=== PATIENT | female | born 1935 | race African-American/Black ===

== ENCOUNTER 2017-07-30 16:28 | Inpatient (IN) | payer MEDICARE, OTHER ==
[~2017-07-30] VITALS: Ht 157.5 cm; Wt 83.9 kg
[~2017-07-30 16:28] MED LIST: ADVAIR 250-501 EACH INH; ALBUTEROL2.5 MG/3 M INH; AMOX TR-K CLV1 EAC1 ORAL; CEFTIN250 MG ORAL; DONEPEZIL HCL10 M2 ORAL; FERROUS SULFAT325 MG ORAL; GERI-TUSSI100 MG/5 M PO; HYDRALAZINE HCL10 MG ORAL; IMODIUM2 MG ORAL; LISINOPRIL5 MG ORAL; OMEPRAZOLE20 M2 ORAL; ONDANSETRON ODT4 MG ORAL; PERIGUARD OINT100 GM TP; TYLENOL650 MG/20. ORAL; VITAMIN C500 M1 ORAL; ZOFRAN4 M1 ORAL
[2017-07-30 16:40] VITALS: BP 95/58
--- NOTE | 2017-07-30 17:17 | Emergency Room Report ---
History of Present Illness General Chief Complaint: Dyspnea/Respdistress Source: Patient, Medical Record Present Illness HPI 82-year-old female [facility] weakness and "congestion" History of present illness limited as patient is elderly and possibly demented Review of peripheral prison she has history of pneumonitis, dysphasia, COPD, hypertension, Alzheimer's CK D, anemia Patient is full code Per PMD Dr Jade outmarj of flu at [facility] Allergies: Coded Allergies: NO KNOWN DRUG ALLERGIES (Unverified Allergy, Unknown, 08/31/14) Patient History Past Medical History: other - see HPI Past Surgical History: none Pertinent Family History: none Social History: Denies: smoking, alcohol use, drug use Now: No Immunizations: UTD Reviewed Nursing Documentation: PMH: Agreed, PSxH: Agreed Nursing Documentation-PMH Past Medical History: No History, Except For Hx Cardiac Problems: Yes Hx Hypertension: Yes Hx Pacemaker: No Hx Asthma: No Hx COPD: Yes Hx Diabetes: No Hx Cancer: Yes Hx Gastrointestinal Problems: Yes Hx Dialysis: No Hx Neurological Problems: Yes Hx Cerebrovascular Accident: No Hx Dementia: Yes Hx Seizures: No Hx Weakness: Yes Review of Systems All Other Systems: negative except mentioned in HPI Physical Exam Vital Signs Date Time Temp Pulse Resp B/P (MAP) Pulse Ox O2 Delivery O2 Flow Rate FiO2 07/30/17 16:30 97.5 102 20 91/58 91 Nasal Cannula 4.0 97.5 Sp02 EP Interpretation: reviewed, normal General Appearance: normal inspection, well appearing, no apparent distress, alert, GCS 15, non-toxic, cachetic, thin, other - Elderly appearing Head: normocephalic, atraumatic Eyes: bilateral eye PERRL, bilateral eye EOMI ENT: normal ENT inspection, hearing grossly normal, normal pharynx, no angioedema, normal voice, TMs + canals normal, uvula midline, moist mucus membranes Neck: normal inspection, full range of motion, supple, thyroid normal, no meningismus, no bony tend Respiratory: normal inspection, lungs clear, normal breath sounds, no rhonchi, no respiratory distress, no retraction, no accessory muscle use, no wheezing, speaking full sentences Cardiovascular #1: regular rate, rhythm, no edema, no JVD, normal capillary refill Gastrointestinal: normal inspection, normal bowel sounds, non tender, soft, no mass, no peritonitis, non-distended, no guarding, no hernia, no pulsatile mass Genitourinary: no CVA tenderness Musculoskeletal: normal inspection, back normal, normal range of motion, no calf tenderness, pelvis stable, Dejuan's Sign negative Neurologic: normal inspection, alert, responsive, mold presser III-XII nml as tested, motor strength/tone normal, cerebellar normal, normal gait, speech normal Psychiatric: normal inspection, judgement/insight normal, mood/affect normal, no suicidal/homicidal ideation, no delusions Skin: normal inspection, normal color, no rash Lymphatic: normal inspection, no adenopathy Medical Decision Making Diagnostic Impression: Primary Impression: Sepsis Qualified Codes: A41.9 - Sepsis, unspecified organism Additional Impressions: Weakness CKD (chronic kidney disease) stage 3, GFR 30-59 ml/min JAYCEE (acute kidney injury) Lactic acidosis ER Course Patient is tachycardic Was allegedly hypoxic at [facility] Normotensive here, NOT hypoxic Empiric Abx given IVF NS bolus given - not full 30cc/kg bolus d/t elderly age, unknwon cardiac EF Labs show JAYCEE on CKD, elevated sodium Na Was giving empiric Tamiflu Patient looks improved after IVF, Abx Endorsed to Dr Jade for tele admit 647pm EKG Diagnostic Results Rate: normal Rhythm: NSR ST Segments: no acute changes ASA given to the pt in ED: No Rhythm Strip Diag. Results EP Interpretation: yes Rate: 100 Rhythm: NSR, no PVC's, no ectopy Chest X-Ray Diagnostic Results Chest X-Ray Diagnostic Results : Chest X-Ray Ordered: Yes # of Views/Limited/Complete: 1 View Indication: Shortness of Breath EP Interpretation: Yes Interpretation: no consolidation, no effusion, no pneumothorax, no acute cardiopulmonary disease Impression: No acute disease Electronically Signed by: Dr Marcos Mckeon MD Last Vital Signs Date Time Temp Pulse Resp B/P (MAP) Pulse Ox O2 Delivery O2 Flow Rate FiO2 07/30/17 16:40 97.5 103 16 95/58 95 Nasal Cannula 4.0 97.5 Status: improved Disposition: ADMITTED INPATIENT Condition: Serious MARCOS MCKEON M.D. Jul 30, 2017 17:17
[2017-07-30] MEDS ORDERED: ZESTRIL2.5 MG ORAL (17:39)
[2017-07-30] MEDS ORDERED: ACETAMINOPHEN325 M1 ORAL (17:39)
[2017-07-30] MEDS ORDERED: CRANBERRY425 MG PO ×2 (17:40→18:36)
[2017-07-30] MEDS ORDERED: ASPIRIN81 MG ORAL (17:40)
[2017-07-30] MEDS ORDERED: DOCUSATE SODIU100 MG ORAL (17:41)
[2017-07-30] MEDS ORDERED: MULTIVITAMINS1 EAC8 ORAL (17:41)
[2017-07-30] MEDS ORDERED: VITAMIN B-1100 MG ORAL (17:43)
[2017-07-30] MEDS ORDERED: CALMOSEPTINE OI71 GM TP (17:46)
[2017-07-30] MEDS ORDERED: IBUPROFEN600 MG ORAL (17:46)
[2017-07-30 18:02] LABS: BASOPHILS % (AUTO) 1.6 % (0.0-2.0); EOSINOPHILS % (AUTO) 0.2 % (0.0-3.0); HEMOGLOBIN 12.4 G/DL (12.0-16.0); LYMPHOCYTES % (AUTO) 9.4 % (20.0-45.0); MEAN CORPUSCULAR VOLUME 90 FL (80-99); MONOCYTES % (AUTO) 11.6 % (1.0-10.0); NEUTROPHILS % (AUTO) 77.2 % (45.0-75.0); PLATELET COUNT 221 K/UL (150-450); RED BLOOD COUNT 4.33 M/UL (4.20-5.40); RED CELL DISTRIBUTION WIDTH 12.1 % (11.6-14.8)
[2017-07-30 18:16] LABS: ANION GAP 9 mmol/L (5-15); BLOOD UREA NITROGEN 49 mg/dL (7-18); CALCIUM 9.6 MG/DL (8.5-10.1); CARBON DIOXIDE 30 MMOL/L (21-32); CHLORIDE 115 MMOL/L (98-107); POTASSIUM 4.7 MMOL/L (3.5-5.1); SODIUM 153 MMOL/L (136-145)
[2017-07-30 18:27] VITALS: BP 111/72
[2017-07-30 18:29] LABS: ALANINE AMINOTRANSFERASE 28 U/L (12-78); ALBUMIN 3.4 G/DL (3.4-5.0); ALBUMIN/GLOBULIN RATIO 0.8 (1.0-2.7); ALKALINE PHOSPHATASE 70 U/L (46-116); ASPARTATE AMINO TRANSFERASE 44 U/L (15-37); BILIRUBIN,TOTAL 0.4 MG/DL (0.2-1.0); CKMB < 0.5 NG/ML (0.0-3.6); CREATINE KINASE 317 U/L (26-308)
[2017-07-30] MEDS ORDERED: Oseltamivir 75mg cap ORAL SCH (18:45)
--- NOTE | 2017-07-30 19:07 | History & Physical ---
History and Physical History & Physicial 82-year-old female sent from [facility] for weakness and "congestion" History of present illness limited as patient is elderly and possibly demented Review of peripheral correction she has history of pneumonitis, dysphasia, COPD, hypertension, Alzheimer's CK D, anemia Patient is full code Past Medical History: No History, Except For Hx Cardiac Problems: Yes Hx Hypertension: Yes Hx COPD: Yes Hx Cancer: Yes Hx Gastrointestinal Problems: Yes Hx Neurological Problems: Yes Hx Dementia: Yes Hx Weakness: Yes Sepsis / UTI / Lactic acidosis / Hypotension Weakness CKD (chronic kidney disease) stage 3, GFR 30-59 ml/min JAYCEE (acute kidney injury) Dehydration Lactic acidosis Acute encephalopathy IV Hydrate- fluid challenge Antibiotics- NPO St eval Monitor renal parameters per orders ID eval breathing treatment # [id number] ARA JULIEN Jul 30, 2017 19:07
[2017-07-30 19:15] LABS: APPEARANCE,URINE CLOUDY; BILIRUBIN, URINE NEGATIVE (NEGATIVE); GLUCOSE, URINE (UA) NEGATIVE (NEGATIVE); KETONES,URINE NEGATIVE (NEGATIVE); LEUKOCYTE ESTERASE ,URINE 3+ (NEGATIVE); NITRITE,URINE NEGATIVE (NEGATIVE); PH,URINE 5 (4.5-8.0); PROTEIN,URINE 2+ (NEGATIVE); UROBILINOGEN,URINE 1 MG/DL (0.0-1.0)
[2017-07-30] MEDS ORDERED: Albuterol ud Inhalation HHN PRN (19:15)
[2017-07-30] MEDS ORDERED: Vancomycin 750mg/NS 250ml 250 ML IVPB ONE (19:15)
[2017-07-30 19:16] LABS: COLOR,URINE YELLOW
[2017-07-30 19:40] VITALS: BP 105/70
[2017-07-30] MEDS ORDERED: Vancomycin 1gm/D5W 275ml IVPB ONE ×2 (21:00)
[2017-07-30] MEDS: Pantoprazole Inj IVP SCH (21:26)
[2017-07-30] MEDS: Heparin 5000 units/ml inj SUBQ SCH (21:28)
--- NOTE | 2017-07-30 22:43 | Infectious Diseases Prog Note ---
Assessment/Plan Problems: (1) UTI (urinary tract infection) Assessment & Plan: continue zosyn pending urine culture results (2) Sepsis Assessment & Plan: continue vancomycin and zosyn empiric coverage pending blood culture (3) Dehydration Assessment & Plan: continue IVF for hydration (4) Lactic acidosis Assessment & Plan: due to the above, continue hydration monitor lactic acid (5) Altered mental status Assessment & Plan: due to the above, continue neuro check, consider brain images (6) JAYCEE (acute kidney injury) Assessment & Plan: due to dehydration, continue IVF, monitor renal function , nephrology is following Subjective Allergies: Coded Allergies: NO KNOWN DRUG ALLERGIES (Unverified Allergy, Unknown, 08/31/14) Objective Vital Signs Last 24 Hour Vital Signs Date Time Temp Pulse Resp B/P (MAP) Pulse Ox O2 Delivery O2 Flow Rate FiO2 07/30/17 20:35 98.8 99 17 105/70 100 Nasal Cannula 4.0 98.8 07/30/17 19:40 98.8 99 17 105/70 100 Nasal Cannula 4.0 98.8 07/30/17 18:27 97.5 100 14 111/72 100 Nasal Cannula 4.0 97.5 07/30/17 16:40 97.5 103 16 95/58 95 Nasal Cannula 4.0 97.5 07/30/17 16:40 102 20 Nasal Cannula 4.0 07/30/17 16:30 97.5 102 20 91/58 91 Nasal Cannula 4.0 97.5 Height (Feet): 5 Height (Inches): 4.00 Weight (Pounds): 130 Microbiology Date/Time Source Procedure Growth Status 07/30/17 19:00 Nasal Nares Influenza Types A,B Antigen (MARA) - Final Complete Laboratory Tests Test 07/30/17 17:40 07/30/17 19:00 07/30/17 19:37 White Blood Count 9.0 K/UL (4.8-10.8) Red Blood Count 4.33 M/UL (4.20-5.40) Hemoglobin 12.4 G/DL (12.0-16.0) Hematocrit 39.0 % (37.0-47.0) Mean Corpuscular Volume 90 FL (80-99) Mean Corpuscular Hemoglobin 28.8 PG (27.0-31.0) Mean Corpuscular Hemoglobin Concent 31.9 G/DL (32.0-36.0) L Red Cell Distribution Width 12.1 % (11.6-14.8) Platelet Count 221 K/UL (150-450) Mean Platelet Volume 7.5 FL (6.5-10.1) Neutrophils (%) (Auto) 77.2 % (45.0-75.0) H Lymphocytes (%) (Auto) 9.4 % (20.0-45.0) L Monocytes (%) (Auto) 11.6 % (1.0-10.0) H Eosinophils (%) (Auto) 0.2 % (0.0-3.0) Basophils (%) (Auto) 1.6 % (0.0-2.0) Sodium Level 153 MMOL/L (136-145) H Potassium Level 4.7 MMOL/L (3.5-5.1) Chloride Level 115 MMOL/L (98-107) H Carbon Dioxide Level 30 MMOL/L (21-32) Anion Gap 9 mmol/L (5-15) Blood Urea Nitrogen 49 mg/dL (7-18) H Creatinine 2.0 MG/DL (0.55-1.30) H Estimat Glomerular Filtration Rate mL/min (>60) Glucose Level 114 MG/DL (74-106) H Lactic Acid Level 3.90 mmol/L (0.66-2.22) H 1.50 mmol/L (0.66-2.22) Calcium Level 9.6 MG/DL (8.5-10.1) Total Bilirubin 0.4 MG/DL (0.2-1.0) Aspartate Amino Transf (AST/SGOT) 44 U/L (15-37) H Alanine Aminotransferase (ALT/SGPT) 28 U/L (12-78) Alkaline Phosphatase 70 U/L (46-116) Total Creatine Kinase 317 U/L (26-308) H Creatine Kinase MB < 0.5 NG/ML (0.0-3.6) Creatine Kinase MB Relative Index 0.1 Troponin I 0.018 ng/mL (0.000-0.056) Total Protein 7.8 G/DL (6.4-8.2) Albumin 3.4 G/DL (3.4-5.0) Globulin 4.4 g/dL Albumin/Globulin Ratio 0.8 (1.0-2.7) L Urine Color Yellow Urine Appearance Cloudy Urine pH 5 (4.5-8.0) Urine Specific [place] 1.015 (1.005-1.035) Urine Protein 2+ (NEGATIVE) H Urine Glucose (UA) Negative (NEGATIVE) Urine Ketones Negative (NEGATIVE) Urine Occult Blood 4+ (NEGATIVE) H Urine Nitrite Negative (NEGATIVE) Urine Bilirubin Negative (NEGATIVE) Urine Urobilinogen 1 MG/DL (0.0-1.0) H Urine Leukocyte Esterase 3+ (NEGATIVE) H Urine RBC Tntc /HPF (0 - 2) H Urine WBC Tntc /HPF (0 - 2) H Urine Squamous Epithelial Cells Few /LPF (NONE/OCC) Urine Bacteria Many /HPF (NONE) H Current Medications Medications (Trade) Dose Ordered Sig/Kimberley Route PRN Reason Start Time Stop Time Status Last Admin Dose Admin Acetaminophen (Tylenol) 325 mg Q6H PRN ORAL Mild Pain/Temp > 100.5 07/30/17 19:15 08/29/17 19:14 Albuterol Sulfate (Proventil) 2.5 mg Q6H PRN HHN Shortness of Breath 07/30/17 19:15 08/04/17 19:14 Aspirin (ASA) 81 mg DAILY ORAL 07/31/17 09:00 08/30/17 08:59 Dextrose 1,000 ml @ 75 mls/hr [id number] IV 07/30/17 19:15 08/29/17 19:14 07/30/17 21:26 Docusate Sodium (Colace) 100 mg TWICE A DAY ORAL 07/31/17 09:00 08/30/17 08:59 Heparin Sodium (Porcine) (Heparin 5000 units/ml) 5,000 units EVERY 12 HOURS SUBQ 07/30/17 21:00 08/29/17 20:59 07/30/17 21:28 Oseltamivir Phosphate (Tamiflu) 75 mg DAILY ORAL 07/31/17 09:00 08/05/17 08:59 UNV Pantoprazole (Protonix) 40 mg BID IVP 07/30/17 20:12 08/29/17 20:11 07/30/17 21:26 Piperacillin Sod/ Tazobactam Sod 3.375 gm/Sodium Chloride 110 ml @ 220 mls/hr Q8HR IVPB 07/30/17 22:00 08/06/17 21:59 Thiamine HCl (Vitamin B1) 100 mg DAILY ORAL 07/31/17 09:00 08/30/17 08:59 Vancomycin HCl (Vanco rx to dose) 1 ea DAILY PRN MISC Per rx protocol 07/30/17 19:15 08/29/17 19:14 Jasmyn Peterson M.D. Jul 30, 2017 22:43
[2017-07-30] MEDS: Piperacillin/Tazobactam 3.375 GM in NS 110 ML IVPB SCH (23:46)
[2017-07-31] VITALS (7 sets, daily range): BP systolic 104–140; BP diastolic 58–77
[2017-07-31] MEDS: Piperacillin/Tazobactam 3.375 GM in NS 110 ML IVPB SCH ×2 (05:56→22:48)
[2017-07-31] MEDS: Pantoprazole Inj IVP SCH ×2 (08:30→20:26)
[2017-07-31] MEDS: Heparin 5000 units/ml inj SUBQ SCH ×2 (08:31→20:25)
--- NOTE | 2017-07-31 08:41 | Diagnostic Imaging Report ---
Indication: Shortness of breath Technique: One view of the chest Comparison: 11/06/2014 Findings: Patient is rotated to the left. There is elevation of the left hemidiaphragm. There is atelectasis at the left lung base. Left upper lung, right lung and pleural space are clear. Previously demonstrated right perihilar atelectasis is not evident currently. The heart is upper limits of normal in size Impression: Left basilar volume loss with atelectasis. No acute process otherwise
[2017-07-31] MEDS ORDERED: Thiamine 100mg tab ORAL SCH (09:00)
[2017-07-31] MEDS ORDERED: Oseltamivir 75mg cap ORAL SCH (09:00)
[2017-07-31] MEDS ORDERED: Aspirin Baby 81mg ORAL SCH (09:00)
[2017-07-31] MEDS ORDERED: Docusate 100mg cap ORAL SCH (09:00)
[2017-07-31 10:01] LABS: BASOPHILS % (AUTO) 0.4 % (0.0-2.0); HEMATOCRIT 33.6 % (37.0-47.0); HEMOGLOBIN 10.7 G/DL (12.0-16.0); LYMPHOCYTES % (AUTO) 21.3 % (20.0-45.0); MEAN CORPUSCULAR VOLUME 90 FL (80-99); MONOCYTES % (AUTO) 9.3 % (1.0-10.0); PLATELET COUNT 198 K/UL (150-450); RED BLOOD COUNT 3.76 M/UL (4.20-5.40); WHITE BLOOD COUNT 7.6 K/UL (4.8-10.8)
[2017-07-31 10:20] LABS: ANION GAP 9 mmol/L (5-15); BLOOD UREA NITROGEN 38 mg/dL (7-18); CALCIUM 8.9 MG/DL (8.5-10.1); CARBON DIOXIDE 27 MMOL/L (21-32); CHLORIDE 115 MMOL/L (98-107); CREATININE 1.7 MG/DL (0.55-1.30); POTASSIUM 4.3 MMOL/L (3.5-5.1); SODIUM 151 MMOL/L (136-145)
[2017-07-31 10:26] LABS: ALANINE AMINOTRANSFERASE 11 U/L (12-78); ALBUMIN 2.6 G/DL (3.4-5.0); ALBUMIN/GLOBULIN RATIO 0.6 (1.0-2.7); ALKALINE PHOSPHATASE 58 U/L (46-116); ASPARTATE AMINO TRANSFERASE 31 U/L (15-37); BILIRUBIN,TOTAL 0.6 MG/DL (0.2-1.0); PHOSPHORUS 3.7 MG/DL (2.5-4.9)
[2017-07-31 10:33] LABS: CHOLESTEROL 129 MG/DL (< 200); HDL CHOLESTEROL 42 MG/DL (40-60); TRIGLYCERIDES 118 MG/DL (30-150)
--- NOTE | 2017-07-31 11:13 | General Progress Note ---
Assessment/Plan Problem List: (1) Sepsis ICD Codes: A41.9 - Sepsis, unspecified organism SNOMED: 67274707 (2) Dementia ICD Codes: F03.90 - Dementia SNOMED: 23986890 (3) JAYCEE (acute kidney injury) ICD Codes: N17.9 - JAYCEE (acute kidney injury) SNOMED: 74916905 (4) CKD (chronic kidney disease) stage 3, GFR 30-59 ml/min ICD Codes: N18.3 - CKD (chronic kidney disease) stage 3, GFR 30-59 ml/min SNOMED: 803047963 (5) Dehydration ICD Codes: E86.0 - Dehydration SNOMED: 30615266 (6) Lactic acidosis ICD Codes: E87.2 - Acidosis SNOMED: 05049352 (7) Functional quadriplegia ICD Codes: R53.2 - Functional quadriplegia SNOMED: 762352247173568 (8) Pneumonia Assessment & Plan: left base ICD Codes: J18.9 - Pneumonia, unspecified organism SNOMED: 939750958 Status: stable Status Narrative Sepsis / UTI / Lactic acidosis Weakness CKD (chronic kidney disease) stage 3, GFR 30-59 ml/min JAYCEE (acute kidney injury) Dehydration Lactic acidosis Acute encephalopathy Assessment/Plan IV Hydrate- fluid challenge Antibiotics- NPO St eval Monitor renal parameters per orders ID eval breathing treatment Subjective ROS Limited/Unobtainable: No Constitutional: Reports: malaise, other - non verbal Allergies: Coded Allergies: NO KNOWN DRUG ALLERGIES (Unverified Allergy, Unknown, 08/31/14) Objective Last 24 Hour Vital Signs Date Time Temp Pulse Resp B/P (MAP) Pulse Ox O2 Delivery O2 Flow Rate FiO2 07/31/17 08:36 Nasal Cannula 3.5 07/31/17 08:35 97 Nasal Cannula 3.5 07/31/17 08:34 83 22 Nasal Cannula 3.5 07/31/17 08:00 97.7 74 18 104/67 99 Nasal Cannula 3.0 97.7 07/31/17 04:00 98.1 76 19 106/58 97 Nasal Cannula 3.0 98.1 07/31/17 04:00 79 07/31/17 00:00 97.9 77 20 106/62 99 Nasal Cannula 3.0 97.9 07/31/17 00:00 86 3/8/18 21:01 90 07/30/17 20:35 98.8 99 17 105/70 100 Nasal Cannula 4.0 98.8 07/30/17 19:40 98.8 99 17 105/70 100 Nasal Cannula 4.0 98.8 07/30/17 18:27 97.5 100 14 111/72 100 Nasal Cannula 4.0 97.5 07/30/17 16:40 97.5 103 16 95/58 95 Nasal Cannula 4.0 97.5 07/30/17 16:40 102 20 Nasal Cannula 4.0 07/30/17 16:30 97.5 102 20 91/58 91 Nasal Cannula 4.0 97.5 Intake and Output 07/30/17 07/31/17 19:00 07:00 Intake Total 0 ml 1300 ml Output Total 495 ml Balance 0 ml 805 ml Intake Oral 0 ml IV Total 1300 ml Output Urine Total 495 ml # Voids 6 Laboratory Tests 07/30/17 17:40: White Blood Count 9.0, Red Blood Count 4.33, Hemoglobin 12.4, Hematocrit 39.0, Mean Corpuscular Volume 90, Mean Corpuscular Hemoglobin 28.8, Mean Corpuscular Hemoglobin Concent 31.9L, Red Cell Distribution Width 12.1, Platelet Count 221, Mean Platelet Volume 7.5, Neutrophils (%) (Auto) 77.2H, Lymphocytes (%) (Auto) 9.4L, Monocytes (%) (Auto) 11.6H, Eosinophils (%) (Auto) 0.2, Basophils (%) ( Auto) 1.6, Sodium Level 153H, Potassium Level 4.7, Chloride Level 115H, Carbon Dioxide Level 30, Anion Gap 9, Blood Urea Nitrogen 49H, Creatinine 2.0H, Estimat Glomerular Filtration Rate , Glucose Level 114H, Lactic Acid Level 3.90H , Calcium Level 9.6, Total Bilirubin 0.4, Aspartate Amino Transf (AST/SGOT) 44H , Alanine Aminotransferase (ALT/SGPT) 28, Alkaline Phosphatase 70, Total Creatine Kinase 317H, Creatine Kinase MB < 0.5, Creatine Kinase MB Relative Index 0.1, Troponin I 0.018, Total Protein 7.8, Albumin 3.4, Globulin 4.4, Albumin/Globulin Ratio 0.8L 07/30/17 19:00: Urine Color Yellow, Urine Appearance Cloudy, Urine pH 5, Urine Specific [place] 1.015, Urine Protein 2+H, Urine Glucose (UA) Negative, Urine Ketones Negative, Urine Occult Blood 4+H, Urine Nitrite Negative, Urine Bilirubin Negative, Urine Urobilinogen 1H, Urine Leukocyte Esterase 3+H, Urine RBC TntcH, Urine WBC TntcH , Urine Squamous Epithelial Cells Few, Urine Bacteria ManyH 07/30/17 19:37: Lactic Acid Level 1.50 07/31/17 09:32: White Blood Count 7.6, Red Blood Count 3.76L, Hemoglobin 10.7L, Hematocrit 33.6L , Mean Corpuscular Volume 90, Mean Corpuscular Hemoglobin 28.5, Mean Corpuscular Hemoglobin Concent 31.8L, Red Cell Distribution Width 12.0, Platelet Count 198, Mean Platelet Volume 7.5, Neutrophils (%) (Auto) 68.0, Lymphocytes (%) (Auto) 21.3, Monocytes (%) (Auto) 9.3, Eosinophils (%) (Auto) 1.0, Basophils (%) (Auto) 0.4, Sodium Level 151H, Potassium Level 4.3, Chloride Level 115H, Carbon Dioxide Level 27, Anion Gap 9, Blood Urea Nitrogen 38H, Creatinine 1.7H, Estimat Glomerular Filtration Rate , Glucose Level 86, Calcium Level 8.9, Total Bilirubin 0.6, Aspartate Amino Transf (AST/SGOT) 31, Alanine Aminotransferase (ALT/SGPT) 11L, Alkaline Phosphatase 58, Total Protein 6.6, Albumin 2.6L, Globulin 4.0, Albumin/Globulin Ratio 0.6L, Phosphorus Level 3.7, Magnesium Level 1.9, C-Reactive Protein, Quantitative 8.2H, Triglycerides Level 118, Cholesterol Level 129, LDL Cholesterol 63, HDL Cholesterol 42, Cholesterol/ HDL Ratio 3.1L, Thyroid Stimulating Hormone (TSH) 0.068L Height (Feet): 5 Height (Inches): 4.00 Weight (Pounds): 130 General Appearance: lethargic Cardiovascular: normal rate Respiratory/Chest: decreased breath sounds Abdomen: soft Edema: no edema noted Arm (L), no edema noted Arm (R), no edema noted Leg (L), no edema noted Leg (R), no edema noted Pedal (L), no edema noted Pedal (R), no edema noted Generalized ARA JULIEN 9, 2018 11:13
[2017-07-31] MEDS ORDERED: Promethazine/Codeine 5ml UD ORAL PRN ×2 (11:45→19:00)
--- NOTE | 2017-07-31 11:51 | Consultation ---
History of Present Illness General Date patient seen: Jul 31, 2017 Chief Complaint: Dyspnea/Respdistress Reason for Consultation: dypsnea Present Illness HPI 82-year-old female with hx of Dementia, COPD, cachexia, long term resident sent in for weakness and "congestion". The pt is very poor historian and all information is obtained from the chart. pt looks comfortable. Pt is admitted for possible sepsis. Pts daughter who is at bed site and giving the HPI. Allergies: Coded Allergies: NO KNOWN DRUG ALLERGIES (Unverified Allergy, Unknown, 08/31/14) Medication History Scheduled Aspirin* (Aspirin*), 81 MG ORAL DAILY, (Reported) Cranberry Extract (Cranberry), 850 MG PO BID, (Reported) Docusate Sodium* (Docusate Sodium*), 100 MG ORAL TWICE A DAY, (Reported) Donepezil Hcl* (Donepezil Hcl*), 10 MG ORAL QHS, (Reported) Lisinopril* (Zestril*), 2.5 MG ORAL DAILY, (Reported) Multivitamin With Minerals (Multivitamins With Minerals*), 1 TAB ORAL DAILY, ( Reported) Thiamine Hcl* (Vitamin B-1*), 100 MG ORAL DAILY, (Reported) Scheduled PRN Acetaminophen* (Acetaminophen 325MG Tablet*), 325 MG ORAL Q6H PRN for Mild Pain/ Temp > 100.5, (Reported) Albuterol Sulfate* (Albuterol Sulfate Hhn*), 3 ML INH Q6H PRN for Shortness of Breath, (Reported) Ibuprofen* (Motrin*), 200 MG ORAL THREE TIMES A DAY PRN for For Pain, (Reported) Loperamide HCl (Loperamide), 2 MG ORAL EVERY 6 HOURS PRN for Diarrhea, (Reported ) Miscellaneous Medications Menthol/Zinc Oxide (Calmoseptine Ointment), 71 GM TP, (Reported) Discontinued Medications Amoxicillin/Potassium Clav 500-125 Mg Tab* (Amox Tr-K Clv 500-125 Mg Tab*), 500 MG ORAL EVERY 8 HOURS Discontinued Reason: Therapy completed Ascorbic Acid* (Vitamin C*), 500 MG ORAL DAILY, (Reported) Discontinued Reason: Pt stopped taking med Cefuroxime Axetil* (Ceftin*), 250 MG ORAL EVERY 12 HOURS Discontinued Reason: MD discontinued med Ferrous Sulfate* (Ferrous Sulfate*), 325 MG ORAL DAILY, (Reported) Discontinued Reason: Pt stopped taking med Fluticasone/Salmeterol (Advair 250-50 Diskus), 1 PUFF INH Q12HR, (Reported) Discontinued Reason: Pt stopped taking med Guaifenesin (Kay-Tussin), 100 MG PO EVERY 4 HOURS PRN for For Cough, (Reported) Discontinued Reason: Pt stopped taking med Hydralazine Hcl* (Hydralazine Hcl*), 10 MG ORAL EVERY 6 HOURS PRN for For High Blood Pressure, (Reported) Discontinued Reason: Pt stopped taking med Omeprazole (Omeprazole), 20 MG ORAL BEFORE MEALS, (Reported) Discontinued Reason: Pt stopped taking med Ondansetron Odt* (Zofran Odt*), 4 MG ORAL EVERY 4 HOURS, (Reported) Discontinued Reason: Pt stopped taking med Vit A/Vitamin D3/E/Aloe V/Znox (Periguard Ointment), 100 GM TP, (Reported) Discontinued Reason: Pt stopped taking med Patient History Healthcare decision maker Resuscitation status Full Code Advanced Directive on File Yes Past Medical/Surgical History Past Medical/Surgical History: (1) CKD (chronic kidney disease) stage 3, GFR 30-59 ml/min (2) Dementia (3) Functional quadriplegia Review of Systems Respiratory: Reports: shortness of breath All Other Systems: negative except mentioned in HPI Physical Exam General Appearance: cachetic Lines, tubes and drains: peripheral HEENT: normocephalic, atraumatic Neck: non-tender, normal alignment Respiratory/Chest: chest wall non-tender, lungs clear Cardiovascular/Chest: normal peripheral pulses, normal rate Abdomen: normal bowel sounds, non tender Genitourinary/Rectal: normal genital exam Extremities: normal range of motion, non-tender Skin Exam: normal pigmentation Last 24 Hour Vital Signs Date Time Temp Pulse Resp B/P (MAP) Pulse Ox O2 Delivery O2 Flow Rate FiO2 07/31/17 08:36 Nasal Cannula 3.5 07/31/17 08:35 97 Nasal Cannula 3.5 07/31/17 08:34 83 22 Nasal Cannula 3.5 07/31/17 08:00 97.7 74 18 104/67 99 Nasal Cannula 3.0 97.7 07/31/17 04:00 98.1 76 19 106/58 97 Nasal Cannula 3.0 98.1 07/31/17 04:00 79 07/31/17 00:00 97.9 77 20 106/62 99 Nasal Cannula 3.0 97.9 07/31/17 00:00 86 07/30/17 21:01 90 07/30/17 20:35 98.8 99 17 105/70 100 Nasal Cannula 4.0 98.8 07/30/17 19:40 98.8 99 17 105/70 100 Nasal Cannula 4.0 98.8 07/30/17 18:27 97.5 100 14 111/72 100 Nasal Cannula 4.0 97.5 07/30/17 16:40 97.5 103 16 95/58 95 Nasal Cannula 4.0 97.5 07/30/17 16:40 102 20 Nasal Cannula 4.0 07/30/17 16:30 97.5 102 20 91/58 91 Nasal Cannula 4.0 97.5 Intake and Output 07/30/17 07/31/17 19:00 07:00 Intake Total 0 ml 1300 ml Output Total 495 ml Balance 0 ml 805 ml Intake Oral 0 ml IV Total 1300 ml Output Urine Total 495 ml # Voids 6 Laboratory Tests Test 07/30/17 17:40 07/30/17 19:00 07/30/17 19:37 07/31/17 09:32 White Blood Count 9.0 K/UL (4.8-10.8) 7.6 K/UL (4.8-10.8) Red Blood Count 4.33 M/UL (4.20-5.40) 3.76 M/UL (4.20-5.40) L Hemoglobin 12.4 G/DL (12.0-16.0) 10.7 G/DL (12.0-16.0) L Hematocrit 39.0 % (37.0-47.0) 33.6 % (37.0-47.0) L Mean Corpuscular Volume 90 FL (80-99) 90 FL (80-99) Mean Corpuscular Hemoglobin 28.8 PG (27.0-31.0) 28.5 PG (27.0-31.0) Mean Corpuscular Hemoglobin Concent 31.9 G/DL (32.0-36.0) L 31.8 G/DL (32.0-36.0) L Red Cell Distribution Width 12.1 % (11.6-14.8) 12.0 % (11.6-14.8) Platelet Count 221 K/UL (150-450) 198 K/UL (150-450) Mean Platelet Volume 7.5 FL (6.5-10.1) 7.5 FL (6.5-10.1) Neutrophils (%) (Auto) 77.2 % (45.0-75.0) H 68.0 % (45.0-75.0) Lymphocytes (%) (Auto) 9.4 % (20.0-45.0) L 21.3 % (20.0-45.0) Monocytes (%) (Auto) 11.6 % (1.0-10.0) H 9.3 % (1.0-10.0) Eosinophils (%) (Auto) 0.2 % (0.0-3.0) 1.0 % (0.0-3.0) Basophils (%) (Auto) 1.6 % (0.0-2.0) 0.4 % (0.0-2.0) Sodium Level 153 MMOL/L (136-145) H 151 MMOL/L (136-145) H Potassium Level 4.7 MMOL/L (3.5-5.1) 4.3 MMOL/L (3.5-5.1) Chloride Level 115 MMOL/L (98-107) H 115 MMOL/L (98-107) H Carbon Dioxide Level 30 MMOL/L (21-32) 27 MMOL/L (21-32) Anion Gap 9 mmol/L (5-15) 9 mmol/L (5-15) Blood Urea Nitrogen 49 mg/dL (7-18) H 38 mg/dL (7-18) H Creatinine 2.0 MG/DL (0.55-1.30) H 1.7 MG/DL (0.55-1.30) H Estimat Glomerular Filtration Rate mL/min (>60) mL/min (>60) Glucose Level 114 MG/DL (74-106) H 86 MG/DL (74-106) Lactic Acid Level 3.90 mmol/L (0.66-2.22) H 1.50 mmol/L (0.66-2.22) Calcium Level 9.6 MG/DL (8.5-10.1) 8.9 MG/DL (8.5-10.1) Total Bilirubin 0.4 MG/DL (0.2-1.0) 0.6 MG/DL (0.2-1.0) Aspartate Amino Transf (AST/SGOT) 44 U/L (15-37) H 31 U/L (15-37) Alanine Aminotransferase (ALT/SGPT) 28 U/L (12-78) 11 U/L (12-78) L Alkaline Phosphatase 70 U/L (46-116) 58 U/L (46-116) Total Creatine Kinase 317 U/L (26-308) H Creatine Kinase MB < 0.5 NG/ML (0.0-3.6) Creatine Kinase MB Relative Index 0.1 Troponin I 0.018 ng/mL (0.000-0.056) Total Protein 7.8 G/DL (6.4-8.2) 6.6 G/DL (6.4-8.2) Albumin 3.4 G/DL (3.4-5.0) 2.6 G/DL (3.4-5.0) L Globulin 4.4 g/dL 4.0 g/dL Albumin/Globulin Ratio 0.8 (1.0-2.7) L 0.6 (1.0-2.7) L Urine Color Yellow Urine Appearance Cloudy Urine pH 5 (4.5-8.0) Urine Specific [place] 1.015 (1.005-1.035) Urine Protein 2+ (NEGATIVE) H Urine Glucose (UA) Negative (NEGATIVE) Urine Ketones Negative (NEGATIVE) Urine Occult Blood 4+ (NEGATIVE) H Urine Nitrite Negative (NEGATIVE) Urine Bilirubin Negative (NEGATIVE) Urine Urobilinogen 1 MG/DL (0.0-1.0) H Urine Leukocyte Esterase 3+ (NEGATIVE) H Urine RBC Tntc /HPF (0 - 2) H Urine WBC Tntc /HPF (0 - 2) H Urine Squamous Epithelial Cells Few /LPF (NONE/OCC) Urine Bacteria Many /HPF (NONE) H Phosphorus Level 3.7 MG/DL (2.5-4.9) Magnesium Level 1.9 MG/DL (1.8-2.4) C-Reactive Protein, Quantitative 8.2 mg/dL (0.00-0.90) H Triglycerides Level 118 MG/DL (30-150) Cholesterol Level 129 MG/DL (< 200) LDL Cholesterol 63 mg/dL (<100) HDL Cholesterol 42 MG/DL (40-60) Cholesterol/HDL Ratio 3.1 (3.3-4.4) L Thyroid Stimulating Hormone (TSH) 0.068 uiU/mL (0.358-3.740) Microbiology Date/Time Source Procedure Growth Status 07/30/17 19:00 Nasal Nares Influenza Types A,B Antigen (MARA) - Final Complete 07/30/17 19:00 Indwelling Cath Urine Culture - Preliminary Resulted Height (Feet): 5 Height (Inches): 4.00 Weight (Pounds): 130 Medications Current Medications Medications (Trade) Dose Ordered Sig/Kimberley Route PRN Reason Start Time Stop Time Status Last Admin Dose Admin Acetaminophen (Tylenol) 325 mg Q6H PRN ORAL Mild Pain/Temp > 100.5 07/30/17 19:15 08/29/17 19:14 Albuterol Sulfate (Proventil) 2.5 mg Q4HRT HHN 07/31/17 15:00 08/05/17 14:59 Albuterol Sulfate (Proventil) 2.5 mg Q6H PRN HHN Shortness of Breath 07/30/17 19:15 08/04/17 19:14 Aspirin (ASA) 81 mg DAILY ORAL 07/31/17 09:00 08/30/17 08:59 07/31/17 08:30 Dextrose 1,000 ml @ 75 mls/hr [id number] IV 07/30/17 19:15 08/29/17 19:14 07/30/17 21:26 Docusate Sodium (Colace) 100 mg TWICE A DAY ORAL 07/31/17 09:00 08/30/17 08:59 07/31/17 08:29 Heparin Sodium (Porcine) (Heparin 5000 units/ml) 5,000 units EVERY 12 HOURS SUBQ 07/30/17 21:00 08/29/17 20:59 07/31/17 08:31 Pantoprazole (Protonix) 40 mg BID IVP 07/30/17 20:12 08/29/17 20:11 07/31/17 08:30 Piperacillin Sod/ Tazobactam Sod 3.375 gm/Sodium Chloride 110 ml @ 27.5 mls/hr Q8HR IVPB 07/31/17 14:00 08/07/17 13:59 Thiamine HCl (Vitamin B1) 100 mg DAILY ORAL 07/31/17 09:00 08/30/17 08:59 07/31/17 08:30 Vancomycin HCl (Vanco rx to dose) 1 ea DAILY PRN MISC Per rx protocol 07/30/17 19:15 08/29/17 19:14 Vancomycin HCl 500 mg/Dextrose 275 ml @ 275 mls/hr QHS IVPB 07/31/17 21:00 08/05/17 20:59 Assessment/Plan Problem List: (1) Aspiration pneumonia ICD Codes: J69.0 - Pneumonitis due to inhalation of food and vomit SNOMED: 814945560 (2) Purulent bronchitis ICD Codes: J41.1 - Mucopurulent chronic bronchitis SNOMED: 69118261 (3) JAYCEE (acute kidney injury) ICD Codes: N17.9 - JAYCEE (acute kidney injury) SNOMED: 91830204 (4) Dementia ICD Codes: F03.90 - Dementia SNOMED: 40903905 (5) Toxic metabolic encephalopathy ICD Codes: G92 - Toxic metabolic encephalopathy SNOMED: 611685587 (6) Alzheimer's dementia ICD Codes: G30.9 - Alzheimer's disease, unspecified; F02.80 - Dementia in other diseases classified elsewhere without behavioral disturbance SNOMED: 48636947 Assessment/Plan wolff cultures iv abx iv fluids swallow study respiratory treatment check electrolytes FRANKIE GUTIERREZ Jul 31, 2017 11:51
--- NOTE | 2017-07-31 13:56 | Infectious Diseases Prog Note ---
Assessment/Plan Problems: (1) UTI (urinary tract infection) Assessment & Plan: continue zosyn pending urine culture results (2) Sepsis Assessment & Plan: continue vancomycin and zosyn empiric coverage pending blood culture (3) Dehydration Assessment & Plan: continue IVF for hydration (4) Lactic acidosis Assessment & Plan: due to the above, continue hydration monitor lactic acid (5) Altered mental status Assessment & Plan: due to the above, continue neuro check, consider brain images (6) JAYCEE (acute kidney injury) Assessment & Plan: due to dehydration, continue IVF, monitor renal function , nephrology is following Subjective ROS Limited/Unobtainable: Yes Allergies: Coded Allergies: NO KNOWN DRUG ALLERGIES (Unverified Allergy, Unknown, 08/31/14) Subjective she was altered, lying in bed, unresponsive to verbal commands, afebrile, drooling , daughter at the bedside Objective Vital Signs Last 24 Hour Vital Signs Date Time Temp Pulse Resp B/P (MAP) Pulse Ox O2 Delivery O2 Flow Rate FiO2 07/31/17 12:00 64 07/31/17 12:00 97.3 72 18 134/77 95 Nasal Cannula 3.0 97.3 07/31/17 08:36 Nasal Cannula 3.5 07/31/17 08:35 97 Nasal Cannula 3.5 07/31/17 08:34 83 22 Nasal Cannula 3.5 07/31/17 08:00 97.7 74 18 104/67 99 Nasal Cannula 3.0 97.7 07/31/17 08:00 73 07/31/17 04:00 98.1 76 19 106/58 97 Nasal Cannula 3.0 98.1 07/31/17 04:00 79 07/31/17 00:00 97.9 77 20 106/62 99 Nasal Cannula 3.0 97.9 07/31/17 00:00 86 07/30/17 21:01 90 07/30/17 20:35 98.8 99 17 105/70 100 Nasal Cannula 4.0 98.8 07/30/17 19:40 98.8 99 17 105/70 100 Nasal Cannula 4.0 98.8 07/30/17 18:27 97.5 100 14 111/72 100 Nasal Cannula 4.0 97.5 07/30/17 16:40 97.5 103 16 95/58 95 Nasal Cannula 4.0 97.5 07/30/17 16:40 102 20 Nasal Cannula 4.0 07/30/17 16:30 97.5 102 20 91/58 91 Nasal Cannula 4.0 97.5 Height (Feet): 5 Height (Inches): 4.00 Weight (Pounds): 130 General Appearance: WD/WN, no acute distress, cachetic HEENT: normocephalic, atraumatic, anicteric, mucous membranes moist, supple, no JVD Respiratory/Chest: chest wall non-tender, normal breath sounds, no respiratory distress, no accessory muscle use, decreased breath sounds Cardiovascular: normal peripheral pulses, normal rate, regular rhythm, no gallop/murmur, no JVD Abdomen: normal bowel sounds, soft, non tender, no organomegaly, non distended , no mass, no scars Extremities: no cyanosis, no clubbing Skin: no rash, no lesions, ulcers Neurologic/Psychiatric: unresponsiveness Lymphatic: no neck adenopathy, no groin adenopathy Musculoskeletal: normal muscle bulk, no effusion Microbiology Date/Time Source Procedure Growth Status 07/30/17 17:49 Blood Blood Culture - Preliminary Resulted 07/30/17 17:40 Blood Blood Culture - Preliminary Resulted 07/30/17 19:00 Nasal Nares Influenza Types A,B Antigen (MARA) - Final Complete 07/30/17 19:00 Indwelling Cath Urine Culture - Preliminary Resulted Laboratory Tests Test 07/30/17 17:40 07/30/17 19:00 07/30/17 19:37 07/31/17 09:32 White Blood Count 9.0 K/UL (4.8-10.8) 7.6 K/UL (4.8-10.8) Red Blood Count 4.33 M/UL (4.20-5.40) 3.76 M/UL (4.20-5.40) L Hemoglobin 12.4 G/DL (12.0-16.0) 10.7 G/DL (12.0-16.0) L Hematocrit 39.0 % (37.0-47.0) 33.6 % (37.0-47.0) L Mean Corpuscular Volume 90 FL (80-99) 90 FL (80-99) Mean Corpuscular Hemoglobin 28.8 PG (27.0-31.0) 28.5 PG (27.0-31.0) Mean Corpuscular Hemoglobin Concent 31.9 G/DL (32.0-36.0) L 31.8 G/DL (32.0-36.0) L Red Cell Distribution Width 12.1 % (11.6-14.8) 12.0 % (11.6-14.8) Platelet Count 221 K/UL (150-450) 198 K/UL (150-450) Mean Platelet Volume 7.5 FL (6.5-10.1) 7.5 FL (6.5-10.1) Neutrophils (%) (Auto) 77.2 % (45.0-75.0) H 68.0 % (45.0-75.0) Lymphocytes (%) (Auto) 9.4 % (20.0-45.0) L 21.3 % (20.0-45.0) Monocytes (%) (Auto) 11.6 % (1.0-10.0) H 9.3 % (1.0-10.0) Eosinophils (%) (Auto) 0.2 % (0.0-3.0) 1.0 % (0.0-3.0) Basophils (%) (Auto) 1.6 % (0.0-2.0) 0.4 % (0.0-2.0) Sodium Level 153 MMOL/L (136-145) H 151 MMOL/L (136-145) H Potassium Level 4.7 MMOL/L (3.5-5.1) 4.3 MMOL/L (3.5-5.1) Chloride Level 115 MMOL/L (98-107) H 115 MMOL/L (98-107) H Carbon Dioxide Level 30 MMOL/L (21-32) 27 MMOL/L (21-32) Anion Gap 9 mmol/L (5-15) 9 mmol/L (5-15) Blood Urea Nitrogen 49 mg/dL (7-18) H 38 mg/dL (7-18) H Creatinine 2.0 MG/DL (0.55-1.30) H 1.7 MG/DL (0.55-1.30) H Estimat Glomerular Filtration Rate mL/min (>60) mL/min (>60) Glucose Level 114 MG/DL (74-106) H 86 MG/DL (74-106) Lactic Acid Level 3.90 mmol/L (0.66-2.22) H 1.50 mmol/L (0.66-2.22) Calcium Level 9.6 MG/DL (8.5-10.1) 8.9 MG/DL (8.5-10.1) Total Bilirubin 0.4 MG/DL (0.2-1.0) 0.6 MG/DL (0.2-1.0) Aspartate Amino Transf (AST/SGOT) 44 U/L (15-37) H 31 U/L (15-37) Alanine Aminotransferase (ALT/SGPT) 28 U/L (12-78) 11 U/L (12-78) L Alkaline Phosphatase 70 U/L (46-116) 58 U/L (46-116) Total Creatine Kinase 317 U/L (26-308) H Creatine Kinase MB < 0.5 NG/ML (0.0-3.6) Creatine Kinase MB Relative Index 0.1 Troponin I 0.018 ng/mL (0.000-0.056) Total Protein 7.8 G/DL (6.4-8.2) 6.6 G/DL (6.4-8.2) Albumin 3.4 G/DL (3.4-5.0) 2.6 G/DL (3.4-5.0) L Globulin 4.4 g/dL 4.0 g/dL Albumin/Globulin Ratio 0.8 (1.0-2.7) L 0.6 (1.0-2.7) L Urine Color Yellow Urine Appearance Cloudy Urine pH 5 (4.5-8.0) Urine Specific [place] 1.015 (1.005-1.035) Urine Protein 2+ (NEGATIVE) H Urine Glucose (UA) Negative (NEGATIVE) Urine Ketones Negative (NEGATIVE) Urine Occult Blood 4+ (NEGATIVE) H Urine Nitrite Negative (NEGATIVE) Urine Bilirubin Negative (NEGATIVE) Urine Urobilinogen 1 MG/DL (0.0-1.0) H Urine Leukocyte Esterase 3+ (NEGATIVE) H Urine RBC Tntc /HPF (0 - 2) H Urine WBC Tntc /HPF (0 - 2) H Urine Squamous Epithelial Cells Few /LPF (NONE/OCC) Urine Bacteria Many /HPF (NONE) H Phosphorus Level 3.7 MG/DL (2.5-4.9) Magnesium Level 1.9 MG/DL (1.8-2.4) C-Reactive Protein, Quantitative 8.2 mg/dL (0.00-0.90) H Triglycerides Level 118 MG/DL (30-150) Cholesterol Level 129 MG/DL (< 200) LDL Cholesterol 63 mg/dL (<100) HDL Cholesterol 42 MG/DL (40-60) Cholesterol/HDL Ratio 3.1 (3.3-4.4) L Thyroid Stimulating Hormone (TSH) 0.068 uiU/mL (0.358-3.740) Current Medications Medications (Trade) Dose Ordered Sig/Kimberley Route PRN Reason Start Time Stop Time Status Last Admin Dose Admin Acetaminophen (Tylenol) 325 mg Q6H PRN ORAL Mild Pain/Temp > 100.5 07/30/17 19:15 08/29/17 19:14 Albuterol Sulfate (Proventil) 2.5 mg Q4HRT HHN 07/31/17 15:00 08/05/17 14:59 Albuterol Sulfate (Proventil) 2.5 mg Q6H PRN HHN Shortness of Breath 07/30/17 19:15 08/04/17 19:14 Aspirin (ASA) 81 mg DAILY ORAL 07/31/17 09:00 08/30/17 08:59 07/31/17 08:30 Dextrose 1,000 ml @ 75 mls/hr [id number] IV 07/30/17 19:15 08/29/17 19:14 07/30/17 21:26 Docusate Sodium (Colace) 100 mg TWICE A DAY ORAL 07/31/17 09:00 08/30/17 08:59 07/31/17 08:29 Heparin Sodium (Porcine) (Heparin 5000 units/ml) 5,000 units EVERY 12 HOURS SUBQ 07/30/17 21:00 08/29/17 20:59 07/31/17 08:31 Pantoprazole (Protonix) 40 mg BID IVP 07/30/17 20:12 08/29/17 20:11 07/31/17 08:30 Piperacillin Sod/ Tazobactam Sod 3.375 gm/Sodium Chloride 110 ml @ 27.5 mls/hr Q8HR IVPB 07/31/17 14:00 08/07/17 13:59 Promethazine HCl/ Codeine (Phenergan with Codeine) 5 ml Q4H PRN ORAL For Cough 07/31/17 11:45 08/30/17 11:44 Thiamine HCl (Vitamin B1) 100 mg DAILY ORAL 07/31/17 09:00 08/30/17 08:59 07/31/17 08:30 Vancomycin HCl (Vanco rx to dose) 1 ea DAILY PRN MISC Per rx protocol 07/30/17 19:15 08/29/17 19:14 Vancomycin HCl 500 mg/Dextrose 275 ml @ 275 mls/hr QHS IVPB 07/31/17 21:00 08/05/17 20:59 Jasmyn Peterson M.D. Jul 31, 2017 13:56
[2017-07-31] MEDS ORDERED: Piperacillin/Tazobactam 3.375 GM in NS 110 ML IVPB SCH (14:00)
[2017-07-31] MEDS ORDERED: Albuterol ud Inhalation HHN SCH (15:00)
--- NOTE | 2017-07-31 16:14 | GI Initial Consult Note ---
Nia Hernandez N.P. 07/31/17 1613: History of Present Illness General Date patient seen: Jul 31, 2017 Time patient seen: 16:06 Reason for Hospitalization: Dyspnea/Respdistress Referring physician: WILY Reason for Consultation: PEG EVALUATION Present Illness HPI 82-year-old female sent from custodial for weakness and "congestion" History of present illness limited as patient is elderly and possibly demented Review of peripheral custodial she has history of pneumonitis, dysphagia, COPD, hypertension, Alzheimer's CK D, anemia Patient is full code Per PMD Dr Jade, outbreak of flu at [facility] GI consulted for PEG evaluation. ROS limited, NAD with no active s/sx of N/V/ D. Daughter at bedside. Extensive discussion with the daughter for GT placement scheduled for next Thursday. All risks/benefits discussed with daughter. Patient presents today with dysphagia, anemia and renal insufficiency. Unknown endoscopy / colonoscopy. Home Meds Active Scripts Levofloxacin* (LEVAQUIN*) 500 Mg Tablet, 500 MG ORAL DAILY for 10 Days, TAB Prov:ARA JADE 08/04/17 Dicloxacillin Sodium (DICLOXACILLIN SODIUM) 500 Mg Capsule, 500 MG ORAL EVERY 6 HOURS for 10 Days, CAP 0 Refills Prov:ARA JADE 08/04/17 Thiamine Hcl (VITAMIN B1*) 100 Mg Tablet, 100 MG ORAL DAILY for 30 Days, TAB Prov:ARA JADE 08/04/17 Metoclopramide HCl (Metoclopramide HCl) 10 Mg/10 Ml Solution, 5 MG GT EVERY 6 HOURS for 30 Days, #120 TAB Prov:ARA JADE 08/04/17 Famotidine (FAMOTIDINE) 20 Mg Tablet, 20 MG GT BID for 30 Days, TAB Prov:ARA JADE 08/04/17 Reported Medications Cranberry Extract (CRANBERRY) 425 Mg Capsule, 850 MG PO BID 07/30/17 Ibuprofen* (MOTRIN*) 600 Mg Tablet, 200 MG ORAL THREE TIMES A DAY Y for For Pain 07/30/17 Menthol/Zinc Oxide (CALMOSEPTINE OINTMENT) 71 Gm Oint...g., 71 GM TP 07/30/17 Thiamine Hcl* (VITAMIN B-1*) 100 Mg Tablet, 100 MG ORAL DAILY 07/30/17 Multivitamin With Minerals (MULTIVITAMINS WITH MINERALS*) 1 Each Tablet, 1 TAB ORAL DAILY 07/30/17 Docusate Sodium* (DOCUSATE SODIUM*) 100 Mg Capsule, 100 MG ORAL TWICE A DAY 07/30/17 Aspirin* (ASPIRIN*) 81 Mg Tab.chew, 81 MG ORAL DAILY 07/30/17 Lisinopril* (ZESTRIL*) 2.5 Mg Tablet, 2.5 MG ORAL DAILY 07/30/17 Acetaminophen* (ACETAMINOPHEN 325MG TABLET*) 325 Mg Tablet, 325 MG ORAL Q6H Y for Mild Pain/Temp > 100.5 07/30/17 Albuterol Sulfate* (ALBUTEROL SULFATE HHN*) 2.5 Mg/3 Ml Vial.neb, 3 ML INH Q6H Y for Shortness of Breath, #30 EA 0 Refills 10/02/14 Loperamide HCl (Loperamide) 2 Mg Cap, 2 MG ORAL EVERY 6 HOURS Y for Diarrhea, # 20 CAP 0 Refills 08/31/14 Donepezil Hcl* (DONEPEZIL HCL*) 10 Mg Tab.rapdis, 10 MG ORAL QHS, TAB 08/31/14 Med list reviewed/reconciled: Yes Allergies: Coded Allergies: NO KNOWN DRUG ALLERGIES (Unverified Allergy, Unknown, 08/31/14) Patient History Limited by: medical condition History Provided By: Family Member, Medical Record PMH Narrative Past Medical History: other - see HPI Past Surgical History: none Pertinent Family History: none Social History: Denies: smoking, alcohol use, drug use Now: No Immunizations: UTD Reviewed Nursing Documentation: PMH: Agreed, PSxH: Agreed Nursing Documentation-PM Past Medical History: No History, Except For Hx Cardiac Problems: Yes Hx Hypertension: Yes Hx Pacemaker: No Hx Asthma: No Hx COPD: Yes Hx Diabetes: No Hx Cancer: Yes Hx Gastrointestinal Problems: Yes Hx Dialysis: No Hx Neurological Problems: Yes Hx Cerebrovascular Accident: No Hx Dementia: Yes Hx Seizures: No Hx Weakness: Yes Social History: Denies: smoking, alcohol use, drug use, other Review of Systems All Other Systems: limited Physical Exam Vital Signs Date Time Temp Pulse Resp B/P (MAP) Pulse Ox O2 Delivery O2 Flow Rate FiO2 07/30/17 16:30 97.5 102 20 91/58 91 Nasal Cannula 4.0 97.5 07/31/17 15:27 32 Sp02 EP Interpretation: reviewed Labs Laboratory Tests Test 07/30/17 17:40 07/30/17 19:00 07/30/17 19:37 07/31/17 09:32 White Blood Count 9.0 K/UL (4.8-10.8) 7.6 K/UL (4.8-10.8) Red Blood Count 4.33 M/UL (4.20-5.40) 3.76 M/UL (4.20-5.40) L Hemoglobin 12.4 G/DL (12.0-16.0) 10.7 G/DL (12.0-16.0) L Hematocrit 39.0 % (37.0-47.0) 33.6 % (37.0-47.0) L Mean Corpuscular Volume 90 FL (80-99) 90 FL (80-99) Mean Corpuscular Hemoglobin 28.8 PG (27.0-31.0) 28.5 PG (27.0-31.0) Mean Corpuscular Hemoglobin Concent 31.9 G/DL (32.0-36.0) L 31.8 G/DL (32.0-36.0) L Red Cell Distribution Width 12.1 % (11.6-14.8) 12.0 % (11.6-14.8) Platelet Count 221 K/UL (150-450) 198 K/UL (150-450) Mean Platelet Volume 7.5 FL (6.5-10.1) 7.5 FL (6.5-10.1) Neutrophils (%) (Auto) 77.2 % (45.0-75.0) H 68.0 % (45.0-75.0) Lymphocytes (%) (Auto) 9.4 % (20.0-45.0) L 21.3 % (20.0-45.0) Monocytes (%) (Auto) 11.6 % (1.0-10.0) H 9.3 % (1.0-10.0) Eosinophils (%) (Auto) 0.2 % (0.0-3.0) 1.0 % (0.0-3.0) Basophils (%) (Auto) 1.6 % (0.0-2.0) 0.4 % (0.0-2.0) Sodium Level 153 MMOL/L (136-145) H 151 MMOL/L (136-145) H Potassium Level 4.7 MMOL/L (3.5-5.1) 4.3 MMOL/L (3.5-5.1) Chloride Level 115 MMOL/L (98-107) H 115 MMOL/L (98-107) H Carbon Dioxide Level 30 MMOL/L (21-32) 27 MMOL/L (21-32) Anion Gap 9 mmol/L (5-15) 9 mmol/L (5-15) Blood Urea Nitrogen 49 mg/dL (7-18) H 38 mg/dL (7-18) H Creatinine 2.0 MG/DL (0.55-1.30) H 1.7 MG/DL (0.55-1.30) H Estimat Glomerular Filtration Rate mL/min (>60) mL/min (>60) Glucose Level 114 MG/DL (74-106) H 86 MG/DL (74-106) Lactic Acid Level 3.90 mmol/L (0.66-2.22) H 1.50 mmol/L (0.66-2.22) Calcium Level 9.6 MG/DL (8.5-10.1) 8.9 MG/DL (8.5-10.1) Total Bilirubin 0.4 MG/DL (0.2-1.0) 0.6 MG/DL (0.2-1.0) Aspartate Amino Transf (AST/SGOT) 44 U/L (15-37) H 31 U/L (15-37) Alanine Aminotransferase (ALT/SGPT) 28 U/L (12-78) 11 U/L (12-78) L Alkaline Phosphatase 70 U/L (46-116) 58 U/L (46-116) Total Creatine Kinase 317 U/L (26-308) H Creatine Kinase MB < 0.5 NG/ML (0.0-3.6) Creatine Kinase MB Relative Index 0.1 Troponin I 0.018 ng/mL (0.000-0.056) Total Protein 7.8 G/DL (6.4-8.2) 6.6 G/DL (6.4-8.2) Albumin 3.4 G/DL (3.4-5.0) 2.6 G/DL (3.4-5.0) L Globulin 4.4 g/dL 4.0 g/dL Albumin/Globulin Ratio 0.8 (1.0-2.7) L 0.6 (1.0-2.7) L Urine Color Yellow Urine Appearance Cloudy Urine pH 5 (4.5-8.0) Urine Specific [place] 1.015 (1.005-1.035) Urine Protein 2+ (NEGATIVE) H Urine Glucose (UA) Negative (NEGATIVE) Urine Ketones Negative (NEGATIVE) Urine Occult Blood 4+ (NEGATIVE) H Urine Nitrite Negative (NEGATIVE) Urine Bilirubin Negative (NEGATIVE) Urine Urobilinogen 1 MG/DL (0.0-1.0) H Urine Leukocyte Esterase 3+ (NEGATIVE) H Urine RBC Tntc /HPF (0 - 2) H Urine WBC Tntc /HPF (0 - 2) H Urine Squamous Epithelial Cells Few /LPF (NONE/OCC) Urine Bacteria Many /HPF (NONE) H Phosphorus Level 3.7 MG/DL (2.5-4.9) Magnesium Level 1.9 MG/DL (1.8-2.4) C-Reactive Protein, Quantitative 8.2 mg/dL (0.00-0.90) H Triglycerides Level 118 MG/DL (30-150) Cholesterol Level 129 MG/DL (< 200) LDL Cholesterol 63 mg/dL (<100) HDL Cholesterol 42 MG/DL (40-60) Cholesterol/HDL Ratio 3.1 (3.3-4.4) L Thyroid Stimulating Hormone (TSH) 0.068 uiU/mL (0.358-3.740) General Appearance: no apparent distress, alert, thin Head: normocephalic EENT: normal ENT inspection Neck: supple Respiratory: normal breath sounds, no respiratory distress Cardiovascular: regular rhythm Gastrointestinal: soft Rectal: deferred Neurologic: alert Skin: normal inspection, normal color, no rash, warm/dry Lymphatic: normal inspection, no adenopathy Current Medications Current Medications Medications (Trade) Dose Ordered Sig/Kimberley Route PRN Reason Start Time Stop Time Status Last Admin Dose Admin Acetaminophen (Tylenol) 325 mg Q6H PRN ORAL Mild Pain/Temp > 100.5 07/30/17 19:15 08/29/17 19:14 Albuterol Sulfate (Proventil) 2.5 mg Q4HRT HHN 07/31/17 15:00 08/05/17 14:59 07/31/17 15:28 Albuterol Sulfate (Proventil) 2.5 mg Q6H PRN HHN Shortness of Breath 07/30/17 19:15 08/04/17 19:14 Aspirin (ASA) 81 mg DAILY ORAL 07/31/17 09:00 08/30/17 08:59 07/31/17 08:30 Dextrose 1,000 ml @ 75 mls/hr [id number] IV 07/30/17 19:15 08/29/17 19:14 07/30/17 21:26 Docusate Sodium (Colace) 100 mg TWICE A DAY ORAL 07/31/17 09:00 08/30/17 08:59 07/31/17 08:29 Heparin Sodium (Porcine) (Heparin 5000 units/ml) 5,000 units EVERY 12 HOURS SUBQ 07/30/17 21:00 08/29/17 20:59 07/31/17 08:31 Pantoprazole (Protonix) 40 mg BID IVP 07/30/17 20:12 08/29/17 20:11 07/31/17 08:30 Piperacillin Sod/ Tazobactam Sod 3.375 gm/Sodium Chloride 110 ml @ 27.5 mls/hr Q8HR IVPB 07/31/17 14:00 08/07/17 13:59 07/31/17 14:02 Promethazine HCl/ Codeine (Phenergan with Codeine) 5 ml Q4H PRN ORAL For Cough 07/31/17 11:45 08/30/17 11:44 Thiamine HCl (Vitamin B1) 100 mg DAILY ORAL 07/31/17 09:00 08/30/17 08:59 07/31/17 08:30 Vancomycin HCl (Vanco rx to dose) 1 ea DAILY PRN MISC Per rx protocol 07/30/17 19:15 08/29/17 19:14 Vancomycin HCl 500 mg/Dextrose 275 ml @ 275 mls/hr QHS IVPB 07/31/17 21:00 08/05/17 20:59 GI: Plan Problems: (1) Encounter for PEG (percutaneous endoscopic gastrostomy) (2) Anemia (3) Severe malnutrition (4) Weak (5) Dehydration (6) SIRS (systemic inflammatory response syndrome) (7) Dementia Plan PEG scheduled for next thursday. >> daughter has consented. - NPO @ [facility], day prior procedure. - hold all blood thinners day prior procedure. fu ST evaluation for oral grat anemia work up OB stool r/o GI bleed monitor H&H, prn transfusions bowel regime ppi fu labs Discussed with Dr. Juarez. Thank you for this patient referral, we will follow. MACRINA JUAREZ 08/10/17 1228: History of Present Illness General Reason for Hospitalization: Dyspnea/Respdistress Present Illness Home Meds Active Scripts Levofloxacin* (LEVAQUIN*) 500 Mg Tablet, 500 MG ORAL DAILY for 10 Days, TAB Prov:ARA JADE 08/04/17 Dicloxacillin Sodium (DICLOXACILLIN SODIUM) 500 Mg Capsule, 500 MG ORAL EVERY 6 HOURS for 10 Days, CAP 0 Refills Prov:ARA JADE 08/04/17 Thiamine Hcl (VITAMIN B1*) 100 Mg Tablet, 100 MG ORAL DAILY for 30 Days, TAB Prov:ARA JADE 08/04/17 Metoclopramide HCl (Metoclopramide HCl) 10 Mg/10 Ml Solution, 5 MG GT EVERY 6 HOURS for 30 Days, #120 TAB Prov:ARA JADE 08/04/17 Famotidine (FAMOTIDINE) 20 Mg Tablet, 20 MG GT BID for 30 Days, TAB Prov:ARA JADE 08/04/17 Reported Medications Cranberry Extract (CRANBERRY) 425 Mg Capsule, 850 MG PO BID 07/30/17 Ibuprofen* (MOTRIN*) 600 Mg Tablet, 200 MG ORAL THREE TIMES A DAY Y for For Pain 07/30/17 Menthol/Zinc Oxide (CALMOSEPTINE OINTMENT) 71 Gm Oint...g., 71 GM TP 07/30/17 Thiamine Hcl* (VITAMIN B-1*) 100 Mg Tablet, 100 MG ORAL DAILY 07/30/17 Multivitamin With Minerals (MULTIVITAMINS WITH MINERALS*) 1 Each Tablet, 1 TAB ORAL DAILY 07/30/17 Docusate Sodium* (DOCUSATE SODIUM*) 100 Mg Capsule, 100 MG ORAL TWICE A DAY 07/30/17 Aspirin* (ASPIRIN*) 81 Mg Tab.chew, 81 MG ORAL DAILY 07/30/17 Lisinopril* (ZESTRIL*) 2.5 Mg Tablet, 2.5 MG ORAL DAILY 07/30/17 Acetaminophen* (ACETAMINOPHEN 325MG TABLET*) 325 Mg Tablet, 325 MG ORAL Q6H Y for Mild Pain/Temp > 100.5 07/30/17 Albuterol Sulfate* (ALBUTEROL SULFATE HHN*) 2.5 Mg/3 Ml Vial.neb, 3 ML INH Q6H Y for Shortness of Breath, #30 EA 0 Refills 10/02/14 Loperamide HCl (Loperamide) 2 Mg Cap, 2 MG ORAL EVERY 6 HOURS Y for Diarrhea, # 20 CAP 0 Refills 08/31/14 Donepezil Hcl* (DONEPEZIL HCL*) 10 Mg Tab.rapdis, 10 MG ORAL QHS, TAB 08/31/14 Allergies: Coded Allergies: NO KNOWN DRUG ALLERGIES (Unverified Allergy, Unknown, 08/31/14) GI: Plan Plan The patient was seen and examined at bedside and all new and available data was reviewed in the patients chart. I agree with the above findings, impression and plan. (Patient seen earlier today. Signature stamp does not reflect patient encounter time.). - [facility] Luke N.PAyo Jul 31, 2017 16:13 MACRINA JUAREZ Aug 10, 2017 12:28
[2017-07-31] MEDS ORDERED: Albuterol ud Inhalation HHN PRN (19:00)
[2017-07-31] MEDS: Albuterol ud Inhalation HHN SCH ×2 (19:07→23:26)
[2017-07-31] MEDS: Vancomycin 500 MG in D5W 275 ML IVPB SCH (20:26)
[2017-07-31] MEDS ORDERED: Vancomycin 500mg in D5W 275ml IVPB SCH (21:00)
[2017-07-31] MEDS: Docusate 100mg cap ORAL SCH (21:00)
--- NOTE | 2017-07-31 21:00 | History and Physical Report ---
DATE OF ADMISSION: 07/30/2017 HISTORY OF PRESENT ILLNESS: The patient came in to emergency room in the evening of 07/30/2017 with weakness and congestion. The patient is Full Code. The patient has multiple previous problems. After initial evaluation, the patient was found to be septic with renal failure, dehydration, and being hypotensive was admitted for further management. PHYSICAL EXAMINATION: GENERAL: On examination of the patient, she is not verbal and appears to be weak. VITAL SIGNS: Temperature 97.5, blood pressure 91/58, respiratory rate 20 to 26, pulse ox 91% on nasal cannula, and pulse rate is 102. Appears weak. HEENT: Slightly pale. Bitemporal wasting. Head is normocephalic. NECK: Rigid to all directions. LUNGS: Poor inspiratory effort. Decreased breath sounds over the bases, more on the left. HEART: Tachycardic. ABDOMEN: Soft. EXTREMITIES: Lower extremities, no edema. LABORATORY DATA: Sodium 153, creatinine 2, and BUN 49. White blood cells 9000 with hemoglobin of 12.4. Urine, too numerous to count WBCs and RBCs with 3+ leukocyte esterase. The initial lactic acid was 3.9. IMPRESSION: 1. Sepsis, urinary tract infection, lactic acidosis, and hypertension. 2. History of chronic kidney disease. On top of it, the patient has acute renal failure. 3. The patient has dementia, however, acute encephalopathy. 4. The patient also has functional quadriplegia. PLAN: At this point, IV hydration, antibiotics, NPO, ST evaluation, monitor renal parameters, breathing treatments, and ID and Pulmonary consult was called. According to how the patient's condition evolves, we will make the proper changes in our future management. Igor Jade M.D. DR: ROBERT JOB#: [id number] CC:
--- NOTE | 2017-07-31 22:45 | Consultation ---
DATE OF CONSULTATION: 07/31/2017 INFECTIOUS DISEASE CONSULTATION CONSULTING PHYSICIAN: Jasmyn Peterson M.D. REQUESTING PHYSICIAN: Igor Jade M.D. REASON FOR CONSULTATION: Sepsis, urinary tract infection, possible pneumonia, recommendation for antibiotics treatment and further management. HISTORY OF PRESENT ILLNESS: The patient is an 82-year-old female, jail resident at [facility], was sent to [facility] emergency room for weakness and congestion. The patient had history of pneumonia, chronic obstructive pulmonary disease, and Alzheimer's dementia. She was coughing at the jail and found to be altered later. The patient had tachycardia in the emergency room with temperature of 97.5 and she was saturating 91% on nasal cannula. Urinalysis showed evidence of infection. She had leukocytosis suspicious of sepsis with evidence of urinary tract infection, so the patient was started on intravenous vancomycin and Zosyn and Infectious Disease consultation was requested for further evaluation and management. As of note, the patient is a poor historian, cannot provide any history. History was mainly obtained from the medical records and daughter at the bedside. REVIEW OF SYSTEMS: Unable to obtain at this point. The patient is a poor historian, cannot provide any history. PAST MEDICAL HISTORY: Significant for coronary artery disease, hypertension, chronic obstructive pulmonary disease, cancer, gastroesophageal reflux disease, dementia, and weakness. PAST SURGICAL HISTORY: Not on record. SOCIAL HISTORY: The patient lives in the jail at [facility]. No recent drugs, tobacco, or alcohol. FAMILY HISTORY: Not contributory. ALLERGIES: She has no known drug allergy. MEDICATIONS: She is on vancomycin and Zosyn. For the rest of her medications, please refer to MAR. LABORATORY AND DIAGNOSTIC DATA: Labs showed white count of 7.6, hemoglobin of 10.7, and platelet count of 198. BUN of 38, creatinine of 1.7. Urinalysis showed +3 leukocyte esterase, WBC too numerous to count, and many bacteria in the urine. Microbiology influenza screening A and B both negative. Blood culture and urine culture pending. Imaging, chest x-ray showed left basilar volume loss with atelectasis, no acute process otherwise. PHYSICAL EXAMINATION: VITAL SIGNS: Temperature 97.5, pulse 100, respirations 14, blood pressure 111/72, and saturation 100% on four liters nasal cannula. GENERAL: Elderly female, lying in bed, unresponsive, does not follow commands, not in acute distress. HEENT: Normocephalic and atraumatic. Pupils sluggish to light. Unable to assess oral mucosa. The patient is unresponsive. NECK: Supple. No lymphadenopathy. CARDIOVASCULAR: She is tachycardic. S1 and S2 normal. No murmur or gallops. LUNGS: Clear bilaterally. Diminished breathing sounds at the bases. Normal breathing efforts. ABDOMEN: Soft, nontender, and nondistended. Positive bowel sounds. No hepatosplenomegaly. No ascites. EXTREMITIES: Trace edema. No cyanosis. No clubbing. SKIN: Showed sacral skin abrasions mainly on the right. ASSESSMENT AND RECOMMENDATION: 1. Urinary tract infection. Continue Zosyn empiric coverage pending urine culture results. We will deescalate antibiotics based on the result culture. 2. Sepsis. Continue vancomycin and Zosyn empiric coverage pending blood culture. 3. Dehydration. Continue intravenous fluids for hydration. Monitor urine output. 4. Lactic acidosis due to sepsis and dehydration. Continue to monitor lactic acid. Continue hydration and maintain systolic more than 100. 5. Altered mental status due to the above. Continue neuro check. Consider brain images and Neurology consult if no improvement. 6. Acute kidney failure due to dehydration and sepsis. Continue intravenous fluids for hydration. Renally dose vancomycin. Monitor renal function. Nephrology is following. Thank you for the consult. Infectious Disease will continue to follow. Jasmyn Peterson M.D. DR: ASHLEY JOB#: [id number] CC:
[2017-08-01 00:20] VITALS: BP 106/49
[2017-08-01] MEDS: Albuterol ud Inhalation HHN SCH ×6 (03:30→23:03)
[2017-08-01 04:03] VITALS: BP 101/56
[2017-08-01] MEDS: Piperacillin/Tazobactam 3.375 GM in NS 110 ML IVPB SCH ×3 (06:15→23:16)
--- NOTE | 2017-08-01 07:45 | General Progress Note ---
Assessment/Plan Problem List: (1) Sepsis ICD Codes: A41.9 - Sepsis, unspecified organism SNOMED: 85845259 (2) Dementia ICD Codes: F03.90 - Dementia SNOMED: 96441924 (3) JAYCEE (acute kidney injury) ICD Codes: N17.9 - JAYCEE (acute kidney injury) SNOMED: 78265532 (4) CKD (chronic kidney disease) stage 3, GFR 30-59 ml/min ICD Codes: N18.3 - CKD (chronic kidney disease) stage 3, GFR 30-59 ml/min SNOMED: 124864442 (5) Dehydration ICD Codes: E86.0 - Dehydration SNOMED: 57219827 (6) Lactic acidosis ICD Codes: E87.2 - Acidosis SNOMED: 16310693 (7) Functional quadriplegia ICD Codes: R53.2 - Functional quadriplegia SNOMED: 587244008033024 (8) Pneumonia Assessment & Plan: left base ICD Codes: J18.9 - Pneumonia, unspecified organism SNOMED: 205457914 Status: stable Assessment/Plan labsreviewed IV Hydrate- fluid challenge K Phos supplement Antibiotics- NPO St eval Monitor renal parameters per orders ID eval breathing treatment Daughter agrees with PEG- Planned 08/03 Subjective ROS Limited/Unobtainable: No Constitutional: Reports: malaise Allergies: Coded Allergies: NO KNOWN DRUG ALLERGIES (Unverified Allergy, Unknown, 08/31/14) Objective Last 24 Hour Vital Signs Date Time Temp Pulse Resp B/P (MAP) Pulse Ox O2 Delivery O2 Flow Rate FiO2 08/01/17 07:44 94 Nasal Cannula 3.0 32 08/01/17 07:42 93 20 94 Nasal Cannula 3.0 32 08/01/17 04:03 97.2 111 20 101/56 92 Room Air 97.2 08/01/17 03:32 98 16 99 Nasal Cannula 3.0 32 08/01/17 03:31 97 20 98 Nasal Cannula 3.0 32 08/01/17 00:20 99.5 117 20 106/49 97 Room Air 99.5 07/31/17 23:45 96 18 98 Nasal Cannula 3.0 32 07/31/17 23:29 94 20 96 Nasal Cannula 3.0 32 07/31/17 23:29 32 07/31/17 19:52 97.3 98 20 113/67 95 Nasal Cannula 97.3 07/31/17 19:30 76 18 96 Nasal Cannula 3.0 32 07/31/17 19:11 Nasal Cannula 3.0 32 07/31/17 19:11 94 Nasal Cannula 3.0 32 07/31/17 19:11 32 07/31/17 19:10 74 18 94 Nasal Cannula 3.0 32 07/31/17 18:11 97.7 82 18 134/74 96 97.7 07/31/17 16:00 97.7 78 18 140/75 95 Nasal Cannula 3.0 97.7 07/31/17 15:41 75 18 95 Nasal Cannula 3.0 32 07/31/17 15:27 32 07/31/17 15:26 75 18 95 Nasal Cannula 3.0 07/31/17 12:00 64 07/31/17 12:00 97.3 72 18 134/77 95 Nasal Cannula 3.0 97.3 07/31/17 08:36 Nasal Cannula 3.5 07/31/17 08:35 97 Nasal Cannula 3.5 07/31/17 08:34 83 22 Nasal Cannula 3.5 07/31/17 08:00 97.7 74 18 104/67 99 Nasal Cannula 3.0 97.7 07/31/17 08:00 73 Intake and Output 07/31/17 08/01/17 19:00 07:00 Intake Total 75 ml 1060.0 ml Output Total 400 ml Balance 75 ml 660.0 ml IV Total 75 ml 1060.0 ml Output Urine Total 400 ml Laboratory Tests 07/31/17 09:32: White Blood Count 7.6, Red Blood Count 3.76L, Hemoglobin 10.7L, Hematocrit 33.6L , Mean Corpuscular Volume 90, Mean Corpuscular Hemoglobin 28.5, Mean Corpuscular Hemoglobin Concent 31.8L, Red Cell Distribution Width 12.0, Platelet Count 198, Mean Platelet Volume 7.5, Neutrophils (%) (Auto) 68.0, Lymphocytes (%) (Auto) 21.3, Monocytes (%) (Auto) 9.3, Eosinophils (%) (Auto) 1.0, Basophils (%) (Auto) 0.4, Sodium Level 151H, Potassium Level 4.3, Chloride Level 115H, Carbon Dioxide Level 27, Anion Gap 9, Blood Urea Nitrogen 38H, Creatinine 1.7H, Estimat Glomerular Filtration Rate , Glucose Level 86, Calcium Level 8.9, Phosphorus Level 3.7, Magnesium Level 1.9, Total Bilirubin 0.6, Aspartate Amino Transf (AST/SGOT) 31, Alanine Aminotransferase (ALT/SGPT) 11L, Alkaline Phosphatase 58, C-Reactive Protein, Quantitative 8.2H, Total Protein 6.6, Albumin 2.6L, Globulin 4.0, Albumin/Globulin Ratio 0.6L, Triglycerides Level 118, Cholesterol Level 129, LDL Cholesterol 63, HDL Cholesterol 42, Cholesterol/HDL Ratio 3.1L, Thyroid Stimulating Hormone (TSH) 0.068L 08/01/17 05:40: White Blood Count [Pending], Red Blood Count [Pending], Hemoglobin [Pending], Hematocrit [Pending], Mean Corpuscular Volume [Pending], Mean Corpuscular Hemoglobin [Pending], Mean Corpuscular Hemoglobin Concent [Pending], Red Cell Distribution Width [Pending], Platelet Count [Pending], Mean Platelet Volume [ Pending], Neutrophils (%) (Auto) [Pending], Lymphocytes (%) (Auto) [Pending], Monocytes (%) (Auto) [Pending], Eosinophils (%) (Auto) [Pending], Basophils (%) (Auto) [Pending], Sodium Level [Pending], Potassium Level [Pending], Chloride Level [Pending], Carbon Dioxide Level [Pending], Blood Urea Nitrogen [Pending], Creatinine [Pending], Estimat Glomerular Filtration Rate [Pending], Glucose Level [Pending], Calcium Level [Pending], Phosphorus Level [Pending], Magnesium Level [Pending], Total Bilirubin [Pending], Aspartate Amino Transf (AST/SGOT) [ Pending], Alanine Aminotransferase (ALT/SGPT) [Pending], Alkaline Phosphatase [ Pending], Total Protein [Pending], Albumin [Pending], Globulin [Pending], Uric Acid [Pending], Iron Level [Pending], Unsaturated Iron Binding [Pending], Ferritin [Pending], Troponin I [Pending], Pro-B-Type Natriuretic Peptide [ Pending], Vitamin B12 Level [Pending], Folate [Pending] Height (Feet): 5 Height (Inches): 4.00 Weight (Pounds): 130 General Appearance: no apparent distress, other - arousable Neck: limited range of motion Cardiovascular: tachycardia Respiratory/Chest: decreased breath sounds Abdomen: soft ARA JULIEN 10, 2018 07:45
[2017-08-01 07:52] LABS: BASOPHILS % (AUTO) 0.1 % (0.0-2.0); EOSINOPHILS % (AUTO) 0.2 % (0.0-3.0); HEMATOCRIT 29.1 % (37.0-47.0); HEMOGLOBIN 9.7 G/DL (12.0-16.0); LYMPHOCYTES % (AUTO) 16.1 % (20.0-45.0); MEAN CORPUSCULAR VOLUME 89 FL (80-99); MONOCYTES % (AUTO) 6.7 % (1.0-10.0); NEUTROPHILS % (AUTO) 76.9 % (45.0-75.0); PLATELET COUNT 197 K/UL (150-450); RED BLOOD COUNT 3.28 M/UL (4.20-5.40); RED CELL DISTRIBUTION WIDTH 11.7 % (11.6-14.8); WHITE BLOOD COUNT 8.6 K/UL (4.8-10.8)
[2017-08-01 08:19] VITALS: BP 108/64
[2017-08-01] MEDS: Pantoprazole Inj IVP SCH ×3 (08:34→17:21)
[2017-08-01] MEDS: Docusate 100mg cap ORAL SCH ×3 (08:35→17:21)
[2017-08-01] MEDS: Thiamine 100mg tab ORAL SCH ×2 (08:35→09:00)
[2017-08-01] MEDS: Heparin 5000 units/ml inj SUBQ SCH ×2 (08:43→20:57)
[2017-08-01 08:46] LABS: ALANINE AMINOTRANSFERASE 16 U/L (12-78); ALBUMIN 2.8 G/DL (3.4-5.0); ALBUMIN/GLOBULIN RATIO 0.8 (1.0-2.7); ALKALINE PHOSPHATASE 51 U/L (46-116); ANION GAP 11 mmol/L (5-15); ASPARTATE AMINO TRANSFERASE 24 U/L (15-37); BILIRUBIN,TOTAL 0.7 MG/DL (0.2-1.0); BLOOD UREA NITROGEN 24 mg/dL (7-18); CALCIUM 8.7 MG/DL (8.5-10.1); CARBON DIOXIDE 25 MMOL/L (21-32); CHLORIDE 111 MMOL/L (98-107); CREATININE 1.6 MG/DL (0.55-1.30); FERRITIN 1774 NG/ML (8-388); PHOSPHORUS 2.4 MG/DL (2.5-4.9); POTASSIUM 3.4 MMOL/L (3.5-5.1); SODIUM 146 MMOL/L (136-145)
[2017-08-01] MEDS ORDERED: Aspirin Baby 81mg ORAL SCH (09:00)
[2017-08-01 09:01] LABS: % IRON SATURATION 15 % (15-50); IRON 17 ug/dL (50-175); TOTAL IRON BINDING CAPACITY 113 ug/dL (250-450)
[2017-08-01] MEDS ORDERED: Potassium Phosphate 30 MM in NS 275 ML IV ONE (10:00)
--- NOTE | 2017-08-01 11:07 | Pulmonology Progress Note ---
Assessment/Plan Problems: (1) Aspiration pneumonia (2) Purulent bronchitis (3) JAYCEE (acute kidney injury) (4) Dementia (5) Toxic metabolic encephalopathy (6) Alzheimer's dementia Assessment/Plan respiratory treatment iv abx check cultures chest pt aspiration precaution EGD with peg on thursday check electrolytes dvt prophylaxis symptomatic treatment Subjective ROS Limited/Unobtainable: No Allergies: Coded Allergies: NO KNOWN DRUG ALLERGIES (Unverified Allergy, Unknown, 08/31/14) Objective Last 24 Hour Vital Signs Date Time Temp Pulse Resp B/P (MAP) Pulse Ox O2 Delivery O2 Flow Rate FiO2 08/01/17 08:23 97 16 99 Nasal Cannula 3.0 32 08/01/17 08:20 Nasal Cannula 3.0 08/01/17 08:19 98.4 100 21 108/64 94 98.4 08/01/17 07:44 Nasal Cannula 3.0 32 08/01/17 07:44 94 Nasal Cannula 3.0 32 08/01/17 07:42 93 20 94 Nasal Cannula 3.0 32 08/01/17 04:03 97.2 111 20 101/56 92 Room Air 97.2 08/01/17 03:32 98 16 99 Nasal Cannula 3.0 32 08/01/17 03:31 97 20 98 Nasal Cannula 3.0 32 08/01/17 00:20 99.5 117 20 106/49 97 Room Air 99.5 07/31/17 23:45 96 18 98 Nasal Cannula 3.0 32 07/31/17 23:29 94 20 96 Nasal Cannula 3.0 32 07/31/17 23:29 32 07/31/17 19:52 97.3 98 20 113/67 95 Nasal Cannula 97.3 07/31/17 19:30 76 18 96 Nasal Cannula 3.0 32 07/31/17 19:11 Nasal Cannula 3.0 32 07/31/17 19:11 94 Nasal Cannula 3.0 32 07/31/17 19:11 32 07/31/17 19:10 74 18 94 Nasal Cannula 3.0 32 07/31/17 18:11 97.7 82 18 134/74 96 97.7 07/31/17 16:00 97.7 78 18 140/75 95 Nasal Cannula 3.0 97.7 07/31/17 15:41 75 18 95 Nasal Cannula 3.0 32 07/31/17 15:27 32 07/31/17 15:26 75 18 95 Nasal Cannula 3.0 07/31/17 12:00 64 07/31/17 12:00 97.3 72 18 134/77 95 Nasal Cannula 3.0 97.3 Intake and Output 07/31/17 08/01/17 19:00 07:00 Intake Total 75 ml 1060.0 ml Output Total 400 ml Balance 75 ml 660.0 ml IV Total 75 ml 1060.0 ml Output Urine Total 400 ml Objective General Appearance: cachectic HEENT: normocephalic, atraumatic Respiratory/Chest: chest wall non-tender, lungs clear Breasts: no masses Cardiovascular: normal peripheral pulses, regular rhythm Abdomen: normal bowel sounds, soft, non tender Genitourinary: normal external genitalia Extremities: no cyanosis Skin: no lesions 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, no motor/sensory deficits Lymphatic: no groin adenopathy Microbiology Date/Time Source Procedure Growth Status 07/30/17 17:49 Blood Blood Culture - Preliminary Staphylococcus Sp Coag Neg Resulted 07/30/17 17:40 Blood Blood Culture - Preliminary Staphylococcus Sp Coag Neg Resulted 07/30/17 19:00 Nasal Nares Influenza Types A,B Antigen (MARA) - Final Complete 07/30/17 19:00 Indwelling Cath Urine Culture - Final Mixed Urogenital Contaminants Complete Laboratory Tests 08/01/17 05:40: White Blood Count 8.6, Red Blood Count 3.28L, Hemoglobin 9.7L, Hematocrit 29.1L , Mean Corpuscular Volume 89, Mean Corpuscular Hemoglobin 29.7, Mean Corpuscular Hemoglobin Concent 33.4, Red Cell Distribution Width 11.7, Platelet Count 197, Mean Platelet Volume 7.2, Neutrophils (%) (Auto) 76.9H, Lymphocytes ( %) (Auto) 16.1L, Monocytes (%) (Auto) 6.7, Eosinophils (%) (Auto) 0.2, Basophils (%) (Auto) 0.1, Sodium Level 146H, Potassium Level 3.4L, Chloride Level 111H, Carbon Dioxide Level 25, Anion Gap 11, Blood Urea Nitrogen 24H, Creatinine 1.6H, Estimat Glomerular Filtration Rate , Glucose Level 155H, Uric Acid 5.3, Calcium Level 8.7, Phosphorus Level 2.4L, Magnesium Level 1.8, Iron Level 17L, Total Iron Binding Capacity 113L, Percent Iron Saturation 15, Unsaturated Iron Binding 96L, Ferritin 1774H, Total Bilirubin 0.7, Aspartate Amino Transf (AST/SGOT) 24, Alanine Aminotransferase (ALT/SGPT) 16, Alkaline Phosphatase 51, Troponin I 0.021, Pro-B-Type Natriuretic Peptide 4693H, Total Protein 6.4, Albumin 2.8L, Globulin 3.6, Albumin/Globulin Ratio 0.8L, Vitamin B12 Level 701, Folate 17.9 Current Medications Medications (Trade) Dose Ordered Sig/Kimberley Route PRN Reason Start Time Stop Time Status Last Admin Dose Admin Acetaminophen (Tylenol) 325 mg Q6H PRN ORAL Mild Pain/Temp > 100.5 07/31/17 19:00 08/29/17 18:59 Albuterol Sulfate (Proventil) 2.5 mg Q4HRT HHN 07/31/17 19:00 08/05/17 14:59 08/01/17 07:42 Albuterol Sulfate (Proventil) 2.5 mg Q6H PRN HHN Shortness of Breath 07/31/17 19:00 08/04/17 18:59 Dextrose 1,000 ml @ 75 mls/hr [id number] IV 07/31/17 19:00 08/29/17 18:59 08/01/17 08:34 Docusate Sodium (Colace) 100 mg TWICE A DAY ORAL 07/31/17 21:00 08/30/17 20:59 08/01/17 08:35 Heparin Sodium (Porcine) (Heparin 5000 units/ml) 5,000 units EVERY 12 HOURS SUBQ 07/31/17 21:00 08/29/17 20:59 08/01/17 08:43 Pantoprazole (Protonix) 40 mg BID IVP 07/31/17 21:00 08/29/17 20:59 08/01/17 08:34 Piperacillin Sod/ Tazobactam Sod 3.375 gm/Sodium Chloride 110 ml @ 27.5 mls/hr Q8HR IVPB 07/31/17 22:00 08/07/17 13:59 08/01/17 06:15 Potassium Phosphate 30 mm/ Sodium Chloride 285 ml @ 47.5 mls/hr ONCE ONCE IV 08/01/17 10:00 08/01/17 15:59 Promethazine HCl/ Codeine (Phenergan with Codeine) 5 ml Q4H PRN ORAL For Cough 07/31/17 19:00 08/30/17 18:59 Thiamine HCl (Vitamin B1) 100 mg DAILY ORAL 08/01/17 09:00 08/30/17 08:59 08/01/17 08:35 Vancomycin HCl (Vanco rx to dose) 1 ea DAILYPRN PRN MISC Per rx protocol 07/31/17 19:00 08/30/17 18:59 Vancomycin HCl 500 mg/Dextrose 275 ml @ 275 mls/hr QHS IVPB 07/31/17 21:00 08/05/17 20:59 07/31/17 20:26 FRANKIE GUTIERREZ Aug 01, 2017 11:07
[2017-08-01 11:45] VITALS: BP 131/71
--- NOTE | 2017-08-01 13:19 | Infectious Diseases Prog Note ---
Assessment/Plan Problems: (1) UTI (urinary tract infection) Assessment & Plan: cultures showed contaminants , already on zosyn to cover for pneumonia (2) Sepsis Assessment & Plan: with coag negative staph , grew out of three bottles , most likely real , source most likely her sacral wounds , will repeat blood culture to confirm clearance and treat with vancomycin for two weeks from the clearance date . (3) Dehydration Assessment & Plan: continue IVF for hydration (4) Lactic acidosis Assessment & Plan: due to the above, improving , continue hydration monitor laba (5) Altered mental status Assessment & Plan: improving , due to the above, continue neuro check, consider brain images (6) JAYCEE (acute kidney injury) Assessment & Plan: due to dehydration, continue IVF, monitor renal function , nephrology is following (7) Sacral decubitus ulcer, stage II Assessment & Plan: present on admission, continue local wound care and off loading as needed , avoid contamination Subjective ROS Limited/Unobtainable: Yes Allergies: Coded Allergies: NO KNOWN DRUG ALLERGIES (Unverified Allergy, Unknown, 08/31/14) Subjective she was more awake and alert, lying in bed, responsive to verbal commands, afebrile, breathing well , NAD Objective Vital Signs Last 24 Hour Vital Signs Date Time Temp Pulse Resp B/P (MAP) Pulse Ox O2 Delivery O2 Flow Rate FiO2 08/01/17 11:45 98.0 93 20 131/71 95 98.0 08/01/17 11:45 99 16 99 Nasal Cannula 3.0 32 08/01/17 11:37 90 20 95 Nasal Cannula 3.0 32 08/01/17 08:23 97 16 99 Nasal Cannula 3.0 32 08/01/17 08:20 Nasal Cannula 3.0 08/01/17 08:19 98.4 100 21 108/64 94 98.4 08/01/17 07:44 Nasal Cannula 3.0 32 08/01/17 07:44 94 Nasal Cannula 3.0 32 08/01/17 07:42 93 20 94 Nasal Cannula 3.0 32 08/01/17 04:03 97.2 111 20 101/56 92 Room Air 97.2 08/01/17 03:32 98 16 99 Nasal Cannula 3.0 32 08/01/17 03:31 97 20 98 Nasal Cannula 3.0 32 08/01/17 00:20 99.5 117 20 106/49 97 Room Air 99.5 07/31/17 23:45 96 18 98 Nasal Cannula 3.0 32 07/31/17 23:29 94 20 96 Nasal Cannula 3.0 32 07/31/17 23:29 32 07/31/17 19:52 97.3 98 20 113/67 95 Nasal Cannula 97.3 07/31/17 19:30 76 18 96 Nasal Cannula 3.0 32 07/31/17 19:11 Nasal Cannula 3.0 32 07/31/17 19:11 94 Nasal Cannula 3.0 32 07/31/17 19:11 32 07/31/17 19:10 74 18 94 Nasal Cannula 3.0 32 07/31/17 18:11 97.7 82 18 134/74 96 97.7 07/31/17 16:00 97.7 78 18 140/75 95 Nasal Cannula 3.0 97.7 07/31/17 15:41 75 18 95 Nasal Cannula 3.0 32 07/31/17 15:27 32 07/31/17 15:26 75 18 95 Nasal Cannula 3.0 Height (Feet): 5 Height (Inches): 4.00 Weight (Pounds): 130 General Appearance: WD/WN, no acute distress, cachetic HEENT: normocephalic, atraumatic, anicteric, mucous membranes moist, PERRL Respiratory/Chest: chest wall non-tender, no respiratory distress, no accessory muscle use, decreased breath sounds, crackles/rales Cardiovascular: normal peripheral pulses, normal rate, regular rhythm, no gallop/murmur, no JVD Abdomen: normal bowel sounds, soft, non tender, no organomegaly, non distended , no mass, no scars Extremities: no cyanosis, no clubbing Skin: no rash, no lesions Neurologic/Psychiatric: alert, responsive Lymphatic: no neck adenopathy, no groin adenopathy Microbiology Date/Time Source Procedure Growth Status 07/30/17 17:49 Blood Blood Culture - Preliminary Staphylococcus Sp Coag Neg Resulted 07/30/17 17:40 Blood Blood Culture - Preliminary Staphylococcus Sp Coag Neg Resulted 07/30/17 19:00 Nasal Nares Influenza Types A,B Antigen (MARA) - Final Complete 07/30/17 19:00 Indwelling Cath Urine Culture - Final Mixed Urogenital Contaminants Complete Laboratory Tests Test 08/01/17 05:40 White Blood Count 8.6 K/UL (4.8-10.8) Red Blood Count 3.28 M/UL (4.20-5.40) L Hemoglobin 9.7 G/DL (12.0-16.0) L Hematocrit 29.1 % (37.0-47.0) L Mean Corpuscular Volume 89 FL (80-99) Mean Corpuscular Hemoglobin 29.7 PG (27.0-31.0) Mean Corpuscular Hemoglobin Concent 33.4 G/DL (32.0-36.0) Red Cell Distribution Width 11.7 % (11.6-14.8) Platelet Count 197 K/UL (150-450) Mean Platelet Volume 7.2 FL (6.5-10.1) Neutrophils (%) (Auto) 76.9 % (45.0-75.0) H Lymphocytes (%) (Auto) 16.1 % (20.0-45.0) L Monocytes (%) (Auto) 6.7 % (1.0-10.0) Eosinophils (%) (Auto) 0.2 % (0.0-3.0) Basophils (%) (Auto) 0.1 % (0.0-2.0) Sodium Level 146 MMOL/L (136-145) H Potassium Level 3.4 MMOL/L (3.5-5.1) L Chloride Level 111 MMOL/L (98-107) H Carbon Dioxide Level 25 MMOL/L (21-32) Anion Gap 11 mmol/L (5-15) Blood Urea Nitrogen 24 mg/dL (7-18) H Creatinine 1.6 MG/DL (0.55-1.30) H Estimat Glomerular Filtration Rate mL/min (>60) Glucose Level 155 MG/DL (74-106) H Uric Acid 5.3 MG/DL (2.6-7.2) Calcium Level 8.7 MG/DL (8.5-10.1) Phosphorus Level 2.4 MG/DL (2.5-4.9) L Magnesium Level 1.8 MG/DL (1.8-2.4) Iron Level 17 ug/dL (50-175) L Total Iron Binding Capacity 113 ug/dL (250-450) L Percent Iron Saturation 15 % (15-50) Unsaturated Iron Binding 96 ug/dL (112-346) L Ferritin 1774 NG/ML (8-388) H Total Bilirubin 0.7 MG/DL (0.2-1.0) Aspartate Amino Transf (AST/SGOT) 24 U/L (15-37) Alanine Aminotransferase (ALT/SGPT) 16 U/L (12-78) Alkaline Phosphatase 51 U/L (46-116) Troponin I 0.021 ng/mL (0.000-0.056) Pro-B-Type Natriuretic Peptide 4693 pg/mL (0-125) H Total Protein 6.4 G/DL (6.4-8.2) Albumin 2.8 G/DL (3.4-5.0) L Globulin 3.6 g/dL Albumin/Globulin Ratio 0.8 (1.0-2.7) L Vitamin B12 Level 701 PG/ML (193-986) Folate 17.9 NG/ML (8.6-58.9) Current Medications Medications (Trade) Dose Ordered Sig/Kimberley Route PRN Reason Start Time Stop Time Status Last Admin Dose Admin Acetaminophen (Tylenol) 325 mg Q6H PRN ORAL Mild Pain/Temp > 100.5 07/31/17 19:00 08/29/17 18:59 Albuterol Sulfate (Proventil) 2.5 mg Q4HRT HHN 07/31/17 19:00 08/05/17 14:59 08/01/17 11:37 Albuterol Sulfate (Proventil) 2.5 mg Q6H PRN HHN Shortness of Breath 07/31/17 19:00 08/04/17 18:59 Dextrose 1,000 ml @ 75 mls/hr [id number] IV 07/31/17 19:00 08/29/17 18:59 08/01/17 08:34 Docusate Sodium (Colace) 100 mg TWICE A DAY ORAL 07/31/17 21:00 08/30/17 20:59 08/01/17 08:35 Heparin Sodium (Porcine) (Heparin 5000 units/ml) 5,000 units EVERY 12 HOURS SUBQ 07/31/17 21:00 08/29/17 20:59 08/01/17 08:43 Pantoprazole (Protonix) 40 mg BID IVP 07/31/17 21:00 08/29/17 20:59 08/01/17 08:34 Piperacillin Sod/ Tazobactam Sod 3.375 gm/Sodium Chloride 110 ml @ 27.5 mls/hr Q8HR IVPB 07/31/17 22:00 08/07/17 13:59 08/01/17 06:15 Potassium Phosphate 30 mm/ Sodium Chloride 285 ml @ 47.5 mls/hr ONCE ONCE IV 08/01/17 10:00 08/01/17 15:59 08/01/17 11:41 Promethazine HCl/ Codeine (Phenergan with Codeine) 5 ml Q4H PRN ORAL For Cough 07/31/17 19:00 08/30/17 18:59 Thiamine HCl (Vitamin B1) 100 mg DAILY ORAL 08/01/17 09:00 08/30/17 08:59 08/01/17 08:35 Vancomycin HCl (Vanco rx to dose) 1 ea DAILYPRN PRN MISC Per rx protocol 07/31/17 19:00 08/30/17 18:59 Vancomycin HCl 500 mg/Dextrose 275 ml @ 275 mls/hr QHS IVPB 07/31/17 21:00 08/05/17 20:59 07/31/17 20:26 Jasmyn Peterson M.D. Aug 01, 2017 13:19
[2017-08-01 16:00] VITALS: BP 137/77
--- NOTE | 2017-08-01 18:54 | General Progress Note ---
Assessment/Plan Assessment/Plan Assessment (1) Encounter for PEG (percutaneous endoscopic gastrostomy) (2) Anemia (3) Severe malnutrition (4) Weak (5) Dehydration (6) SIRS (systemic inflammatory response syndrome) (7) Dementia Plan PEG scheduled for next thursday. >> daughter has consented. - NPO @ [place], day prior procedure. - hold all blood thinners day prior procedure. fu ST evaluation for oral grat anemia work up OB stool r/o GI bleed monitor H&H, prn transfusions bowel regime ppi fu labs Subjective Allergies: Coded Allergies: NO KNOWN DRUG ALLERGIES (Unverified Allergy, Unknown, 08/31/14) Subjective minimally interactive d/w RN no events overnight Objective Last 24 Hour Vital Signs Date Time Temp Pulse Resp B/P (MAP) Pulse Ox O2 Delivery O2 Flow Rate FiO2 08/01/17 16:00 97.2 106 20 137/77 99 97.2 08/01/17 15:51 95 16 99 Nasal Cannula 3.0 32 08/01/17 15:32 88 20 96 Nasal Cannula 3.0 32 08/01/17 11:45 98.0 93 20 131/71 95 98.0 08/01/17 11:45 99 16 99 Nasal Cannula 3.0 32 08/01/17 11:37 90 20 95 Nasal Cannula 3.0 32 08/01/17 08:23 97 16 99 Nasal Cannula 3.0 32 08/01/17 08:20 Nasal Cannula 3.0 08/01/17 08:19 98.4 100 21 108/64 94 98.4 08/01/17 07:44 Nasal Cannula 3.0 32 08/01/17 07:44 94 Nasal Cannula 3.0 32 08/01/17 07:42 93 20 94 Nasal Cannula 3.0 32 08/01/17 04:03 97.2 111 20 101/56 92 Room Air 97.2 08/01/17 03:32 98 16 99 Nasal Cannula 3.0 32 08/01/17 03:31 97 20 98 Nasal Cannula 3.0 32 08/01/17 00:20 99.5 117 20 106/49 97 Room Air 99.5 07/31/17 23:45 96 18 98 Nasal Cannula 3.0 32 07/31/17 23:29 94 20 96 Nasal Cannula 3.0 32 07/31/17 23:29 32 07/31/17 19:52 97.3 98 20 113/67 95 Nasal Cannula 97.3 07/31/17 19:30 76 18 96 Nasal Cannula 3.0 32 07/31/17 19:11 Nasal Cannula 3.0 32 07/31/17 19:11 94 Nasal Cannula 3.0 32 07/31/17 19:11 32 07/31/17 19:10 74 18 94 Nasal Cannula 3.0 32 Intake and Output 07/31/17 08/01/17 19:00 07:00 Intake Total 75 ml 1060.0 ml Output Total 400 ml Balance 75 ml 660.0 ml IV Total 75 ml 1060.0 ml Output Urine Total 400 ml Laboratory Tests 08/01/17 05:40: White Blood Count 8.6, Red Blood Count 3.28L, Hemoglobin 9.7L, Hematocrit 29.1L , Mean Corpuscular Volume 89, Mean Corpuscular Hemoglobin 29.7, Mean Corpuscular Hemoglobin Concent 33.4, Red Cell Distribution Width 11.7, Platelet Count 197, Mean Platelet Volume 7.2, Neutrophils (%) (Auto) 76.9H, Lymphocytes ( %) (Auto) 16.1L, Monocytes (%) (Auto) 6.7, Eosinophils (%) (Auto) 0.2, Basophils (%) (Auto) 0.1, Sodium Level 146H, Potassium Level 3.4L, Chloride Level 111H, Carbon Dioxide Level 25, Anion Gap 11, Blood Urea Nitrogen 24H, Creatinine 1.6H, Estimat Glomerular Filtration Rate , Glucose Level 155H, Uric Acid 5.3, Calcium Level 8.7, Phosphorus Level 2.4L, Magnesium Level 1.8, Iron Level 17L, Total Iron Binding Capacity 113L, Percent Iron Saturation 15, Unsaturated Iron Binding 96L, Ferritin 1774H, Total Bilirubin 0.7, Aspartate Amino Transf (AST/SGOT) 24, Alanine Aminotransferase (ALT/SGPT) 16, Alkaline Phosphatase 51, Troponin I 0.021, Pro-B-Type Natriuretic Peptide 4693H, Total Protein 6.4, Albumin 2.8L, Globulin 3.6, Albumin/Globulin Ratio 0.8L, Vitamin B12 Level 701, Folate 17.9 Height (Feet): 5 Height (Inches): 4.00 Weight (Pounds): 130 Objective Thin AA woman NCAT supple CTA RRR Soft ND NT no edema OBS EMILIO SALCIDO Aug 01, 2017 18:54
[2017-08-01 20:00] VITALS: BP 142/55
--- NOTE | 2017-08-01 20:29 | Wound Care Consultation ---
Wound Assessment Wound Assessment : Wound Number: 1 Wound Present on Admission: Yes New Wound: No Status Change of Wound: No Wound Location Body Site Modif: mid Wound Location Body Site: other - Sacrococcygeal Wound Type: pressure ulcer Norah Test: Does not Norah Pressure Ulcer Stage: Unstageable Wound Thickness: Full Thickness Wound Length: 4.0 Wound Width: 5.5 Wound Depth: utd Percent of Wound [place]/Red: 30 Percent of Wound Bed Yellow/Wh: 20 Percent of Wound Purple/Maroon: 50 Wound Drainage Description: Serosanguineous Wound Drainage Amount: Scant Wound Drainage Odor: None/Absent Tissue Surrounding Wound: Erythemic - scar tissue Wound General Appearance: Reddened - yellow, purple/maroon, Draining Wound Comment #1 Sacrococcygeal unstageable pressure ulcer Recommendation -Local wound care per protocol -Keep clean and dry -Turn and reposition -Optimize nutrition -Offload both heels -Heel protector on both heels -Low air loss mattress -Assess and f/u accordingly for any changes CASSY MCKEON RN Aug 01, 2017 20:29
[2017-08-01] MEDS: Vancomycin 500 MG in D5W 275 ML IVPB SCH (20:53)
[2017-08-02] VITALS: BP 136/79
[2017-08-02 04:00] VITALS: BP 127/73
[2017-08-02] MEDS: Albuterol ud Inhalation HHN SCH ×6 (04:10→23:38)
[2017-08-02] MEDS: Piperacillin/Tazobactam 3.375 GM in NS 110 ML IVPB SCH ×3 (06:09→22:18)
[2017-08-02 07:18] LABS: ALANINE AMINOTRANSFERASE 16 U/L (12-78); ALBUMIN 2.5 G/DL (3.4-5.0); ALBUMIN/GLOBULIN RATIO 0.7 (1.0-2.7); ALKALINE PHOSPHATASE 47 U/L (46-116); ANION GAP 9 mmol/L (5-15); ASPARTATE AMINO TRANSFERASE 33 U/L (15-37); BILIRUBIN,TOTAL 0.7 MG/DL (0.2-1.0); BLOOD UREA NITROGEN 13 mg/dL (7-18); CALCIUM 8.5 MG/DL (8.5-10.1); CARBON DIOXIDE 27 MMOL/L (21-32); CHLORIDE 108 MMOL/L (98-107); CREATININE 1.4 MG/DL (0.55-1.30); PHOSPHORUS 3.1 MG/DL (2.5-4.9); POTASSIUM 3.3 MMOL/L (3.5-5.1); SODIUM 144 MMOL/L (136-145)
[2017-08-02 07:20] LABS: BASOPHILS % (AUTO) 0.8 % (0.0-2.0); EOSINOPHILS % (AUTO) 1.4 % (0.0-3.0); HEMATOCRIT 29.3 % (37.0-47.0); HEMOGLOBIN 9.7 G/DL (12.0-16.0); LYMPHOCYTES % (AUTO) 24.2 % (20.0-45.0); MEAN CORPUSCULAR VOLUME 88 FL (80-99); MONOCYTES % (AUTO) 9.5 % (1.0-10.0); NEUTROPHILS % (AUTO) 64.1 % (45.0-75.0); PLATELET COUNT 205 K/UL (150-450); RED BLOOD COUNT 3.32 M/UL (4.20-5.40); RED CELL DISTRIBUTION WIDTH 11.6 % (11.6-14.8); WHITE BLOOD COUNT 7.3 K/UL (4.8-10.8)
[2017-08-02 08:00] VITALS: BP 146/82
[2017-08-02] MEDS: Docusate 100mg cap ORAL SCH ×2 (08:33→17:25)
[2017-08-02] MEDS: Thiamine 100mg tab ORAL SCH (08:33)
[2017-08-02] MEDS: Heparin 5000 units/ml inj SUBQ SCH ×2 (08:33→21:00)
[2017-08-02] MEDS: Pantoprazole Inj IVP SCH ×2 (08:33→17:25)
[2017-08-02] MEDS ORDERED: Potassium Chloride 40 MEQ in Sodium Chloride 500ML 550 ML IVPB ONE (11:00)
[2017-08-02 12:00] VITALS: BP 131/70
--- NOTE | 2017-08-02 12:39 | Pulmonology Progress Note ---
Assessment/Plan Problems: (1) Aspiration pneumonia (2) Purulent bronchitis (3) JAYCEE (acute kidney injury) (4) Dementia (5) Toxic metabolic encephalopathy (6) Alzheimer's dementia Assessment/Plan cxr in am to f/u on findings on admission for PEG in am respiratory treatment iv abx check cultures chest pt aspiration precaution check electrolytes dvt prophylaxis symptomatic treatment Subjective ROS Limited/Unobtainable: No Constitutional: Reports: no symptoms HEENT: Repors: no symptoms Respiratory: Reports: no symptoms Allergies: Coded Allergies: NO KNOWN DRUG ALLERGIES (Unverified Allergy, Unknown, 08/31/14) Objective Last 24 Hour Vital Signs Date Time Temp Pulse Resp B/P (MAP) Pulse Ox O2 Delivery O2 Flow Rate FiO2 08/02/17 12:00 97.9 87 18 131/70 96 Nasal Cannula 3.0 97.9 08/02/17 11:44 80 18 100 Nasal Cannula 3.0 32 08/02/17 11:34 80 18 100 Nasal Cannula 3.0 32 08/02/17 11:34 32 08/02/17 08:00 97.9 74 146/82 100 Nasal Cannula 3.0 97.9 08/02/17 07:50 80 18 100 Nasal Cannula 3.0 32 08/02/17 07:44 Nasal Cannula 3.0 32 08/02/17 07:40 77 18 100 Nasal Cannula 3.0 32 08/02/17 07:40 32 08/02/17 07:39 100 Nasal Cannula 3.0 32 08/02/17 04:17 91 20 95 Nasal Cannula 3.0 32 08/02/17 04:09 32 08/02/17 04:09 91 20 93 Nasal Cannula 3.0 32 08/02/17 04:00 97.9 77 127/73 97.9 08/02/17 00:24 93 Nasal Cannula 3.0 08/02/17 00:00 98.1 93 20 136/79 98.1 08/01/17 23:24 92 16 98 Nasal Cannula 3.0 32 08/01/17 23:10 83 20 97 Nasal Cannula 3.0 32 08/01/17 20:00 93 Nasal Cannula 3.0 08/01/17 20:00 97.9 100 20 142/55 97.9 08/01/17 19:22 88 16 97 Nasal Cannula 3.0 32 08/01/17 19:12 91 20 97 Nasal Cannula 3.0 32 08/01/17 19:12 Nasal Cannula 3.0 32 08/01/17 19:12 96 Nasal Cannula 3.0 32 08/01/17 16:01 Nasal Cannula 3.0 08/01/17 16:00 97.2 106 20 137/77 99 97.2 08/01/17 15:51 95 16 99 Nasal Cannula 3.0 32 08/01/17 15:32 88 20 96 Nasal Cannula 3.0 32 Intake and Output 08/01/17 08/02/17 19:00 07:00 Intake Total 702.5 ml 1237.5 ml Output Total 450 ml 350 ml Balance 252.5 ml 887.5 ml Intake Oral 0 ml IV Total 702.5 ml 1237.5 ml Output Urine Total 450 ml 350 ml Objective General Appearance: cachectic HEENT: normocephalic, atraumatic Respiratory/Chest: chest wall non-tender, lungs clear Breasts: no masses Cardiovascular: normal peripheral pulses, regular rhythm Abdomen: normal bowel sounds, soft, non tender Genitourinary: normal external genitalia Extremities: no cyanosis Skin: no lesions 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 Complete 07/30/17 19:00 Nasal Nares Influenza Types A,B Antigen (MARA) - Final Complete 07/30/17 19:00 Indwelling Cath Urine Culture - Final Mixed Urogenital Contaminants Complete 07/30/17 19:00 Rectum VRE Culture - Final NO VANCOMYCIN RESISTANT ENTEROCOCCUS ... Complete Laboratory Tests 08/02/17 05:15: White Blood Count 7.3, Red Blood Count 3.32L, Hemoglobin 9.7L, Hematocrit 29.3L , Mean Corpuscular Volume 88, Mean Corpuscular Hemoglobin 29.3, Mean Corpuscular Hemoglobin Concent 33.2, Red Cell Distribution Width 11.6, Platelet Count 205, Mean Platelet Volume 7.3, Neutrophils (%) (Auto) 64.1, Lymphocytes (% ) (Auto) 24.2, Monocytes (%) (Auto) 9.5, Eosinophils (%) (Auto) 1.4, Basophils ( %) (Auto) 0.8, Sodium Level 144, Potassium Level 3.3L, Chloride Level 108H, Carbon Dioxide Level 27, Anion Gap 9, Blood Urea Nitrogen 13, Creatinine 1.4H, Estimat Glomerular Filtration Rate , Glucose Level 113H, Calcium Level 8.5, Phosphorus Level 3.1, Magnesium Level 1.4L, Total Bilirubin 0.7, Aspartate Amino Transf (AST/SGOT) 33, Alanine Aminotransferase (ALT/SGPT) 16, Alkaline Phosphatase 47, Total Protein 6.3L, Albumin 2.5L, Globulin 3.8, Albumin/ Globulin Ratio 0.7L Current Medications Medications (Trade) Dose Ordered Sig/Kimberley Route PRN Reason Start Time Stop Time Status Last Admin Dose Admin Acetaminophen (Tylenol) 325 mg Q6H PRN ORAL Mild Pain/Temp > 100.5 07/31/17 19:00 08/29/17 18:59 Albuterol Sulfate (Proventil) 2.5 mg Q4HRT HHN 07/31/17 19:00 08/05/17 14:59 08/02/17 11:40 Albuterol Sulfate (Proventil) 2.5 mg Q6H PRN HHN Shortness of Breath 07/31/17 19:00 08/04/17 18:59 Dextrose 1,000 ml @ 40 mls/hr Q24H IV 08/02/17 11:30 09/01/17 11:29 08/02/17 10:55 Docusate Sodium (Colace) 100 mg TWICE A DAY ORAL 07/31/17 21:00 08/30/17 20:59 Heparin Sodium (Porcine) (Heparin 5000 units/ml) 5,000 units EVERY 12 HOURS SUBQ 07/31/17 21:00 08/29/17 20:59 08/01/17 20:57 Magnesium Sulfate 100 ml @ 100 mls/hr Q1H IVPB 08/02/17 11:30 08/02/17 15:29 08/02/17 12:16 Pantoprazole (Protonix) 40 mg BID IVP 07/31/17 21:00 08/29/17 20:59 07/31/17 20:26 Piperacillin Sod/ Tazobactam Sod 3.375 gm/Sodium Chloride 110 ml @ 27.5 mls/hr Q8HR IVPB 07/31/17 22:00 08/07/17 13:59 08/02/17 06:09 Potassium Chloride 40 meq/ Dextrose 570 ml @ 142.5 mls/ hr ONCE ONCE IVPB 08/02/17 13:00 08/02/17 16:59 Promethazine HCl/ Codeine (Phenergan with Codeine) 5 ml Q4H PRN ORAL For Cough 07/31/17 19:00 08/30/17 18:59 Thiamine HCl (Vitamin B1) 100 mg DAILY ORAL 08/01/17 09:00 08/30/17 08:59 Vancomycin HCl (Vanco rx to dose) 1 ea DAILYPRN PRN MISC Per rx protocol 07/31/17 19:00 08/30/17 18:59 Vancomycin HCl 500 mg/Dextrose 275 ml @ 275 mls/hr QHS IVPB 07/31/17 21:00 08/05/17 20:59 08/01/17 20:53 FRANKIE GUTIERREZ Aug 02, 2017 12:39
[2017-08-02] MEDS ORDERED: Potassium Chloride 40 MEQ in D5W 500ml 550 ML IVPB ONE (13:00)
--- NOTE | 2017-08-02 13:00 | Infectious Diseases Prog Note ---
Assessment/Plan Problems: (1) UTI (urinary tract infection) Assessment & Plan: cultures showed contaminants , already on zosyn to cover for pneumonia (2) Sepsis Assessment & Plan: with coag negative staph , grew out of three bottles , most likely real , source most likely her sacral wounds , repeated blood culture to confirm clearance is pending , will treat with vancomycin for two weeks from the clearance date . (3) Dehydration Assessment & Plan: continue IVF for hydration (4) Altered mental status Assessment & Plan: improving , due to the above, continue neuro check, consider brain images (5) JAYCEE (acute kidney injury) Assessment & Plan: due to dehydration, continue IVF, monitor renal function , nephrology is following (6) Sacral decubitus ulcer, stage II Assessment & Plan: present on admission, continue local wound care and off loading as needed , avoid contamination (7) Pneumonia Assessment & Plan: with possible aspiration, continue wide spectrum antibiotics , keep HOB>30 degree, with aspiration precaution, may need tube feeding Subjective ROS Limited/Unobtainable: Yes Allergies: Coded Allergies: NO KNOWN DRUG ALLERGIES (Unverified Allergy, Unknown, 08/31/14) Subjective she was more awake and responsive , lying in bed, responsive to verbal commands , afebrile, breathing well , NAD. still has phlegm Objective Vital Signs Last 24 Hour Vital Signs Date Time Temp Pulse Resp B/P (MAP) Pulse Ox O2 Delivery O2 Flow Rate FiO2 08/02/17 12:00 97.9 87 18 131/70 96 Nasal Cannula 3.0 97.9 08/02/17 11:44 80 18 100 Nasal Cannula 3.0 32 08/02/17 11:34 80 18 100 Nasal Cannula 3.0 32 08/02/17 11:34 32 08/02/17 08:00 97.9 74 146/82 100 Nasal Cannula 3.0 97.9 08/02/17 07:50 80 18 100 Nasal Cannula 3.0 32 08/02/17 07:44 Nasal Cannula 3.0 32 08/02/17 07:40 77 18 100 Nasal Cannula 3.0 32 08/02/17 07:40 32 08/02/17 07:39 100 Nasal Cannula 3.0 32 08/02/17 04:17 91 20 95 Nasal Cannula 3.0 32 08/02/17 04:09 32 08/02/17 04:09 91 20 93 Nasal Cannula 3.0 32 08/02/17 04:00 97.9 77 127/73 97.9 08/02/17 00:24 93 Nasal Cannula 3.0 08/02/17 00:00 98.1 93 20 136/79 98.1 08/01/17 23:24 92 16 98 Nasal Cannula 3.0 32 08/01/17 23:10 83 20 97 Nasal Cannula 3.0 32 08/01/17 20:00 93 Nasal Cannula 3.0 08/01/17 20:00 97.9 100 20 142/55 97.9 08/01/17 19:22 88 16 97 Nasal Cannula 3.0 32 08/01/17 19:12 91 20 97 Nasal Cannula 3.0 32 08/01/17 19:12 Nasal Cannula 3.0 32 08/01/17 19:12 96 Nasal Cannula 3.0 32 08/01/17 16:01 Nasal Cannula 3.0 08/01/17 16:00 97.2 106 20 137/77 99 97.2 08/01/17 15:51 95 16 99 Nasal Cannula 3.0 32 08/01/17 15:32 88 20 96 Nasal Cannula 3.0 32 Height (Feet): 5 Height (Inches): 4.00 Weight (Pounds): 130 General Appearance: WD/WN, no acute distress HEENT: normocephalic, atraumatic, anicteric, mucous membranes moist, PERRL, supple, no JVD Respiratory/Chest: chest wall non-tender, no respiratory distress, no accessory muscle use, decreased breath sounds, expiratory wheezing Cardiovascular: normal rate, regular rhythm, no gallop/murmur, no JVD Abdomen: normal bowel sounds, soft, non tender, no organomegaly, non distended , no mass, no scars Extremities: no cyanosis, no clubbing Skin: no rash, no lesions, ulcers Neurologic/Psychiatric: alert, responsive Lymphatic: no neck adenopathy, no groin adenopathy Microbiology Date/Time Source Procedure Growth Status 07/30/17 17:49 Blood Blood Culture - Final Staphylococcus Sp Coag Neg Complete 07/30/17 17:40 Blood Blood Culture - Final Staphylococcus Sp Coag Neg Complete 08/01/17 00:03 Sputum Gram Stain Pending Resulted 08/01/17 00:03 Sputum Sputum Culture - Preliminary NO GROWTH Resulted 07/30/17 19:00 Nasal Nares MRSA Culture - Final NO METHICILLIN RESISTANT STAPH AUREUS... Complete 07/30/17 19:00 Nasal Nares Influenza Types A,B Antigen (MARA) - Final Complete 07/30/17 19:00 Indwelling Cath Urine Culture - Final Mixed Urogenital Contaminants Complete 07/30/17 19:00 Rectum VRE Culture - Final NO VANCOMYCIN RESISTANT ENTEROCOCCUS ... Complete Laboratory Tests Test 08/02/17 05:15 White Blood Count 7.3 K/UL (4.8-10.8) Red Blood Count 3.32 M/UL (4.20-5.40) L Hemoglobin 9.7 G/DL (12.0-16.0) L Hematocrit 29.3 % (37.0-47.0) L Mean Corpuscular Volume 88 FL (80-99) Mean Corpuscular Hemoglobin 29.3 PG (27.0-31.0) Mean Corpuscular Hemoglobin Concent 33.2 G/DL (32.0-36.0) Red Cell Distribution Width 11.6 % (11.6-14.8) Platelet Count 205 K/UL (150-450) Mean Platelet Volume 7.3 FL (6.5-10.1) Neutrophils (%) (Auto) 64.1 % (45.0-75.0) Lymphocytes (%) (Auto) 24.2 % (20.0-45.0) Monocytes (%) (Auto) 9.5 % (1.0-10.0) Eosinophils (%) (Auto) 1.4 % (0.0-3.0) Basophils (%) (Auto) 0.8 % (0.0-2.0) Sodium Level 144 MMOL/L (136-145) Potassium Level 3.3 MMOL/L (3.5-5.1) L Chloride Level 108 MMOL/L (98-107) H Carbon Dioxide Level 27 MMOL/L (21-32) Anion Gap 9 mmol/L (5-15) Blood Urea Nitrogen 13 mg/dL (7-18) Creatinine 1.4 MG/DL (0.55-1.30) H Estimat Glomerular Filtration Rate mL/min (>60) Glucose Level 113 MG/DL (74-106) H Calcium Level 8.5 MG/DL (8.5-10.1) Phosphorus Level 3.1 MG/DL (2.5-4.9) Magnesium Level 1.4 MG/DL (1.8-2.4) L Total Bilirubin 0.7 MG/DL (0.2-1.0) Aspartate Amino Transf (AST/SGOT) 33 U/L (15-37) Alanine Aminotransferase (ALT/SGPT) 16 U/L (12-78) Alkaline Phosphatase 47 U/L (46-116) Total Protein 6.3 G/DL (6.4-8.2) L Albumin 2.5 G/DL (3.4-5.0) L Globulin 3.8 g/dL Albumin/Globulin Ratio 0.7 (1.0-2.7) L Current Medications Medications (Trade) Dose Ordered Sig/Kimberley Route PRN Reason Start Time Stop Time Status Last Admin Dose Admin Acetaminophen (Tylenol) 325 mg Q6H PRN ORAL Mild Pain/Temp > 100.5 07/31/17 19:00 08/29/17 18:59 Albuterol Sulfate (Proventil) 2.5 mg Q4HRT HHN 07/31/17 19:00 08/05/17 14:59 08/02/17 11:40 Albuterol Sulfate (Proventil) 2.5 mg Q6H PRN HHN Shortness of Breath 07/31/17 19:00 08/04/17 18:59 Dextrose 1,000 ml @ 40 mls/hr Q24H IV 08/02/17 11:30 09/01/17 11:29 08/02/17 10:55 Docusate Sodium (Colace) 100 mg TWICE A DAY ORAL 07/31/17 21:00 08/30/17 20:59 Heparin Sodium (Porcine) (Heparin 5000 units/ml) 5,000 units EVERY 12 HOURS SUBQ 07/31/17 21:00 08/29/17 20:59 08/01/17 20:57 Magnesium Sulfate 100 ml @ 100 mls/hr Q1H IVPB 08/02/17 11:30 08/02/17 15:29 08/02/17 12:16 Pantoprazole (Protonix) 40 mg BID IVP 07/31/17 21:00 08/29/17 20:59 07/31/17 20:26 Piperacillin Sod/ Tazobactam Sod 3.375 gm/Sodium Chloride 110 ml @ 27.5 mls/hr Q8HR IVPB 07/31/17 22:00 08/07/17 13:59 08/02/17 06:09 Potassium Chloride 40 meq/ Dextrose 570 ml @ 142.5 mls/ hr ONCE ONCE IVPB 08/02/17 13:00 08/02/17 16:59 Promethazine HCl/ Codeine (Phenergan with Codeine) 5 ml Q4H PRN ORAL For Cough 07/31/17 19:00 08/30/17 18:59 Thiamine HCl (Vitamin B1) 100 mg DAILY ORAL 08/01/17 09:00 08/30/17 08:59 Vancomycin HCl (Vanco rx to dose) 1 ea DAILYPRN PRN MISC Per rx protocol 07/31/17 19:00 08/30/17 18:59 Vancomycin HCl 500 mg/Dextrose 275 ml @ 275 mls/hr QHS IVPB 07/31/17 21:00 08/05/17 20:59 08/01/17 20:53 Jasmyn Peterson M.D. Aug 02, 2017 13:00
--- NOTE | 2017-08-02 15:57 | General Progress Note ---
Assessment/Plan Problem List: (1) Sepsis ICD Codes: A41.9 - Sepsis, unspecified organism SNOMED: 20966249 (2) Dementia ICD Codes: F03.90 - Dementia SNOMED: 32468707 (3) JAYCEE (acute kidney injury) ICD Codes: N17.9 - JAYCEE (acute kidney injury) SNOMED: 62541613 (4) CKD (chronic kidney disease) stage 3, GFR 30-59 ml/min ICD Codes: N18.3 - CKD (chronic kidney disease) stage 3, GFR 30-59 ml/min SNOMED: 777283502 (5) Dehydration ICD Codes: E86.0 - Dehydration SNOMED: 16132494 (6) Lactic acidosis ICD Codes: E87.2 - Acidosis SNOMED: 75062379 (7) Functional quadriplegia ICD Codes: R53.2 - Functional quadriplegia SNOMED: 537038852711113 (8) Pneumonia Assessment & Plan: left base ICD Codes: J18.9 - Pneumonia, unspecified organism SNOMED: 510076999 Status: stable Assessment/Plan labsreviewed IV Hydrate- fluid challenge K Phos supplement Antibiotics- NPO St eval Monitor renal parameters per orders ID eval breathing treatment Daughter agrees with PEG- Planned 08/03 Subjective ROS Limited/Unobtainable: No Constitutional: Reports: malaise, other - more responsive Allergies: Coded Allergies: NO KNOWN DRUG ALLERGIES (Unverified Allergy, Unknown, 08/31/14) Objective Last 24 Hour Vital Signs Date Time Temp Pulse Resp B/P (MAP) Pulse Ox O2 Delivery O2 Flow Rate FiO2 08/02/17 15:44 79 18 100 Nasal Cannula 3.0 32 08/02/17 15:32 78 18 100 Nasal Cannula 3.0 32 08/02/17 15:32 32 08/02/17 12:00 97.9 87 18 131/70 96 Nasal Cannula 3.0 97.9 08/02/17 11:44 80 18 100 Nasal Cannula 3.0 32 08/02/17 11:34 80 18 100 Nasal Cannula 3.0 32 08/02/17 11:34 32 08/02/17 08:00 97.9 74 146/82 100 Nasal Cannula 3.0 97.9 08/02/17 07:50 80 18 100 Nasal Cannula 3.0 32 08/02/17 07:44 Nasal Cannula 3.0 32 08/02/17 07:40 77 18 100 Nasal Cannula 3.0 32 08/02/17 07:40 32 08/02/17 07:39 100 Nasal Cannula 3.0 32 08/02/17 04:17 91 20 95 Nasal Cannula 3.0 32 08/02/17 04:09 32 08/02/17 04:09 91 20 93 Nasal Cannula 3.0 32 08/02/17 04:00 97.9 77 127/73 97.9 08/02/17 00:24 93 Nasal Cannula 3.0 08/02/17 00:00 98.1 93 20 136/79 98.1 08/01/17 23:24 92 16 98 Nasal Cannula 3.0 32 08/01/17 23:10 83 20 97 Nasal Cannula 3.0 32 08/01/17 20:00 93 Nasal Cannula 3.0 08/01/17 20:00 97.9 100 20 142/55 97.9 08/01/17 19:22 88 16 97 Nasal Cannula 3.0 32 08/01/17 19:12 91 20 97 Nasal Cannula 3.0 32 08/01/17 19:12 Nasal Cannula 3.0 32 08/01/17 19:12 96 Nasal Cannula 3.0 32 08/01/17 16:01 Nasal Cannula 3.0 08/01/17 16:00 97.2 106 20 137/77 99 97.2 Intake and Output 08/01/17 08/02/17 19:00 07:00 Intake Total 702.5 ml 1237.5 ml Output Total 450 ml 350 ml Balance 252.5 ml 887.5 ml Intake Oral 0 ml IV Total 702.5 ml 1237.5 ml Output Urine Total 450 ml 350 ml Laboratory Tests 08/02/17 05:15: White Blood Count 7.3, Red Blood Count 3.32L, Hemoglobin 9.7L, Hematocrit 29.3L , Mean Corpuscular Volume 88, Mean Corpuscular Hemoglobin 29.3, Mean Corpuscular Hemoglobin Concent 33.2, Red Cell Distribution Width 11.6, Platelet Count 205, Mean Platelet Volume 7.3, Neutrophils (%) (Auto) 64.1, Lymphocytes (% ) (Auto) 24.2, Monocytes (%) (Auto) 9.5, Eosinophils (%) (Auto) 1.4, Basophils ( %) (Auto) 0.8, Sodium Level 144, Potassium Level 3.3L, Chloride Level 108H, Carbon Dioxide Level 27, Anion Gap 9, Blood Urea Nitrogen 13, Creatinine 1.4H, Estimat Glomerular Filtration Rate , Glucose Level 113H, Calcium Level 8.5, Phosphorus Level 3.1, Magnesium Level 1.4L, Total Bilirubin 0.7, Aspartate Amino Transf (AST/SGOT) 33, Alanine Aminotransferase (ALT/SGPT) 16, Alkaline Phosphatase 47, Total Protein 6.3L, Albumin 2.5L, Globulin 3.8, Albumin/ Globulin Ratio 0.7L Height (Feet): 5 Height (Inches): 4.00 Weight (Pounds): 130 General Appearance: no apparent distress, confused Cardiovascular: normal rate Respiratory/Chest: decreased breath sounds Abdomen: soft Objective no other change ARA JULIEN Aug 02, 2017 15:57
[2017-08-02 16:00] VITALS: BP 138/91
--- NOTE | 2017-08-02 16:34 | Cardiology Report ---
APPROVED REPORT EKG Measurement Heart [id number] Normal sinus rhythm Normal ECG
--- NOTE | 2017-08-02 17:04 | General Progress Note ---
Assessment/Plan Assessment/Plan Assessment (1) Encounter for PEG (percutaneous endoscopic gastrostomy) (2) Anemia (3) Severe malnutrition (4) Weak (5) Dehydration (6) SIRS (systemic inflammatory response syndrome) (7) Dementia Plan PEG scheduled for thursday. >> daughter has consented. - NPO @ [facility], day prior procedure. - hold all blood thinners day prior procedure. fu ST evaluation for oral grat anemia work up OB stool r/o GI bleed monitor H&H, prn transfusions bowel regime ppi fu labs Subjective Allergies: Coded Allergies: NO KNOWN DRUG ALLERGIES (Unverified Allergy, Unknown, 08/31/14) Subjective minimally interactive d/w RN no events overnight Objective Last 24 Hour Vital Signs Date Time Temp Pulse Resp B/P (MAP) Pulse Ox O2 Delivery O2 Flow Rate FiO2 08/02/17 16:00 97.4 81 18 138/91 96 Nasal Cannula 3.0 97.4 08/02/17 15:44 79 18 100 Nasal Cannula 3.0 32 08/02/17 15:32 78 18 100 Nasal Cannula 3.0 32 08/02/17 15:32 32 08/02/17 12:00 97.9 87 18 131/70 96 Nasal Cannula 3.0 97.9 08/02/17 11:44 80 18 100 Nasal Cannula 3.0 32 08/02/17 11:34 80 18 100 Nasal Cannula 3.0 32 08/02/17 11:34 32 08/02/17 08:00 97.9 74 146/82 100 Nasal Cannula 3.0 97.9 08/02/17 07:50 80 18 100 Nasal Cannula 3.0 32 08/02/17 07:44 Nasal Cannula 3.0 32 08/02/17 07:40 77 18 100 Nasal Cannula 3.0 32 08/02/17 07:40 32 08/02/17 07:39 100 Nasal Cannula 3.0 32 08/02/17 04:17 91 20 95 Nasal Cannula 3.0 32 08/02/17 04:09 32 08/02/17 04:09 91 20 93 Nasal Cannula 3.0 32 08/02/17 04:00 97.9 77 127/73 97.9 08/02/17 00:24 93 Nasal Cannula 3.0 08/02/17 00:00 98.1 93 20 136/79 98.1 08/01/17 23:24 92 16 98 Nasal Cannula 3.0 32 08/01/17 23:10 83 20 97 Nasal Cannula 3.0 32 08/01/17 20:00 93 Nasal Cannula 3.0 08/01/17 20:00 97.9 100 20 142/55 97.9 08/01/17 19:22 88 16 97 Nasal Cannula 3.0 32 08/01/17 19:12 91 20 97 Nasal Cannula 3.0 32 08/01/17 19:12 Nasal Cannula 3.0 32 08/01/17 19:12 96 Nasal Cannula 3.0 32 Intake and Output 08/01/17 08/02/17 19:00 07:00 Intake Total 702.5 ml 1237.5 ml Output Total 450 ml 350 ml Balance 252.5 ml 887.5 ml Intake Oral 0 ml IV Total 702.5 ml 1237.5 ml Output Urine Total 450 ml 350 ml Laboratory Tests 08/02/17 05:15: White Blood Count 7.3, Red Blood Count 3.32L, Hemoglobin 9.7L, Hematocrit 29.3L , Mean Corpuscular Volume 88, Mean Corpuscular Hemoglobin 29.3, Mean Corpuscular Hemoglobin Concent 33.2, Red Cell Distribution Width 11.6, Platelet Count 205, Mean Platelet Volume 7.3, Neutrophils (%) (Auto) 64.1, Lymphocytes (% ) (Auto) 24.2, Monocytes (%) (Auto) 9.5, Eosinophils (%) (Auto) 1.4, Basophils ( %) (Auto) 0.8, Sodium Level 144, Potassium Level 3.3L, Chloride Level 108H, Carbon Dioxide Level 27, Anion Gap 9, Blood Urea Nitrogen 13, Creatinine 1.4H, Estimat Glomerular Filtration Rate , Glucose Level 113H, Calcium Level 8.5, Phosphorus Level 3.1, Magnesium Level 1.4L, Total Bilirubin 0.7, Aspartate Amino Transf (AST/SGOT) 33, Alanine Aminotransferase (ALT/SGPT) 16, Alkaline Phosphatase 47, Total Protein 6.3L, Albumin 2.5L, Globulin 3.8, Albumin/ Globulin Ratio 0.7L Height (Feet): 5 Height (Inches): 4.00 Weight (Pounds): 130 Objective Thin AA woman NCAT supple CTA RRR Soft ND NT no edema OBS KHORRAMI,PAYMAN Aug 02, 2017 17:04
[2017-08-02 20:00] VITALS: BP 144/88
[2017-08-02] MEDS: Vancomycin 750mg/NS 250ml IVPB SCH (23:29)
[2017-08-03] VITALS (14 sets, daily range): BP systolic 81–140; BP diastolic 53–87
[2017-08-03] MEDS: Albuterol ud Inhalation HHN SCH ×6 (03:09→22:58)
[2017-08-03] MEDS: Piperacillin/Tazobactam 3.375 GM in NS 110 ML IVPB SCH ×3 (04:56→21:11)
[2017-08-03 07:30] LABS: BASOPHILS % (AUTO) 0.8 % (0.0-2.0); EOSINOPHILS % (AUTO) 3.6 % (0.0-3.0); HEMATOCRIT 28.8 % (37.0-47.0); HEMOGLOBIN 9.4 G/DL (12.0-16.0); LYMPHOCYTES % (AUTO) 20.1 % (20.0-45.0); MEAN CORPUSCULAR VOLUME 87 FL (80-99); MONOCYTES % (AUTO) 9.6 % (1.0-10.0); NEUTROPHILS % (AUTO) 65.8 % (45.0-75.0); PLATELET COUNT 258 K/UL (150-450); RED CELL DISTRIBUTION WIDTH 11.6 % (11.6-14.8)
[2017-08-03 07:32] LABS: ALANINE AMINOTRANSFERASE 17 U/L (12-78); ALBUMIN 2.5 G/DL (3.4-5.0); ALBUMIN/GLOBULIN RATIO 0.7 (1.0-2.7); ALKALINE PHOSPHATASE 47 U/L (46-116); ANION GAP 8 mmol/L (5-15); ASPARTATE AMINO TRANSFERASE 28 U/L (15-37); BILIRUBIN,TOTAL 0.6 MG/DL (0.2-1.0); BLOOD UREA NITROGEN 8 mg/dL (7-18); CALCIUM 8.5 MG/DL (8.5-10.1); CARBON DIOXIDE 26 MMOL/L (21-32); CHLORIDE 109 MMOL/L (98-107); CREATININE 1.3 MG/DL (0.55-1.30); POTASSIUM 3.8 MMOL/L (3.5-5.1); SODIUM 143 MMOL/L (136-145)
[2017-08-03 07:43] LABS: PHOSPHORUS 2.7 MG/DL (2.5-4.9)
[2017-08-03] MEDS: Thiamine 100mg tab ORAL SCH (09:00)
[2017-08-03] MEDS: Heparin 5000 units/ml inj SUBQ SCH ×2 (09:00→20:27)
[2017-08-03] MEDS: Docusate 100mg cap ORAL SCH ×2 (09:00→17:53)
[2017-08-03] MEDS: Pantoprazole Inj IVP SCH ×2 (09:51→17:59)
--- NOTE | 2017-08-03 10:46 | General Progress Note ---
Assessment/Plan Problem List: (1) Sepsis ICD Codes: A41.9 - Sepsis, unspecified organism SNOMED: 02189758 (2) Dementia ICD Codes: F03.90 - Dementia SNOMED: 00022954 (3) JAYCEE (acute kidney injury) ICD Codes: N17.9 - JAYCEE (acute kidney injury) SNOMED: 60517715 (4) CKD (chronic kidney disease) stage 3, GFR 30-59 ml/min ICD Codes: N18.3 - CKD (chronic kidney disease) stage 3, GFR 30-59 ml/min SNOMED: 512364022 (5) Dehydration ICD Codes: E86.0 - Dehydration SNOMED: 93881462 (6) Lactic acidosis ICD Codes: E87.2 - Acidosis SNOMED: 31082294 (7) Functional quadriplegia ICD Codes: R53.2 - Functional quadriplegia SNOMED: 554718812290918 (8) Pneumonia Assessment & Plan: left base ICD Codes: J18.9 - Pneumonia, unspecified organism SNOMED: 735608119 Status: stable Assessment/Plan labsreviewed due peg today- K Phos as needed Antibiotics- NPO Monitor renal parameters per orders ID eval breathing treatment Daughter agrees with PEG- Planned 08/03 Subjective ROS Limited/Unobtainable: No Constitutional: Reports: other - more responsive Allergies: Coded Allergies: NO KNOWN DRUG ALLERGIES (Unverified Allergy, Unknown, 08/31/14) Objective Last 24 Hour Vital Signs Date Time Temp Pulse Resp B/P (MAP) Pulse Ox O2 Delivery O2 Flow Rate FiO2 08/03/17 08:00 97.7 95 18 132/79 97 97.7 08/03/17 07:17 82 19 99 Nasal Cannula 3.0 32 08/03/17 07:09 Nasal Cannula 3.0 32 08/03/17 07:09 32 08/03/17 07:09 96 Nasal Cannula 3.0 32 08/03/17 07:08 76 18 96 Nasal Cannula 3.0 32 08/03/17 04:00 97.7 85 20 133/83 99 Nasal Cannula 3.0 97.7 08/03/17 03:20 95 19 98 Nasal Cannula 3.0 32 08/03/17 03:20 95 19 98 Nasal Cannula 3.0 32 08/03/17 03:09 32 08/03/17 03:08 95 19 98 Nasal Cannula 3.0 32 08/03/17 00:00 97.7 95 19 135/77 98 Nasal Cannula 3.0 97.7 08/02/17 23:54 81 18 94 Nasal Cannula 3.0 32 08/02/17 23:38 32 08/02/17 23:37 81 18 94 Nasal Cannula 3.0 32 08/02/17 20:02 81 18 94 Nasal Cannula 3.0 32 08/02/17 20:00 98.0 86 19 144/88 99 Nasal Cannula 3.0 98.0 08/02/17 19:50 Nasal Cannula 3.0 32 08/02/17 19:50 32 08/02/17 19:50 81 18 94 Nasal Cannula 3.0 32 08/02/17 19:49 94 Nasal Cannula 3.0 32 08/02/17 16:00 97.4 81 18 138/91 96 Nasal Cannula 3.0 97.4 08/02/17 15:44 79 18 100 Nasal Cannula 3.0 32 08/02/17 15:32 78 18 100 Nasal Cannula 3.0 32 08/02/17 15:32 32 08/02/17 12:00 97.9 87 18 131/70 96 Nasal Cannula 3.0 97.9 08/02/17 11:44 80 18 100 Nasal Cannula 3.0 32 08/02/17 11:34 80 18 100 Nasal Cannula 3.0 32 08/02/17 11:34 32 Intake and Output 08/02/17 08/03/17 19:00 07:00 Intake Total 1330.0 ml Output Total 900 ml 1000 ml Balance 430.0 ml -1000 ml IV Total 1330.0 ml Output Urine Total 900 ml 1000 ml Laboratory Tests 08/02/17 20:32: Vancomycin Level Trough 8.9 08/03/17 05:20: White Blood Count 7.0, Red Blood Count 3.30L, Hemoglobin 9.4L, Hematocrit 28.8L , Mean Corpuscular Volume 87, Mean Corpuscular Hemoglobin 28.4, Mean Corpuscular Hemoglobin Concent 32.6, Red Cell Distribution Width 11.6, Platelet Count 258, Mean Platelet Volume 7.5, Neutrophils (%) (Auto) 65.8, Lymphocytes (% ) (Auto) 20.1, Monocytes (%) (Auto) 9.6, Eosinophils (%) (Auto) 3.6H, Basophils (%) (Auto) 0.8, Prothrombin Time 10.8, Prothromb Time International Ratio 1.0, Activated Partial Thromboplast Time 32, Sodium Level 143, Potassium Level 3.8, Chloride Level 109H, Carbon Dioxide Level 26, Anion Gap 8, Blood Urea Nitrogen 8 , Creatinine 1.3, Estimat Glomerular Filtration Rate , Glucose Level 84, Calcium Level 8.5, Phosphorus Level 2.7, Magnesium Level 2.7H, Total Bilirubin 0.6, Aspartate Amino Transf (AST/SGOT) 28, Alanine Aminotransferase (ALT/SGPT) 17, Alkaline Phosphatase 47, Total Protein 6.2L, Albumin 2.5L, Globulin 3.7, Albumin/Globulin Ratio 0.7L Height (Feet): 5 Height (Inches): 2.00 Weight (Pounds): 185 Objective no other change ARA JULIEN Aug 03, 2017 10:46
--- NOTE | 2017-08-03 12:16 | Pre-Procedure Note/Attestation ---
Pre-Procedure Note/Attestation Complete Prior to Procedure Planned Procedure: not applicable Procedure Narrative: egd/peg Indications for Procedure Pre-Operative Diagnosis: dysphagia,FTT Attestation I attest that I discussed the nature of the procedure; its benefits; risks and complications; and alternatives (and the risks and benefits of such alternatives ), prior to the procedure, with the patient (or the patient's legal employment program representative). I attest that, if there was a reasonable possibility of needing a blood transfusion, the patient (or the patient's legal employment program representative) was given the [facility] standardized written summary, pursuant to the [employer] [place] Blood Safety Act ([place] Health and Safety Code # 1645, as amended). I attest that I re-evaluated the patient just prior to the surgery and that there has been no change in the patient's H&P, except as documented below: MACRINA JUAREZ Aug 03, 2017 12:16
--- NOTE | 2017-08-03 12:18 | General Progress Note ---
Assessment/Plan Problem List: (1) Diarrhea ICD Codes: R19.7 - Diarrhea, unspecified SNOMED: 16933885 (2) CKD (chronic kidney disease) stage 3, GFR 30-59 ml/min ICD Codes: N18.3 - CKD (chronic kidney disease) stage 3, GFR 30-59 ml/min SNOMED: 186547150 (3) Dementia ICD Codes: F03.90 - Dementia SNOMED: 25210117 (4) Altered mental status ICD Codes: R41.82 - Altered mental status, unspecified SNOMED: 240175151 (5) Encounter for PEG (percutaneous endoscopic gastrostomy) ICD Codes: Z43.1 - Encounter for attention to gastrostomy SNOMED: 192595615, 634209505 Assessment/Plan plan for PEG placement today Subjective ROS Limited/Unobtainable: No Allergies: Coded Allergies: NO KNOWN DRUG ALLERGIES (Unverified Allergy, Unknown, 08/31/14) Objective Last 24 Hour Vital Signs Date Time Temp Pulse Resp B/P (MAP) Pulse Ox O2 Delivery O2 Flow Rate FiO2 08/03/17 12:00 95.9 61 20 114/65 99 95.9 08/03/17 11:11 85 19 98 Nasal Cannula 3.0 32 08/03/17 11:01 32 08/03/17 10:58 81 18 97 Nasal Cannula 3.0 32 08/03/17 08:00 97.7 95 18 132/79 97 97.7 08/03/17 07:17 82 19 99 Nasal Cannula 3.0 32 08/03/17 07:09 Nasal Cannula 3.0 32 08/03/17 07:09 32 08/03/17 07:09 96 Nasal Cannula 3.0 32 08/03/17 07:08 76 18 96 Nasal Cannula 3.0 32 08/03/17 04:00 97.7 85 20 133/83 99 Nasal Cannula 3.0 97.7 08/03/17 03:20 95 19 98 Nasal Cannula 3.0 32 08/03/17 03:20 95 19 98 Nasal Cannula 3.0 32 08/03/17 03:09 32 08/03/17 03:08 95 19 98 Nasal Cannula 3.0 32 08/03/17 00:00 97.7 95 19 135/77 98 Nasal Cannula 3.0 97.7 3/11/18 23:54 81 18 94 Nasal Cannula 3.0 32 08/02/17 23:38 32 08/02/17 23:37 81 18 94 Nasal Cannula 3.0 32 08/02/17 20:02 81 18 94 Nasal Cannula 3.0 32 08/02/17 20:00 98.0 86 19 144/88 99 Nasal Cannula 3.0 98.0 08/02/17 19:50 Nasal Cannula 3.0 32 08/02/17 19:50 32 08/02/17 19:50 81 18 94 Nasal Cannula 3.0 32 08/02/17 19:49 94 Nasal Cannula 3.0 32 08/02/17 16:00 97.4 81 18 138/91 96 Nasal Cannula 3.0 97.4 08/02/17 15:44 79 18 100 Nasal Cannula 3.0 32 08/02/17 15:32 78 18 100 Nasal Cannula 3.0 32 08/02/17 15:32 32 Intake and Output 08/02/17 08/03/17 19:00 07:00 Intake Total 1330.0 ml Output Total 900 ml 1000 ml Balance 430.0 ml -1000 ml IV Total 1330.0 ml Output Urine Total 900 ml 1000 ml Laboratory Tests 08/02/17 20:32: Vancomycin Level Trough 8.9 08/03/17 05:20: White Blood Count 7.0, Red Blood Count 3.30L, Hemoglobin 9.4L, Hematocrit 28.8L , Mean Corpuscular Volume 87, Mean Corpuscular Hemoglobin 28.4, Mean Corpuscular Hemoglobin Concent 32.6, Red Cell Distribution Width 11.6, Platelet Count 258, Mean Platelet Volume 7.5, Neutrophils (%) (Auto) 65.8, Lymphocytes (% ) (Auto) 20.1, Monocytes (%) (Auto) 9.6, Eosinophils (%) (Auto) 3.6H, Basophils (%) (Auto) 0.8, Prothrombin Time 10.8, Prothromb Time International Ratio 1.0, Activated Partial Thromboplast Time 32, Sodium Level 143, Potassium Level 3.8, Chloride Level 109H, Carbon Dioxide Level 26, Anion Gap 8, Blood Urea Nitrogen 8 , Creatinine 1.3, Estimat Glomerular Filtration Rate , Glucose Level 84, Calcium Level 8.5, Phosphorus Level 2.7, Magnesium Level 2.7H, Total Bilirubin 0.6, Aspartate Amino Transf (AST/SGOT) 28, Alanine Aminotransferase (ALT/SGPT) 17, Alkaline Phosphatase 47, Total Protein 6.2L, Albumin 2.5L, Globulin 3.7, Albumin/Globulin Ratio 0.7L Height (Feet): 5 Height (Inches): 2.00 Weight (Pounds): 185 General Appearance: no apparent distress EENT: normal ENT inspection Neck: supple Cardiovascular: normal rate Respiratory/Chest: decreased breath sounds Abdomen: normal bowel sounds, non tender, soft Extremities: non-tender MACRINA JUAREZ Aug 03, 2017 12:18
--- NOTE | 2017-08-03 12:23 | Diagnostic Imaging Report ---
Indication: Dyspnea Technique: One view of the chest Comparison: 07/30/2017 Findings: There is increased retrocardiac consolidation. There is probably pleural fluid on the left as well. A band of atelectasis is now present in the right midlung. The heart is enlarged Impression: Increased retrocardiac consolidation and left pleural fluid Right perihilar atelectasis
[2017-08-03] MEDS ORDERED: NS 500ML IV ONE (12:25)
[2017-08-03] MEDS ORDERED: fentaNYL 100 mcg/2 mL IV ONE (12:30)
[2017-08-03] MEDS ORDERED: Midazolam 2mg/2ml Inj ONE (12:30)
[2017-08-03] MEDS ORDERED: LR 1000ml ONE (12:30)
[2017-08-03] MEDS ORDERED: Propofol 200mg/20ml IV ONE (12:30)
--- NOTE | 2017-08-03 12:51 | Endoscopy Procedure Note ---
Endoscopy Procedure Note General Indication for Procedure: ftt, DYSPHAGIA Procedures Performed: EGD, PEG Operative Findings/Diagnosis: same Specimen: yes Pt Tolerated Procedure Well: Yes Estimated Blood Loss: none Anesthesia Anesthesiologist: see chart Anesthesia: MAC Inserted Devices Implant(s) used?: No GI Core Measures 50 yrs or older w/o bx or poly: Not Applicable 10yrs. F/U not recommended: Not Applicable MACRINA JUAREZ Aug 03, 2017 12:51
--- NOTE | 2017-08-03 15:34 | Infectious Diseases Prog Note ---
Assessment/Plan Problems: (1) UTI (urinary tract infection) Assessment & Plan: cultures showed contaminants , already on zosyn to cover for pneumonia (2) Sepsis Assessment & Plan: with coag negative staph , grew out of three bottles , most likely real , source most likely her sacral wounds , repeated blood culture to confirm clearance is pending , will treat with vancomycin for two weeks from the clearance date . (3) Dehydration Assessment & Plan: continue IVF for hydration (4) Altered mental status Assessment & Plan: improving , due to the above, continue neuro check, consider brain images (5) JAYCEE (acute kidney injury) Assessment & Plan: due to dehydration, continue IVF, monitor renal function , nephrology is following (6) Sacral decubitus ulcer, stage II Assessment & Plan: present on admission, continue local wound care and off loading as needed , avoid contamination (7) Pneumonia Assessment & Plan: with possible aspiration, sputum culture is growing gram negative rods , continue wide spectrum antibiotics, keep HOB>30 degree, with aspiration precaution, had tube feeding Subjective ROS Limited/Unobtainable: Yes Allergies: Coded Allergies: NO KNOWN DRUG ALLERGIES (Unverified Allergy, Unknown, 08/31/14) Subjective she was awake and responsive , lying in bed, responsive to verbal commands, afebrile, breathing well , NAD. still has phlegm Objective Vital Signs Last 24 Hour Vital Signs Date Time Temp Pulse Resp B/P (MAP) Pulse Ox O2 Delivery O2 Flow Rate FiO2 08/03/17 15:16 95 Nasal Cannula 3.0 32 08/03/17 15:16 95 Nasal Cannula 3.0 32 08/03/17 13:25 98.3 101 20 107/69 98 Nasal Cannula 3.0 98.3 08/03/17 13:10 105 21 104/62 98 Nasal Cannula 3.0 08/03/17 13:00 104 22 81/53 97 Nasal Cannula 3.0 08/03/17 12:55 101 17 100/65 97 Nasal Cannula 3.0 08/03/17 12:50 98.0 101 30 110/80 97 Nasal Cannula 3.0 98.0 08/03/17 12:00 97.9 112 19 123/72 97 Nasal Cannula 3.0 97.9 08/03/17 12:00 95.9 61 20 114/65 99 95.9 08/03/17 11:11 85 19 98 Nasal Cannula 3.0 32 08/03/17 11:01 32 08/03/17 10:58 81 18 97 Nasal Cannula 3.0 32 08/03/17 08:00 97.7 95 18 132/79 97 97.7 08/03/17 07:17 82 19 99 Nasal Cannula 3.0 32 08/03/17 07:09 Nasal Cannula 3.0 32 08/03/17 07:09 32 08/03/17 07:09 96 Nasal Cannula 3.0 32 08/03/17 07:08 76 18 96 Nasal Cannula 3.0 32 08/03/17 04:00 97.7 85 20 133/83 99 Nasal Cannula 3.0 97.7 08/03/17 03:20 95 19 98 Nasal Cannula 3.0 32 08/03/17 03:20 95 19 98 Nasal Cannula 3.0 32 08/03/17 03:09 32 08/03/17 03:08 95 19 98 Nasal Cannula 3.0 32 08/03/17 00:00 97.7 95 19 135/77 98 Nasal Cannula 3.0 97.7 08/02/17 23:54 81 18 94 Nasal Cannula 3.0 32 08/02/17 23:38 32 08/02/17 23:37 81 18 94 Nasal Cannula 3.0 32 08/02/17 20:02 81 18 94 Nasal Cannula 3.0 32 08/02/17 20:00 98.0 86 19 144/88 99 Nasal Cannula 3.0 98.0 08/02/17 19:50 Nasal Cannula 3.0 32 08/02/17 19:50 32 08/02/17 19:50 81 18 94 Nasal Cannula 3.0 32 08/02/17 19:49 94 Nasal Cannula 3.0 32 08/02/17 16:00 97.4 81 18 138/91 96 Nasal Cannula 3.0 97.4 08/02/17 15:44 79 18 100 Nasal Cannula 3.0 32 08/02/17 15:32 78 18 100 Nasal Cannula 3.0 32 08/02/17 15:32 32 Height (Feet): 5 Height (Inches): 2.00 Weight (Pounds): 185 General Appearance: WD/WN, no acute distress HEENT: normocephalic, atraumatic, anicteric, mucous membranes moist, EOMI, supple, no JVD Respiratory/Chest: chest wall non-tender, normal breath sounds, no respiratory distress, no accessory muscle use, decreased breath sounds, expiratory wheezing Cardiovascular: normal peripheral pulses, normal rate, regular rhythm, no gallop/murmur, no JVD Abdomen: normal bowel sounds, soft, non tender, no organomegaly, non distended , no mass, no scars Extremities: no cyanosis, no clubbing Skin: no rash, no lesions, no ulcers Neurologic/Psychiatric: alert, oriented x 3 Lymphatic: no neck adenopathy, no groin adenopathy Microbiology Date/Time Source Procedure Growth Status 08/01/17 00:03 Sputum Gram Stain - Final Resulted 08/01/17 00:03 Sputum Culture - Preliminary Gram Negative Rohan Resulted Laboratory Tests Test 08/02/17 20:32 08/03/17 05:20 Vancomycin Level Trough 8.9 ug/mL (5.0-12.0) White Blood Count 7.0 K/UL (4.8-10.8) Red Blood Count 3.30 M/UL (4.20-5.40) L Hemoglobin 9.4 G/DL (12.0-16.0) L Hematocrit 28.8 % (37.0-47.0) L Mean Corpuscular Volume 87 FL (80-99) Mean Corpuscular Hemoglobin 28.4 PG (27.0-31.0) Mean Corpuscular Hemoglobin Concent 32.6 G/DL (32.0-36.0) Red Cell Distribution Width 11.6 % (11.6-14.8) Platelet Count 258 K/UL (150-450) Mean Platelet Volume 7.5 FL (6.5-10.1) Neutrophils (%) (Auto) 65.8 % (45.0-75.0) Lymphocytes (%) (Auto) 20.1 % (20.0-45.0) Monocytes (%) (Auto) 9.6 % (1.0-10.0) Eosinophils (%) (Auto) 3.6 % (0.0-3.0) H Basophils (%) (Auto) 0.8 % (0.0-2.0) Prothrombin Time 10.8 SEC (9.30-11.50) Prothromb Time International Ratio 1.0 (0.9-1.1) Activated Partial Thromboplast Time 32 SEC (23-33) Sodium Level 143 MMOL/L (136-145) Potassium Level 3.8 MMOL/L (3.5-5.1) Chloride Level 109 MMOL/L (98-107) H Carbon Dioxide Level 26 MMOL/L (21-32) Anion Gap 8 mmol/L (5-15) Blood Urea Nitrogen 8 mg/dL (7-18) Creatinine 1.3 MG/DL (0.55-1.30) Estimat Glomerular Filtration Rate mL/min (>60) Glucose Level 84 MG/DL (74-106) Calcium Level 8.5 MG/DL (8.5-10.1) Phosphorus Level 2.7 MG/DL (2.5-4.9) Magnesium Level 2.7 MG/DL (1.8-2.4) H Total Bilirubin 0.6 MG/DL (0.2-1.0) Aspartate Amino Transf (AST/SGOT) 28 U/L (15-37) Alanine Aminotransferase (ALT/SGPT) 17 U/L (12-78) Alkaline Phosphatase 47 U/L (46-116) Total Protein 6.2 G/DL (6.4-8.2) L Albumin 2.5 G/DL (3.4-5.0) L Globulin 3.7 g/dL Albumin/Globulin Ratio 0.7 (1.0-2.7) L Current Medications Medications (Trade) Dose Ordered Sig/Kimberley Route PRN Reason Start Time Stop Time Status Last Admin Dose Admin Acetaminophen (Tylenol) 325 mg Q6H PRN ORAL Mild Pain/Temp > 100.5 07/31/17 19:00 08/29/17 18:59 Albuterol Sulfate (Proventil) 2.5 mg Q4HRT HHN 07/31/17 19:00 08/05/17 14:59 08/03/17 10:58 Albuterol Sulfate (Proventil) 2.5 mg Q6H PRN HHN Shortness of Breath 07/31/17 19:00 08/04/17 18:59 Docusate Sodium (Colace) 100 mg TWICE A DAY ORAL 07/31/17 21:00 08/30/17 20:59 Heparin Sodium (Porcine) (Heparin 5000 units/ml) 5,000 units EVERY 12 HOURS SUBQ 3/9/18 21:00 08/29/17 20:59 08/01/17 20:57 Pantoprazole (Protonix) 40 mg BID IVP 07/31/17 21:00 08/29/17 20:59 08/03/17 09:51 Piperacillin Sod/ Tazobactam Sod 3.375 gm/Sodium Chloride 110 ml @ 27.5 mls/hr Q8HR IVPB 07/31/17 22:00 08/07/17 13:59 08/03/17 15:12 Promethazine HCl/ Codeine (Phenergan with Codeine) 5 ml Q4H PRN ORAL For Cough 07/31/17 19:00 08/30/17 18:59 Thiamine HCl (Vitamin B1) 100 mg DAILY ORAL 08/01/17 09:00 08/30/17 08:59 Vancomycin HCl (Vanco rx to dose) 1 ea DAILYPRN PRN MISC Per rx protocol 07/31/17 19:00 08/30/17 18:59 Vancomycin/Sodium Chloride 250 ml @ 166.667 mls/hr Q24H IVPB 08/02/17 23:00 08/07/17 22:59 08/02/17 23:29 Jasmyn Peterson M.D. Aug 03, 2017 15:34
--- NOTE | 2017-08-03 17:46 | Pulmonology Progress Note ---
Assessment/Plan Problems: (1) Aspiration pneumonia (2) Purulent bronchitis (3) JAYCEE (acute kidney injury) (4) Dementia (5) Toxic metabolic encephalopathy (6) Alzheimer's dementia Assessment/Plan no new complains for PEG today respiratory treatment iv abx check cultures chest pt aspiration precaution check electrolytes dvt prophylaxis symptomatic treatment Subjective ROS Limited/Unobtainable: No Allergies: Coded Allergies: NO KNOWN DRUG ALLERGIES (Unverified Allergy, Unknown, 08/31/14) Objective Last 24 Hour Vital Signs Date Time Temp Pulse Resp B/P (MAP) Pulse Ox O2 Delivery O2 Flow Rate FiO2 08/03/17 16:00 97.3 87 19 139/87 93 97.3 08/03/17 15:16 95 Nasal Cannula 3.0 32 08/03/17 15:16 95 Nasal Cannula 3.0 32 08/03/17 13:25 98.3 101 20 107/69 98 Nasal Cannula 3.0 98.3 08/03/17 13:10 105 21 104/62 98 Nasal Cannula 3.0 08/03/17 13:00 104 22 81/53 97 Nasal Cannula 3.0 08/03/17 12:55 101 17 100/65 97 Nasal Cannula 3.0 08/03/17 12:50 98.0 101 30 110/80 97 Nasal Cannula 3.0 98.0 08/03/17 12:00 97.9 112 19 123/72 97 Nasal Cannula 3.0 97.9 08/03/17 12:00 95.9 61 20 114/65 99 95.9 08/03/17 11:11 85 19 98 Nasal Cannula 3.0 32 08/03/17 11:01 32 08/03/17 10:58 81 18 97 Nasal Cannula 3.0 32 08/03/17 08:00 97.7 95 18 132/79 97 97.7 08/03/17 07:17 82 19 99 Nasal Cannula 3.0 32 08/03/17 07:09 Nasal Cannula 3.0 32 08/03/17 07:09 32 08/03/17 07:09 96 Nasal Cannula 3.0 32 08/03/17 07:08 76 18 96 Nasal Cannula 3.0 32 08/03/17 04:00 97.7 85 20 133/83 99 Nasal Cannula 3.0 97.7 08/03/17 03:20 95 19 98 Nasal Cannula 3.0 32 08/03/17 03:20 95 19 98 Nasal Cannula 3.0 32 08/03/17 03:09 32 08/03/17 03:08 95 19 98 Nasal Cannula 3.0 32 08/03/17 00:00 97.7 95 19 135/77 98 Nasal Cannula 3.0 97.7 08/02/17 23:54 81 18 94 Nasal Cannula 3.0 32 08/02/17 23:38 32 08/02/17 23:37 81 18 94 Nasal Cannula 3.0 32 08/02/17 20:02 81 18 94 Nasal Cannula 3.0 32 08/02/17 20:00 98.0 86 19 144/88 99 Nasal Cannula 3.0 98.0 08/02/17 19:50 Nasal Cannula 3.0 32 08/02/17 19:50 32 08/02/17 19:50 81 18 94 Nasal Cannula 3.0 32 08/02/17 19:49 94 Nasal Cannula 3.0 32 Intake and Output 08/02/17 08/03/17 19:00 07:00 Intake Total 1330.0 ml Output Total 900 ml 1000 ml Balance 430.0 ml -1000 ml IV Total 1330.0 ml Output Urine Total 900 ml 1000 ml Objective General Appearance: cachectic HEENT: normocephalic, atraumatic Respiratory/Chest: chest wall non-tender, lungs clear Breasts: no masses Cardiovascular: normal peripheral pulses, regular rhythm Abdomen: normal bowel sounds, soft, non tender Genitourinary: normal external genitalia Extremities: no cyanosis Skin: no lesions Neurologic/Psychiatric: casting carrier II-XII grossly normal, no motor/sensory deficits Lymphatic: no groin adenopathy Microbiology Date/Time Source Procedure Growth Status 08/01/17 00:03 Sputum Gram Stain - Final Resulted 08/01/17 00:03 Sputum Culture - Preliminary Gram Negative Rohan Resulted Laboratory Tests 08/02/17 20:32: Vancomycin Level Trough 8.9 08/03/17 05:20: White Blood Count 7.0, Red Blood Count 3.30L, Hemoglobin 9.4L, Hematocrit 28.8L , Mean Corpuscular Volume 87, Mean Corpuscular Hemoglobin 28.4, Mean Corpuscular Hemoglobin Concent 32.6, Red Cell Distribution Width 11.6, Platelet Count 258, Mean Platelet Volume 7.5, Neutrophils (%) (Auto) 65.8, Lymphocytes (% ) (Auto) 20.1, Monocytes (%) (Auto) 9.6, Eosinophils (%) (Auto) 3.6H, Basophils (%) (Auto) 0.8, Prothrombin Time 10.8, Prothromb Time International Ratio 1.0, Activated Partial Thromboplast Time 32, Sodium Level 143, Potassium Level 3.8, Chloride Level 109H, Carbon Dioxide Level 26, Anion Gap 8, Blood Urea Nitrogen 8 , Creatinine 1.3, Estimat Glomerular Filtration Rate , Glucose Level 84, Calcium Level 8.5, Phosphorus Level 2.7, Magnesium Level 2.7H, Total Bilirubin 0.6, Aspartate Amino Transf (AST/SGOT) 28, Alanine Aminotransferase (ALT/SGPT) 17, Alkaline Phosphatase 47, Total Protein 6.2L, Albumin 2.5L, Globulin 3.7, Albumin/Globulin Ratio 0.7L Current Medications Medications (Trade) Dose Ordered Sig/Kimberley Route PRN Reason Start Time Stop Time Status Last Admin Dose Admin Acetaminophen (Tylenol) 325 mg Q6H PRN ORAL Mild Pain/Temp > 100.5 07/31/17 19:00 08/29/17 18:59 Albuterol Sulfate (Proventil) 2.5 mg Q4HRT HHN 07/31/17 19:00 08/05/17 14:59 08/03/17 10:58 Albuterol Sulfate (Proventil) 2.5 mg Q6H PRN HHN Shortness of Breath 07/31/17 19:00 08/04/17 18:59 Docusate Sodium (Colace) 100 mg TWICE A DAY ORAL 07/31/17 21:00 08/30/17 20:59 Heparin Sodium (Porcine) (Heparin 5000 units/ml) 5,000 units EVERY 12 HOURS SUBQ 07/31/17 21:00 08/29/17 20:59 08/01/17 20:57 Pantoprazole (Protonix) 40 mg BID IVP 07/31/17 21:00 08/29/17 20:59 08/03/17 09:51 Piperacillin Sod/ Tazobactam Sod 3.375 gm/Sodium Chloride 110 ml @ 27.5 mls/hr Q8HR IVPB 07/31/17 22:00 08/07/17 13:59 08/03/17 15:12 Promethazine HCl/ Codeine (Phenergan with Codeine) 5 ml Q4H PRN ORAL For Cough 07/31/17 19:00 08/30/17 18:59 Thiamine HCl (Vitamin B1) 100 mg DAILY ORAL 08/01/17 09:00 08/30/17 08:59 Vancomycin HCl (Vanco rx to dose) 1 ea DAILYPRN PRN MISC Per rx protocol 07/31/17 19:00 08/30/17 18:59 Vancomycin/Sodium Chloride 250 ml @ 166.667 mls/hr Q24H IVPB 08/02/17 23:00 08/07/17 22:59 08/02/17 23:29 FRANKIE GUTIERREZ Aug 03, 2017 17:46
--- NOTE | 2017-08-03 19:30 | Procedure Note ---
DATE OF PROCEDURE: 08/03/2017 SURGEON: Frank Li M.D. PROCEDURE: Upper endoscopy with PEG placement. ANESTHESIA: Per Dr. Flores. INSTRUMENT: Olympus adult flexible upper endoscope. INDICATION: Dysphagia. REASON FOR PROCEDURE: The procedure, risks, benefits, and possible consequences, including hemorrhage, aspiration, perforation and infection, and alternative treatments, were explained to the patient/legal guardian by Dr. Frank Li and the patient/legal guardian understood and accepted these risks. PROCEDURE: After informed consent was obtained and the patient was adequately sedated, Olympus upper endoscope was advanced from mouth to the second portion of the duodenum and retroflexion was performed of the stomach. The patient had diffuse gastritis. Random biopsy from antrum was obtained to rule out H. pylori infection. Then, under endoscopic guidance, under sterile condition, a 20-Salvadorean pull type of G-tube was successfully placed in epigastric area. The distance from the tip of the tube to skin was about 2.5 cm in size. The patient tolerated the procedure well without any complication. SUMMARY OF FINDINGS: 1. Gastritis status post biopsy. 2. Status post PEG placement. RECOMMENDATIONS: 1. Abdominal binder. 2. Elevate the head of the bed at all times. 3. G-tube flush. 4. G-tube care. 5. We will start tube feeding later today. 6. The patient currently on antibiotics, we will continue. I want to thank, Dr. Jade, for this kind referral. Frank Li M.D. DR: JEMIMA JOB#: [id number] CC: Igor Jade M.D.
[2017-08-03] MEDS: Vancomycin 750mg/NS 250ml IVPB SCH (21:57)
[2017-08-04] MEDS: Albuterol ud Inhalation HHN SCH ×4 (02:30→14:43)
[2017-08-04 04:15] VITALS: BP 136/81
[2017-08-04] MEDS: Piperacillin/Tazobactam 3.375 GM in NS 110 ML IVPB SCH ×2 (05:00→13:57)
[2017-08-04 06:55] LABS: BASOPHILS % (AUTO) 0.5 % (0.0-2.0); EOSINOPHILS % (AUTO) 3.8 % (0.0-3.0); HEMATOCRIT 32.1 % (37.0-47.0); HEMOGLOBIN 10.5 G/DL (12.0-16.0); MEAN CORPUSCULAR VOLUME 88 FL (80-99); MONOCYTES % (AUTO) 8.7 % (1.0-10.0); PLATELET COUNT 321 K/UL (150-450); RED BLOOD COUNT 3.64 M/UL (4.20-5.40); RED CELL DISTRIBUTION WIDTH 11.5 % (11.6-14.8); WHITE BLOOD COUNT 6.6 K/UL (4.8-10.8)
[2017-08-04 07:20] LABS: ANION GAP 10 mmol/L (5-15); BLOOD UREA NITROGEN 8 mg/dL (7-18); CALCIUM 8.6 MG/DL (8.5-10.1); CARBON DIOXIDE 25 MMOL/L (21-32); CHLORIDE 108 MMOL/L (98-107); CREATININE 1.2 MG/DL (0.55-1.30); POTASSIUM 4.1 MMOL/L (3.5-5.1); SODIUM 143 MMOL/L (136-145)
[2017-08-04 08:00] VITALS: BP 140/82
[2017-08-04] MEDS: Pantoprazole Inj IVP SCH (08:58)
[2017-08-04] MEDS: Thiamine 100mg tab ORAL SCH (08:58)
[2017-08-04] MEDS: Docusate 100mg/10ml Liq GT SCH ×2 (08:58→18:00)
[2017-08-04] MEDS: Heparin 5000 units/ml inj SUBQ SCH (09:00)
[2017-08-04 12:00] VITALS: BP 140/82
--- NOTE | 2017-08-04 13:39 | General Progress Note ---
Assessment/Plan Problem List: (1) Sepsis ICD Codes: A41.9 - Sepsis, unspecified organism SNOMED: 45042334 (2) Dementia ICD Codes: F03.90 - Dementia SNOMED: 28906210 (3) JAYCEE (acute kidney injury) ICD Codes: N17.9 - JAYCEE (acute kidney injury) SNOMED: 77201702 (4) CKD (chronic kidney disease) stage 3, GFR 30-59 ml/min ICD Codes: N18.3 - CKD (chronic kidney disease) stage 3, GFR 30-59 ml/min SNOMED: 096539821 (5) Dehydration ICD Codes: E86.0 - Dehydration SNOMED: 79642152 (6) Lactic acidosis ICD Codes: E87.2 - Acidosis SNOMED: 45673049 (7) Functional quadriplegia ICD Codes: R53.2 - Functional quadriplegia SNOMED: 583312271049817 (8) Pneumonia Assessment & Plan: left base ICD Codes: J18.9 - Pneumonia, unspecified organism SNOMED: 351635631 Status: stable Assessment/Plan labs reviewed had peg 08/03 DC ECF discuss with ID on Levaquin and Dicloxacillin til 08/15 Antibiotics- NPO Monitor renal parameters per orders I breathing treatment Daughter agrees with PEG- Planned 08/03 Subjective ROS Limited/Unobtainable: No Constitutional: Reports: malaise Allergies: Coded Allergies: NO KNOWN DRUG ALLERGIES (Unverified Allergy, Unknown, 08/31/14) Objective Last 24 Hour Vital Signs Date Time Temp Pulse Resp B/P (MAP) Pulse Ox O2 Delivery O2 Flow Rate FiO2 08/04/17 12:17 79 18 98 Nasal Cannula 2.0 28 08/04/17 12:10 28 08/04/17 12:10 78 18 99 Nasal Cannula 2.0 28 08/04/17 12:00 97.9 72 18 140/82 99 97.9 08/04/17 08:00 97.5 86 16 140/82 97 97.5 08/04/17 06:59 81 16 98 Nasal Cannula 3.0 32 08/04/17 06:51 Nasal Cannula 3.0 32 08/04/17 06:51 32 08/04/17 06:51 97 Nasal Cannula 3.0 32 08/04/17 06:51 80 18 97 Nasal Cannula 3.0 32 08/04/17 04:15 97.5 94 20 136/81 98 Room Air 97.5 08/04/17 02:40 86 19 99 Nasal Cannula 3.0 32 08/04/17 02:30 81 18 97 Nasal Cannula 3.0 32 08/04/17 02:30 32 08/03/17 23:58 98.1 109 20 130/78 92 Nasal Cannula 98.1 08/03/17 23:06 83 19 99 Nasal Cannula 3.0 32 08/03/17 22:59 32 08/03/17 22:59 88 18 98 Nasal Cannula 3.0 32 08/03/17 19:46 89 19 99 Nasal Cannula 3.0 32 08/03/17 19:45 98.2 90 20 140/80 98 Room Air 98.2 08/03/17 19:29 95 Nasal Cannula 3.0 32 08/03/17 19:29 Nasal Cannula 3.0 32 08/03/17 19:28 85 18 97 Nasal Cannula 3.0 32 08/03/17 19:28 32 08/03/17 16:00 97.3 87 19 139/87 93 97.3 08/03/17 15:16 95 Nasal Cannula 3.0 32 08/03/17 15:16 95 Nasal Cannula 3.0 32 Intake and Output 08/03/17 08/04/17 19:00 07:00 Intake Total 202.5 ml 435.0 ml Balance 202.5 ml 435.0 ml IV Total 182.5 ml 55.0 ml Tube Feeding 20 ml 380 ml Current Medications Medications (Trade) Dose Ordered Sig/Kimberley Route PRN Reason Start Time Stop Time Status Last Admin Dose Admin Acetaminophen (Tylenol) 325 mg Q6H PRN ORAL Mild Pain/Temp > 100.5 07/31/17 19:00 08/29/17 18:59 Albuterol Sulfate (Proventil) 2.5 mg Q4HRT HHN 07/31/17 19:00 08/05/17 14:59 08/04/17 12:10 Albuterol Sulfate (Proventil) 2.5 mg Q6H PRN HHN Shortness of Breath 07/31/17 19:00 08/04/17 18:59 Docusate Sodium (Colace) 100 mg TWICE A DAY GT 08/04/17 09:00 09/03/17 08:59 08/04/17 08:58 Heparin Sodium (Porcine) (Heparin 5000 units/ml) 5,000 units EVERY 12 HOURS SUBQ 07/31/17 21:00 08/29/17 20:59 08/04/17 09:00 Pantoprazole (Protonix) 40 mg BID IVP 07/31/17 21:00 08/29/17 20:59 08/04/17 08:58 Piperacillin Sod/ Tazobactam Sod 3.375 gm/Sodium Chloride 110 ml @ 27.5 mls/hr Q8HR IVPB 07/31/17 22:00 08/07/17 13:59 08/04/17 05:00 Promethazine HCl/ Codeine (Phenergan with Codeine) 5 ml Q4H PRN ORAL For Cough 07/31/17 19:00 08/30/17 18:59 Thiamine HCl (Vitamin B1) 100 mg DAILY ORAL 08/01/17 09:00 08/30/17 08:59 08/04/17 08:58 Vancomycin HCl (Vanco rx to dose) 1 ea DAILYPRN PRN MISC Per rx protocol 07/31/17 19:00 08/30/17 18:59 Vancomycin/Sodium Chloride 250 ml @ 166.667 mls/hr Q24H IVPB 08/02/17 23:00 08/07/17 22:59 08/03/17 21:57 Laboratory Tests 08/04/17 05:05: White Blood Count 6.6, Red Blood Count 3.64L, Hemoglobin 10.5L, Hematocrit 32.1L , Mean Corpuscular Volume 88, Mean Corpuscular Hemoglobin 28.9, Mean Corpuscular Hemoglobin Concent 32.7, Red Cell Distribution Width 11.5L, Platelet Count 321, Mean Platelet Volume 7.5, Neutrophils (%) (Auto) 67.0, Lymphocytes (%) (Auto) 20.0, Monocytes (%) (Auto) 8.7, Eosinophils (%) (Auto) 3.8H, Basophils (%) (Auto) 0.5, Sodium Level 143, Potassium Level 4.1, Chloride Level 108H, Carbon Dioxide Level 25, Anion Gap 10, Blood Urea Nitrogen 8, Creatinine 1.2, Estimat Glomerular Filtration Rate , Glucose Level 77, Calcium Level 8.6 Height (Feet): 5 Height (Inches): 2.00 Weight (Pounds): 185 General Appearance: no apparent distress Cardiovascular: normal rate Respiratory/Chest: decreased breath sounds Abdomen: soft, other - PEG Objective no other change ARA JULIEN Aug 04, 2017 13:39
[2017-08-04] MEDS: Metoclopramide 10mg/10ml Liq GT SCH ×2 (14:04→18:20)
--- NOTE | 2017-08-04 14:33 | Infectious Diseases Prog Note ---
Assessment/Plan Problems: (1) UTI (urinary tract infection) Assessment & Plan: cultures showed contaminants , already on zosyn to cover for pneumonia (2) Sepsis Assessment & Plan: with coag negative staph , grew out of three bottles , most likely real , source most likely her sacral wounds , repeated blood culture to confirm clearance is negative so far on 08/01 , will treat with vancomycin for two weeks from the clearance date . EOT 08/15/17 (3) Dehydration Assessment & Plan: continue IVF for hydration (4) Altered mental status Assessment & Plan: improving , due to the above, continue neuro check, consider brain images (5) JAYCEE (acute kidney injury) Assessment & Plan: due to dehydration, continue IVF, monitor renal function , nephrology is following (6) Sacral decubitus ulcer, stage II Assessment & Plan: present on admission, continue local wound care and off loading as needed , avoid contamination (7) Pneumonia Assessment & Plan: with possible aspiration, sputum culture is growing gram negative rods , continue vancomycin and zosyn , pending sputum culture . keep HOB>30 degree, with aspiration precaution. Subjective ROS Limited/Unobtainable: Yes Allergies: Coded Allergies: NO KNOWN DRUG ALLERGIES (Unverified Allergy, Unknown, 08/31/14) Subjective she was awake and alert, lying in bed, responsive to verbal commands, afebrile, breathing well , NAD. drooling Objective Vital Signs Last 24 Hour Vital Signs Date Time Temp Pulse Resp B/P (MAP) Pulse Ox O2 Delivery O2 Flow Rate FiO2 08/04/17 12:17 79 18 98 Nasal Cannula 2.0 28 08/04/17 12:10 28 08/04/17 12:10 78 18 99 Nasal Cannula 2.0 28 08/04/17 12:00 97.9 72 18 140/82 99 97.9 08/04/17 08:00 97.5 86 16 140/82 97 97.5 08/04/17 06:59 81 16 98 Nasal Cannula 3.0 32 08/04/17 06:51 Nasal Cannula 3.0 32 08/04/17 06:51 32 08/04/17 06:51 97 Nasal Cannula 3.0 32 08/04/17 06:51 80 18 97 Nasal Cannula 3.0 32 08/04/17 04:15 97.5 94 20 136/81 98 Room Air 97.5 08/04/17 02:40 86 19 99 Nasal Cannula 3.0 32 08/04/17 02:30 81 18 97 Nasal Cannula 3.0 32 08/04/17 02:30 32 08/03/17 23:58 98.1 109 20 130/78 92 Nasal Cannula 98.1 08/03/17 23:06 83 19 99 Nasal Cannula 3.0 32 08/03/17 22:59 32 08/03/17 22:59 88 18 98 Nasal Cannula 3.0 32 08/03/17 19:46 89 19 99 Nasal Cannula 3.0 32 08/03/17 19:45 98.2 90 20 140/80 98 Room Air 98.2 08/03/17 19:29 95 Nasal Cannula 3.0 32 08/03/17 19:29 Nasal Cannula 3.0 32 08/03/17 19:28 85 18 97 Nasal Cannula 3.0 32 08/03/17 19:28 32 08/03/17 16:00 97.3 87 19 139/87 93 97.3 08/03/17 15:16 95 Nasal Cannula 3.0 32 08/03/17 15:16 95 Nasal Cannula 3.0 32 Height (Feet): 5 Height (Inches): 2.00 Weight (Pounds): 185 General Appearance: WD/WN, no acute distress HEENT: normocephalic, atraumatic, anicteric, mucous membranes moist, PERRL Respiratory/Chest: chest wall non-tender, lungs clear, normal breath sounds, no respiratory distress, no accessory muscle use Cardiovascular: normal peripheral pulses, normal rate, regular rhythm, no gallop/murmur, no JVD Abdomen: normal bowel sounds, soft, non tender, no organomegaly, non distended , no mass, no scars Extremities: no cyanosis, no clubbing Skin: no rash, no lesions, no ulcers Neurologic/Psychiatric: alert, responsive Laboratory Tests Test 08/04/17 05:05 White Blood Count 6.6 K/UL (4.8-10.8) Red Blood Count 3.64 M/UL (4.20-5.40) L Hemoglobin 10.5 G/DL (12.0-16.0) L Hematocrit 32.1 % (37.0-47.0) L Mean Corpuscular Volume 88 FL (80-99) Mean Corpuscular Hemoglobin 28.9 PG (27.0-31.0) Mean Corpuscular Hemoglobin Concent 32.7 G/DL (32.0-36.0) Red Cell Distribution Width 11.5 % (11.6-14.8) L Platelet Count 321 K/UL (150-450) Mean Platelet Volume 7.5 FL (6.5-10.1) Neutrophils (%) (Auto) 67.0 % (45.0-75.0) Lymphocytes (%) (Auto) 20.0 % (20.0-45.0) Monocytes (%) (Auto) 8.7 % (1.0-10.0) Eosinophils (%) (Auto) 3.8 % (0.0-3.0) H Basophils (%) (Auto) 0.5 % (0.0-2.0) Sodium Level 143 MMOL/L (136-145) Potassium Level 4.1 MMOL/L (3.5-5.1) Chloride Level 108 MMOL/L (98-107) H Carbon Dioxide Level 25 MMOL/L (21-32) Anion Gap 10 mmol/L (5-15) Blood Urea Nitrogen 8 mg/dL (7-18) Creatinine 1.2 MG/DL (0.55-1.30) Estimat Glomerular Filtration Rate mL/min (>60) Glucose Level 77 MG/DL (74-106) Calcium Level 8.6 MG/DL (8.5-10.1) Current Medications Medications (Trade) Dose Ordered Sig/Kimberley Route PRN Reason Start Time Stop Time Status Last Admin Dose Admin Acetaminophen (Tylenol) 325 mg Q6H PRN ORAL Mild Pain/Temp > 100.5 07/31/17 19:00 08/29/17 18:59 Albuterol Sulfate (Proventil) 2.5 mg Q4HRT HHN 07/31/17 19:00 08/05/17 14:59 08/04/17 12:10 Albuterol Sulfate (Proventil) 2.5 mg Q6H PRN HHN Shortness of Breath 07/31/17 19:00 08/04/17 18:59 Docusate Sodium (Colace) 100 mg TWICE A DAY GT 08/04/17 09:00 09/03/17 08:59 08/04/17 08:58 Famotidine (Pepcid) 20 mg BID GT 08/04/17 18:00 09/03/17 17:59 Heparin Sodium (Porcine) (Heparin 5000 units/ml) 5,000 units EVERY 12 HOURS SUBQ 07/31/17 21:00 08/29/17 20:59 08/04/17 09:00 Metoclopramide HCl (Reglan) 5 mg EVERY 6 HOURS GT 08/04/17 14:00 09/03/17 13:59 08/04/17 14:04 Piperacillin Sod/ Tazobactam Sod 3.375 gm/Sodium Chloride 110 ml @ 27.5 mls/hr Q8HR IVPB 07/31/17 22:00 08/07/17 13:59 08/04/17 13:57 Promethazine HCl/ Codeine (Phenergan with Codeine) 5 ml Q4H PRN ORAL For Cough 07/31/17 19:00 08/30/17 18:59 08/04/17 14:06 Thiamine HCl (Vitamin B1) 100 mg DAILY ORAL 08/01/17 09:00 08/30/17 08:59 08/04/17 08:58 Vancomycin HCl (Vanco rx to dose) 1 ea DAILYPRN PRN MISC Per rx protocol 07/31/17 19:00 08/30/17 18:59 Vancomycin/Sodium Chloride 250 ml @ 166.667 mls/hr Q24H IVPB 08/02/17 23:00 08/07/17 22:59 08/03/17 21:57 Jasmyn Peterson M.D. Aug 04, 2017 14:33
[2017-08-04] MEDS ORDERED: DICLOXACILLIN500 M1 ORAL (14:43)
[2017-08-04] MEDS ORDERED: METOCLOPRAM5 MG/5 M1 GT (14:43)
[2017-08-04] MEDS ORDERED: FAMOTIDINE20 MG GT (14:43)
[2017-08-04] MEDS ORDERED: LEVAQUIN500 MG ORAL (14:43)
[2017-08-04] MEDS ORDERED: THIAMINE HCL100 MG ORAL (14:43)
--- NOTE | 2017-08-04 14:44 | Discharge Instructions ---
Discharge Instructions Discharge Instructions Diet: other - Gt feeding 50 cc hour Special Instructions dietary eval- skin care- suction Aspiration percaution full code For Congestive Heart Failure Reminder Report to your physician any weight gain of 5 pounds or more in one week. ARA JULIEN Aug 04, 2017 14:44
[2017-08-04] MEDS ORDERED: Levofloxacin 500mg tab ORAL SCH (14:45)
[2017-08-04 16:00] VITALS: BP 113/74
--- NOTE | 2017-08-04 16:30 | GI Progress Note ---
Assessment/Plan Problems: (1) Altered mental status ICD Codes: R41.82 - Altered mental status, unspecified SNOMED: 568461142 (2) Colitis ICD Codes: K52.9 - Colitis SNOMED: 843898034 (3) Anemia ICD Codes: D64.9 - Anemia, unspecified SNOMED: 663918900 (4) Weak ICD Codes: R53.1 - Weak SNOMED: 27030861 (5) Severe malnutrition ICD Codes: E43 - Unspecified severe protein-calorie malnutrition SNOMED: 57132694 (6) Encounter for PEG (percutaneous endoscopic gastrostomy) ICD Codes: Z43.1 - Encounter for attention to gastrostomy SNOMED: 425458137, 928740321 (7) Dehydration ICD Codes: E86.0 - Dehydration SNOMED: 46029288 Status: unchanged Status Narrative Discussed with Dr. Li. Assessment/Plan SUMMARY OF FINDINGS: 1. Gastritis status post biopsy. 2. Status post PEG placement. RECOMMENDATIONS: 1. Abdominal binder. 2. Elevate the head of the bed at all times. 3. G-tube flush. 4. G-tube care. 5. GTFs per RD 6. The patient currently on antibiotics, we will continue. fu labs Subjective Subjective limited Objective Last 24 Hour Vital Signs Date Time Temp Pulse Resp B/P (MAP) Pulse Ox O2 Delivery O2 Flow Rate FiO2 08/04/17 16:00 98.4 92 18 113/74 94 98.4 08/04/17 14:53 82 18 98 Nasal Cannula 2.0 28 08/04/17 14:43 84 16 98 Nasal Cannula 2.0 28 08/04/17 14:43 28 08/04/17 12:17 79 18 98 Nasal Cannula 2.0 28 08/04/17 12:10 28 08/04/17 12:10 78 18 99 Nasal Cannula 2.0 28 08/04/17 12:00 97.9 72 18 140/82 99 97.9 08/04/17 08:00 97.5 86 16 140/82 97 97.5 08/04/17 06:59 81 16 98 Nasal Cannula 3.0 32 08/04/17 06:51 Nasal Cannula 3.0 32 08/04/17 06:51 32 08/04/17 06:51 97 Nasal Cannula 3.0 32 08/04/17 06:51 80 18 97 Nasal Cannula 3.0 32 08/04/17 04:15 97.5 94 20 136/81 98 Room Air 97.5 08/04/17 02:40 86 19 99 Nasal Cannula 3.0 32 08/04/17 02:30 81 18 97 Nasal Cannula 3.0 32 08/04/17 02:30 32 08/03/17 23:58 98.1 109 20 130/78 92 Nasal Cannula 98.1 08/03/17 23:06 83 19 99 Nasal Cannula 3.0 32 08/03/17 22:59 32 08/03/17 22:59 88 18 98 Nasal Cannula 3.0 32 08/03/17 19:46 89 19 99 Nasal Cannula 3.0 32 08/03/17 19:45 98.2 90 20 140/80 98 Room Air 98.2 08/03/17 19:29 95 Nasal Cannula 3.0 32 08/03/17 19:29 Nasal Cannula 3.0 32 08/03/17 19:28 85 18 97 Nasal Cannula 3.0 32 08/03/17 19:28 32 Intake and Output 08/03/17 08/04/17 19:00 07:00 Intake Total 202.5 ml 435.0 ml Balance 202.5 ml 435.0 ml IV Total 182.5 ml 55.0 ml Tube Feeding 20 ml 380 ml Laboratory Tests Test 08/04/17 05:05 White Blood Count 6.6 K/UL (4.8-10.8) Red Blood Count 3.64 M/UL (4.20-5.40) L Hemoglobin 10.5 G/DL (12.0-16.0) L Hematocrit 32.1 % (37.0-47.0) L Mean Corpuscular Volume 88 FL (80-99) Mean Corpuscular Hemoglobin 28.9 PG (27.0-31.0) Mean Corpuscular Hemoglobin Concent 32.7 G/DL (32.0-36.0) Red Cell Distribution Width 11.5 % (11.6-14.8) L Platelet Count 321 K/UL (150-450) Mean Platelet Volume 7.5 FL (6.5-10.1) Neutrophils (%) (Auto) 67.0 % (45.0-75.0) Lymphocytes (%) (Auto) 20.0 % (20.0-45.0) Monocytes (%) (Auto) 8.7 % (1.0-10.0) Eosinophils (%) (Auto) 3.8 % (0.0-3.0) H Basophils (%) (Auto) 0.5 % (0.0-2.0) Sodium Level 143 MMOL/L (136-145) Potassium Level 4.1 MMOL/L (3.5-5.1) Chloride Level 108 MMOL/L (98-107) H Carbon Dioxide Level 25 MMOL/L (21-32) Anion Gap 10 mmol/L (5-15) Blood Urea Nitrogen 8 mg/dL (7-18) Creatinine 1.2 MG/DL (0.55-1.30) Estimat Glomerular Filtration Rate mL/min (>60) Glucose Level 77 MG/DL (74-106) Calcium Level 8.6 MG/DL (8.5-10.1) Height (Feet): 5 Height (Inches): 2.00 Weight (Pounds): 185 Abdominal Exam: site - c/d/i Nia Hernandez N.P. Aug 04, 2017 16:29
[2017-08-04] MEDS ORDERED: DICLOXACILLIN 250 MG ORAL SCH (18:00)
[2017-08-04] MEDS ORDERED: NS 275ml ONE ×3 (18:25)
[2017-08-04] MEDS ORDERED: Sterile Water Irrig 1000ml IRRIG ONE (18:25)
[2017-08-04] MEDS ORDERED: Tubing IV Secondary IV ONE (18:25)
--- NOTE | 2017-08-04 21:34 | Pulmonology Progress Note ---
Assessment/Plan Problems: (1) Aspiration pneumonia (2) Purulent bronchitis (3) JAYCEE (acute kidney injury) (4) Dementia (5) Toxic metabolic encephalopathy (6) Alzheimer's dementia Assessment/Plan no new complains tolerating feeding respiratory treatment iv abx check cultures chest pt aspiration precaution check electrolytes dvt prophylaxis symptomatic treatment dc planning Subjective ROS Limited/Unobtainable: No Interval Events: comfortable Allergies: Coded Allergies: NO KNOWN DRUG ALLERGIES (Unverified Allergy, Unknown, 08/31/14) Objective Last 24 Hour Vital Signs Date Time Temp Pulse Resp B/P (MAP) Pulse Ox O2 Delivery O2 Flow Rate FiO2 08/04/17 16:00 98.4 92 18 113/74 94 98.4 08/04/17 14:53 82 18 98 Nasal Cannula 2.0 28 08/04/17 14:43 84 16 98 Nasal Cannula 2.0 28 08/04/17 14:43 28 08/04/17 12:17 79 18 98 Nasal Cannula 2.0 28 08/04/17 12:10 28 08/04/17 12:10 78 18 99 Nasal Cannula 2.0 28 08/04/17 12:00 97.9 72 18 140/82 99 97.9 08/04/17 08:00 97.5 86 16 140/82 97 97.5 08/04/17 06:59 81 16 98 Nasal Cannula 3.0 32 08/04/17 06:51 Nasal Cannula 3.0 32 08/04/17 06:51 32 08/04/17 06:51 97 Nasal Cannula 3.0 32 08/04/17 06:51 80 18 97 Nasal Cannula 3.0 32 08/04/17 04:15 97.5 94 20 136/81 98 Room Air 97.5 08/04/17 02:40 86 19 99 Nasal Cannula 3.0 32 08/04/17 02:30 81 18 97 Nasal Cannula 3.0 32 08/04/17 02:30 32 08/03/17 23:58 98.1 109 20 130/78 92 Nasal Cannula 98.1 08/03/17 23:06 83 19 99 Nasal Cannula 3.0 32 08/03/17 22:59 32 08/03/17 22:59 88 18 98 Nasal Cannula 3.0 32 Intake and Output 08/03/17 08/04/17 19:00 07:00 Intake Total 202.5 ml 435.0 ml Balance 202.5 ml 435.0 ml IV Total 182.5 ml 55.0 ml Tube Feeding 20 ml 380 ml Objective General Appearance: cachectic HEENT: normocephalic, atraumatic Respiratory/Chest: chest wall non-tender, lungs clear Breasts: no masses Cardiovascular: normal peripheral pulses, regular rhythm Abdomen: normal bowel sounds, soft, non tender Genitourinary: normal external genitalia Extremities: no cyanosis Skin: no lesions 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/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 grossly normal, no motor/sensory deficits Lymphatic: no groin adenopathy Laboratory Tests 08/04/17 05:05: White Blood Count 6.6, Red Blood Count 3.64L, Hemoglobin 10.5L, Hematocrit 32.1L , Mean Corpuscular Volume 88, Mean Corpuscular Hemoglobin 28.9, Mean Corpuscular Hemoglobin Concent 32.7, Red Cell Distribution Width 11.5L, Platelet Count 321, Mean Platelet Volume 7.5, Neutrophils (%) (Auto) 67.0, Lymphocytes (%) (Auto) 20.0, Monocytes (%) (Auto) 8.7, Eosinophils (%) (Auto) 3.8H, Basophils (%) (Auto) 0.5, Sodium Level 143, Potassium Level 4.1, Chloride Level 108H, Carbon Dioxide Level 25, Anion Gap 10, Blood Urea Nitrogen 8, Creatinine 1.2, Estimat Glomerular Filtration Rate , Glucose Level 77, Calcium Level 8.6 Cecile Boland MD Aug 04, 2017 21:34
--- NOTE | 2017-08-06 11:24 | Discharge Summary ---
Discharge Summary Hospital Course Date of Admission Jul 30, 2017 at 17:49 Date of Discharge Aug 04, 2017 at 18:26 Admitting Diagnosis PNA/Sepsis HPI Nevaeh Sanchez is a 82 year old female who was admitted on Jul 30, 2017 at 17: 49 for Pneumonia, Sepsis Hospital Course [id number] Discharge Discharge Disposition Patient was discharged to SNF/Subacute Facility(03) Discharge Diagnoses: Eliane Damian NP Aug 06, 2017 11:24
--- NOTE | 2017-08-07 00:45 | Discharge Summary 2 SIG ---
DATE OF ADMISSION: 07/30/2017 DATE OF DISCHARGE: 08/04/2017 CONSULTANTS: 1. Frank Li M.D. 2. Jasmyn Peterson M.D. BRIEF HOSPITAL COURSE: The patient is an 82-year-old female who came to emergency room due to weakness and congestion. She came from intermediate and has a history of pneumonitis, dysphagia, COPD, hypertension, Alzheimer's dementia, chronic kidney disease and anemia. The patient is Full Code. On evaluation at ED, the patient was tachycardic. Blood work showed elevated creatinine to 2.0, sodium was 153 and chloride 115. There was no leukocytosis. Urine with evidence of infection showing too many to count RBC and WBC with 2+ leukocyte esterase. She had EKG done that showed normal sinus rhythm. Chest x-ray showed no acute disease. She was given empiric treatment for influenza. Influenza screen done was negative for A and B. Lactic acid was 3.9. She was then admitted to telemetry for evaluation of sepsis and acute kidney injury. She was followed by corporate treasury analyst and Infectious Disease specialist. She was started empirically on vancomycin and Zosyn. She was given respiratory treatment. She was started on IV hydration. She had a swallow evaluation done. The patient was placed on NPO. The patient is not alert. Blood culture showed growth of coagulase-negative Staph, 3/4 bottles. She came in with unstageable sacrococcygeal pressure ulcer, most likely source of sepsis, her sacral wounds. Urine culture showed growth of mixed contaminants. Repeat blood culture did not isolate any growth. Dr. Li was consulted. Daughter consented to PEG. On 08/03/2017, she underwent EGD with PEG tube placement. She was started on tube feeding. Sputum culture showed gram-negative rods. The patient with possible aspiration pneumonia and was covered on vancomycin and Zosyn. She was tolerating feeding well. Advised to elevate head of bed at all times. She was eventually cleared for discharge back to intermediate. FINAL DIAGNOSES: 1. Sepsis. 2. Urinary tract infection. 3. Probable aspiration pneumonia. 4. Acute kidney injury. 5. Chronic kidney disease stage 3. 6. Dementia. 7. Dehydration. 8. Lactic acidosis. 9. Functional quadriplegia. DISCHARGE DISPOSITION: The patient was discharged to SNF. DISCHARGE MEDICATIONS: The patient on Levaquin and dicloxacillin until 08/15/2017. Continue with wound care. Igor Jade M.D. I have been assigned to dictate discharge summary on this account and I was not involved in the patient's management. Eliane Damian N.P. DR: WAQAS JOB#: [id number] CC: NIVIA
== END 2017-08-04 18:26 | DRG 871 ==
LOC: EDBD 16:28 → EMR 17:43 → 2E 17:49 → EDBEDREQ 18:27 → 4W 07-31 17:47
PROC: 0DH63UZ Insertion of Feeding Device into Stomach, Percutaneous Approach (ICD-10-PCS; principal; 2017-08-03 12:38)
PROC: 0DD68ZX Extraction of Stomach, Via Natural or Artificial Opening Endoscopic, Diagnostic (ICD-10-PCS; principal; 2017-08-03 12:38)
DX: A41.9 Sepsis, unspecified organism (principal); R53.2 Functional quadriplegia; J69.0 Pneumonitis due to inhalation of food and vomit; E43 Unspecified severe protein-calorie malnutrition; N17.9 Acute kidney failure, unspecified; L89.152 Pressure ulcer of sacral region, stage 2; G92 Toxic encephalopathy; R13.10 Dysphagia, unspecified; N39.0 Urinary tract infection, site not specified; G30.9 Alzheimer's disease, unspecified; F02.80 Dementia in other diseases classified elsewhere, unspecified severity, without behavioral disturbance, psychotic disturbance, mood disturbance, and anxiety; N18.3 Chronic kidney disease, stage 3 (moderate); E86.0 Dehydration; J44.9 Chronic obstructive pulmonary disease, unspecified; I12.9 Hypertensive chronic kidney disease with stage 1 through stage 4 chronic kidney disease, or unspecified chronic kidney disease; K29.70 Gastritis, unspecified, without bleeding; D64.9 Anemia, unspecified; Z68.33 Body mass index [BMI] 33.0-33.9, adult; K21.9 Gastro-esophageal reflux disease without esophagitis; R65.20 Severe sepsis without septic shock; K52.9 Noninfective gastroenteritis and colitis, unspecified
CPT/HCPCS: 36415; 71045; 80048; 80053; 80061; 80202; 81001; 82550; 82553; 82607; 82728; 82746; 83540; 83550; 83605; 83735; 83880; 84100; 84443; 84484; 84550; 85025; 85610; 85730; 86140; 86710; 87040; 87070; 87081; 87086; 87181; 87205; 93005; 94003; 94150; 94640; 94664; 94760; 99285; J2250

== ENCOUNTER 2018-08-31 10:47 | Emergency (ER) | payer MEDICARE, OTHER ==
[~2018-08-31] VITALS: Ht 162.6 cm; Wt 63.0 kg
[~2018-08-31 10:47] MED LIST changes: +ACETAMINOPHEN325 M1 ORAL; +ASPIRIN81 MG ORAL; +CALMOSEPTINE OI71 GM TP; +CRANBERRY425 MG PO; +DICLOXACILLIN500 M1 ORAL; +DOCUSATE SODIU100 MG ORAL; +FAMOTIDINE20 MG GT; +IBUPROFEN600 MG ORAL; +LEVAQUIN500 MG ORAL; +METOCLOPRAM5 MG/5 M1 GT; +MULTIVITAMINS1 EAC8 ORAL; +THIAMINE HCL100 MG ORAL; +VITAMIN B-1100 MG ORAL; +ZESTRIL2.5 MG ORAL
--- NOTE | 2018-08-31 10:55 | NUR ---
ED Nurse Note: Pt sent from [facility] G-tube replacement. Pt arrived with 16 f fernando inserted. Stoma is pink and skin around it is dry and intact. Pt isAAOx1 and respirations are eevna nd unlabored.
--- NOTE | 2018-08-31 11:33 | Diagnostic Imaging Report ---
Indication: Post gastrostomy replacement Technique: Supine view of the abdomen after injection of water-soluble contrast into gastrostomy Comparison: none Findings: Contrast opacifies the stomach. No contrast extravasation is demonstrated. The bowel gas pattern is unremarkable. Impression: Satisfactory position of gastrostomy tube
[2018-08-31 11:34] VITALS: BP 115/72
--- NOTE | 2018-08-31 11:36 | NUR ---
ED Nurse Note: Pt cleared by health care Provider for discharge. DC instructions/prescription was given and explained to pt and verbalized understanding of teachings. All medical deviecs such as ID band removed. Pt is AAO x1, and left with all personal belongings. Pt taken back in ambulace to [facility].
--- NOTE | 2018-08-31 13:01 | Emergency Room Report ---
History of Present Illness General Chief Complaint: Malfunctioning Gastric Tube Source: Patient, Medical Record Present Illness HPI 83-year-old female presents ED for evaluation. Brought in by EMS for G-tube replacement. Per EMS G-tube was pulled out earlier today by patient. Nursing staff replaced with a Stevenson catheter. Upon arrival patient showing no signs of distress. No reported nausea or vomiting. Unable to provide any additional history. Nonverbal at baseline. No other aggravating relieving factors. Denies any other associated symptoms Allergies: Coded Allergies: NO KNOWN DRUG ALLERGIES (Unverified Allergy, Unknown, 08/31/14) Patient History Past Medical History: HTN, COPD, dementia Past Surgical History: other - Gtube Social History: Denies: smoking, alcohol use, drug use Now: No Immunizations: UTD Reviewed Nursing Documentation: PMH: Agreed; PSxH: Agreed Nursing Documentation-PMH Past Medical History: No History, Except For Hx Cardiac Problems: Yes Hx Hypertension: Yes Hx Pacemaker: No Hx Asthma: No Hx COPD: Yes Hx Diabetes: No Hx Cancer: Yes Hx Gastrointestinal Problems: Yes Hx Dialysis: No Hx Neurological Problems: Yes Hx Cerebrovascular Accident: No Hx Dementia: Yes Hx Alzheimer's Disease: Yes Hx Seizures: No Hx Weakness: Yes Review of Systems All Other Systems: negative except mentioned in HPI Physical Exam Vital Signs Date Time Temp Pulse Resp B/P (MAP) Pulse Ox O2 Delivery O2 Flow Rate FiO2 08/31/18 10:41 98.4 84 18 112/70 98 Nasal Cannula 2.0 Sp02 EP Interpretation: reviewed, normal General Appearance: no apparent distress, alert, GCS 15, non-toxic Head: normocephalic Eyes: bilateral eye normal inspection, bilateral eye PERRL ENT: normal ENT inspection Neck: normal inspection Respiratory: chest non-tender, lungs clear, normal breath sounds, speaking full sentences Cardiovascular #1: regular rate, rhythm, no edema Gastrointestinal: normal bowel sounds, non tender, soft, non-distended, no guarding, no rebound, other - Gtube site C/D/I, patent Rectal: deferred Genitourinary: no CVA tenderness Musculoskeletal: normal inspection Neurologic: alert, oriented x3, responsive, motor strength/tone normal, sensory intact, speech normal Psychiatric: normal inspection Skin: normal inspection Lymphatic: normal inspection Procedures Additional Procedure Procedure Narrative G-tube placement Patient placed on stretcher. Old G-tube is removed by deflating the balloon using syringe. G-tube site is inspected with no contraindications to G-tube placement. G-tube slowly inserted until resistance is met; G-tube balloon is slowly filled with 20 mL of normal saline and slowly retracted back until resistance is met. G-tube placement is confirmed with KUB study using Gastrografin Medical Decision Making Diagnostic Impression: Primary Impression: Malfunction of gastrostomy tube ER Course Hospital Course 83-year-old female presents to ED for G-tube placement. [facility] at [facility] Clinical course Patient placed on stretcher. After initial history and physical I replaced G- tube and inflate the balloon. G-tube placement confirmed with KUB study. Patient remained stable without any signs of distress. shelter called and patient subsequently discharged back to facility. Dr Marin made aware that G-tube was successfully replaced and patient return to facility Diagnosis - malfunction of G tube stable and discharged back to facility. Followup with PMD. Return to ED if symptoms recur or worsen Other X-Ray Diagnostic Results Other X-Ray Diagnostic Results : X-Ray ordered: KUB # of Views/Limited Vs Complete: 1 View Indication: Other - Gtube placement EP Interpretation: Yes Interpretation: nonspecific bowel gas, no sbo, other - no extravasation of contrast, Gtube in place Impression: Other - Gtube in place Electronically Signed by: Electronically signed by Michael Boggs MD Last Vital Signs Date Time Temp Pulse Resp B/P (MAP) Pulse Ox O2 Delivery O2 Flow Rate FiO2 08/31/18 11:34 98.4 82 18 115/72 98 Nasal Cannula 2.0 Status: improved Disposition: ER SNF Condition: Stable Referrals: Igor Jade MD NOT CHOSEN IPA/,REFERRING (PCP) Patient Instructions: Gastrostomy Tube Home Guide, Adult Michael Boggs MD Aug 31, 2018 13:01
== END 2018-08-31 11:38 ==
LOC: EDBD 10:47 → EMR 11:30
DX: K94.23 Gastrostomy malfunction (principal)
CPT/HCPCS: 74018; 99284

== ENCOUNTER 2018-12-27 10:04 | Emergency (ER) | payer MEDICARE, OTHER ==
[~2018-12-27] VITALS: Ht 157.5 cm; Wt 62.6 kg
[~2018-12-27 10:04] MED LIST changes: -ACETAMINOPHEN325 M1 ORAL; +ACETAMINOPHEN325 M1 PEG; -ASPIRIN81 MG ORAL; +ASPIRIN81 MG PEG; -DOCUSATE SODIU100 MG ORAL; +DOCUSATE SODIU100 MG PEG; +FERROUS SU300 MG/5 M GT; -MULTIVITAMINS1 EAC8 ORAL; +MULTIVITAMINS1 EAC8 PEG; +VITAMIN A & D113 GM TP; +VITAMIN C500 M1 PEG
[2018-12-27 10:23] VITALS: BP 119/82
--- NOTE | 2018-12-27 10:28 | NUR ---
ED Nurse Note: Pt SYED from [facility] due to G-tube pulled out this morning at facility, paramedics did not give a specific reason why. 16F Stevenson cather in place larry. 20G G-tube is the regular size G-tube used. AOx0, non-verbal. Will cont to monitor.
--- NOTE | 2018-12-27 11:01 | Emergency Room Report ---
History of Present Illness General Chief Complaint: Malfunctioning Gastric Tube Source: Family Member Present Illness HPI Patient is an 83-year-old female brought in by [facility] after malfunctioning G-tube. Patient reportedly had had her balloon rupture. Patient was noted to have history of dementia and had been G-tube dependent. Patient had been at her baseline mental status per family member. She was sent in for G-tube replacement. Allergies: Coded Allergies: NO KNOWN DRUG ALLERGIES (Unverified Allergy, Unknown, 08/31/14) Patient History Past Medical History: see triage record Last Menstrual Period: menopause Reviewed Nursing Documentation: PMH: Agreed; PSxH: Agreed Nursing Documentation-PMH Hx Cardiac Problems: No Hx Hypertension: Yes Hx Pacemaker: No Hx Asthma: No Hx COPD: Yes Hx Diabetes: No Hx Cancer: No Hx Gastrointestinal Problems: Yes Hx Dialysis: No Hx Neurological Problems: Yes Hx Cerebrovascular Accident: No Hx Dementia: Yes Hx Alzheimer's Disease: Yes Hx Seizures: No Hx Weakness: Yes Hx Neurologic Surgery: No Physical Exam Vital Signs Date Time Temp Pulse Resp B/P (MAP) Pulse Ox O2 Delivery O2 Flow Rate FiO2 12/27/18 10:09 98.8 94 16 122/79 (93) 94 Nasal Cannula 2.0 General Appearance: obese, other - somnolent but awakes, Chronically Ill ENT: moist mucus membranes Neck: limited range of motion Respiratory: lungs clear, normal breath sounds Cardiovascular #1: normal inspection, no edema Gastrointestinal: other - gtube stoma no erythema, patent Musculoskeletal: decreased range of mation Neurologic: aphasia, motor weakness, other - contracture Skin: normal color, no rash Procedures Additional Procedure Procedure Narrative A 20 montenegrin gastric tube was placed into the stoma after prep with alcohol pad. 4cm depth Balloon was inflated with sterile water. Post procedure x-ray showed adequate G-tube placement. Patient tolerated well without complications. Medical Decision Making Diagnostic Impression: Primary Impression: Alzheimer's dementia Additional Impression: PEG (percutaneous endoscopic gastrostomy) adjustment/replacement/removal ER Course Patient presented for G-tube replacement. Differential diagnosis include was not limited to G-tube infection, stoma leak, among others. KUB with post G- tube replacement showed adequate G-tube replacement. Patient will be discharged back to her facility. Patient is to return if any problems. Last Vital Signs Date Time Temp Pulse Resp B/P (MAP) Pulse Ox O2 Delivery O2 Flow Rate FiO2 8/5/19 10:23 98.8 99 21 119/82 100 Nasal Cannula 2.0 Status: improved Disposition: XFER SNF Condition: Stable Arjun Argueta MD Dec 27, 2018 11:01
--- NOTE | 2018-12-27 11:30 | NUR ---
ED Nurse Note: Gastric content aspirated from G-tube, 20g. RN flushed G-tube with 30ml gastrografin as ordered for KUB. Patient remained semi-woodson position.
--- NOTE | 2018-12-27 11:40 | NUR ---
ED Nurse Note: RN flushed G-tube with 120ml of water by gravity. No resistance noted. Patient remained semi-woodson position. Addendum: 12/27/18 at 1144 by LEIGH Report given to LACHO Talavera.
[2018-12-27 12:08] VITALS: BP 119/85
--- NOTE | 2018-12-27 12:13 | Diagnostic Imaging Report ---
Indication: Gastrostomy placed. Checking for position. Comparison: None Single view of the abdomen obtained Findings: The gastrostomy balloon and tip are projected over the body of the stomach. Contrast is seen in the stomach. There is no extravasation. IMPRESSION: Gastrostomy position is good. No leak.
[2018-12-27 12:24] VITALS: BP 119/85
--- NOTE | 2018-12-27 12:24 | NUR ---
ED Nurse Note: Notified Rebekah at [facility] that pt is going back to the facility. Ambulance personels at bedside for transportation. No sign of acute distress.
== END 2018-12-27 12:24 ==
LOC: EDBD 10:04 → EMR 10:37
DX: K94.23 Gastrostomy malfunction (principal); G30.9 Alzheimer's disease, unspecified; F02.80 Dementia in other diseases classified elsewhere, unspecified severity, without behavioral disturbance, psychotic disturbance, mood disturbance, and anxiety; I10 Essential (primary) hypertension; J44.9 Chronic obstructive pulmonary disease, unspecified
CPT/HCPCS: 74018; 99284

== ENCOUNTER 2019-01-22 01:02 | Emergency (ER) | payer MEDICARE, OTHER ==
[~2019-01-22] VITALS: Ht 157.5 cm; Wt 62.6 kg
--- NOTE | 2019-01-22 01:15 | NUR ---
ED Nurse Note: Recieved pt from snf with c/o g-tube malfunction, pt has patent g-tube to left abdomen, dry and intact, attempted to flush and tube appears to be clogged, md informed, pt on cardiac monitoring, tp is non-verbal, no s/s of pain or any other distress.
--- NOTE | 2019-01-22 02:15 | NUR ---
ED Nurse Note: Niecy BARRERA with g-tube replacement, tube removed without complications and completely intact, tube was replaced without incident, pt to have kub for placement verification and disposition back to facility, pt daughter is at bedside, pt repositioned and turned with pillows, will continue to closely monitor.
--- NOTE | 2019-01-22 02:26 | Emergency Room Report ---
History of Present Illness General Chief Complaint: Malfunctioning Gastric Tube Source: Medical Record Present Illness HPI Disclaimer: Please note that this report is being documented using DRAGON technology. This can lead to erroneous entry secondary to incorrect interpretation by the dictating instrument. 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 Patient was seen in the emergency department last week and G-tube was exchanged after the balloon had ruptured. Was working properly until today when they could no longer flush it at her nursing facility. No trauma reported. The patient cannot provide any history. PMH: CVA, dementia, aphasia, dysphagia PSH: Gastrostomy tube Allergies: None Social Hx: None Allergies: Coded Allergies: NO KNOWN DRUG ALLERGIES (Unverified Allergy, Unknown, 08/31/14) Patient History Last Menstrual Period: na Nursing Documentation-PMH Hx Cardiac Problems: No Hx Hypertension: Yes Hx Pacemaker: No Hx Asthma: No Hx COPD: Yes Hx Diabetes: No Hx Cancer: No Hx Gastrointestinal Problems: Yes Hx Dialysis: No Hx Neurological Problems: Yes Hx Cerebrovascular Accident: No Hx Dementia: Yes Hx Alzheimer's Disease: Yes Hx Seizures: No Hx Weakness: Yes Hx Neurologic Surgery: No Review of Systems All Other Systems: limited - due to aphasia Physical Exam Vital Signs Date Time Temp Pulse Resp B/P (MAP) Pulse Ox O2 Delivery O2 Flow Rate FiO2 01/22/19 01:04 97.7 87 18 116/70 (85) 98 Nasal Cannula 2.0 General: Sleeping, no acute distress HEENT: NC/AT. EOMI. Resp: Normal work of breathing. Abdomen: Abdomen is soft, nondistended obese. Nontender. Gastrostomy tube in place with stomach contents. Cannot flush. Skin: Intact. No abrasions, laceration or rash over the exposed skin MSK: Normal tone and bulk. Moving all extremities. No obvious deformity. Neuro: Awake and alert. Mentating appropriately. Procedures Additional Procedure Procedure Narrative Gastrostomy tube exchange. Previous tube cuff was deflated of approximately 20 cc. Tube was easily removed showing a clog in the distal tip. A 20 [place] Island[place] gastrostomy tube was placed easily on first attempt through patent stoma. Balloon inflated with sterile water to 20 cc. Gastric contents aspirated. Patient sent for confirmatory x-ray. No complications. Patient tolerated the procedure well Medical Decision Making Diagnostic Impression: Primary Impression: Malfunction of gastrostomy tube ER Course 83-year-old female presents for evaluation of malfunctioning gastrostomy tube. The patient's tube appeared to have been clogged with stomach debris and was exchanged at bedside without complication. Confirmatory x-ray and aspiration of gastric contents confirm position. The patient tolerated the procedure well and has no other known medical issues at this time. She will be returned to her snf facility. Daughter is present at bedside and was updated on patient's condition and treatment plan. She understands and agrees. Other X-Ray Diagnostic Results Other X-Ray Diagnostic Results : X-Ray ordered: KUB # of Views/Limited Vs Complete: 1 View Indication: Other - tube check EP Interpretation: Yes Impression: Other - Gastrostomy tube in proper positioning Electronically Signed by: Electronically signed by Dr. Kin Nolan Last Vital Signs Date Time Temp Pulse Resp B/P (MAP) Pulse Ox O2 Delivery O2 Flow Rate FiO2 01/22/19 01:04 97.7 87 18 116/70 (85) 98 Nasal Cannula 2.0 Disposition: ASSISTED LIVING Condition: Improved Referrals: Igor Jade MD (PCP) Kin Nolan MD Jan 22, 2019 02:26
[2019-01-22 02:42] VITALS: BP 125/71
--- NOTE | 2019-01-22 02:42 | NUR ---
ED Nurse Note: patient sleeping in bed with nad. family member at bedside. vss.
--- NOTE | 2019-01-22 03:00 | NUR ---
ED Nurse Note: CALLED RADIOLOGY FOR IMAGING.
--- NOTE | 2019-01-22 04:30 | NUR ---
ED Nurse Note: placed call to snf to give report for pt returning, waiting for ambulance arrival.
--- NOTE | 2019-01-22 04:48 | Diagnostic Imaging Report ---
EXAM: XR Abdomen Complete, 2 or More Views. CLINICAL HISTORY: TUBE PLACEMENT TECHNIQUE: Frontal view of the abdomen/pelvis with upright view of the abdomen. COMPARISON: 12/27/18 FINDINGS: Percutaneous gastrostomy tube is identified, with the tip in the projection of the gastric lumen. Free air: None. Gastrointestinal tract: Bowel gas pattern is nonobstructive. Mildly prominent gaseous and fecal distention of the colon. Bones: Unremarkable. No acute fracture. IMPRESSION: Gastrostomy tube tip is in the projection of the gastric lumen.
[2019-01-22 05:15] VITALS: BP 125/71
--- NOTE | 2019-01-22 05:40 | NUR ---
ED Nurse Note: pt being d/c back to snf facility, pt daughter at bedside, pt is resting quietly in bed, pt is clean and dry, given partial bath and linen change, also clean,dry dressing applied to stoma site, no complications or distress noted, v/s stable, [id number] present for pt transport, report and d/c instructions given to cab driver, nad noted during pt transport.
== END 2019-01-22 05:45 | disposition home or self-care (01) ==
LOC: EDBD 01:02 → EMR 01:19
DX: K94.23 Gastrostomy malfunction (principal); G30.9 Alzheimer's disease, unspecified; F02.80 Dementia in other diseases classified elsewhere, unspecified severity, without behavioral disturbance, psychotic disturbance, mood disturbance, and anxiety; J44.9 Chronic obstructive pulmonary disease, unspecified; I10 Essential (primary) hypertension; I69.820 Aphasia following other cerebrovascular disease; I69.891 Dysphagia following other cerebrovascular disease
CPT/HCPCS: 74018; 99283

== ENCOUNTER 2019-07-23 13:30 | Inpatient (IN) | payer MEDICARE, OTHER ==
[~2019-07-23] VITALS: Ht 167.6 cm; Wt 73.0 kg
[2019-07-23 13:35] VITALS: BP 118/70
--- NOTE | 2019-07-23 13:40 | Emergency Room Report ---
History of Present Illness General Chief Complaint: Gastrointestinal Bleed Source: Patient Present Illness HPI 84-year-old female PEG tube, history of CVA history of dementia alert and oriented x0, presents from long term due to blood noted on her diaper, no known aggravating relieving factors severity is moderate, constant, patient is unable to give a history due to her mental condition, patient presents for possible GI bleed Allergies: Coded Allergies: NO KNOWN DRUG ALLERGIES (Unverified Allergy, Unknown, 08/31/14) Patient History Limited by: medical condition - limited by dementia Past Medical History: see triage record, old chart reviewed Reviewed Nursing Documentation: PMH: Agreed; PSxH: Agreed Nursing Documentation-PMH Past Medical History: No History, Except For Hx Hypertension: Yes Hx Pacemaker: No Hx Asthma: No Hx COPD: Yes Hx Diabetes: No Hx Cancer: No Hx Gastrointestinal Problems: Yes Hx Dialysis: No Hx Neurological Problems: Yes Hx Cerebrovascular Accident: No Hx Dementia: Yes Hx Alzheimer's Disease: Yes Hx Seizures: No Hx Weakness: Yes Hx Neurologic Surgery: No Review of Systems All Other Systems: limited - limited by dementia Physical Exam Vital Signs Date Time Temp Pulse Resp B/P (MAP) Pulse Ox O2 Delivery O2 Flow Rate FiO2 07/23/19 13:31 98.2 83 16 118/70 (86) 97 Room Air 2.0 Sp02 EP Interpretation: reviewed, normal General Appearance: alert, thin, Chronically Ill Head: normocephalic, atraumatic Eyes: bilateral eye PERRL, bilateral eye EOMI ENT: uvula midline, moist mucus membranes Neck: supple, thyroid normal, supple/symm/no masses Respiratory: lungs clear, no respiratory distress, no retraction, no accessory muscle use Cardiovascular #1: normal peripheral pulses, regular rate, rhythm, no edema, no gallop, no murmur Gastrointestinal: non tender, soft, no guarding, no rebound Rectal: other - Crossword Puzzle Maker Janett RN, patient with alfa blood on exam rectally with hard stool noted in the vault Musculoskeletal: normal inspection Neurologic: alert, responsive Skin: no rash, warm/dry Procedures Critical Care Time Critical Care Time Given the critical condition in which the patient arrived, the patient was immediately assessed by myself and the nurse, and cardiac monitoring initiated due to the potential for rapid decompensation of the patient's clinical condition. During the course of the patient's stay, I spent a considerable amount of time at the bedside performing serial re-evaluations of the patient's hemodynamic and clinical status because of the recognized potential threat to life or limb in this condition. I then had a chance to review not only all of the available current laboratory and radiographic studies obtained today, but I also reviewed old records available to me at the time. Additionally, any ancillary information available including percussion instructor records were reviewed. Sequential vital signs were obtained. Critical Care time of 38 minutes was performed exclusive of billable procedures. Medical Decision Making Diagnostic Impression: Primary Impression: Gastrointestinal hemorrhage Qualified Codes: K92.2 - Gastrointestinal hemorrhage, unspecified ER Course 84-year-old female presents with GI bleed differential diagnosis includes lower , upper GI bleed, peptic ulcer disease, hemorrhoids, diverticulosis We will obtain labs, IV access, 1 L bolus Protonix started 80 mg, ceftriaxone 1 g given We will admit patient for continued observation and possible colonoscopy Patient admitted to Dr. Jade Laboratory Tests Test 07/23/19 14:07 07/23/19 14:45 07/23/19 15:00 White Blood Count 11.0 K/UL (4.8-10.8) H Red Blood Count 4.33 M/UL (4.20-5.40) Hemoglobin 11.9 G/DL (12.0-16.0) L Hematocrit 37.0 % (37.0-47.0) Mean Corpuscular Volume 86 FL (80-99) Mean Corpuscular Hemoglobin 27.4 PG (27.0-31.0) Mean Corpuscular Hemoglobin Concent 32.1 G/DL (32.0-36.0) Red Cell Distribution Width 12.5 % (11.6-14.8) Platelet Count 466 K/UL (150-450) H Mean Platelet Volume 6.2 FL (6.5-10.1) L Neutrophils (%) (Auto) 70.3 % (45.0-75.0) Lymphocytes (%) (Auto) 18.2 % (20.0-45.0) L Monocytes (%) (Auto) 7.1 % (1.0-10.0) Eosinophils (%) (Auto) 3.7 % (0.0-3.0) H Basophils (%) (Auto) 0.7 % (0.0-2.0) Prothrombin Time 10.0 SEC (9.30-11.50) Prothrombin Time INR 0.9 (0.9-1.1) Activated Partial Thromboplast Time 34 SEC (23-33) H Sodium Level 137 MMOL/L (136-145) Potassium Level 5.4 MMOL/L (3.5-5.1) H Chloride Level 96 MMOL/L (98-107) L Carbon Dioxide Level 28 MMOL/L (21-32) Anion Gap 13 mmol/L (5-15) Blood Urea Nitrogen 22 mg/dL (7-18) H Creatinine 1.2 MG/DL (0.55-1.30) Estimate Glomerular Filtration Rate 52.0 mL/min (>60) Glucose Level 116 MG/DL (74-106) H Lactic Acid Level 3.30 mmol/L (0.4-2.0) H Pending Calcium Level 10.3 MG/DL (8.5-10.1) H Phosphorus Level 3.3 MG/DL (2.5-4.9) Magnesium Level 2.1 MG/DL (1.8-2.4) Total Bilirubin 0.2 MG/DL (0.2-1.0) Aspartate Amino Transferase (AST) 18 U/L (15-37) Alanine Aminotransferase (ALT) 27 U/L (12-78) Alkaline Phosphatase 116 U/L (46-116) Pro-B-Type Natriuretic Peptide 215 pg/mL (0-125) H Total Protein 9.4 G/DL (6.4-8.2) H Albumin 3.7 G/DL (3.4-5.0) Globulin 5.7 g/dL Albumin/Globulin Ratio 0.6 (1.0-2.7) L Lipase 314 U/L (73-393) Urine Color Yellow Urine Appearance Clear Urine pH 6 (4.5-8.0) Urine Specific [place] 1.010 (1.005-1.035) Urine Protein 1+ (NEGATIVE) H Urine Glucose (UA) Negative (NEGATIVE) Urine Ketones Negative (NEGATIVE) Urine Blood 2+ (NEGATIVE) H Urine Nitrite Negative (NEGATIVE) Urine Bilirubin Negative (NEGATIVE) Urine Urobilinogen Normal MG/DL (0.0-1.0) Urine Leukocyte Esterase 3+ (NEGATIVE) H Urine RBC Pending Urine WBC Pending Urine Squamous Epithelial Cells Pending Urine Bacteria Pending EKG Diagnostic Results EKG Time: 13:48 EP Interpretation: NSR, rate 91, QTc 435, no acute ST elevations, left axis deviation Rhythm Strip Diag. Results Rhythm Strip Time: 13:55 EP Interpretation: yes Rate: 91 Rhythm: NSR, no PVC's, no ectopy Chest X-Ray Diagnostic Results Chest X-Ray Diagnostic Results : Chest X-Ray Ordered: Yes # of Views/Limited/Complete: 1 View Indication: Other - Preop EP Interpretation: Yes Interpretation: no consolidation, no effusion, no pneumothorax, no acute cardiopulmonary disease Impression: No acute disease Electronically Signed by: Joe Guerrier MD Last Vital Signs Date Time Temp Pulse Resp B/P (MAP) Pulse Ox O2 Delivery O2 Flow Rate FiO2 07/23/19 13:35 98.2 83 16 118/70 97 Room Air 2.0 Disposition: ADMITTED INPATIENT Condition: Serious Joe Guerrier MD Jul 23, 2019 13:40
[2019-07-23] MEDS ORDERED: cefTRIAXone 1 GM in NS 55 ML IVPB ONE (13:45)
[2019-07-23] MEDS ORDERED: Pantoprazole Inj IVP ONE (13:45)
[2019-07-23 14:41] LABS: ANION GAP 13 mmol/L (5-15); BLOOD UREA NITROGEN 22 mg/dL (7-18); CALCIUM 10.3 MG/DL (8.5-10.1); CARBON DIOXIDE 28 MMOL/L (21-32); CHLORIDE 96 MMOL/L (98-107); CREATININE 1.2 MG/DL (0.55-1.30); POTASSIUM 5.4 MMOL/L (3.5-5.1); SODIUM 137 MMOL/L (136-145)
[2019-07-23 14:42] LABS: BASOPHILS % (AUTO) 0.7 % (0.0-2.0); EOSINOPHILS % (AUTO) 3.7 % (0.0-3.0); HEMOGLOBIN 11.9 G/DL (12.0-16.0); LYMPHOCYTES % (AUTO) 18.2 % (20.0-45.0); MEAN CORPUSCULAR VOLUME 86 FL (80-99); MONOCYTES % (AUTO) 7.1 % (1.0-10.0); NEUTROPHILS % (AUTO) 70.3 % (45.0-75.0); PLATELET COUNT 466 K/UL (150-450); RED BLOOD COUNT 4.33 M/UL (4.20-5.40); RED CELL DISTRIBUTION WIDTH 12.5 % (11.6-14.8)
--- NOTE | 2019-07-23 14:42 | NUR ---
ED Nurse Note: pt was cleaned and given new linens. pt got fernando catheter and tolerated well
[2019-07-23 14:43] LABS: INR 0.9 (0.9-1.1)
[2019-07-23 14:51] LABS: ALANINE AMINOTRANSFERASE 27 U/L (12-78); ALBUMIN 3.7 G/DL (3.4-5.0); ALBUMIN/GLOBULIN RATIO 0.6 (1.0-2.7); ALKALINE PHOSPHATASE 116 U/L (46-116); ASPARTATE AMINO TRANSFERASE 18 U/L (15-37); BILIRUBIN,TOTAL 0.2 MG/DL (0.2-1.0); PHOSPHORUS 3.3 MG/DL (2.5-4.9)
--- NOTE | 2019-07-23 15:00 | NUR ---
ED Nurse Note: reflex lactic collected; sent down to lab.
--- NOTE | 2019-07-23 15:01 | Diagnostic Imaging Report ---
EXAM: XR Chest, 1 View CLINICAL HISTORY: PREOP TECHNIQUE: Frontal view of the chest. COMPARISON: None available FINDINGS: Hardware: None. Lungs/pleura: Hazy and interstitial opacity in right greater than left lungs.. Mild streaky opacity in the right lower lung. Left basilar opacity. Possible small left pleural effusion. Heart/mediastinum: Mild enlargement of the cardiac silhouette. Atherosclerotic calcifications of the aorta. Soft tissues: Unremarkable. Bones: No acute fracture. Upper abdomen: Normal. IMPRESSION: 1. Left greater than right bibasilar opacities may represent atelectasis, but pneumonia at the left lung base is not excluded. Possible small left pleural effusion. 2. Diffuse hazy and interstitial opacities in right greater than left lungs may be related to artifact/patient rotation versus pulmonary vasculature congestion and edema.
[2019-07-23 15:02] VITALS: BP 120/87
--- NOTE | 2019-07-23 15:11 | NUR ---
ED Nurse Note: telephone report given to LACHO Davis for continuity of care.
--- NOTE | 2019-07-23 15:12 | NUR ---
HAND-OFF: Report given to Minh Breen RN. no pending orders at this time.
--- NOTE | 2019-07-23 15:12 | NUR ---
ED Nurse Note: Lactic acide relfex obtainedl sent to lab.
[2019-07-23 15:25] LABS: APPEARANCE,URINE CLEAR; BILIRUBIN, URINE NEGATIVE (NEGATIVE); COLOR,URINE YELLOW; GLUCOSE, URINE (UA) NEGATIVE (NEGATIVE); KETONES,URINE NEGATIVE (NEGATIVE); LEUKOCYTE ESTERASE ,URINE 3+ (NEGATIVE); NITRITE,URINE NEGATIVE (NEGATIVE); PH,URINE 6 (4.5-8.0); PROTEIN,URINE 1+ (NEGATIVE); UROBILINOGEN,URINE NORMAL MG/DL (0.0-1.0)
--- NOTE | 2019-07-23 15:45 | NUR ---
TRANSFER TO FLOOR: Patient transferred to tele 220-1 as ordered, per nadiya galeana. Report given to ingrid bullock. patient transferred to unit via gurney with stephen and rn. belongings list and admission packet sent with patient
[2019-07-23 16:10] VITALS: BP 136/73
[2019-07-23] MEDS ORDERED: FAMOTIDINE20 MG GT (16:12)
--- NOTE | 2019-07-23 16:15 | NUR ---
NURSE NOTES: Received report from LACHO Rowland. Patient transferred from ED to Tele. Patient in bed resting, no active s/s cardiac, respiratory distress noticed at this time. Patient on room air, AOx0. PEG on upper abd, patent, intact, no residual at this time. Stevenson Catheter draining well to gravity at this time. school lunch monitor on, skin assessed, white/red discoloration on sacra, right heel redness on scab. Bed in lowest position, side rails upx2, call light within reach. Will continue to monitor.
--- NOTE | 2019-07-23 16:46 | NUR ---
NURSE NOTES: Paged Dr. Jade for admission order. Per MD will see patient. MD at the bedside, stated will put admission order.
--- NOTE | 2019-07-23 16:47 | NUR ---
NURSE NOTES: Per mere Anderson to keep Stevenson Catheter for retention.
[2019-07-23] MEDS ORDERED: Acetaminophen 650mg/20.3ml GT PRN (17:00)
--- NOTE | 2019-07-23 17:03 | History & Physical ---
History and Physical History & Physicial Rectal Bleed Bed Bound Dementia PEG UTI High Lactate Dehydration PVCs Skin decub NPO Rocephin IV fluid Skin care monitor H&H per orders GI and cardiac eval # [id number] Igor Jade MD Jul 23, 2019 17:03
[2019-07-23] MEDS: D5NS 1,000 ML IV SCH (17:28)
[2019-07-23] MEDS: Metoclopramide 10mg/10ml Liq GT SCH (17:38)
--- NOTE | 2019-07-23 19:29 | NUR ---
HAND-OFF: Report given to LACHO Bone.
--- NOTE | 2019-07-23 19:31 | NUR ---
NURSE NOTES: Received report from LACHO Anders. Patient in bed resting, HOB elevated for aspiration precautions . no active s/s cardiac, respiratory distress noticed at this time, on 2 L NC. AOx0. PEG on upper abd, patent, intact, no residual at this time. Stevenson Catheter draining well to gravity at this time. Bed in lowest position, side rails upx2, call light within reach, bed alarm on Will continue to monitor.
[2019-07-23 20:00] VITALS: BP 139/68
[2019-07-23] MEDS: Pantoprazole Inj IVP SCH (21:51)
[2019-07-24] VITALS: BP 130/76
[2019-07-24] MEDS: Metoclopramide 10mg/10ml Liq GT SCH ×4 (00:25→17:12)
[2019-07-24 04:00] VITALS: BP 136/61
--- NOTE | 2019-07-24 05:15 | Consultation ---
DATE OF CONSULTATION: 07/23/2019 CARDIOLOGY CONSULTATION CONSULTING PHYSICIAN: Cristo Lopez M.D. REQUESTING PHYSICIAN: Igor Jade M.D. REASON FOR CONSULTATION: Arrhythmia. HISTORY OF PRESENT ILLNESS: This elderly female from a correction facility with cerebrovascular disease and dementia, presented to the hospital with rectal bleeding. She was evaluated in the emergency room. Records were reviewed. She is unable to give any historical data due to her underlying dementia. Following admission, the patient's EKG and residential monitor revealed arrhythmia prompting this consultation. PAST MEDICAL HISTORY: Includes hypertension, COPD, dysphagia with G-tube, and cerebrovascular disease with dementia. ALLERGIES: No allergies. MEDICATIONS: Reviewed and reconciled. FAMILY HISTORY: Not known. SOCIAL HISTORY: No record of prior smoking or alcohol abuse. REVIEW OF SYSTEMS: Otherwise not obtainable. Pertinent data from review of records is outlined above. PHYSICAL EXAMINATION: VITAL SIGNS: Blood pressure 118/70, heart rate 83, respiratory rate 16, afebrile, and room air oxygen saturation 97%. HEENT: Conjunctivae are pink. Oropharynx is clear. Mucous membranes are moist. NECK: Supple. No accessory muscle use. LUNGS: Few rhonchi. CARDIAC: Regular rhythm and rate. Normal S1 and S2. There is a 1/6 systolic murmur at the base. ABDOMEN: Soft and nontender. G-tube is intact. EXTREMITIES: There is no edema or calf tenderness. LABORATORY AND DIAGNOSTIC DATA: White count 11 and hemoglobin 11.9. Sodium 137, potassium 5.4, bicarb 28, BUN 22, creatinine 1.2, and glucose 116. Lactic acid 3.3. Magnesium 2.1. Pro-natriuretic peptide is 215. Urinalysis with 3+ leukocyte esterase and 10 to 15 white cells. EKG, sinus rhythm and occasional PVCs. IMPRESSION: 1. GI bleeding. 2. Lactic acidosis. 3. Nonsustained ventricular ectopy. 4. Hyperkalemia. 5. Probable pneumonia. 6. Dementia and dysphagia with gastrostomy tube. PLAN: 1. Hydration. 2. Serial lactic acid. 3. Antimicrobials. 4. Cardiac monitoring. 5. No role for antiarrhythmics. 6. Check thyroid panel. 7. Antimicrobials and respiratory hygiene. 8. Avoid beta agonist in this setting. 9. No anti-platelet drugs in view of GI bleed. Cristo Sebastián Lopez DR: BILLY JOB#: [id number] CC:
[2019-07-24] MEDS: D5NS 1,000 ML IV SCH (06:04)
--- NOTE | 2019-07-24 07:00 | General Progress Note ---
Assessment/Plan Assessment/Plan: GI CONSULT Assessment - small volume hematochezia, suspect anorectal origin (? hemorrhoid, ? solitary rectal ulcer) - rectal stool impaction - disimpacted - OBS - dysphagia/GT Recommendations - monitor CBC - bowel regimen - ? limited GI w/u (? flex sig) - will d/w family Thank you Maryjo Trammell MD Subjective Allergies: Coded Allergies: NO KNOWN DRUG ALLERGIES (Unverified Allergy, Unknown, 08/31/14) Objective Last 24 Hour Vital Signs Date Time Temp Pulse Resp B/P (MAP) Pulse Ox O2 Delivery O2 Flow Rate FiO2 07/24/19 04:00 90 07/24/19 04:00 98.6 74 18 136/61 (86) 94 07/24/19 04:00 2.0 07/24/19 00:00 88 07/24/19 00:00 98.8 71 18 130/76 (94) 94 07/24/19 00:00 2.0 07/23/19 21:51 93 139/68 07/23/19 21:17 Nasal Cannula 2.0 07/23/19 21:00 98 07/23/19 20:00 2.0 07/23/19 20:00 87 07/23/19 20:00 97.9 93 19 139/68 (91) 90 07/23/19 16:12 Room Air 07/23/19 16:10 97.5 96 18 136/73 (94) 99 07/23/19 15:45 97.2 99 16 120/87 100 Room Air 2.0 07/23/19 15:02 97.2 99 16 120/87 100 Room Air 2.0 07/23/19 13:35 97.0 83 16 118/70 97 Room Air 2.0 07/23/19 13:35 83 16 Room Air 2.0 07/23/19 13:31 98.2 83 16 118/70 (86) 97 Room Air 2.0 Intake and Output 07/23/19 07/24/19 19:00 07:00 Intake Total 1055 ml Output Total 600 ml 900 ml Balance 455 ml -900 ml Intake IV Total 1055 ml Output Urine Total 600 ml 900 ml # Voids 1 # Bowel Movements 1 Laboratory Tests 07/23/19 14:07: White Blood Count 11.0H, Red Blood Count 4.33, Hemoglobin 11.9L, Hematocrit 37.0 , Mean Corpuscular Volume 86, Mean Corpuscular Hemoglobin 27.4, Mean Corpuscular Hemoglobin Concent 32.1, Red Cell Distribution Width 12.5, Platelet Count 466H, Mean Platelet Volume 6.2L, Neutrophils (%) (Auto) 70.3, Lymphocytes (%) (Auto) 18.2L, Monocytes (%) (Auto) 7.1, Eosinophils (%) (Auto) 3.7H, Basophils (%) (Auto) 0.7, Prothrombin Time 10.0, Prothromb Time International Ratio 0.9, Activated Partial Thromboplast Time 34H, Sodium Level 137, Potassium Level 5.4H, Chloride Level 96L, Carbon Dioxide Level 28, Anion Gap 13, Blood Urea Nitrogen 22H, Creatinine 1.2, Estimat Glomerular Filtration Rate 52.0, Glucose Level 116H, Lactic Acid Level 3.30H, Calcium Level 10.3H, Phosphorus Level 3.3, Magnesium Level 2.1, Total Bilirubin 0.2, Aspartate Amino Transf (AST /SGOT) 18, Alanine Aminotransferase (ALT/SGPT) 27, Alkaline Phosphatase 116, Pro -B-Type Natriuretic Peptide 215H, Total Protein 9.4H, Albumin 3.7, Globulin 5.7 , Albumin/Globulin Ratio 0.6L, Lipase 314 07/23/19 14:45: Urine Color Yellow, Urine Appearance Clear, Urine pH 6, Urine Specific [place] 1.010, Urine Protein 1+H, Urine Glucose (UA) Negative, Urine Ketones Negative, Urine Blood 2+H, Urine Nitrite Negative, Urine Bilirubin Negative, Urine Urobilinogen Normal, Urine Leukocyte Esterase 3+H, Urine RBC 5-10H, Urine WBC 10 -15H, Urine Squamous Epithelial Cells Few, Urine Bacteria ModerateH 07/23/19 15:00: Lactic Acid Level 1.60 Height (Feet): 5 Height (Inches): 6.00 Weight (Pounds): 185 Maryjo Trammell MD Jul 24, 2019 06:59
[2019-07-24] MEDS ORDERED: Sorbitol Solution UD 30ml ORAL SCH (07:15)
--- NOTE | 2019-07-24 08:05 | NUR ---
HAND-OFF: Report given to LACHO Marmolejo.
[2019-07-24 08:21] LABS: BASOPHILS % (AUTO) 1.3 % (0.0-2.0); EOSINOPHILS % (AUTO) 4.3 % (0.0-3.0); HEMATOCRIT 31.7 % (37.0-47.0); HEMOGLOBIN 10.4 G/DL (12.0-16.0); LYMPHOCYTES % (AUTO) 18.2 % (20.0-45.0); MEAN CORPUSCULAR VOLUME 86 FL (80-99); MONOCYTES % (AUTO) 6.8 % (1.0-10.0); NEUTROPHILS % (AUTO) 69.4 % (45.0-75.0); PLATELET COUNT 366 K/UL (150-450); RED BLOOD COUNT 3.67 M/UL (4.20-5.40); RED CELL DISTRIBUTION WIDTH 13.1 % (11.6-14.8); WHITE BLOOD COUNT 10.2 K/UL (4.8-10.8)
[2019-07-24 08:41] VITALS: BP 132/70
[2019-07-24 08:53] LABS: ALANINE AMINOTRANSFERASE 20 U/L (12-78); ALBUMIN/GLOBULIN RATIO 0.6 (1.0-2.7); ALKALINE PHOSPHATASE 96 U/L (46-116); ANION GAP 8 mmol/L (5-15); ASPARTATE AMINO TRANSFERASE 20 U/L (15-37); BILIRUBIN,TOTAL 0.2 MG/DL (0.2-1.0); BLOOD UREA NITROGEN 17 mg/dL (7-18); CALCIUM 9.4 MG/DL (8.5-10.1); CARBON DIOXIDE 29 MMOL/L (21-32); CHLORIDE 100 MMOL/L (98-107); CHOLESTEROL 130 MG/DL (< 200); CREATININE 1.1 MG/DL (0.55-1.30); FERRITIN 496 NG/ML (8-388); GAMMA GLUTAMYL TRANSPEPTIDASE 27 U/L (5-85); HDL CHOLESTEROL 41 MG/DL (40-60); PHOSPHORUS 3.5 MG/DL (2.5-4.9); POTASSIUM 4.9 MMOL/L (3.5-5.1); SODIUM 137 MMOL/L (136-145); TRIGLYCERIDES 114 MG/DL (30-150)
[2019-07-24 09:27] LABS: % IRON SATURATION 19 % (15-50); IRON 39 ug/dL (50-175); TOTAL IRON BINDING CAPACITY 204 ug/dL (250-450)
[2019-07-24] MEDS: cefTRIAXone 1 GM in D5W 55 ML IVPB SCH (09:38)
[2019-07-24] MEDS: Pantoprazole Inj IVP SCH ×2 (09:38→21:39)
[2019-07-24 12:00] VITALS: BP 140/70
--- NOTE | 2019-07-24 12:04 | General Progress Note ---
Assessment/Plan Problem List: (1) Sepsis ICD Codes: A41.9 - Sepsis SNOMED: 59653394 (2) Rectal bleed ICD Codes: K62.5 - Hemorrhage of anus and rectum SNOMED: 52676372 (3) Fecal impaction in rectum ICD Codes: K56.41 - Fecal impaction SNOMED: 95302193 (4) UTI (urinary tract infection) ICD Codes: N39.0 - Urinary tract infection, site not specified SNOMED: 63717428 (5) Dementia ICD Codes: F03.90 - Dementia SNOMED: 56672213 Status: stable Status Narrative small volume hematochezia, suspect anorectal origin (? hemorrhoid, ? solitary rectal ulcer) rectal stool impaction - disimpacted by GI dysphagia/GT Bed Bound Dementia PEG UTI - High Lactate Dehydration PVCs Skin decub gram Neg BC Assessment/Plan: NPO Rocephin One dose Genta IV fluid Skin care monitor H&H per orders GI and cardiac eval Subjective ROS Limited/Unobtainable: No Constitutional: Reports: malaise Allergies: Coded Allergies: NO KNOWN DRUG ALLERGIES (Unverified Allergy, Unknown, 08/31/14) Objective Last 24 Hour Vital Signs Date Time Temp Pulse Resp B/P (MAP) Pulse Ox O2 Delivery O2 Flow Rate FiO2 07/24/19 09:37 91 132/70 07/24/19 09:00 Nasal Cannula 2.0 07/24/19 08:41 97.8 91 17 132/70 (90) 99 07/24/19 08:37 92 07/24/19 04:00 90 07/24/19 04:00 98.6 74 18 136/61 (86) 94 07/24/19 04:00 2.0 07/24/19 00:00 88 07/24/19 00:00 98.8 71 18 130/76 (94) 94 07/24/19 00:00 2.0 07/23/19 21:51 93 139/68 07/23/19 21:17 Nasal Cannula 2.0 07/23/19 21:00 98 07/23/19 20:00 2.0 07/23/19 20:00 87 07/23/19 20:00 97.9 93 19 139/68 (91) 90 07/23/19 16:12 Room Air 07/23/19 16:10 97.5 96 18 136/73 (94) 99 07/23/19 15:45 97.2 99 16 120/87 100 Room Air 2.0 07/23/19 15:02 97.2 99 16 120/87 100 Room Air 2.0 07/23/19 13:35 97.0 83 16 118/70 97 Room Air 2.0 07/23/19 13:35 83 16 Room Air 2.0 07/23/19 13:31 98.2 83 16 118/70 (86) 97 Room Air 2.0 Intake and Output 07/23/19 07/24/19 19:00 07:00 Intake Total 1055 ml Output Total 600 ml 900 ml Balance 455 ml -900 ml Intake IV Total 1055 ml Output Urine Total 600 ml 900 ml # Voids 1 # Bowel Movements 1 Current Medications Medications (Trade) Dose Ordered Sig/Kimberley Route PRN Reason Start Time Stop Time Status Last Admin Dose Admin Acetaminophen (Tylenol) 650 mg Q4H PRN GT Mild Pain/Temp > 100.5 07/23/19 17:00 08/22/19 16:59 Carvedilol (Coreg) 3.125 mg EVERY 12 HOURS GT 07/23/19 21:00 08/22/19 20:59 07/24/19 09:37 Ceftriaxone Sodium 1 gm/ Dextrose 55 ml @ 110 mls/hr DAILY IVPB 07/24/19 09:00 07/31/19 08:59 07/24/19 09:38 Dextrose/Sodium Chloride 1,000 ml @ 30 mls/hr Q24H IV 07/24/19 17:00 08/22/19 16:59 UNV Docusate Sodium (Colace) 100 mg THREE TIMES A DAY GT 07/24/19 13:00 08/23/19 12:59 UNV Gentamicin Sulfate/Sodium Chloride 100 ml @ 200 mls/hr ONCE ONCE IVPB 07/24/19 12:15 07/24/19 12:44 UNV Lactulose (Cephulac) 30 gm ONCE ONCE GT 07/24/19 12:15 07/24/19 12:16 UNV Metoclopramide HCl (Reglan) 5 mg EVERY 6 HOURS GT 07/23/19 18:00 08/22/19 17:59 07/24/19 06:04 Pantoprazole (Protonix) 40 mg EVERY 12 HOURS IVP 07/23/19 21:00 08/22/19 20:59 07/24/19 09:38 Laboratory Tests 07/23/19 14:07: White Blood Count 11.0H, Red Blood Count 4.33, Hemoglobin 11.9L, Hematocrit 37.0 , Mean Corpuscular Volume 86, Mean Corpuscular Hemoglobin 27.4, Mean Corpuscular Hemoglobin Concent 32.1, Red Cell Distribution Width 12.5, Platelet Count 466H, Mean Platelet Volume 6.2L, Neutrophils (%) (Auto) 70.3, Lymphocytes (%) (Auto) 18.2L, Monocytes (%) (Auto) 7.1, Eosinophils (%) (Auto) 3.7H, Basophils (%) (Auto) 0.7, Prothrombin Time 10.0, Prothromb Time International Ratio 0.9, Activated Partial Thromboplast Time 34H, Sodium Level 137, Potassium Level 5.4H, Chloride Level 96L, Carbon Dioxide Level 28, Anion Gap 13, Blood Urea Nitrogen 22H, Creatinine 1.2, Estimat Glomerular Filtration Rate 52.0, Glucose Level 116H, Lactic Acid Level 3.30H, Calcium Level 10.3H, Phosphorus Level 3.3, Magnesium Level 2.1, Total Bilirubin 0.2, Aspartate Amino Transf (AST /SGOT) 18, Alanine Aminotransferase (ALT/SGPT) 27, Alkaline Phosphatase 116, Pro -B-Type Natriuretic Peptide 215H, Total Protein 9.4H, Albumin 3.7, Globulin 5.7 , Albumin/Globulin Ratio 0.6L, Lipase 314 07/23/19 14:45: Urine Color Yellow, Urine Appearance Clear, Urine pH 6, Urine Specific [place] 1.010, Urine Protein 1+H, Urine Glucose (UA) Negative, Urine Ketones Negative, Urine Blood 2+H, Urine Nitrite Negative, Urine Bilirubin Negative, Urine Urobilinogen Normal, Urine Leukocyte Esterase 3+H, Urine RBC 5-10H, Urine WBC 10 -15H, Urine Squamous Epithelial Cells Few, Urine Bacteria ModerateH 07/23/19 15:00: Lactic Acid Level 1.60 07/24/19 07:30: White Blood Count 10.2, Red Blood Count 3.67L, Hemoglobin 10.4L, Hematocrit 31.7L, Mean Corpuscular Volume 86, Mean Corpuscular Hemoglobin 28.2, Mean Corpuscular Hemoglobin Concent 32.6, Red Cell Distribution Width 13.1, Platelet Count 366, Mean Platelet Volume 5.5L, Neutrophils (%) (Auto) 69.4, Lymphocytes ( %) (Auto) 18.2L, Monocytes (%) (Auto) 6.8, Eosinophils (%) (Auto) 4.3H, Basophils (%) (Auto) 1.3, Sodium Level 137, Potassium Level 4.9, Chloride Level 100, Carbon Dioxide Level 29, Anion Gap 8, Blood Urea Nitrogen 17, Creatinine 1.1, Estimat Glomerular Filtration Rate 57.4, Glucose Level 147H, Calcium Level 9.4, Phosphorus Level 3.5, Magnesium Level 1.9, Total Bilirubin 0.2, Aspartate Amino Transf (AST/SGOT) 20, Alanine Aminotransferase (ALT/SGPT) 20, Alkaline Phosphatase 96, Pro-B-Type Natriuretic Peptide 222H, Total Protein 7.8, Albumin 3.0L, Globulin 4.8, Albumin/Globulin Ratio 0.6L, Hemoglobin A1c 7.8H, Uric Acid 5.3, Iron Level 39L, Total Iron Binding Capacity 204L, Percent Iron Saturation 19, Unsaturated Iron Binding 165, Ferritin 496H, Gamma Glutamyl Transpeptidase 27, Troponin I 0.000, C-Reactive Protein, Quantitative 5.2H, Triglycerides Level 114, Cholesterol Level 130, LDL Cholesterol 75, HDL Cholesterol 41, Cholesterol/HDL Ratio 3.2L, Vitamin B12 Level 1518H, Folate 71.3H, Thyroid Stimulating Hormone (TSH) 1.213 Height (Feet): 5 Height (Inches): 6.00 Weight (Pounds): 185 General Appearance: no apparent distress Cardiovascular: normal rate Respiratory/Chest: decreased breath sounds Abdomen: soft Igor Jade MD Jul 24, 2019 12:04
[2019-07-24] MEDS ORDERED: Lactulose 20gm/30ml UDC GT SCH (12:15)
[2019-07-24] MEDS ORDERED: D5NS 1,000 ML IV SCH (12:30)
[2019-07-24] MEDS: Docusate 100mg/10ml Liq GT SCH ×2 (12:59→17:12)
[2019-07-24] MEDS ORDERED: Gentamicin inj 120 MG in NS 110 ML IVPB ONE (14:00)
--- NOTE | 2019-07-24 14:30 | Consultation ---
DATE OF CONSULTATION: 07/24/2019 GASTROENTEROLOGY CONSULTATION CONSULTING PHYSICIAN: Maryjo Trammell M.D. CHIEF COMPLAINT: I was asked to see this patient by Dr. Igor Jade for evaluation of rectal bleeding. HISTORY OF PRESENT ILLNESS: The patient is an unfortunate elderly woman with advanced dementia and stroke from a correction who was brought in for rectal bleeding. The patient reportedly was found to have some blood in her diapers, but not much more information is available. She was seen in the emergency room where digital rectal exam showed some alfa blood and she was therefore admitted. The patient herself is nonverbal and noncommunicative and unable to provide any history. Most of the information is only available from the chart. PAST MEDICAL HISTORY: History of COPD, dysphagia status post gastrostomy tube placement, stroke, dementia, bedbound state. FAMILY HISTORY: Unavailable. SOCIAL HISTORY: Unavailable. ALLERGIES: None. MEDICATIONS: See the chart list for details. REVIEW OF SYSTEMS: Unobtainable. PHYSICAL EXAMINATION: GENERAL: Nonverbal, obtunded, woman, seen in her room. HEENT: Normocephalic and atraumatic. NECK: Supple. CHEST: Revealed coarse breath sounds. CARDIOVASCULAR: Revealed a regular rate. ABDOMEN: Soft with gastrostomy tube in good position. EXTREMITIES: Revealed contracture deformities and some skin breakdown. NEUROLOGIC: Notable for stroke with contracture deformities and advanced dementia and nonverbal state. RECTAL: Revealed no external abnormalities. Digital evaluation showed rectal stool impaction with hard balls of dark brown stools. There was some streaks of red blood on top of these balls of hard stool. Some degree of rectal disimpaction was performed. LABORATORY DATA: Noted. ASSESSMENT: This patient presents with clinically mild degree of rectal bleeding with blood seen in the diapers and also rectal exam shows rectal stool impaction with hard ball like stools. I suspect that the bleeding is all from the anus or the rectal area. Differential diagnosis would include hemorrhoidal bleeding versus solitary rectal ulcers, which typically can be seen in this setting with chronic constipation. The patient should receive a bowel regimen to clear out her stools. As far as the investigation is concerned, may suffice to evaluate the area. The indications, risks of the procedure were explained to the family. The risks benefit ratio with respect to versus more involved evaluation such as a full colonoscopy can be outlined for the family and decision can be made. RECOMMENDATIONS: 1. Keep the patient NPO for now. 2. Bowel regimen. 3. Monitor CBC. 4. Family discussion. Thank you for asking me to participate in the care of this patient. Maryjo Trammell M.D. DR: SARAH JOB#: [id number] CC: NIVIA
[2019-07-24 16:00] VITALS: BP 110/70
--- NOTE | 2019-07-24 17:15 | History and Physical Report ---
DATE OF ADMISSION: 07/23/2019 HISTORY OF PRESENT ILLNESS: The patient is a resident of [facility]. She was transferred to emergency room here at [facility] for evaluation of rectal bleed. After initial evaluation, the patient was admitted for further management. PAST MEDICAL HISTORY: Significant for dementia. The patient is bedbound. She has GT feeding. She has previous episodes of urinary tract infection and sepsis. MEDICATIONS: According to the list. ALLERGIES: None. PHYSICAL EXAMINATION: VITAL SIGNS: The patient had a temperature of 98.2 degrees, blood pressure of 118/70, pulse rate of 83, respiratory rate of 16, and pulse oximetry 97% in room air. GENERAL: She is not in any distress, nonverbal. Opens and closes her eyes. NECK: Rigid to all directions. HEENT: Head is normocephalic. LUNGS: Poor inspiratory effort. Decreased breath sounds over the bases. ABDOMEN: Slightly distended. Soft GT tube in place. RECTAL: The rectal exam done by vocal artist today, hard stool in the rectum, which was disimpacted and had blunt blood-tinged area. EXTREMITIES: Lower extremities, the patient has trace edema. LABORATORY DATA: Potassium 5.4, BUN 22, and calcium 10.3. Hemoglobin 4.3 and WBCs 11. The initial lactic acid was 3.3. Urinalysis, 3+ leukocyte esterase and 10 to 15 white blood cells. IMPRESSION: This 84-year-old female, who is bedbound and has history of dementia and GT tube feeding was evaluated in the emergency room and is being admitted with the diagnosis of urinary tract infection, rectal bleed, fecal impaction, dehydration, and premature ventricular contractions. PLAN: The patient is kept NPO. Rocephin is started pending the blood and urine culture results. Cardiac and GI evaluation is sought. Laxatives are given. According to how the patient's condition evolves, we will make the proper changes in our future management. Igor Jade M.D. DR: Gail JOB#: [id number] CC:
[2019-07-24 20:00] VITALS: BP 134/83
[2019-07-25] VITALS: BP 100/75
[2019-07-25] MEDS: Metoclopramide 10mg/10ml Liq GT SCH ×5 (00:01→23:31)
--- NOTE | 2019-07-25 04:00 | Progress Note ---
DATE: 07/24/2019 CARDIOLOGY PROGRESS NOTE SUBJECTIVE: The patient has a small amount of blood in the diaper. She was impacted. Monitored rhythm sinus with nonsustained ventricular ectopy. OBJECTIVE: VITAL SIGNS: Blood pressure 132/70, pulse 91, respirations 17, afebrile. LUNGS: Bilateral breath sounds. No wheezing. CARDIAC: Regular rhythm and rate. Normal S1, S2. 1/6 systolic ejection murmur. ABDOMEN: Soft. G-tube intact. EXTREMITIES: No edema. LABORATORY DATA: White count 10.2, hemoglobin 10.4. Potassium 4.9, BUN 17, creatinine 1.1. Magnesium 1.9. Troponin 0. Natriuretic peptide 222. TSH 1.2. IMPRESSION: 1. Nonsustained ventricular ectopy. 2. Cerebrovascular disease with dementia. 3. GI bleeding. 4. Lactic acidosis. 5. Urinary tract infection. 6. Resolved hyperkalemia. 7. Dysphagia with G-tube. 8. Degenerative aortic valve disease. PLAN: 1. Continue cautious hydration. 2. Monitor hemoglobin. 3. Serial lactic acid levels. 4. No anti-platelet therapy at this time. 5. No plans for antiarrhythmics. 6. Echocardiogram to assess left ventricular ejection fraction. 7. Conservative management in this clinical setting plan. Cristo Lopez M.D. DR: KRISHNA JOB#: [id number] CC: NIVIA
[2019-07-25 04:05] VITALS: BP 114/79
--- NOTE | 2019-07-25 07:47 | NUR ---
HAND-OFF: Report given to LACHO Frank .
--- NOTE | 2019-07-25 07:47 | NUR ---
NURSE NOTES: Received report from Luli MONK. Patient in bed resting and no c/o pain. Awake and disoriented. Open her eyes when touched. HOB elevated for aspiration precautions. No active s/s cardiac, respiratory distress noticed at this time, on room Air and O2 saturating with 98% on room air. PEG on upper abd, patent, intact, no residual at this time. Stevenson Catheter draining well to gravity at this time. Bed in lowest position, side rails upx2, call light within reach, bed alarm on Will continue to monitor.
[2019-07-25 07:54] LABS: BASOPHILS % (AUTO) 1.4 % (0.0-2.0); EOSINOPHILS % (AUTO) 5.6 % (0.0-3.0); HEMATOCRIT 32.7 % (37.0-47.0); HEMOGLOBIN 10.7 G/DL (12.0-16.0); LYMPHOCYTES % (AUTO) 17.1 % (20.0-45.0); MEAN CORPUSCULAR VOLUME 86 FL (80-99); PLATELET COUNT 375 K/UL (150-450); RED BLOOD COUNT 3.79 M/UL (4.20-5.40); RED CELL DISTRIBUTION WIDTH 13.3 % (11.6-14.8); WHITE BLOOD COUNT 8.8 K/UL (4.8-10.8)
[2019-07-25 07:57] LABS: ALANINE AMINOTRANSFERASE 20 U/L (12-78); ALBUMIN/GLOBULIN RATIO 0.6 (1.0-2.7); ALKALINE PHOSPHATASE 100 U/L (46-116); ANION GAP 8 mmol/L (5-15); ASPARTATE AMINO TRANSFERASE 19 U/L (15-37); BILIRUBIN,TOTAL 0.2 MG/DL (0.2-1.0); BLOOD UREA NITROGEN 15 mg/dL (7-18); CALCIUM 9.2 MG/DL (8.5-10.1); CARBON DIOXIDE 29 MMOL/L (21-32); CHLORIDE 103 MMOL/L (98-107); CREATININE 1.1 MG/DL (0.55-1.30); PHOSPHORUS 3.4 MG/DL (2.5-4.9); POTASSIUM 4.6 MMOL/L (3.5-5.1); SODIUM 140 MMOL/L (136-145)
[2019-07-25 08:00] VITALS: BP 112/68
[2019-07-25] MEDS: Docusate 100mg/10ml Liq GT SCH ×4 (09:00→17:20)
[2019-07-25] MEDS: Pantoprazole Inj IVP SCH ×2 (09:48→21:34)
[2019-07-25] MEDS: cefTRIAXone 1 GM in D5W 55 ML IVPB SCH (09:56)
--- NOTE | 2019-07-25 11:17 | General Progress Note ---
Assessment/Plan Problem List: (1) Sepsis ICD Codes: A41.9 - Sepsis SNOMED: 13866477 (2) Rectal bleed ICD Codes: K62.5 - Hemorrhage of anus and rectum SNOMED: 58266417 (3) Fecal impaction in rectum ICD Codes: K56.41 - Fecal impaction SNOMED: 91430051 (4) UTI (urinary tract infection) ICD Codes: N39.0 - Urinary tract infection, site not specified SNOMED: 37303337 (5) Dementia ICD Codes: F03.90 - Dementia SNOMED: 77526431 Status: stable Assessment/Plan: star GT feeding check KUB Rocephin One dose Genta IV fluid Skin care monitor H&H per orders GI and cardiac eval & ID Subjective ROS Limited/Unobtainable: No Constitutional: Reports: malaise Allergies: Coded Allergies: NO KNOWN DRUG ALLERGIES (Unverified Allergy, Unknown, 08/31/14) Objective Last 24 Hour Vital Signs Date Time Temp Pulse Resp B/P (MAP) Pulse Ox O2 Delivery O2 Flow Rate FiO2 07/25/19 09:48 96 112/68 07/25/19 08:00 97.9 96 20 112/68 (83) 97 07/25/19 08:00 91 07/25/19 04:05 97.7 88 19 114/79 (91) 97 07/25/19 04:05 1 07/25/19 00:00 97.9 95 18 100/75 (83) 98 07/25/19 00:00 95 07/24/19 21:39 86 134/83 07/24/19 21:00 Nasal Cannula 2.0 07/24/19 20:00 97.6 92 20 134/83 (100) 97 07/24/19 20:00 91 07/24/19 16:00 97.3 96 21 110/70 (83) 97 07/24/19 16:00 90 07/24/19 12:00 97.5 90 21 140/70 (93) 97 07/24/19 12:00 85 Intake and Output 07/24/19 07/25/19 19:00 07:00 Output Total 500 ml Balance -500 ml Output Urine Total 500 ml # Voids 1 1 # Bowel Movements 2 2 Laboratory Tests 07/25/19 07:00: White Blood Count 8.8, Red Blood Count 3.79L, Hemoglobin 10.7L, Hematocrit 32.7L , Mean Corpuscular Volume 86, Mean Corpuscular Hemoglobin 28.2, Mean Corpuscular Hemoglobin Concent 32.6, Red Cell Distribution Width 13.3, Platelet Count 375, Mean Platelet Volume 5.7L, Neutrophils (%) (Auto) 65.0, Lymphocytes ( %) (Auto) 17.1L, Monocytes (%) (Auto) 11.0H, Eosinophils (%) (Auto) 5.6H, Basophils (%) (Auto) 1.4, Sodium Level 140, Potassium Level 4.6, Chloride Level 103, Carbon Dioxide Level 29, Anion Gap 8, Blood Urea Nitrogen 15, Creatinine 1.1, Estimat Glomerular Filtration Rate 57.4, Glucose Level 125H, Lactic Acid Level 1.20, Calcium Level 9.2, Phosphorus Level 3.4, Magnesium Level 1.9, Total Bilirubin 0.2, Aspartate Amino Transf (AST/SGOT) 19, Alanine Aminotransferase ( ALT/SGPT) 20, Alkaline Phosphatase 100, C-Reactive Protein, Quantitative 5.4H, Total Protein 7.7, Albumin 3.0L, Globulin 4.7, Albumin/Globulin Ratio 0.6L Height (Feet): 5 Height (Inches): 6.00 Weight (Pounds): 185 General Appearance: no apparent distress Cardiovascular: tachycardia Respiratory/Chest: decreased breath sounds Abdomen: soft Igor Jade MD Jul 25, 2019 11:17
--- NOTE | 2019-07-25 11:30 | General Progress Note ---
Assessment/Plan Problem List: (1) CKD (chronic kidney disease) stage 3, GFR 30-59 ml/min ICD Codes: N18.3 - CKD (chronic kidney disease) stage 3, GFR 30-59 ml/min SNOMED: 555517919 (2) Dementia ICD Codes: F03.90 - Dementia SNOMED: 60153178 (3) Fecal impaction in rectum ICD Codes: K56.41 - Fecal impaction SNOMED: 75336268 (4) Rectal bleed ICD Codes: K62.5 - Hemorrhage of anus and rectum SNOMED: 14971252 (5) Anemia ICD Codes: D64.9 - Anemia, unspecified SNOMED: 373060693 Status: stable Assessment/Plan: stable H&H GTF has been started no plans for GI procedures at this time given stable H&H and old age monitor for residuals bowel regimen fu labs Subjective ROS Limited/Unobtainable: No Allergies: Coded Allergies: NO KNOWN DRUG ALLERGIES (Unverified Allergy, Unknown, 08/31/14) Objective Last 24 Hour Vital Signs Date Time Temp Pulse Resp B/P (MAP) Pulse Ox O2 Delivery O2 Flow Rate FiO2 07/25/19 09:48 96 112/68 07/25/19 08:00 97.9 96 20 112/68 (83) 97 07/25/19 08:00 91 07/25/19 04:05 97.7 88 19 114/79 (91) 97 07/25/19 04:05 1 07/25/19 00:00 97.9 95 18 100/75 (83) 98 07/25/19 00:00 95 07/24/19 21:39 86 134/83 07/24/19 21:00 Nasal Cannula 2.0 07/24/19 20:00 97.6 92 20 134/83 (100) 97 07/24/19 20:00 91 07/24/19 16:00 97.3 96 21 110/70 (83) 97 07/24/19 16:00 90 07/24/19 12:00 97.5 90 21 140/70 (93) 97 07/24/19 12:00 85 Intake and Output 07/24/19 07/25/19 19:00 07:00 Output Total 500 ml Balance -500 ml Output Urine Total 500 ml # Voids 1 1 # Bowel Movements 2 2 Laboratory Tests 07/25/19 07:00: White Blood Count 8.8, Red Blood Count 3.79L, Hemoglobin 10.7L, Hematocrit 32.7L , Mean Corpuscular Volume 86, Mean Corpuscular Hemoglobin 28.2, Mean Corpuscular Hemoglobin Concent 32.6, Red Cell Distribution Width 13.3, Platelet Count 375, Mean Platelet Volume 5.7L, Neutrophils (%) (Auto) 65.0, Lymphocytes ( %) (Auto) 17.1L, Monocytes (%) (Auto) 11.0H, Eosinophils (%) (Auto) 5.6H, Basophils (%) (Auto) 1.4, Sodium Level 140, Potassium Level 4.6, Chloride Level 103, Carbon Dioxide Level 29, Anion Gap 8, Blood Urea Nitrogen 15, Creatinine 1.1, Estimat Glomerular Filtration Rate 57.4, Glucose Level 125H, Lactic Acid Level 1.20, Calcium Level 9.2, Phosphorus Level 3.4, Magnesium Level 1.9, Total Bilirubin 0.2, Aspartate Amino Transf (AST/SGOT) 19, Alanine Aminotransferase ( ALT/SGPT) 20, Alkaline Phosphatase 100, C-Reactive Protein, Quantitative 5.4H, Total Protein 7.7, Albumin 3.0L, Globulin 4.7, Albumin/Globulin Ratio 0.6L Height (Feet): 5 Height (Inches): 6.00 Weight (Pounds): 185 General Appearance: no apparent distress EENT: normal ENT inspection Neck: supple Cardiovascular: normal rate Respiratory/Chest: decreased breath sounds Abdomen: normal bowel sounds, non tender, soft Extremities: non-tender Frank Li MD Jul 25, 2019 11:30
[2019-07-25 12:00] VITALS: BP 114/69
--- NOTE | 2019-07-25 13:25 | Consultation ---
History of Present Illness General Date patient seen: Jul 25, 2019 Reason for Hospitalization: Gastrointestinal Bleed Present Illness HPI This is a 84-year-old female with multiple medical comorbidities including history of PEG tube, history of CVA history of dementia alert and oriented x0, presents from senior living due to blood noted on her diaper, no known aggravating relieving factors severity is moderate, constant, patient is unable to give a history due to her mental condition, patient presents for possible GI bleed. Surgery called to evaluate and assist with care. patient seen, chart reviewed, patient examined. unable to obtain meaningful history from patient Allergies: Coded Allergies: NO KNOWN DRUG ALLERGIES (Unverified Allergy, Unknown, 08/31/14) Medication History Scheduled Ascorbic Acid* (Vitamin C*), 500 MG PEG DAILY, (Reported) Aspirin* (Aspirin*), 81 MG PEG DAILY, (Reported) Docusate Sodium* (Docusate Sodium*), 100 MG PEG TWICE A DAY, (Reported) Donepezil Hcl* (Donepezil Hcl*), 10 MG ORAL QHS, (Reported) Famotidine* (Pepcid 20mg tablet*), 20 MG GT DAILY, (Reported) Ferrous Sulfate (Ferrous Sulfate), 7.5 ML GT BID, (Reported) Metoclopramide HCl (Metoclopramide HCl), 5 MG GT EVERY 6 HOURS Multivitamin With Minerals (Multivitamins With Minerals*), 1 TAB PEG DAILY, ( Reported) Petrolatum,White/Lanolin (Vitamin A & D Ointment), GM TP DAILY, (Reported) Scheduled PRN Acetaminophen* (Acetaminophen 325MG Tablet*), 325 MG PEG Q6H PRN for Mild Pain/ Temp > 100.5, (Reported) Albuterol Sulfate* (Albuterol Sulfate Hhn*), 3 ML INH Q6H PRN for Shortness of Breath, (Reported) Loperamide HCl (Loperamide), 2 MG ORAL EVERY 6 HOURS PRN for Diarrhea, (Reported ) Miscellaneous Medications Menthol/Zinc Oxide (Calmoseptine Ointment), 71 GM TP, (Reported) Patient History Limited by: medical condition History Provided By: Medical Record, PMD Healthcare decision maker Resuscitation status Full Code Advanced Directive on File Past Medical/Surgical History Past Medical/Surgical History: (1) Dehydration (2) UTI (urinary tract infection) (3) Functional quadriplegia (4) Pneumonia (5) Purulent bronchitis (6) Aspiration pneumonia (7) Weak (8) Severe malnutrition (9) Encounter for PEG (percutaneous endoscopic gastrostomy) (10) Sacral decubitus ulcer, stage II (11) Alzheimer's dementia (12) Malfunction of gastrostomy tube (13) Gastrointestinal hemorrhage (14) Rectal bleed (15) Fecal impaction in rectum (16) UTI (urinary tract infection) (17) Anemia (18) Sepsis (19) SIRS (systemic inflammatory response syndrome) (20) Altered mental status (21) SIRS (systemic inflammatory response syndrome) (22) Toxic metabolic encephalopathy (23) Dementia (24) JAYCEE (acute kidney injury) (25) CKD (chronic kidney disease) stage 3, GFR 30-59 ml/min (26) Colitis (27) Colitis (28) Diarrhea (29) Sepsis (30) Clostridium difficile colitis Review of Systems Review of Symptoms unable to obtain given medical condition Physical Exam Physical Exam General appearance: alert, no distress, appears stated age Head: Normocephalic, without obvious abnormality, atraumatic Eyes: conjunctivae/corneas clear. PERRL, EOM's intact. Fundi benign Throat: Lips, mucosa, and tongue normal. Teeth and gums normal Neck: supple, symmetrical, trachea midline, no adenopathy, thyroid: not enlarged, symmetric, no tenderness/mass/nodules, no carotid bruit and no JVD Lungs: clear to auscultation bilaterally Heart: regular rate and rhythm, S1, S2 normal, no murmur, click, rub or gallop Abdomen: soft, non-tender. Bowel sounds normal. No masses, no organomegaly, peg Extremities: extremities normal, atraumatic, no cyanosis or edema Pulses: 2+ and symmetric Skin: Skin color, texture, turgor normal. No rashes or lesions Neurologic: Grossly normal Last 24 Hour Vital Signs Date Time Temp Pulse Resp B/P (MAP) Pulse Ox O2 Delivery O2 Flow Rate FiO2 07/25/19 09:48 96 112/68 07/25/19 09:00 Nasal Cannula 2.0 07/25/19 08:00 97.9 96 20 112/68 (83) 97 07/25/19 08:00 91 07/25/19 04:05 97.7 88 19 114/79 (91) 97 07/25/19 04:05 1 07/25/19 00:00 97.9 95 18 100/75 (83) 98 07/25/19 00:00 95 07/24/19 21:39 86 134/83 07/24/19 21:00 Nasal Cannula 2.0 07/24/19 20:00 97.6 92 20 134/83 (100) 97 07/24/19 20:00 91 07/24/19 16:00 97.3 96 21 110/70 (83) 97 07/24/19 16:00 90 Intake and Output 07/24/19 07/25/19 19:00 07:00 Output Total 500 ml Balance -500 ml Output Urine Total 500 ml # Voids 1 1 # Bowel Movements 2 2 Laboratory Tests Test 07/25/19 07:00 White Blood Count 8.8 K/UL (4.8-10.8) Red Blood Count 3.79 M/UL (4.20-5.40) L Hemoglobin 10.7 G/DL (12.0-16.0) L Hematocrit 32.7 % (37.0-47.0) L Mean Corpuscular Volume 86 FL (80-99) Mean Corpuscular Hemoglobin 28.2 PG (27.0-31.0) Mean Corpuscular Hemoglobin Concent 32.6 G/DL (32.0-36.0) Red Cell Distribution Width 13.3 % (11.6-14.8) Platelet Count 375 K/UL (150-450) Mean Platelet Volume 5.7 FL (6.5-10.1) L Neutrophils (%) (Auto) 65.0 % (45.0-75.0) Lymphocytes (%) (Auto) 17.1 % (20.0-45.0) L Monocytes (%) (Auto) 11.0 % (1.0-10.0) H Eosinophils (%) (Auto) 5.6 % (0.0-3.0) H Basophils (%) (Auto) 1.4 % (0.0-2.0) Sodium Level 140 MMOL/L (136-145) Potassium Level 4.6 MMOL/L (3.5-5.1) Chloride Level 103 MMOL/L (98-107) Carbon Dioxide Level 29 MMOL/L (21-32) Anion Gap 8 mmol/L (5-15) Blood Urea Nitrogen 15 mg/dL (7-18) Creatinine 1.1 MG/DL (0.55-1.30) Estimat Glomerular Filtration Rate 57.4 mL/min (>60) Glucose Level 125 MG/DL (74-106) H Lactic Acid Level 1.20 mmol/L (0.4-2.0) Calcium Level 9.2 MG/DL (8.5-10.1) Phosphorus Level 3.4 MG/DL (2.5-4.9) Magnesium Level 1.9 MG/DL (1.8-2.4) Total Bilirubin 0.2 MG/DL (0.2-1.0) Aspartate Amino Transf (AST/SGOT) 19 U/L (15-37) Alanine Aminotransferase (ALT/SGPT) 20 U/L (12-78) Alkaline Phosphatase 100 U/L (46-116) C-Reactive Protein, Quantitative 5.4 mg/dL (0.00-0.90) H Total Protein 7.7 G/DL (6.4-8.2) Albumin 3.0 G/DL (3.4-5.0) L Globulin 4.7 g/dL Albumin/Globulin Ratio 0.6 (1.0-2.7) L Height (Feet): 5 Height (Inches): 6.00 Weight (Pounds): 185 Medications Current Medications Medications (Trade) Dose Ordered Sig/Kimberley Route PRN Reason Start Time Stop Time Status Last Admin Dose Admin Acetaminophen (Tylenol) 650 mg Q4H PRN GT Mild Pain/Temp > 100.5 07/23/19 17:00 08/22/19 16:59 Carvedilol (Coreg) 3.125 mg EVERY 12 HOURS GT 07/23/19 21:00 08/22/19 20:59 07/25/19 09:48 Ceftriaxone Sodium 1 gm/ Dextrose 55 ml @ 110 mls/hr DAILY IVPB 07/24/19 09:00 07/31/19 08:59 07/25/19 09:56 Docusate Sodium (Colace) 100 mg THREE TIMES A DAY GT 07/24/19 13:00 08/23/19 12:59 07/24/19 17:12 Metoclopramide HCl (Reglan) 5 mg EVERY 6 HOURS GT 07/23/19 18:00 3/30/20 17:59 07/25/19 12:41 Pantoprazole (Protonix) 40 mg EVERY 12 HOURS IVP 07/23/19 21:00 08/22/19 20:59 07/25/19 09:48 Assessment/Plan Problem List: (1) Rectal bleed Assessment & Plan: 84F noted to have blood in stool / diaper no n/v/f/c peg in place without blood output rectal exam with no gross blood noted abd exam benign labs stable exam stable scope as per GI ppi okay for tube feeds no acute surgical intervention planned ICD Codes: K62.5 - Hemorrhage of anus and rectum SNOMED: 65444219 (2) Fecal impaction in rectum ICD Codes: K56.41 - Fecal impaction SNOMED: 98675942 (3) Dehydration ICD Codes: E86.0 - Dehydration SNOMED: 07736384 (4) Severe malnutrition ICD Codes: E43 - Unspecified severe protein-calorie malnutrition SNOMED: 45976210 (5) Sacral decubitus ulcer, stage II Assessment & Plan: patient presents with historic sacral decubitus ulcer healing skin changes consistent with possible deeper wound prior now healing noted on another admission as stage 2. currently with scar tissue no signs of active infection needs close attention to ensure no further breakdown nutritional optimization turn q2h off load heels with pillow skin protectant foam dressings to sacrum and heels thank you will follow with recs ICD Codes: L89.152 - Pressure ulcer of sacral region, stage 2 SNOMED: 650184521, 891154132 Sadiq Rivera Jul 25, 2019 13:25
--- NOTE | 2019-07-25 14:34 | Infectious Diseases Prog Note ---
Assessment/Plan Problems: (1) LLL pneumonia Assessment & Plan: with infiltrates and leukocytosis , will start vancomycin and cefepime empirically and send sputum culture if she produces any , aspiration precaution (2) UTI (urinary tract infection) Assessment & Plan: S/P Gentamicin , will start cefepime empirically pending culture result (3) Rectal bleed Assessment & Plan: GI if following, monitor H/H , transfuse as needed , may need Endoscopy (4) Dehydration Assessment & Plan: continue IV fluids with close monitor of electrolytes (5) Sepsis Assessment & Plan: with gram positive cocci and leukocytosis , will start vancomycin empirically pending identification and sensitivity (6) JAYCEE (acute kidney injury) Assessment & Plan: due to the above, continue hydration with close monitoring of renal function and renally dosed antibiotics as per pharmacy Subjective Allergies: Coded Allergies: NO KNOWN DRUG ALLERGIES (Unverified Allergy, Unknown, 08/31/14) Objective Vital Signs Last 24 Hour Vital Signs Date Time Temp Pulse Resp B/P (MAP) Pulse Ox O2 Delivery O2 Flow Rate FiO2 07/25/19 12:00 97.5 88 20 114/69 (84) 100 07/25/19 09:48 96 112/68 07/25/19 09:00 Nasal Cannula 2.0 07/25/19 08:00 97.9 96 20 112/68 (83) 97 07/25/19 08:00 91 07/25/19 04:05 97.7 88 19 114/79 (91) 97 07/25/19 04:05 1 07/25/19 00:00 97.9 95 18 100/75 (83) 98 07/25/19 00:00 95 07/24/19 21:39 86 134/83 07/24/19 21:00 Nasal Cannula 2.0 07/24/19 20:00 97.6 92 20 134/83 (100) 97 07/24/19 20:00 91 07/24/19 16:00 97.3 96 21 110/70 (83) 97 07/24/19 16:00 90 Height (Feet): 5 Height (Inches): 6.00 Weight (Pounds): 185 Microbiology Date/Time Source Procedure Growth Status 07/23/19 14:07 Blood Blood Culture - Preliminary NO GROWTH AFTER 24 HOURS Resulted 07/23/19 13:55 Blood Blood Culture - Preliminary Gram Positive Cocci Resulted 07/23/19 14:45 Urine,Clean Catch Urine Culture - Preliminary Gram Negative Rohan Resulted Laboratory Tests Test 07/25/19 07:00 White Blood Count 8.8 K/UL (4.8-10.8) Red Blood Count 3.79 M/UL (4.20-5.40) L Hemoglobin 10.7 G/DL (12.0-16.0) L Hematocrit 32.7 % (37.0-47.0) L Mean Corpuscular Volume 86 FL (80-99) Mean Corpuscular Hemoglobin 28.2 PG (27.0-31.0) Mean Corpuscular Hemoglobin Concent 32.6 G/DL (32.0-36.0) Red Cell Distribution Width 13.3 % (11.6-14.8) Platelet Count 375 K/UL (150-450) Mean Platelet Volume 5.7 FL (6.5-10.1) L Neutrophils (%) (Auto) 65.0 % (45.0-75.0) Lymphocytes (%) (Auto) 17.1 % (20.0-45.0) L Monocytes (%) (Auto) 11.0 % (1.0-10.0) H Eosinophils (%) (Auto) 5.6 % (0.0-3.0) H Basophils (%) (Auto) 1.4 % (0.0-2.0) Sodium Level 140 MMOL/L (136-145) Potassium Level 4.6 MMOL/L (3.5-5.1) Chloride Level 103 MMOL/L (98-107) Carbon Dioxide Level 29 MMOL/L (21-32) Anion Gap 8 mmol/L (5-15) Blood Urea Nitrogen 15 mg/dL (7-18) Creatinine 1.1 MG/DL (0.55-1.30) Estimat Glomerular Filtration Rate 57.4 mL/min (>60) Glucose Level 125 MG/DL (74-106) H Lactic Acid Level 1.20 mmol/L (0.4-2.0) Calcium Level 9.2 MG/DL (8.5-10.1) Phosphorus Level 3.4 MG/DL (2.5-4.9) Magnesium Level 1.9 MG/DL (1.8-2.4) Total Bilirubin 0.2 MG/DL (0.2-1.0) Aspartate Amino Transf (AST/SGOT) 19 U/L (15-37) Alanine Aminotransferase (ALT/SGPT) 20 U/L (12-78) Alkaline Phosphatase 100 U/L (46-116) C-Reactive Protein, Quantitative 5.4 mg/dL (0.00-0.90) H Total Protein 7.7 G/DL (6.4-8.2) Albumin 3.0 G/DL (3.4-5.0) L Globulin 4.7 g/dL Albumin/Globulin Ratio 0.6 (1.0-2.7) L Current Medications Medications (Trade) Dose Ordered Sig/Kimberley Route PRN Reason Start Time Stop Time Status Last Admin Dose Admin Acetaminophen (Tylenol) 650 mg Q4H PRN GT Mild Pain/Temp > 100.5 07/23/19 17:00 08/22/19 16:59 Carvedilol (Coreg) 3.125 mg EVERY 12 HOURS GT 07/23/19 21:00 08/22/19 20:59 07/25/19 09:48 Cefepime HCl 1 gm/ Dextrose 55 ml @ 110 mls/hr EVERY 12 HOURS IVPB 07/25/19 21:00 08/01/19 20:59 Docusate Sodium (Colace) 100 mg THREE TIMES A DAY GT 07/24/19 13:00 08/23/19 12:59 07/24/19 17:12 Metoclopramide HCl (Reglan) 5 mg EVERY 6 HOURS GT 07/23/19 18:00 08/22/19 17:59 07/25/19 12:41 Pantoprazole (Protonix) 40 mg EVERY 12 HOURS IVP 07/23/19 21:00 08/22/19 20:59 07/25/19 09:48 Vancomycin HCl (Vanco rx to dose) 1 ea DAILY PRN MISC Per rx protocol 07/25/19 13:45 08/24/19 13:44 Vancomycin/Sodium Chloride 275 ml @ 137.5 mls/ hr Q24H IVPB 07/25/19 16:00 07/30/19 15:59 Jasmyn Peterson M.D. Jul 25, 2019 14:34
[2019-07-25 16:00] VITALS: BP 121/72
[2019-07-25] MEDS ORDERED: Acetaminophen 650mg/20.3ml GT PRN (16:00)
[2019-07-25] MEDS ORDERED: Vancomycin 1.5gm/NS Premix IVPB SCH (16:00)
--- NOTE | 2019-07-25 16:00 | NUR ---
HAND-OFF: Report given to Natali MONK. Pt remains stable.
--- NOTE | 2019-07-25 16:10 | NUR ---
NURSE NOTES: Received patient from Min RN. Patient is stable. Patient is nonverbal. Breathing is even and unlabored. No visible signs of distress noted. Tube feeding running as ordered. GT in place, patent, will flush as ordered. Patient is in bed in locked and lowest position with call light within reach. All safety measures provided. Will continue to monitor.
[2019-07-25] MEDS: Vancomycin 1.5gm/NS Premix 275 ML IVPB SCH (16:22)
--- NOTE | 2019-07-25 16:49 | NUR ---
CASE MANAGEMENT:INITIAL REVIEW 84YR OLD FEMALE BIBA FROM [facility] CC: GASTROINTESTINAL BLEED SI:GI BLEED 98.2 83 16 118/70 97% ON RA WBC 11.0 PLT 466 K+ 5.4 CL-96 BUN 22 BG 116 CA+10.3 LACTIC ACID 3.30 BNP 215 PTT 34 IS:IV ROCEPHIN X1 IV PROTONIX X1 IVF NS BOLUS X1 CHEST X-RAY-LEFT PLEURAL EFFUSION \: 4E MED SURG UNIT CASE MANAGEMENT: REVIEW 07/25/19 SI:RECTAL BLEED . LLL PNA . UTI . SEPSIS . JAYCEE 97.9 91 20 112/68 97% ON 2L NC H/H 10.7/32.7 IS:IV VANCOMYCIN Q24HR IV ROCEPHIN Q24 IV PROTONIX BID COREG GT BID IVF D5/NS@30ML/HR \: 4E MED SURG UNIT PLAN: STOOL FOR [id number] BLOOD CX-PENDING CRE SCREEN -PENDING
[2019-07-25 17:01] LABS: APPEARANCE,URINE SLIGHTLY CLOUDY; BILIRUBIN, URINE NEGATIVE (NEGATIVE); GLUCOSE, URINE (UA) NEGATIVE (NEGATIVE); KETONES,URINE 1+ (NEGATIVE); LEUKOCYTE ESTERASE ,URINE 3+ (NEGATIVE); NITRITE,URINE NEGATIVE (NEGATIVE); PH,URINE 5 (4.5-8.0); PROTEIN,URINE 3+ (NEGATIVE); UROBILINOGEN,URINE NORMAL MG/DL (0.0-1.0)
[2019-07-25 17:03] LABS: COLOR,URINE YELLOW
--- NOTE | 2019-07-25 17:30 | Consultation ---
DATE OF CONSULTATION: 07/25/2019 INFECTIOUS DISEASES CONSULTATION CONSULTING PHYSICIAN: Jasmyn Peterson M.D. REFERRING PHYSICIAN: Igor Jade M.D. REASON FOR CONSULTATION: Left lower lobe pneumonia, urinary tract infection with sepsis due to gram-positive cocci. Recommendation for antibiotics treatment. 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 emergency room for bloody stool. Unclear for how long she had it. The patient had a temperature of 98.2 in the ER with pulse of 83, respirations 16, blood pressure of 118/70, and O2 saturation of 97% on room air. She had mild leukocytosis with 11,000, hemoglobin of 11.9. Urinalysis also showed evidence of infection. Chest x-ray showed left lower lobe consolidation concerning for pneumonia so the patient received gentamicin and Infectious Diseases consultation was requested for antibiotics treatment and further management. As of note, the patient is poor historian, cannot provide any history at this point. Most of the history was obtained from the medical record and nursing staff. REVIEW OF SYSTEMS: Unable to obtain the patient is poor historian, cannot provide any history. PAST MEDICAL HISTORY: Significant for hypertension, chronic obstructive pulmonary disease, gastroesophageal reflux disease, dementia Alzheimer, dysphagia status post PEG tube placement. PAST SURGICAL HISTORY: She had a PEG tube placement. FAMILY HISTORY: Unable to obtain. 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 No recent drugs, tobacco, or alcohol. ALLERGIES: No known drug allergies. MEDICATIONS: The patient received ceftriaxone and gentamicin. For the rest of her medications, please refer to MAR. LABORATORY AND DIAGNOSTIC DATA: Lab showed white count of 8.8, hemoglobin of 10.7, platelet count of 375. BUN of 15 and creatinine of 1.1. Urinalysis showed +3 leukocyte esterase, wbc's 10-15, moderate amount of bacteria. Microbiology, blood culture x1 is growing gram-positive cocci from bottle. Urine culture is growing more than 100,000 colony of gram-negative rods. PHYSICAL EXAMINATION: VITAL SIGNS: Temperature 97.5, pulse 88, respirations 20, blood pressure 114/69, saturation 100% on 2 L nasal cannula. GENERAL: Elderly female, lying in bed, respond to verbal commands, nonverbal, not in acute distress. HEENT: Normocephalic and atraumatic. Pupils are reactive to light. Sticky discharge in both eyes. Unable to assess oral mucosa. NECK: Supple. No lymphadenopathy. CARDIOVASCULAR: Regular rate and rhythm. No murmur or gallop. LUNGS: Diminished breathing sounds at the bases with crackles. Normal breathing efforts. ABDOMEN: Soft, obese, nontender, and nondistended. Normal bowel sounds. No hepatosplenomegaly or ascites. EXTREMITIES: No edema or cyanosis. No clubbing. SKIN: No rash. No hives. ASSESSMENT AND RECOMMENDATION: 1. Left lower lobe pneumonia with infiltrates and leukocytosis. We will start vancomycin and cefepime empiric coverage and send sputum culture if she produces any. Aspiration precaution. Monitor chest x-ray. 2. Urinary tract infection status post gentamicin. We will start cefepime empirically to cover for pneumonia too. Pending urine culture results. 3. Sepsis with gram-positive cocci and leukocytosis. We will start vancomycin empiric coverage for now. Pending identification and sensitivity. 4. Rectal bleeding. GI is following. Monitor H and H. Transfuse as needed. May need endoscopy. 5. Dehydration. Continue IV fluids with close monitor of electrolytes. 6. Acute renal failure due to the above. Continue hydration with close monitoring of renal function and renally dosed antibiotics as per pharmacy. Thank you for the consult. ID will continue to follow. Jasmyn Peterson M.D. DR: Derrick JOB#: [id number] CC:
--- NOTE | 2019-07-25 19:16 | NUR ---
HAND-OFF: Report given to Jenn RN. Patient is stable.
--- NOTE | 2019-07-25 19:20 | NUR ---
NURSE NOTES: Received report from LACHO Hurst. Patient asleep. Breathing unlabored on 2L O2 via NC without distress. No s/s of pain or discomfort noted at this time. Gtube feeding running as ordered. IV on RUTH intact, dry, and patent running TKO. Stevenson intact draining urine to gravity. [place] secured. Bed placed at the lowest with alarm, brake, and siderails up for patient safety. Call light placed within reach. Will continue to monitor and provide care as ordered.
[2019-07-25 20:00] VITALS: BP 107/83
[2019-07-25] MEDS ORDERED: Cefepime HCl 1 GM in D5W 55 ML IVPB SCH (21:00)
[2019-07-25] MEDS: Cefepime HCl 1 GM in D5W 55 ML IVPB SCH (21:07)
--- NOTE | 2019-07-25 23:50 | NUR ---
NURSE NOTES: Sputum culture collected and sent down to lab. Patient tolerated the procedure well.
[2019-07-26] VITALS: BP 104/95
[2019-07-26 04:00] VITALS: BP 110/93
[2019-07-26] MEDS: Metoclopramide 10mg/10ml Liq GT SCH ×3 (05:28→17:12)
--- NOTE | 2019-07-26 06:00 | NUR ---
NURSE NOTES: Provided proper incontinence care and fernando care throughout the shift. Placed skin protectant and optifoam on sacral wound. Patient tolerated well. Will continue to monitor.
[2019-07-26 06:25] LABS: BASOPHILS % (AUTO) 1.5 % (0.0-2.0); EOSINOPHILS % (AUTO) 4.5 % (0.0-3.0); HEMATOCRIT 31.2 % (37.0-47.0); LYMPHOCYTES % (AUTO) 15.4 % (20.0-45.0); MEAN CORPUSCULAR VOLUME 87 FL (80-99); MONOCYTES % (AUTO) 9.6 % (1.0-10.0); PLATELET COUNT 354 K/UL (150-450); RED CELL DISTRIBUTION WIDTH 13.2 % (11.6-14.8)
--- NOTE | 2019-07-26 06:30 | Progress Note ---
DATE: 07/25/2019 CARDIOLOGY PROGRESS NOTE SUBJECTIVE: The patient has had small amounts of bleeding into her diaper. She is unable to give any historical data. No shortness of breath is noted. No output from feeding tube. OBJECTIVE: VITAL SIGNS: Blood pressure 112/68, heart rate 96, respiratory rate 20, and afebrile. LUNGS: Bilateral breath sounds. No wheezing. CARDIAC: Regular rhythm and rate. Normal S1 and S2 with a 1/6 systolic murmur at apex. ABDOMEN: Soft. G-tube intact. EXTREMITIES: No edema. LABORATORY DATA: Hemoglobin stable at 10.7 and white count 8.8. Urinalysis with too numerous to count red cells and 15 to 20 white cells. Sodium 140, potassium 4.6, bicarbonate 29, BUN 15, and creatinine 1.1. Lactic acid normal. Albumin 3. Magnesium 1.9. IMPRESSION: 1. Rectal bleed. 2. Stable hemoglobin. 3. Urinary tract infection. 4. Nonsustained ventricular ectopy. 5. Arteriosclerotic cardiovascular disease. 6. Healthcare-associated pneumonia. 7. Dehydration and acute renal failure. PLAN: 1. No plan for antiarrhythmics. 2. Adjust IV fluids for adequate hydration. 3. Protein supplement by feeding tube. 4. Antimicrobials per infectious disease sales consultant. 5. Respiratory hygiene. 6. Monitor blood counts, presently indication for transfusion. 7. Continue low-dose beta-pofririo with titration. Cristo Lopez M.D. DR: BILLY JOB#: [id number] CC:
[2019-07-26 06:39] LABS: ANION GAP 12 mmol/L (5-15); BLOOD UREA NITROGEN 15 mg/dL (7-18); CALCIUM 9.4 MG/DL (8.5-10.1); CARBON DIOXIDE 26 MMOL/L (21-32); CHLORIDE 104 MMOL/L (98-107); CREATININE 1.2 MG/DL (0.55-1.30); POTASSIUM 4.5 MMOL/L (3.5-5.1); SODIUM 142 MMOL/L (136-145)
--- NOTE | 2019-07-26 07:40 | NUR ---
HAND-OFF: Report given to LACHO Olea. Plan of care endorsed.
--- NOTE | 2019-07-26 07:42 | NUR ---
NURSE NOTES: Patient non-verbal, alert x0; on Nasal Cannula 2 Liters, no sing of distress and shortness of breath; no sing of chest pain; Stevenson in place, drains yellow urine; Tube feeding Jevity 1.2 running 30cc, no residual; head of the bed elevated, side rails up x2, breaks engaged, bed alarm on; IV Right Upper Arm 18G TKO; call light within reach; will keep monitoring.
[2019-07-26 08:00] VITALS: BP 136/78
--- NOTE | 2019-07-26 08:17 | General Progress Note ---
Assessment/Plan Problem List: (1) CKD (chronic kidney disease) stage 3, GFR 30-59 ml/min ICD Codes: N18.3 - CKD (chronic kidney disease) stage 3, GFR 30-59 ml/min SNOMED: 781211246 (2) Dementia ICD Codes: F03.90 - Dementia SNOMED: 52937668 (3) Fecal impaction in rectum ICD Codes: K56.41 - Fecal impaction SNOMED: 46673965 (4) Rectal bleed ICD Codes: K62.5 - Hemorrhage of anus and rectum SNOMED: 31098599 (5) Anemia ICD Codes: D64.9 - Anemia, unspecified SNOMED: 683544124 Status: stable Assessment/Plan: stable H&H GT>>>> increase to 50 cc no plans for GI procedures at this time given stable H&H and old age monitor for residuals bowel regimen fu labs Subjective ROS Limited/Unobtainable: No Allergies: Coded Allergies: NO KNOWN DRUG ALLERGIES (Unverified Allergy, Unknown, 08/31/14) Objective Last 24 Hour Vital Signs Date Time Temp Pulse Resp B/P (MAP) Pulse Ox O2 Delivery O2 Flow Rate FiO2 07/26/19 04:00 97.9 90 17 110/93 (99) 95 07/26/19 00:00 98.2 80 17 104/95 (98) 93 07/25/19 21:34 91 120/86 07/25/19 21:00 Nasal Cannula 2.0 07/25/19 20:00 97.9 79 16 107/83 (91) 95 07/25/19 16:00 97.7 82 18 121/72 (88) 98 07/25/19 12:00 87 07/25/19 12:00 97.5 88 20 114/69 (84) 100 07/25/19 09:48 96 112/68 07/25/19 09:00 Nasal Cannula 2.0 Intake and Output 07/25/19 07/26/19 19:00 07:00 Intake Total 250 ml 555 ml Balance 250 ml 555 ml Intake Free Water 100 ml 200 ml IV Total 55 ml Tube Feeding 150 ml 300 ml # Bowel Movements 1 Laboratory Tests 07/25/19 15:15: Urine Color Yellow, Urine Appearance Slightly cloudy, Urine pH 5, Urine Specific Wentworth 1.020, Urine Protein 3+H, Urine Glucose (UA) Negative, Urine Ketones 1+H, Urine Blood 5+H, Urine Nitrite Negative, Urine Bilirubin Negative, Urine Urobilinogen Normal, Urine Leukocyte Esterase 3+H, Urine RBC TntcH, Urine WBC 15-20H, Urine Squamous Epithelial Cells Few, Urine Bacteria Few 07/26/19 05:45: White Blood Count 11.0H, Red Blood Count 3.60L, Hemoglobin 10.0L, Hematocrit 31.2L, Mean Corpuscular Volume 87, Mean Corpuscular Hemoglobin 27.8, Mean Corpuscular Hemoglobin Concent 32.0, Red Cell Distribution Width 13.2, Platelet Count 354, Mean Platelet Volume 5.7L, Neutrophils (%) (Auto) 69.0, Lymphocytes ( %) (Auto) 15.4L, Monocytes (%) (Auto) 9.6, Eosinophils (%) (Auto) 4.5H, Basophils (%) (Auto) 1.5, Sodium Level 142, Potassium Level 4.5, Chloride Level 104, Carbon Dioxide Level 26, Anion Gap 12, Blood Urea Nitrogen 15, Creatinine 1.2, Estimat Glomerular Filtration Rate 52.0, Glucose Level 144H, Calcium Level 9.4 Height (Feet): 5 Height (Inches): 6.00 Weight (Pounds): 185 General Appearance: no apparent distress Cardiovascular: normal rate Respiratory/Chest: decreased breath sounds Abdomen: normal bowel sounds, non tender Frank Li MD Jul 26, 2019 08:17
[2019-07-26] MEDS: Docusate 100mg/10ml Liq GT SCH ×3 (08:52→17:12)
[2019-07-26] MEDS: Cefepime HCl 1 GM in D5W 55 ML IVPB SCH (08:53)
[2019-07-26] MEDS: Pantoprazole Inj IVP SCH (08:53)
[2019-07-26] MEDS: Carvedilol 6.25mg Tab GT SCH ×2 (08:53→09:07)
--- NOTE | 2019-07-26 10:04 | NUR ---
NURSE NOTES: Per MD Li order, feeding tube increased to 60cc; no residual; will keep monitoring.
--- NOTE | 2019-07-26 11:12 | NUR ---
RD ASSESSMENT & RECOMMENDATIONS SEE CARE ACTIVITY FOR COMPLETE ASSESSMENT DAILY ESTIMATED NEEDS: Needs based on Wound, cardiac 62.5kg abw 25-30 kcals/kg 9800-6685 total kcals 1.25-1.5 g protein/kg 78-94 g total protein 25-30 mL/kg 3065-3723 total fluid mLs NUTRITION DIAGNOSIS: 1) Increased kcal and protein needs r/t wound healing as evidenced by pt adm w/ sacral stage 2 wound. 2) Swallowing difficulty related to dysphagia as evidenced by H/O CVA, pt is PEG dep. CURRENT TF:Glucerna 1.2 goal of 50ml ENTERAL NUTRITION RECOMMENDATIONS: Glucerna 1.2 @55ml/hr x24 hrs to provide 1320ml, 1584 kcal, 79g prot, 1063ml free H2O - Rec to Increase TF GOAL TO 55ml x24 hrs to better meet est needs - Flush per MD. HOB over 30 degrees ADDITIONAL RECOMMENDATIONS: 1) TF recs as above 2) LYTES DAILY W/ TF 3) Rec to Recalibrate bed scale for accurate CBW 4) Wound care: add KODY in 4oz in water BID + Vit C 250 mg daily 5) Rec SSI w/ accuchecks for glycemic control
[2019-07-26 12:00] VITALS: BP 121/63
--- NOTE | 2019-07-26 12:51 | Diagnostic Imaging Report ---
Indication: Abdominal pain Comparison: 01/22/2019 Single view of the abdomen obtained Findings: Bowel gas pattern is nonspecific. Gastrostomy is noted. Stevenson catheter noted. There is little to no formed feces demonstrated within the colon. No mass, ectopic calcifications, or abnormal gas collections are identified. The bones are osteopenic. Impression: No acute findings
--- NOTE | 2019-07-26 14:38 | General Progress Note ---
Assessment/Plan Problem List: (1) Sepsis ICD Codes: A41.9 - Sepsis SNOMED: 14537839 (2) Rectal bleed ICD Codes: K62.5 - Hemorrhage of anus and rectum SNOMED: 84556026 (3) Fecal impaction in rectum ICD Codes: K56.41 - Fecal impaction SNOMED: 68977100 (4) UTI (urinary tract infection) ICD Codes: N39.0 - Urinary tract infection, site not specified SNOMED: 45588613 (5) Dementia ICD Codes: F03.90 - Dementia SNOMED: 83581627 (6) LLL pneumonia ICD Codes: J18.9 - Pneumonia, unspecified organism SNOMED: 319655527 Status: stable Assessment/Plan: star GT feeding check KUB on vanco and cefepime One dose Genta IV fluid Skin care monitor H&H per orders GI and cardiac eval & ID HHN Subjective ROS Limited/Unobtainable: No Constitutional: Reports: malaise Allergies: Coded Allergies: NO KNOWN DRUG ALLERGIES (Unverified Allergy, Unknown, 08/31/14) Objective Last 24 Hour Vital Signs Date Time Temp Pulse Resp B/P (MAP) Pulse Ox O2 Delivery O2 Flow Rate FiO2 07/26/19 12:00 98.3 102 19 121/63 (82) 97 07/26/19 09:07 83 136/78 07/26/19 09:00 Nasal Cannula 2.0 07/26/19 08:00 98.1 83 18 136/78 (97) 98 07/26/19 04:00 97.9 90 17 110/93 (99) 95 07/26/19 00:00 98.2 80 17 104/95 (98) 93 07/25/19 21:34 91 120/86 07/25/19 21:00 Nasal Cannula 2.0 07/25/19 20:00 97.9 79 16 107/83 (91) 95 07/25/19 16:00 97.7 82 18 121/72 (88) 98 Intake and Output 07/25/19 07/26/19 19:00 07:00 Intake Total 250 ml 555 ml Balance 250 ml 555 ml Intake Free Water 100 ml 200 ml IV Total 55 ml Tube Feeding 150 ml 300 ml # Bowel Movements 1 Laboratory Tests 07/25/19 15:15: Urine Color Yellow, Urine Appearance Slightly cloudy, Urine pH 5, Urine Specific [place] 1.020, Urine Protein 3+H, Urine Glucose (UA) Negative, Urine Ketones 1+H, Urine Blood 5+H, Urine Nitrite Negative, Urine Bilirubin Negative, Urine Urobilinogen Normal, Urine Leukocyte Esterase 3+H, Urine RBC TntcH, Urine WBC 15-20H, Urine Squamous Epithelial Cells Few, Urine Bacteria Few 07/26/19 05:45: White Blood Count 11.0H, Red Blood Count 3.60L, Hemoglobin 10.0L, Hematocrit 31.2L, Mean Corpuscular Volume 87, Mean Corpuscular Hemoglobin 27.8, Mean Corpuscular Hemoglobin Concent 32.0, Red Cell Distribution Width 13.2, Platelet Count 354, Mean Platelet Volume 5.7L, Neutrophils (%) (Auto) 69.0, Lymphocytes ( %) (Auto) 15.4L, Monocytes (%) (Auto) 9.6, Eosinophils (%) (Auto) 4.5H, Basophils (%) (Auto) 1.5, Sodium Level 142, Potassium Level 4.5, Chloride Level 104, Carbon Dioxide Level 26, Anion Gap 12, Blood Urea Nitrogen 15, Creatinine 1.2, Estimat Glomerular Filtration Rate 52.0, Glucose Level 144H, Calcium Level 9.4 Height (Feet): 5 Height (Inches): 6.00 Weight (Pounds): 185 General Appearance: no apparent distress Cardiovascular: tachycardia Respiratory/Chest: decreased breath sounds Abdomen: soft Igor Jade MD Jul 26, 2019 14:38
--- NOTE | 2019-07-26 14:59 | NUR ---
NURSE NOTES:WOUND CARE NOTES:Pt's skin assessed.Pt noted to have hyperpigmentation with scattered dry pink epithelial sacrum. No areas of erythema or induration noted. R and L heel are boggy. Both heels are blanchable.Pinhead black discoloration noted to L heel. No erythema induration or fluctuance noted.All other bony prominences assessed and no skin concerns noted. Moisture Barrier Paste applied to Sacrum and covered with Optifoam drsg to minimize friction on skin.Pt positioned on side with pillows.Cavilon Skin Barrier applied to both elbows . Each elbow covered with Optifoam drsgs.Cavilon Skin Barrier applied to both heels. Each heel covered with Optifoam drsgs. Both heels floated off mattress with pillow. Pt's daughter at bedside and discussed skin findings and interventions implemented to prevent skin breakdown. Tx.Plan: Apply Moisture Barrier Paste to Sacrum. Cover with Optifoam drsg every 3 days and prn. Apply Cavilon Skin Barrier to both heels. Cover each heel with Optifoam drsg every 7 days and prn. Apply Cavilon Skin Barrier to both elbows.Cover each elbow with Optifoam drsg. Change every 7 days and prn. Reposition at least every 2hours or as tolerated. Place Pillow between knees. Off-load heels with pillow.
--- NOTE | 2019-07-26 15:10 | Infectious Diseases Prog Note ---
Assessment/Plan Problems: (1) LLL pneumonia Assessment & Plan: with infiltrates and leukocytosis , continue vancomycin and cefepime empirically , monitor sputum culture , aspiration precaution. repeat CXR (2) UTI (urinary tract infection) Assessment & Plan: Due to E coli , S/P Gentamicin , now on cefepime empirically to cover for pneumonia too . (3) Rectal bleed Assessment & Plan: GI if following, monitor H/H , transfuse as needed , may need Endoscopy (4) Dehydration Assessment & Plan: continue IV fluids with close monitor of electrolytes (5) Sepsis Assessment & Plan: with gram positive cocci and leukocytosis , will start vancomycin empirically pending identification and sensitivity (6) JAYCEE (acute kidney injury) Assessment & Plan: due to the above, continue hydration with close monitoring of renal function and renally dosed antibiotics as per pharmacy Subjective Constitutional: Reports: no symptoms HEENT: Reports: no symptoms Respiratory: Reports: productive cough Breasts: Reports: no symptoms Cardiovascular: Reports: no symptoms Gastrointestinal/Abdominal: Reports: no symptoms Genitourinary: Reports: no symptoms Neurologic: Reports: no symptoms Psychiatric: Reports: no symptoms Skin: Reports: no symptoms Endocrine: Reports: no symptoms Hematologic: Reports: no symptoms Musculoskeletal: Reports: no symptoms Allergies: Coded Allergies: NO KNOWN DRUG ALLERGIES (Unverified Allergy, Unknown, 08/31/14) Subjective she was awake and comfortable, has cough earlier with phlegm, no fever or chills , no diarrhea Objective Vital Signs Last 24 Hour Vital Signs Date Time Temp Pulse Resp B/P (MAP) Pulse Ox O2 Delivery O2 Flow Rate FiO2 07/26/19 12:00 98.3 102 19 121/63 (82) 97 07/26/19 09:07 83 136/78 07/26/19 09:00 Nasal Cannula 2.0 07/26/19 08:00 98.1 83 18 136/78 (97) 98 07/26/19 04:00 97.9 90 17 110/93 (99) 95 07/26/19 00:00 98.2 80 17 104/95 (98) 93 07/25/19 21:34 91 120/86 07/25/19 21:00 Nasal Cannula 2.0 07/25/19 20:00 97.9 79 16 107/83 (91) 95 07/25/19 16:00 97.7 82 18 121/72 (88) 98 Height (Feet): 5 Height (Inches): 6.00 Weight (Pounds): 185 General Appearance: WD/WN, no acute distress HEENT: normocephalic, atraumatic, anicteric, mucous membranes moist, PERRL Respiratory/Chest: chest wall non-tender, no respiratory distress, no accessory muscle use, decreased breath sounds, crackles/rales Cardiovascular: normal peripheral pulses, normal rate, regular rhythm, no gallop/murmur, no JVD Abdomen: normal bowel sounds, soft, non tender, no organomegaly, non distended , no mass, no scars Extremities: no cyanosis, no clubbing Skin: no rash, no lesions, no ulcers Neurologic/Psychiatric: alert, responsive Lymphatic: no neck adenopathy, no groin adenopathy Musculoskeletal: normal muscle bulk, no effusion Microbiology Date/Time Source Procedure Growth Status 07/25/19 23:39 Sputum Expectorated Gram Stain - Final Resulted 07/25/19 23:39 Sputum Expectorated Sputum Culture Pending Resulted 07/25/19 15:20 Stool Clostridium difficile Toxin Assay - Final Complete 07/25/19 15:15 Urine,Clean Catch Urine Culture - Preliminary NO GROWTH Resulted Laboratory Tests Test 07/25/19 15:15 07/26/19 05:45 Urine Color Yellow Urine Appearance Slightly cloudy Urine pH 5 (4.5-8.0) Urine Specific [place] 1.020 (1.005-1.035) Urine Protein 3+ (NEGATIVE) H Urine Glucose (UA) Negative (NEGATIVE) Urine Ketones 1+ (NEGATIVE) H Urine Blood 5+ (NEGATIVE) H Urine Nitrite Negative (NEGATIVE) Urine Bilirubin Negative (NEGATIVE) Urine Urobilinogen Normal MG/DL (0.0-1.0) Urine Leukocyte Esterase 3+ (NEGATIVE) H Urine RBC Tntc /HPF (0 - 2) H Urine WBC 15-20 /HPF (0 - 2) H Urine Squamous Epithelial Cells Few /LPF (NONE/OCC) Urine Bacteria Few /HPF (NONE) White Blood Count 11.0 K/UL (4.8-10.8) H Red Blood Count 3.60 M/UL (4.20-5.40) L Hemoglobin 10.0 G/DL (12.0-16.0) L Hematocrit 31.2 % (37.0-47.0) L Mean Corpuscular Volume 87 FL (80-99) Mean Corpuscular Hemoglobin 27.8 PG (27.0-31.0) Mean Corpuscular Hemoglobin Concent 32.0 G/DL (32.0-36.0) Red Cell Distribution Width 13.2 % (11.6-14.8) Platelet Count 354 K/UL (150-450) Mean Platelet Volume 5.7 FL (6.5-10.1) L Neutrophils (%) (Auto) 69.0 % (45.0-75.0) Lymphocytes (%) (Auto) 15.4 % (20.0-45.0) L Monocytes (%) (Auto) 9.6 % (1.0-10.0) Eosinophils (%) (Auto) 4.5 % (0.0-3.0) H Basophils (%) (Auto) 1.5 % (0.0-2.0) Sodium Level 142 MMOL/L (136-145) Potassium Level 4.5 MMOL/L (3.5-5.1) Chloride Level 104 MMOL/L (98-107) Carbon Dioxide Level 26 MMOL/L (21-32) Anion Gap 12 mmol/L (5-15) Blood Urea Nitrogen 15 mg/dL (7-18) Creatinine 1.2 MG/DL (0.55-1.30) Estimat Glomerular Filtration Rate 52.0 mL/min (>60) Glucose Level 144 MG/DL (74-106) H Calcium Level 9.4 MG/DL (8.5-10.1) Current Medications Medications (Trade) Dose Ordered Sig/Kimberley Route PRN Reason Start Time Stop Time Status Last Admin Dose Admin Acetaminophen (Tylenol) 650 mg Q4H PRN GT Mild Pain/Temp > 100.5 07/25/19 16:00 08/22/19 15:59 Albuterol Sulfate (Proventil) 2.5 mg Q4HRT HHN 07/26/19 15:00 07/31/19 14:59 Carvedilol (Coreg) 12.5 mg EVERY 12 HOURS GT 07/26/19 21:00 08/25/19 08:59 Cefepime HCl 1 gm/ Dextrose 55 ml @ 110 mls/hr DAILY IVPB 07/27/19 09:00 08/03/19 08:59 Docusate Sodium (Colace) 100 mg THREE TIMES A DAY GT 07/25/19 18:00 08/23/19 12:59 07/26/19 12:36 Lansoprazole (Prevacid) 30 mg BID GT 07/26/19 18:00 08/25/19 17:59 Metoclopramide HCl (Reglan) 5 mg EVERY 6 HOURS GT 07/25/19 18:00 08/22/19 17:59 07/26/19 12:37 Vancomycin HCl (Vanco rx to dose) 1 ea DAILY PRN MISC Per rx protocol 07/26/19 09:00 08/24/19 13:44 Vancomycin/Sodium Chloride 275 ml @ 137.5 mls/ hr Q24H IVPB 07/25/19 16:00 07/30/19 15:59 07/25/19 16:22 Jasmyn Peterson M.D. Jul 26, 2019 15:10
[2019-07-26] MEDS: Albuterol ud Inhalation HHN SCH ×3 (15:20→23:35)
[2019-07-26 16:00] VITALS: BP 127/66
[2019-07-26] MEDS: Vancomycin 1.5gm/NS Premix 275 ML IVPB SCH (16:00)
--- NOTE | 2019-07-26 16:01 | Surgery Progress Note ---
Surgery Progress Note Subjective Additional Comments no acute events Objective Last 24 Hour Vital Signs Date Time Temp Pulse Resp B/P (MAP) Pulse Ox O2 Delivery O2 Flow Rate FiO2 07/26/19 15:30 91 18 100 Nasal Cannula 2.0 28 93 20 99 07/26/19 15:20 99 Nasal Cannula 2.0 28 07/26/19 15:20 93 20 99 Nasal Cannula 2.0 28 07/26/19 12:00 98.3 102 19 121/63 (82) 97 07/26/19 09:07 83 136/78 07/26/19 09:00 Nasal Cannula 2.0 07/26/19 08:00 98.1 83 18 136/78 (97) 98 07/26/19 04:00 97.9 90 17 110/93 (99) 95 07/26/19 00:00 98.2 80 17 104/95 (98) 93 07/25/19 21:34 91 120/86 07/25/19 21:00 Nasal Cannula 2.0 07/25/19 20:00 97.9 79 16 107/83 (91) 95 I&O Intake and Output 07/25/19 07/26/19 19:00 07:00 Intake Total 250 ml 555 ml Balance 250 ml 555 ml Intake Free Water 100 ml 200 ml IV Total 55 ml Tube Feeding 150 ml 300 ml # Bowel Movements 1 Laboratory Tests Test 07/26/19 05:45 White Blood Count 11.0 K/UL (4.8-10.8) H Red Blood Count 3.60 M/UL (4.20-5.40) L Hemoglobin 10.0 G/DL (12.0-16.0) L Hematocrit 31.2 % (37.0-47.0) L Mean Corpuscular Volume 87 FL (80-99) Mean Corpuscular Hemoglobin 27.8 PG (27.0-31.0) Mean Corpuscular Hemoglobin Concent 32.0 G/DL (32.0-36.0) Red Cell Distribution Width 13.2 % (11.6-14.8) Platelet Count 354 K/UL (150-450) Mean Platelet Volume 5.7 FL (6.5-10.1) L Neutrophils (%) (Auto) 69.0 % (45.0-75.0) Lymphocytes (%) (Auto) 15.4 % (20.0-45.0) L Monocytes (%) (Auto) 9.6 % (1.0-10.0) Eosinophils (%) (Auto) 4.5 % (0.0-3.0) H Basophils (%) (Auto) 1.5 % (0.0-2.0) Sodium Level 142 MMOL/L (136-145) Potassium Level 4.5 MMOL/L (3.5-5.1) Chloride Level 104 MMOL/L (98-107) Carbon Dioxide Level 26 MMOL/L (21-32) Anion Gap 12 mmol/L (5-15) Blood Urea Nitrogen 15 mg/dL (7-18) Creatinine 1.2 MG/DL (0.55-1.30) Estimat Glomerular Filtration Rate 52.0 mL/min (>60) Glucose Level 144 MG/DL (74-106) H Calcium Level 9.4 MG/DL (8.5-10.1) Plan Problems: (1) Rectal bleed Assessment & Plan: 84F noted to have blood in stool / diaper no n/v/f/c peg in place without blood output rectal exam with no gross blood noted abd exam benign labs stable exam stable scope as per GI ppi okay for tube feeds no acute surgical intervention planned (2) Fecal impaction in rectum (3) Dehydration (4) Severe malnutrition Assessment & Plan: DAILY ESTIMATED NEEDS: Needs based on Wound, cardiac 62.5kg abw 25-30 kcals/kg 1540-2318 total kcals 1.25-1.5 g protein/kg 78-94 g total protein 25-30 mL/kg 1775-9284 total fluid mLs NUTRITION DIAGNOSIS: 1) Increased kcal and protein needs r/t wound healing as evidenced by pt adm w/ sacral stage 2 wound. 2) Swallowing difficulty related to dysphagia as evidenced by H/O CVA, pt is PEG dep. CURRENT TF:Glucerna 1.2 goal of 50ml ENTERAL NUTRITION RECOMMENDATIONS: Glucerna 1.2 @55ml/hr x24 hrs to provide 1320ml, 1584 kcal, 79g prot, 1063ml free H2O - Rec to Increase TF GOAL TO 55ml x24 hrs to better meet est needs - Flush per HOB over 30 degrees ADDITIONAL RECOMMENDATIONS: 1) TF recs as above 2) LYTES DAILY W/ TF 3) Rec to Recalibrate bed scale for accurate CBW 4) Wound care: add KODY in 4oz in water BID + Vit C 250 mg daily 5) Rec SSI w/ accuchecks for glycemic control (5) Sacral decubitus ulcer, stage II Assessment & Plan: pPt's skin assessed.Pt noted to have hyperpigmentation with scattered dry pink epithelial sacrum. No areas of erythema or induration noted. R and L heel are boggy. Both heels are blanchable.Pinhead black discoloration noted to L heel. No erythema induration or fluctuance noted.All other bony prominences assessed and no skin concerns noted. Moisture Barrier Paste applied to Sacrum and covered with Optifoam drsg to minimize friction on skin.Pt positioned on side with pillows.Cavilon Skin Barrier applied to both elbows . Each elbow covered with Optifoam drsgs.Cavilon Skin Barrier applied to both heels. Each heel covered with Optifoam drsgs. Both heels floated off mattress with pillow. Pt's daughter at bedside and discussed skin findings and interventions implemented to prevent skin breakdown. Tx.Plan: Apply Moisture Barrier Paste to Sacrum. Cover with Optifoam drsg every 3 days and prn. Apply Cavilon Skin Barrier to both heels. Cover each heel with Optifoam drsg every 7 days and prn. Apply Cavilon Skin Barrier to both elbows.Cover each elbow with Optifoam drsg. Change every 7 days and prn. Reposition at least every 2hours or as tolerated. Place Pillow between knees. Off-load heels with pillow. needs close attention to ensure no further breakdown nutritional optimization turn q2h off load heels with pillow skin protectant foam dressings to sacrum and heels thank you will follow with Sadiq Paredes Jul 26, 2019 16:01
--- NOTE | 2019-07-26 19:17 | NUR ---
HAND-OFF: Report given to Priyanka Odell RN.
--- NOTE | 2019-07-26 19:20 | NUR ---
NURSE NOTES: Received report from LACHO Olea. Patient asleep. Breathing unlabored on 2L O2 via NC without distress. No s/s of pain or discomfort noted at this time. Stevenson intact and draining urine. IV intact on right upper arm. Gtube feeding running as ordered and no residual at this time. Bed placed at the lowest with alarm, brake,and siderails up for safety. Call light placed within reach. Will continue to monitor and provide care as ordered.
[2019-07-26 20:00] VITALS: BP 126/71
[2019-07-26] MEDS: Carvedilol 12.5mg tab GT SCH (20:17)
[2019-07-27] VITALS: BP 131/70
[2019-07-27] MEDS: Metoclopramide 10mg/10ml Liq GT SCH ×4 (00:20→17:37)
[2019-07-27] MEDS: Albuterol ud Inhalation HHN SCH ×6 (02:52→23:42)
--- NOTE | 2019-07-27 03:45 | Progress Note ---
DATE: 07/26/2019 CARDIOLOGY PROGRESS NOTE SUBJECTIVE: The patient remains at baseline mentation. Non-communicative. OBJECTIVE: VITAL SIGNS: Blood pressure 121/63, pulse 102, and respirations 19. LUNGS: Bilateral breath sounds. Few rhonchi at the left. HEART: Regular rhythm and rate. Normal S1, S2. 1/6 systolic ejection murmur at base. ABDOMEN: Soft. EXTREMITIES: No edema. LABORATORY DATA: White count 11 and hemoglobin 10. Potassium 4.5, BUN 15, and creatinine 1.2. IMPRESSION: 1. Healthcare-associated pneumonia. 2. Severe sepsis. 3. Resolved lactic acidosis. 4. Paroxysmal ventricular ectopy. 5. Cerebrovascular disease with dementia. 6. Aortic valve stenosis. PLAN: 1. Antimicrobials. 2. Respiratory hygiene. 3. Beta-blockade. 4. Monitor laboratory function and cardiorenal parameters as well as volume status. 5. No additional cardiovascular interventions planned at this time. 6. Avoid hypotension and hypovolemia. Cristo Lopez M.D. DR: DELIA JOB#: [id number] CC: NIVIA
[2019-07-27 04:00] VITALS: BP 124/71
[2019-07-27 06:36] LABS: BASOPHILS % (AUTO) 1.2 % (0.0-2.0); EOSINOPHILS % (AUTO) 5.1 % (0.0-3.0); HEMATOCRIT 29.7 % (37.0-47.0); HEMOGLOBIN 9.6 G/DL (12.0-16.0); LYMPHOCYTES % (AUTO) 15.3 % (20.0-45.0); MEAN CORPUSCULAR VOLUME 86 FL (80-99); MONOCYTES % (AUTO) 8.2 % (1.0-10.0); NEUTROPHILS % (AUTO) 70.2 % (45.0-75.0); PLATELET COUNT 341 K/UL (150-450); RED BLOOD COUNT 3.44 M/UL (4.20-5.40); RED CELL DISTRIBUTION WIDTH 12.8 % (11.6-14.8); WHITE BLOOD COUNT 10.1 K/UL (4.8-10.8)
[2019-07-27 07:22] LABS: ANION GAP 9 mmol/L (5-15); BLOOD UREA NITROGEN 15 mg/dL (7-18); CALCIUM 8.8 MG/DL (8.5-10.1); CARBON DIOXIDE 28 MMOL/L (21-32); CHLORIDE 104 MMOL/L (98-107); CREATININE 1.2 MG/DL (0.55-1.30); POTASSIUM 4.3 MMOL/L (3.5-5.1); SODIUM 141 MMOL/L (136-145)
--- NOTE | 2019-07-27 07:36 | NUR ---
NURSE NOTES: received report from LACHO Hammer. patient in bed. sleeping. no respiratory distress noted on 2L via NC. no facial grimacing. GTF running at 50/hr. HOB at all times. IV on RUA18, RFA 22g saline lock. intact. F/c draining. yellow. bed in the lowest position and locked. call light within reach. alarm on. will continue to provide plan of care.
--- NOTE | 2019-07-27 07:38 | NUR ---
HAND-OFF: Report given to LACHO Oliver. Plan of care endorsed.
[2019-07-27 08:00] VITALS: BP 126/70
[2019-07-27] MEDS ORDERED: Cefepime HCl 1 GM in D5W 55 ML IVPB SCH (09:00)
[2019-07-27] MEDS: Carvedilol 12.5mg tab GT SCH ×2 (09:09→20:51)
[2019-07-27] MEDS: Docusate 100mg/10ml Liq GT SCH ×3 (09:09→17:38)
--- NOTE | 2019-07-27 09:45 | NUR ---
NURSE NOTES: received call from Dr. cook, increase Glucerna1.2 Tube feeding rate to 55/hr. previous 50/hr. patient tolerates mild well, no residual. order noted and carried out.
--- NOTE | 2019-07-27 09:54 | General Progress Note ---
Assessment/Plan Problem List: (1) CKD (chronic kidney disease) stage 3, GFR 30-59 ml/min ICD Codes: N18.3 - CKD (chronic kidney disease) stage 3, GFR 30-59 ml/min SNOMED: 587627835 (2) Dementia ICD Codes: F03.90 - Dementia SNOMED: 00524106 (3) Fecal impaction in rectum ICD Codes: K56.41 - Fecal impaction SNOMED: 91259684 (4) Rectal bleed ICD Codes: K62.5 - Hemorrhage of anus and rectum SNOMED: 70599415 (5) Anemia ICD Codes: D64.9 - Anemia, unspecified SNOMED: 539160017 (6) Pneumonia ICD Codes: J18.9 - Pneumonia, unspecified organism SNOMED: 645691122 Status: stable Assessment/Plan: stable H&H GT>>>> increase to 55 cc no plans for GI procedures at this time given stable H&H and old age monitor for residuals bowel regimen abx per ID fu cardiology recs wound care fu labs Subjective ROS Limited/Unobtainable: Yes Allergies: Coded Allergies: NO KNOWN DRUG ALLERGIES (Unverified Allergy, Unknown, 08/31/14) Objective Last 24 Hour Vital Signs Date Time Temp Pulse Resp B/P (MAP) Pulse Ox O2 Delivery O2 Flow Rate FiO2 07/27/19 09:09 78 126/70 07/27/19 08:00 98.3 78 18 126/70 (88) 98 07/27/19 07:50 89 20 100 Nasal Cannula 2.0 28 87 20 99 07/27/19 07:30 99 Nasal Cannula 2.0 28 07/27/19 04:00 98.9 92 20 124/71 (88) 98 07/27/19 02:52 96 22 99 Nasal Cannula 2.0 28 93 18 97 07/27/19 00:00 97.6 92 18 131/70 (90) 97 07/26/19 23:35 95 20 99 Nasal Cannula 2.0 28 97 22 98 07/26/19 21:00 Nasal Cannula 2.0 07/26/19 20:17 94 126/71 07/26/19 20:00 97.4 94 18 126/71 (89) 98 07/26/19 19:30 96 18 99 Nasal Cannula 2.0 28 93 20 98 07/26/19 19:30 98 Nasal Cannula 2.0 28 07/26/19 16:00 98.0 93 19 127/66 (86) 97 07/26/19 15:30 91 18 100 Nasal Cannula 2.0 28 93 20 99 07/26/19 15:20 99 Nasal Cannula 2.0 28 07/26/19 15:20 93 20 99 Nasal Cannula 2.0 28 07/26/19 12:00 98.3 102 19 121/63 (82) 97 Intake and Output 07/26/19 07/27/19 19:00 07:00 Intake Total 1145.0 ml 800 ml Output Total 1600 ml 600 ml Balance -455.0 ml 200 ml Intake Free Water 200 ml 200 ml IV Total 385.0 ml Tube Feeding 560 ml 600 ml Output Urine Total 1600 ml 600 ml # Voids 1 Laboratory Tests 07/27/19 06:00: White Blood Count 10.1, Red Blood Count 3.44L, Hemoglobin 9.6L, Hematocrit 29.7L , Mean Corpuscular Volume 86, Mean Corpuscular Hemoglobin 28.0, Mean Corpuscular Hemoglobin Concent 32.5, Red Cell Distribution Width 12.8, Platelet Count 341, Mean Platelet Volume 5.7L, Neutrophils (%) (Auto) 70.2, Lymphocytes ( %) (Auto) 15.3L, Monocytes (%) (Auto) 8.2, Eosinophils (%) (Auto) 5.1H, Basophils (%) (Auto) 1.2, Sodium Level 141, Potassium Level 4.3, Chloride Level 104, Carbon Dioxide Level 28, Anion Gap 9, Blood Urea Nitrogen 15, Creatinine 1.2, Estimat Glomerular Filtration Rate 52.0, Glucose Level 164H, Calcium Level 8.8 Height (Feet): 5 Height (Inches): 6.00 Weight (Pounds): 160 General Appearance: no apparent distress EENT: normal ENT inspection Neck: supple Cardiovascular: normal rate Respiratory/Chest: lungs clear Abdomen: normal bowel sounds, non tender, soft Extremities: non-tender Frank Li MD Jul 27, 2019 09:54
[2019-07-27 12:00] VITALS: BP 117/65
--- NOTE | 2019-07-27 13:56 | Infectious Diseases Prog Note ---
Assessment/Plan Problems: (1) LLL pneumonia Assessment & Plan: with infiltrates and leukocytosis , will switch vancomycin and cefepime empirically , to oral augmentin to finish her course for 7 days , sputum culture grew normal respiratory taco , aspiration precaution. (2) UTI (urinary tract infection) Assessment & Plan: Due to E coli , S/P Gentamicin , will switch to augmentin to cover for pneumonia too . (3) Rectal bleed Assessment & Plan: GI if following, monitor H/H , transfuse as needed , may need Endoscopy (4) Dehydration Assessment & Plan: continue IV fluids with close monitor of electrolytes (5) Sepsis Assessment & Plan: with staph auricularis , suspect contaminants , S/P vancomycin empirically , repeated blood culture x2 is negative so far (6) JAYCEE (acute kidney injury) Assessment & Plan: due to the above, continue hydration with close monitoring of renal function and renally dosed antibiotics as per pharmacy Subjective ROS Limited/Unobtainable: Yes Allergies: Coded Allergies: NO KNOWN DRUG ALLERGIES (Unverified Allergy, Unknown, 08/31/14) Subjective she was lying in bed comfortable, no cough or SOB, no fever or chills, no diarrhea Objective Vital Signs Last 24 Hour Vital Signs Date Time Temp Pulse Resp B/P (MAP) Pulse Ox O2 Delivery O2 Flow Rate FiO2 07/27/19 12:00 98.0 87 18 117/65 (82) 97 07/27/19 11:45 86 18 100 Nasal Cannula 2.0 28 84 18 98 07/27/19 09:09 78 126/70 07/27/19 09:00 Nasal Cannula 2.0 07/27/19 08:00 98.3 78 18 126/70 (88) 98 07/27/19 07:50 89 20 100 Nasal Cannula 2.0 28 87 20 99 07/27/19 07:30 99 Nasal Cannula 2.0 28 07/27/19 04:00 98.9 92 20 124/71 (88) 98 07/27/19 02:52 96 22 99 Nasal Cannula 2.0 28 93 18 97 07/27/19 00:00 97.6 92 18 131/70 (90) 97 07/26/19 23:35 95 20 99 Nasal Cannula 2.0 28 97 22 98 07/26/19 21:00 Nasal Cannula 2.0 07/26/19 20:17 94 126/71 07/26/19 20:00 97.4 94 18 126/71 (89) 98 07/26/19 19:30 96 18 99 Nasal Cannula 2.0 28 93 20 98 07/26/19 19:30 98 Nasal Cannula 2.0 28 07/26/19 16:00 98.0 93 19 127/66 (86) 97 07/26/19 15:30 91 18 100 Nasal Cannula 2.0 28 93 20 99 07/26/19 15:20 99 Nasal Cannula 2.0 28 07/26/19 15:20 93 20 99 Nasal Cannula 2.0 28 Height (Feet): 5 Height (Inches): 6.00 Weight (Pounds): 160 General Appearance: WD/WN, no acute distress HEENT: normocephalic, atraumatic, anicteric, mucous membranes moist, PERRL Respiratory/Chest: chest wall non-tender, lungs clear, normal breath sounds, no respiratory distress, no accessory muscle use Cardiovascular: normal peripheral pulses, normal rate, regular rhythm, no gallop/murmur, no JVD Abdomen: normal bowel sounds, soft, non tender, no organomegaly, non distended , no mass, no scars Genitourinary: normal external genitalia Extremities: no cyanosis, no clubbing Skin: no rash, no lesions, no ulcers Neurologic/Psychiatric: alert, responsive Lymphatic: no neck adenopathy, no groin adenopathy Musculoskeletal: normal muscle bulk, no effusion Microbiology Date/Time Source Procedure Growth Status 07/25/19 15:24 Blood Blood Culture - Preliminary NO GROWTH AFTER 24 HOURS Resulted 07/25/19 15:18 Blood Blood Culture - Preliminary NO GROWTH AFTER 24 HOURS Resulted 07/25/19 23:39 Sputum Expectorated Gram Stain - Final Resulted 07/25/19 23:39 Sputum Expectorated Sputum Culture - Preliminary NORMAL UPPER RESPIRATORY TACO PRESENT Resulted 07/25/19 15:15 Nasal Nares MRSA Culture - Final Staphylococcus Aureus - Mrsa Complete 07/25/19 15:20 Stool Clostridium difficile Toxin Assay - Final Complete 07/25/19 15:15 Urine,Clean Catch Urine Culture - Preliminary NO GROWTH AFTER 24 HOURS Resulted 07/25/19 15:15 Rectum VRE Culture - Final NO VANCOMYCIN RESISTANT ENTEROCOCCUS ... Complete 07/25/19 15:15 Rectum - Final NO CARBAPENEM-RESISTANT ENTEROBACTERI... Complete Laboratory Tests Test 07/27/19 06:00 White Blood Count 10.1 K/UL (4.8-10.8) Red Blood Count 3.44 M/UL (4.20-5.40) L Hemoglobin 9.6 G/DL (12.0-16.0) L Hematocrit 29.7 % (37.0-47.0) L Mean Corpuscular Volume 86 FL (80-99) Mean Corpuscular Hemoglobin 28.0 PG (27.0-31.0) Mean Corpuscular Hemoglobin Concent 32.5 G/DL (32.0-36.0) Red Cell Distribution Width 12.8 % (11.6-14.8) Platelet Count 341 K/UL (150-450) Mean Platelet Volume 5.7 FL (6.5-10.1) L Neutrophils (%) (Auto) 70.2 % (45.0-75.0) Lymphocytes (%) (Auto) 15.3 % (20.0-45.0) L Monocytes (%) (Auto) 8.2 % (1.0-10.0) Eosinophils (%) (Auto) 5.1 % (0.0-3.0) H Basophils (%) (Auto) 1.2 % (0.0-2.0) Sodium Level 141 MMOL/L (136-145) Potassium Level 4.3 MMOL/L (3.5-5.1) Chloride Level 104 MMOL/L (98-107) Carbon Dioxide Level 28 MMOL/L (21-32) Anion Gap 9 mmol/L (5-15) Blood Urea Nitrogen 15 mg/dL (7-18) Creatinine 1.2 MG/DL (0.55-1.30) Estimat Glomerular Filtration Rate 52.0 mL/min (>60) Glucose Level 164 MG/DL (74-106) H Calcium Level 8.8 MG/DL (8.5-10.1) Current Medications Medications (Trade) Dose Ordered Sig/Kimberley Route PRN Reason Start Time Stop Time Status Last Admin Dose Admin Acetaminophen (Tylenol) 650 mg Q4H PRN GT Mild Pain/Temp > 100.5 07/25/19 16:00 08/22/19 15:59 Albuterol Sulfate (Proventil) 2.5 mg Q4HRT HHN 07/26/19 15:00 07/31/19 14:59 07/27/19 11:35 Carvedilol (Coreg) 12.5 mg EVERY 12 HOURS GT 07/26/19 21:00 08/25/19 08:59 07/27/19 09:09 Cefepime HCl 1 gm/ Dextrose 55 ml @ 110 mls/hr DAILY IVPB 07/27/19 09:00 08/03/19 08:59 07/27/19 09:09 Docusate Sodium (Colace) 100 mg THREE TIMES A DAY GT 07/25/19 18:00 08/23/19 12:59 07/27/19 13:16 Lansoprazole (Prevacid) 30 mg BID GT 07/26/19 18:00 08/25/19 17:59 07/27/19 09:09 Metoclopramide HCl (Reglan) 5 mg EVERY 6 HOURS GT 07/25/19 18:00 08/22/19 17:59 07/27/19 11:25 Vancomycin HCl (Vanco rx to dose) 1 ea DAILY PRN MISC Per rx protocol 07/26/19 09:00 08/24/19 13:44 Vancomycin/Sodium Chloride 275 ml @ 137.5 mls/ hr Q24H IVPB 07/25/19 16:00 07/30/19 15:59 07/26/19 16:00 Jasmyn Peterson M.D. Jul 27, 2019 13:56
--- NOTE | 2019-07-27 14:43 | Surgery Progress Note ---
Surgery Progress Note Subjective Symptoms: improved, tolerating diet, voiding well, passing flatus Objective Last 24 Hour Vital Signs Date Time Temp Pulse Resp B/P (MAP) Pulse Ox O2 Delivery O2 Flow Rate FiO2 07/27/19 12:00 98.0 87 18 117/65 (82) 97 07/27/19 11:45 86 18 100 Nasal Cannula 2.0 28 84 18 98 07/27/19 09:09 78 126/70 07/27/19 09:00 Nasal Cannula 2.0 07/27/19 08:00 98.3 78 18 126/70 (88) 98 07/27/19 07:50 89 20 100 Nasal Cannula 2.0 28 87 20 99 07/27/19 07:30 99 Nasal Cannula 2.0 28 07/27/19 04:00 98.9 92 20 124/71 (88) 98 07/27/19 02:52 96 22 99 Nasal Cannula 2.0 28 93 18 97 07/27/19 00:00 97.6 92 18 131/70 (90) 97 07/26/19 23:35 95 20 99 Nasal Cannula 2.0 28 97 22 98 07/26/19 21:00 Nasal Cannula 2.0 07/26/19 20:17 94 126/71 07/26/19 20:00 97.4 94 18 126/71 (89) 98 07/26/19 19:30 96 18 99 Nasal Cannula 2.0 28 93 20 98 07/26/19 19:30 98 Nasal Cannula 2.0 28 07/26/19 16:00 98.0 93 19 127/66 (86) 97 07/26/19 15:30 91 18 100 Nasal Cannula 2.0 28 93 20 99 07/26/19 15:20 99 Nasal Cannula 2.0 28 07/26/19 15:20 93 20 99 Nasal Cannula 2.0 28 I&O Intake and Output 07/26/19 07/27/19 19:00 07:00 Intake Total 1145.0 ml 800 ml Output Total 1600 ml 600 ml Balance -455.0 ml 200 ml Intake Free Water 200 ml 200 ml IV Total 385.0 ml Tube Feeding 560 ml 600 ml Output Urine Total 1600 ml 600 ml # Voids 1 Dressing: other Wound: other Cardiovascular: RSR Respiratory: decreased breath sounds Abdomen: soft, present bowel sounds Extremities: no cyanosis Laboratory Tests Test 07/27/19 06:00 White Blood Count 10.1 K/UL (4.8-10.8) Red Blood Count 3.44 M/UL (4.20-5.40) L Hemoglobin 9.6 G/DL (12.0-16.0) L Hematocrit 29.7 % (37.0-47.0) L Mean Corpuscular Volume 86 FL (80-99) Mean Corpuscular Hemoglobin 28.0 PG (27.0-31.0) Mean Corpuscular Hemoglobin Concent 32.5 G/DL (32.0-36.0) Red Cell Distribution Width 12.8 % (11.6-14.8) Platelet Count 341 K/UL (150-450) Mean Platelet Volume 5.7 FL (6.5-10.1) L Neutrophils (%) (Auto) 70.2 % (45.0-75.0) Lymphocytes (%) (Auto) 15.3 % (20.0-45.0) L Monocytes (%) (Auto) 8.2 % (1.0-10.0) Eosinophils (%) (Auto) 5.1 % (0.0-3.0) H Basophils (%) (Auto) 1.2 % (0.0-2.0) Sodium Level 141 MMOL/L (136-145) Potassium Level 4.3 MMOL/L (3.5-5.1) Chloride Level 104 MMOL/L (98-107) Carbon Dioxide Level 28 MMOL/L (21-32) Anion Gap 9 mmol/L (5-15) Blood Urea Nitrogen 15 mg/dL (7-18) Creatinine 1.2 MG/DL (0.55-1.30) Estimat Glomerular Filtration Rate 52.0 mL/min (>60) Glucose Level 164 MG/DL (74-106) H Calcium Level 8.8 MG/DL (8.5-10.1) Plan Problems: (1) Rectal bleed Assessment & Plan: 84F noted to have blood in stool / diaper no n/v/f/c peg in place without blood output rectal exam with no gross blood noted abd exam benign labs stable exam stable scope as per GI ppi okay for tube feeds no acute surgical intervention planned (2) Fecal impaction in rectum (3) Dehydration (4) Severe malnutrition Assessment & Plan: DAILY ESTIMATED NEEDS: Needs based on Wound, cardiac 62.5kg abw 25-30 kcals/kg 4203-5603 total kcals 1.25-1.5 g protein/kg 78-94 g total protein 25-30 mL/kg 6774-6208 total fluid mLs NUTRITION DIAGNOSIS: 1) Increased kcal and protein needs r/t wound healing as evidenced by pt adm w/ sacral stage 2 wound. 2) Swallowing difficulty related to dysphagia as evidenced by H/O CVA, pt is PEG dep. CURRENT TF:Glucerna 1.2 goal of 50ml ENTERAL NUTRITION RECOMMENDATIONS: Glucerna 1.2 @55ml/hr x24 hrs to provide 1320ml, 1584 kcal, 79g prot, 1063ml free H2O - Rec to Increase TF GOAL TO 55ml x24 hrs to better meet est needs - Flush per MD. HOB over 30 degrees ADDITIONAL RECOMMENDATIONS: 1) TF recs as above 2) LYTES DAILY W/ TF 3) Rec to Recalibrate bed scale for accurate CBW 4) Wound care: add KODY in 4oz in water BID + Vit C 250 mg daily 5) Rec SSI w/ accuchecks for glycemic control (5) Sacral decubitus ulcer, stage II Assessment & Plan: pPt's skin assessed.Pt noted to have hyperpigmentation with scattered dry pink epithelial sacrum. No areas of erythema or induration noted. R and L heel are boggy. Both heels are blanchable.Pinhead black discoloration noted to L heel. No erythema induration or fluctuance noted.All other bony prominences assessed and no skin concerns noted. Moisture Barrier Paste applied to Sacrum and covered with Optifoam drsg to minimize friction on skin.Pt positioned on side with pillows.Cavilon Skin Barrier applied to both elbows . Each elbow covered with Optifoam drsgs.Cavilon Skin Barrier applied to both heels. Each heel covered with Optifoam drsgs. Both heels floated off mattress with pillow. Pt's daughter at bedside and discussed skin findings and interventions implemented to prevent skin breakdown. Tx.Plan: Apply Moisture Barrier Paste to Sacrum. Cover with Optifoam drsg every 3 days and prn. Apply Cavilon Skin Barrier to both heels. Cover each heel with Optifoam drsg every 7 days and prn. Apply Cavilon Skin Barrier to both elbows.Cover each elbow with Optifoam drsg. Change every 7 days and prn. Reposition at least every 2hours or as tolerated. Place Pillow between knees. Off-load heels with pillow. needs close attention to ensure no further breakdown nutritional optimization turn q2h off load heels with pillow skin protectant foam dressings to sacrum and heels thank you will follow with Sadiq Paredes Jul 27, 2019 14:43
--- NOTE | 2019-07-27 15:36 | NUR ---
CASE MANAGEMENT:REVIEW SI;SEPSIS. RECTAL BLEED. LLL PNA. UTI. 98.3 89 20 126/70 97% 2L NC FIO2 28% IS;AUGMENTIN GT Q12 HRS PROVENTIL HHN Q4 HRT REGLAN GT Q6 HRS PREVACID GT BID MED SURG STATUS PLAN OF CARE; CONTINUE IVF AND MONITOR ELECTROLYTES REPEAT BLOOD CX DCP; FROM [facility]
[2019-07-27 16:00] VITALS: BP 143/80
--- NOTE | 2019-07-27 16:01 | General Progress Note ---
Assessment/Plan Problem List: (1) Sepsis ICD Codes: A41.9 - Sepsis SNOMED: 36039432 (2) Rectal bleed ICD Codes: K62.5 - Hemorrhage of anus and rectum SNOMED: 86049487 (3) Fecal impaction in rectum ICD Codes: K56.41 - Fecal impaction SNOMED: 93661492 (4) UTI (urinary tract infection) ICD Codes: N39.0 - Urinary tract infection, site not specified SNOMED: 86716736 (5) Dementia ICD Codes: F03.90 - Dementia SNOMED: 37934370 (6) LLL pneumonia ICD Codes: J18.9 - Pneumonia, unspecified organism SNOMED: 828311517 Status: stable Assessment/Plan: DC in am star GT feeding check KUB Negative on vanco and cefepime switched to Augmentin One dose Genta previously IV fluid Skin care monitor H&H per orders GI and cardiac eval & ID HHN Subjective ROS Limited/Unobtainable: No Constitutional: Reports: malaise Allergies: Coded Allergies: NO KNOWN DRUG ALLERGIES (Unverified Allergy, Unknown, 08/31/14) Objective Last 24 Hour Vital Signs Date Time Temp Pulse Resp B/P (MAP) Pulse Ox O2 Delivery O2 Flow Rate FiO2 07/27/19 12:00 98.0 87 18 117/65 (82) 97 07/27/19 11:45 86 18 100 Nasal Cannula 2.0 28 84 18 98 07/27/19 09:09 78 126/70 07/27/19 09:00 Nasal Cannula 2.0 07/27/19 08:00 98.3 78 18 126/70 (88) 98 07/27/19 07:50 89 20 100 Nasal Cannula 2.0 28 87 20 99 07/27/19 07:30 99 Nasal Cannula 2.0 28 07/27/19 04:00 98.9 92 20 124/71 (88) 98 07/27/19 02:52 96 22 99 Nasal Cannula 2.0 28 93 18 97 07/27/19 00:00 97.6 92 18 131/70 (90) 97 07/26/19 23:35 95 20 99 Nasal Cannula 2.0 28 97 22 98 07/26/19 21:00 Nasal Cannula 2.0 07/26/19 20:17 94 126/71 07/26/19 20:00 97.4 94 18 126/71 (89) 98 07/26/19 19:30 96 18 99 Nasal Cannula 2.0 28 93 20 98 07/26/19 19:30 98 Nasal Cannula 2.0 28 07/26/19 16:00 98.0 93 19 127/66 (86) 97 Intake and Output 07/26/19 07/27/19 19:00 07:00 Intake Total 1145.0 ml 800 ml Output Total 1600 ml 600 ml Balance -455.0 ml 200 ml Intake Free Water 200 ml 200 ml IV Total 385.0 ml Tube Feeding 560 ml 600 ml Output Urine Total 1600 ml 600 ml # Voids 1 Current Medications Medications (Trade) Dose Ordered Sig/Kimberley Route PRN Reason Start Time Stop Time Status Last Admin Dose Admin Acetaminophen (Tylenol) 650 mg Q4H PRN GT Mild Pain/Temp > 100.5 07/25/19 16:00 08/22/19 15:59 Albuterol Sulfate (Proventil) 2.5 mg Q4HRT HHN 07/26/19 15:00 07/31/19 14:59 07/27/19 15:50 Amoxicillin/ Clavulanate Potassium (Augmentin) 875 mg EVERY 12 HOURS ORAL 07/27/19 21:00 08/03/19 20:59 Carvedilol (Coreg) 12.5 mg EVERY 12 HOURS GT 07/26/19 21:00 08/25/19 08:59 07/27/19 09:09 Docusate Sodium (Colace) 100 mg THREE TIMES A DAY GT 07/25/19 18:00 08/23/19 12:59 07/27/19 13:16 Lansoprazole (Prevacid) 30 mg BID GT 07/26/19 18:00 08/25/19 17:59 07/27/19 09:09 Metoclopramide HCl (Reglan) 5 mg EVERY 6 HOURS GT 07/25/19 18:00 08/22/19 17:59 07/27/19 11:25 Laboratory Tests 07/27/19 06:00: White Blood Count 10.1, Red Blood Count 3.44L, Hemoglobin 9.6L, Hematocrit 29.7L , Mean Corpuscular Volume 86, Mean Corpuscular Hemoglobin 28.0, Mean Corpuscular Hemoglobin Concent 32.5, Red Cell Distribution Width 12.8, Platelet Count 341, Mean Platelet Volume 5.7L, Neutrophils (%) (Auto) 70.2, Lymphocytes ( %) (Auto) 15.3L, Monocytes (%) (Auto) 8.2, Eosinophils (%) (Auto) 5.1H, Basophils (%) (Auto) 1.2, Sodium Level 141, Potassium Level 4.3, Chloride Level 104, Carbon Dioxide Level 28, Anion Gap 9, Blood Urea Nitrogen 15, Creatinine 1.2, Estimat Glomerular Filtration Rate 52.0, Glucose Level 164H, Calcium Level 8.8 Height (Feet): 5 Height (Inches): 6.00 Weight (Pounds): 160 Objective no change Igor Jade MD Jul 27, 2019 16:01
--- NOTE | 2019-07-27 16:28 | Diagnostic Imaging Report ---
Indication: Dyspnea Comparison: 07/23/2019 A single view chest radiograph was obtained. Findings: No definite infiltrate or pulmonary vascular congestion identified. The heart is enlarged. The aorta is mildly enlarged consistent with atherosclerotic vascular disease. The bones are osteopenic. There are thoracic vertebral enthesophytes at multiple levels. Impression: No acute disease Visualization of the upper lung field is limited and partially obscured
--- NOTE | 2019-07-27 19:09 | NUR ---
HAND-OFF: Report given to LACHO Gonzales.
--- NOTE | 2019-07-27 19:26 | NUR ---
NURSE NOTES: Received patient asleep, tolerates g-tube feeding well. Kept clean and dry.
[2019-07-27 20:24] VITALS: BP 139/70
[2019-07-27] MEDS: Augmentin 875mg Tab ORAL SCH (20:51)
[2019-07-28] VITALS: BP 106/54
[2019-07-28] MEDS: Metoclopramide 10mg/10ml Liq GT SCH ×3 (00:22→12:23)
[2019-07-28] MEDS: Albuterol ud Inhalation HHN SCH ×4 (02:33→14:06)
--- NOTE | 2019-07-28 02:45 | Progress Note ---
DATE: 07/27/2019 CARDIOLOGY PROGRESS NOTE SUBJECTIVE: The patient remains on antimicrobials. No new bleeding noted. OBJECTIVE: VITAL SIGNS: Blood pressure 117/65, pulse 87, respirations 18, and afebrile. LUNGS: Clear. CARDIAC: Regular. Occasional ectopics. 1/6 systolic ejection murmur. ABDOMEN: Soft. EXTREMITIES: No edema. IMAGING: Chest x-ray yesterday afternoon was notable for no acute process although the left upper lobe is poorly visualized. White count 10 and hemoglobin 9.6. Chemistry panel within normal limits and glucose is 164. IMPRESSION: 1. Sepsis. 2. Rectal bleeding resolved. 3. Left lower lobe infiltrate, improved. 4. Urinary tract infection status post therapy. 5. Nonsustained ventricular ectopy. 6. Cerebrovascular disease with advanced dementia. 7. Generalized atherosclerosis. 8. Aortic valve stenosis. PLAN: 1. Conservative management in this clinical setting. 2. No anti-platelet therapy due to bleeding risk. 3. Antimicrobials per Infectious Disease research consultant. 4. Maintain beta-porfirio therapy. 5. No role for other antiarrhythmics. Cristo Lopez M.D. DR: DELIA JOB#: [id number] CC: NIVIA
[2019-07-28 04:00] VITALS: BP 114/58
--- NOTE | 2019-07-28 07:00 | NUR ---
HAND-OFF: Report given to Melody Gardiner RN.
--- NOTE | 2019-07-28 07:02 | NUR ---
NURSE NOTES: Received report from LACHO Gonzales. patient in bed. sleeping. no respiratory distress noted on 2L via NC. no facial grimacing noted. GTF running glucerna 1.2@ 55/hr. no residual. HOB at all times. F/C draining. yellow. for retention. IV on RFA22g. RUA18g intact. saline lock. elevate both heels with pillow. offload pressure. bed in the lowest position and locked. call light within reach. alarm on. will continue to provide plan of care.
[2019-07-28 07:08] LABS: ALANINE AMINOTRANSFERASE 17 U/L (12-78); ALBUMIN 2.8 G/DL (3.4-5.0); ALBUMIN/GLOBULIN RATIO 0.6 (1.0-2.7); ALKALINE PHOSPHATASE 93 U/L (46-116); ANION GAP 5 mmol/L (5-15); ASPARTATE AMINO TRANSFERASE 19 U/L (15-37); BILIRUBIN,TOTAL 0.3 MG/DL (0.2-1.0); BLOOD UREA NITROGEN 15 mg/dL (7-18); CALCIUM 9.3 MG/DL (8.5-10.1); CARBON DIOXIDE 32 MMOL/L (21-32); CHLORIDE 102 MMOL/L (98-107); CREATININE 1.1 MG/DL (0.55-1.30); POTASSIUM 4.3 MMOL/L (3.5-5.1); SODIUM 139 MMOL/L (136-145)
[2019-07-28 07:11] LABS: BASOPHILS % (AUTO) 0.7 % (0.0-2.0); EOSINOPHILS % (AUTO) 3.9 % (0.0-3.0); HEMATOCRIT 27.6 % (37.0-47.0); HEMOGLOBIN 9.1 G/DL (12.0-16.0); LYMPHOCYTES % (AUTO) 14.6 % (20.0-45.0); MEAN CORPUSCULAR VOLUME 86 FL (80-99); MONOCYTES % (AUTO) 6.9 % (1.0-10.0); NEUTROPHILS % (AUTO) 73.9 % (45.0-75.0); PLATELET COUNT 334 K/UL (150-450); RED BLOOD COUNT 3.23 M/UL (4.20-5.40)
[2019-07-28 08:00] VITALS: BP 119/68
[2019-07-28] MEDS: Augmentin 875mg Tab ORAL SCH (08:45)
[2019-07-28] MEDS: Docusate 100mg/10ml Liq GT SCH ×2 (08:46→12:23)
[2019-07-28] MEDS: Carvedilol 12.5mg tab GT SCH (08:46)
--- NOTE | 2019-07-28 09:37 | Surgery Progress Note ---
Surgery Progress Note Subjective Additional Comments stable comfortable labs noted Objective Last 24 Hour Vital Signs Date Time Temp Pulse Resp B/P (MAP) Pulse Ox O2 Delivery O2 Flow Rate FiO2 07/28/19 08:46 96 119/68 07/28/19 08:00 98.0 96 19 119/68 (85) 97 07/28/19 07:33 97 Nasal Cannula 2.0 28 07/28/19 07:29 94 18 99 Nasal Cannula 2.0 28 92 18 97 07/28/19 04:00 99.0 90 18 114/58 (76) 95 07/28/19 02:40 93 18 99 Nasal Cannula 2.0 28 92 18 96 07/28/19 00:00 99.0 93 20 106/54 (71) 95 07/27/19 23:42 95 18 100 Nasal Cannula 2.0 28 94 18 97 07/27/19 20:51 89 139/70 07/27/19 20:24 98.7 89 22 139/70 (93) 99 07/27/19 20:10 Nasal Cannula 2.0 07/27/19 19:45 98 Nasal Cannula 2.0 28 07/27/19 19:45 94 18 100 Nasal Cannula 2.0 28 97 18 98 07/27/19 16:00 98.3 96 19 143/80 (101) 98 07/27/19 16:00 83 18 100 Nasal Cannula 2.0 28 80 18 98 07/27/19 12:00 98.0 87 18 117/65 (82) 97 07/27/19 11:45 86 18 100 Nasal Cannula 2.0 28 84 18 98 I&O Intake and Output 07/27/19 07/28/19 19:00 07:00 Intake Total 1105 ml 920 ml Output Total 1300 ml Balance 1105 ml -380 ml Intake Free Water 300 ml 260 ml IV Total 110 ml Tube Feeding 695 ml 660 ml Output Urine Total 1300 ml # Bowel Movements 1 Dressing: other Wound: other Drains: other Cardiovascular: RSR Respiratory: clear, decreased breath sounds Abdomen: soft, present bowel sounds Extremities: no cyanosis Laboratory Tests Test 07/28/19 05:11 White Blood Count 12.0 K/UL (4.8-10.8) H Red Blood Count 3.23 M/UL (4.20-5.40) L Hemoglobin 9.1 G/DL (12.0-16.0) L Hematocrit 27.6 % (37.0-47.0) L Mean Corpuscular Volume 86 FL (80-99) Mean Corpuscular Hemoglobin 28.3 PG (27.0-31.0) Mean Corpuscular Hemoglobin Concent 33.1 G/DL (32.0-36.0) Red Cell Distribution Width 13.0 % (11.6-14.8) Platelet Count 334 K/UL (150-450) Mean Platelet Volume 5.6 FL (6.5-10.1) L Neutrophils (%) (Auto) 73.9 % (45.0-75.0) Lymphocytes (%) (Auto) 14.6 % (20.0-45.0) L Monocytes (%) (Auto) 6.9 % (1.0-10.0) Eosinophils (%) (Auto) 3.9 % (0.0-3.0) H Basophils (%) (Auto) 0.7 % (0.0-2.0) Sodium Level 139 MMOL/L (136-145) Potassium Level 4.3 MMOL/L (3.5-5.1) Chloride Level 102 MMOL/L (98-107) Carbon Dioxide Level 32 MMOL/L (21-32) Anion Gap 5 mmol/L (5-15) Blood Urea Nitrogen 15 mg/dL (7-18) Creatinine 1.1 MG/DL (0.55-1.30) Estimat Glomerular Filtration Rate 57.4 mL/min (>60) Glucose Level 116 MG/DL (74-106) H Calcium Level 9.3 MG/DL (8.5-10.1) Total Bilirubin 0.3 MG/DL (0.2-1.0) Aspartate Amino Transf (AST/SGOT) 19 U/L (15-37) Alanine Aminotransferase (ALT/SGPT) 17 U/L (12-78) Alkaline Phosphatase 93 U/L (46-116) C-Reactive Protein, Quantitative 4.6 mg/dL (0.00-0.90) H Total Protein 7.3 G/DL (6.4-8.2) Albumin 2.8 G/DL (3.4-5.0) L Globulin 4.5 g/dL Albumin/Globulin Ratio 0.6 (1.0-2.7) L Plan Problems: (1) Rectal bleed Assessment & Plan: 84F noted to have blood in stool / diaper no n/v/f/c peg in place without blood output rectal exam with no gross blood noted abd exam benign labs stable exam stable scope as per GI ppi okay for tube feeds no acute surgical intervention planned (2) Fecal impaction in rectum (3) Dehydration (4) Severe malnutrition Assessment & Plan: DAILY ESTIMATED NEEDS: Needs based on Wound, cardiac 62.5kg abw 25-30 kcals/kg 8560-5564 total kcals 1.25-1.5 g protein/kg 78-94 g total protein 25-30 mL/kg 2643-1261 total fluid mLs NUTRITION DIAGNOSIS: 1) Increased kcal and protein needs r/t wound healing as evidenced by pt adm w/ sacral stage 2 wound. 2) Swallowing difficulty related to dysphagia as evidenced by H/O CVA, pt is PEG dep. CURRENT TF:Glucerna 1.2 goal of 50ml ENTERAL NUTRITION RECOMMENDATIONS: Glucerna 1.2 @55ml/hr x24 hrs to provide 1320ml, 1584 kcal, 79g prot, 1063ml free H2O - Rec to Increase TF GOAL TO 55ml x24 hrs to better meet est needs - Flush per MD. HOB over 30 degrees ADDITIONAL RECOMMENDATIONS: 1) TF recs as above 2) LYTES DAILY W/ TF 3) Rec to Recalibrate bed scale for accurate CBW 4) Wound care: add KODY in 4oz in water BID + Vit C 250 mg daily 5) Rec SSI w/ accuchecks for glycemic control (5) Sacral decubitus ulcer, stage II Assessment & Plan: pPt's skin assessed.Pt noted to have hyperpigmentation with scattered dry pink epithelial sacrum. No areas of erythema or induration noted. R and L heel are boggy. Both heels are blanchable.Pinhead black discoloration noted to L heel. No erythema induration or fluctuance noted.All other bony prominences assessed and no skin concerns noted. Moisture Barrier Paste applied to Sacrum and covered with Optifoam drsg to minimize friction on skin.Pt positioned on side with pillows.Cavilon Skin Barrier applied to both elbows . Each elbow covered with Optifoam drsgs.Cavilon Skin Barrier applied to both heels. Each heel covered with Optifoam drsgs. Both heels floated off mattress with pillow. Pt's daughter at bedside and discussed skin findings and interventions implemented to prevent skin breakdown. Tx.Plan: Apply Moisture Barrier Paste to Sacrum. Cover with Optifoam drsg every 3 days and prn. Apply Cavilon Skin Barrier to both heels. Cover each heel with Optifoam drsg every 7 days and prn. Apply Cavilon Skin Barrier to both elbows.Cover each elbow with Optifoam drsg. Change every 7 days and prn. Reposition at least every 2hours or as tolerated. Place Pillow between knees. Off-load heels with pillow. needs close attention to ensure no further breakdown nutritional optimization turn q2h off load heels with pillow skin protectant foam dressings to sacrum and heels thank you will follow with Sadiq Paredes Jul 28, 2019 09:37
--- NOTE | 2019-07-28 10:54 | General Progress Note ---
Assessment/Plan Problem List: (1) CKD (chronic kidney disease) stage 3, GFR 30-59 ml/min ICD Codes: N18.3 - CKD (chronic kidney disease) stage 3, GFR 30-59 ml/min SNOMED: 470919805 (2) Dementia ICD Codes: F03.90 - Dementia SNOMED: 42111565 (3) Fecal impaction in rectum ICD Codes: K56.41 - Fecal impaction SNOMED: 28529935 (4) Rectal bleed ICD Codes: K62.5 - Hemorrhage of anus and rectum SNOMED: 36982865 (5) Anemia ICD Codes: D64.9 - Anemia, unspecified SNOMED: 155916504 (6) Pneumonia ICD Codes: J18.9 - Pneumonia, unspecified organism SNOMED: 465861927 Status: stable Assessment/Plan: stable H&H GT>>>> increase to 55 cc no plans for GI procedures at this time given stable H&H and old age monitor for residuals>>>low bowel regimen abx per ID fu cardiology recs wound care fu labs stool ob Subjective ROS Limited/Unobtainable: No Allergies: Coded Allergies: NO KNOWN DRUG ALLERGIES (Unverified Allergy, Unknown, 08/31/14) Objective Last 24 Hour Vital Signs Date Time Temp Pulse Resp B/P (MAP) Pulse Ox O2 Delivery O2 Flow Rate FiO2 07/28/19 09:00 Nasal Cannula 2.0 07/28/19 08:46 96 119/68 07/28/19 08:00 98.0 96 19 119/68 (85) 97 07/28/19 07:33 97 Nasal Cannula 2.0 28 07/28/19 07:29 94 18 99 Nasal Cannula 2.0 28 92 18 97 07/28/19 04:00 99.0 90 18 114/58 (76) 95 07/28/19 02:40 93 18 99 Nasal Cannula 2.0 28 92 18 96 07/28/19 00:00 99.0 93 20 106/54 (71) 95 07/27/19 23:42 95 18 100 Nasal Cannula 2.0 28 94 18 97 07/27/19 20:51 89 139/70 07/27/19 20:24 98.7 89 22 139/70 (93) 99 07/27/19 20:10 Nasal Cannula 2.0 07/27/19 19:45 98 Nasal Cannula 2.0 28 07/27/19 19:45 94 18 100 Nasal Cannula 2.0 28 97 18 98 07/27/19 16:00 98.3 96 19 143/80 (101) 98 07/27/19 16:00 83 18 100 Nasal Cannula 2.0 28 80 18 98 07/27/19 12:00 98.0 87 18 117/65 (82) 97 07/27/19 11:45 86 18 100 Nasal Cannula 2.0 28 84 18 98 Intake and Output 07/27/19 07/28/19 19:00 07:00 Intake Total 1105 ml 920 ml Output Total 1300 ml Balance 1105 ml -380 ml Intake Free Water 300 ml 260 ml IV Total 110 ml Tube Feeding 695 ml 660 ml Output Urine Total 1300 ml # Bowel Movements 1 Laboratory Tests 07/28/19 05:11: White Blood Count 12.0H, Red Blood Count 3.23L, Hemoglobin 9.1L, Hematocrit 27.6L, Mean Corpuscular Volume 86, Mean Corpuscular Hemoglobin 28.3, Mean Corpuscular Hemoglobin Concent 33.1, Red Cell Distribution Width 13.0, Platelet Count 334, Mean Platelet Volume 5.6L, Neutrophils (%) (Auto) 73.9, Lymphocytes ( %) (Auto) 14.6L, Monocytes (%) (Auto) 6.9, Eosinophils (%) (Auto) 3.9H, Basophils (%) (Auto) 0.7, Sodium Level 139, Potassium Level 4.3, Chloride Level 102, Carbon Dioxide Level 32, Anion Gap 5, Blood Urea Nitrogen 15, Creatinine 1.1, Estimat Glomerular Filtration Rate 57.4, Glucose Level 116H, Calcium Level 9.3, Total Bilirubin 0.3, Aspartate Amino Transf (AST/SGOT) 19, Alanine Aminotransferase (ALT/SGPT) 17, Alkaline Phosphatase 93, C-Reactive Protein, Quantitative 4.6H, Total Protein 7.3, Albumin 2.8L, Globulin 4.5, Albumin/ Globulin Ratio 0.6L Height (Feet): 5 Height (Inches): 6.00 Weight (Pounds): 160 General Appearance: lethargic EENT: normal ENT inspection Neck: supple Cardiovascular: normal rate Respiratory/Chest: decreased breath sounds Abdomen: normal bowel sounds, non tender, soft Extremities: non-tender Vosoghi,Frank MD Jul 28, 2019 10:54
[2019-07-28 12:00] VITALS: BP 119/65
--- NOTE | 2019-07-28 12:00 | General Progress Note ---
Assessment/Plan Problem List: (1) Sepsis ICD Codes: A41.9 - Sepsis SNOMED: 28664637 (2) Rectal bleed ICD Codes: K62.5 - Hemorrhage of anus and rectum SNOMED: 41781095 (3) Fecal impaction in rectum ICD Codes: K56.41 - Fecal impaction SNOMED: 53957651 (4) UTI (urinary tract infection) ICD Codes: N39.0 - Urinary tract infection, site not specified SNOMED: 14204892 (5) Dementia ICD Codes: F03.90 - Dementia SNOMED: 34561551 (6) LLL pneumonia ICD Codes: J18.9 - Pneumonia, unspecified organism SNOMED: 410956738 Status: stable Assessment/Plan: DC today Continue GT feeding KUB Negative on vanco and cefepime switched to Augmentin One dose Genta previously DC IV fluid Skin care monitor H&H per orders GI and cardiac eval & ID HHN Subjective ROS Limited/Unobtainable: No Allergies: Coded Allergies: NO KNOWN DRUG ALLERGIES (Unverified Allergy, Unknown, 08/31/14) Objective Last 24 Hour Vital Signs Date Time Temp Pulse Resp B/P (MAP) Pulse Ox O2 Delivery O2 Flow Rate FiO2 07/28/19 11:13 96 18 99 Nasal Cannula 2.0 28 91 18 95 07/28/19 09:00 Nasal Cannula 2.0 07/28/19 08:46 96 119/68 07/28/19 08:00 98.0 96 19 119/68 (85) 97 07/28/19 07:33 97 Nasal Cannula 2.0 28 07/28/19 07:29 94 18 99 Nasal Cannula 2.0 28 92 18 97 07/28/19 04:00 99.0 90 18 114/58 (76) 95 07/28/19 02:40 93 18 99 Nasal Cannula 2.0 28 92 18 96 07/28/19 00:00 99.0 93 20 106/54 (71) 95 07/27/19 23:42 95 18 100 Nasal Cannula 2.0 28 94 18 97 07/27/19 20:51 89 139/70 07/27/19 20:24 98.7 89 22 139/70 (93) 99 07/27/19 20:10 Nasal Cannula 2.0 07/27/19 19:45 98 Nasal Cannula 2.0 28 07/27/19 19:45 94 18 100 Nasal Cannula 2.0 28 97 18 98 07/27/19 16:00 98.3 96 19 143/80 (101) 98 07/27/19 16:00 83 18 100 Nasal Cannula 2.0 28 80 18 98 07/27/19 12:00 98.0 87 18 117/65 (82) 97 Intake and Output 07/27/19 07/28/19 19:00 07:00 Intake Total 1105 ml 920 ml Output Total 1300 ml Balance 1105 ml -380 ml Intake Free Water 300 ml 260 ml IV Total 110 ml Tube Feeding 695 ml 660 ml Output Urine Total 1300 ml # Bowel Movements 1 Current Medications Medications (Trade) Dose Ordered Sig/Kimberley Route PRN Reason Start Time Stop Time Status Last Admin Dose Admin Acetaminophen (Tylenol) 650 mg Q4H PRN GT Mild Pain/Temp > 100.5 07/25/19 16:00 08/22/19 15:59 Albuterol Sulfate (Proventil) 2.5 mg Q4HRT HHN 07/26/19 15:00 07/31/19 14:59 07/28/19 11:13 Amoxicillin/ Clavulanate Potassium (Augmentin) 875 mg EVERY 12 HOURS ORAL 07/27/19 21:00 08/03/19 20:59 07/28/19 08:45 Carvedilol (Coreg) 12.5 mg EVERY 12 HOURS GT 07/26/19 21:00 08/25/19 08:59 07/28/19 08:46 Docusate Sodium (Colace) 100 mg THREE TIMES A DAY GT 07/25/19 18:00 08/23/19 12:59 07/28/19 08:46 Lansoprazole (Prevacid) 30 mg BID GT 07/26/19 18:00 08/25/19 17:59 07/28/19 08:45 Metoclopramide HCl (Reglan) 5 mg EVERY 6 HOURS GT 07/25/19 18:00 08/22/19 17:59 07/28/19 05:34 Laboratory Tests 07/28/19 05:11: White Blood Count 12.0H, Red Blood Count 3.23L, Hemoglobin 9.1L, Hematocrit 27.6L, Mean Corpuscular Volume 86, Mean Corpuscular Hemoglobin 28.3, Mean Corpuscular Hemoglobin Concent 33.1, Red Cell Distribution Width 13.0, Platelet Count 334, Mean Platelet Volume 5.6L, Neutrophils (%) (Auto) 73.9, Lymphocytes ( %) (Auto) 14.6L, Monocytes (%) (Auto) 6.9, Eosinophils (%) (Auto) 3.9H, Basophils (%) (Auto) 0.7, Sodium Level 139, Potassium Level 4.3, Chloride Level 102, Carbon Dioxide Level 32, Anion Gap 5, Blood Urea Nitrogen 15, Creatinine 1.1, Estimat Glomerular Filtration Rate 57.4, Glucose Level 116H, Calcium Level 9.3, Total Bilirubin 0.3, Aspartate Amino Transf (AST/SGOT) 19, Alanine Aminotransferase (ALT/SGPT) 17, Alkaline Phosphatase 93, C-Reactive Protein, Quantitative 4.6H, Total Protein 7.3, Albumin 2.8L, Globulin 4.5, Albumin/ Globulin Ratio 0.6L Height (Feet): 5 Height (Inches): 6.00 Weight (Pounds): 160 Cardiovascular: normal rate Respiratory/Chest: decreased breath sounds Abdomen: soft Objective no change Igor Jade MD Jul 28, 2019 12:00
[2019-07-28] MEDS ORDERED: AMOX TR-K CLV1 EAC2 ORAL (12:03)
[2019-07-28] MEDS ORDERED: COREG12.5 MG GT (12:03)
--- NOTE | 2019-07-28 12:06 | Discharge Instructions ---
Discharge Instructions Discharge Instructions Follow up with: fu by in ECF Call MD/Return to Hospital if: fever, respiratiry ditress vomiting Diet: tube feeding Special Instructions routin skin care- aspiration precautions Use elixir Augmentin via GT tube , same dose For Congestive Heart Failure Reminder Report to your physician any weight gain of 5 pounds or more in one week. Igor Jade MD Jul 28, 2019 12:06
--- NOTE | 2019-07-28 13:07 | NUR ---
*-*DISCHARGE PLANNING*-* PATIENT HAS BEEN REFERRED TO: [facility] P:[phone] F:[phone] -*-*-*-* CLINICALS FAXED*--*-*-*-*-*-*-
--- NOTE | 2019-07-28 13:55 | NUR ---
DISCHARGE PLANNING NOTE PATIENT ACCEPTED TO RETURN TO [facility] RM [id number] SKILLED CALL [phone] FOR NURSE TO NURSE REPORT
--- NOTE | 2019-07-28 13:59 | NUR ---
TRANSPORTATION SCHEDULED WITH [employer] [facility] @ [employer] [address] WITH ETA @ 1530 PM
--- NOTE | 2019-07-28 14:40 | NUR ---
NURSE NOTES: left message to Wendi,Daughter regarding patient's discharge.
--- NOTE | 2019-07-28 15:19 | NUR ---
NURSE NOTES: given report to [facility]. spoke to LACHO Velazquez route rider supervisor.
--- NOTE | 2019-07-28 16:00 | NUR ---
NURSE NOTES: patient discharged to [facility] with fair condition via ambulance gurney. no respiratory distress noted on 2L via NC. no facial grimacing. removed IV and ID band. provide dc packet to ambulance personnel. GT site intact. no s/sx of infection. no residual. F/C draining. yellow. no sediment. no hematuria. no odor. provided hygiene care. skin intact. redness on both heels. sacral area st 2 upon admission. no open skin. pigmentation noted. not able to take pictures d/t camera not available at nursing station.
[2019-07-28] MEDS ORDERED: Tubing IV Secondary IV ONE (17:03)
--- NOTE | 2019-07-28 17:49 | Infectious Diseases Prog Note ---
Assessment/Plan Problems: (1) LLL pneumonia Assessment & Plan: continue oral augmentin to finish her course for 7 days , sputum culture grew normal respiratory taco , aspiration precaution. (2) UTI (urinary tract infection) Assessment & Plan: Due to E coli , S/P Gentamicin , on augmentin to cover for pneumonia too . (3) Rectal bleed Assessment & Plan: GI if following, monitor H/H , transfuse as needed , may need Endoscopy (4) Dehydration Assessment & Plan: continue IV fluids with close monitor of electrolytes (5) Sepsis Assessment & Plan: with staph auricularis , suspect contaminants , S/P vancomycin empirically , repeated blood culture x2 is negative so far (6) JAYCEE (acute kidney injury) Assessment & Plan: due to the above, continue hydration with close monitoring of renal function and renally dosed antibiotics as per pharmacy Subjective ROS Limited/Unobtainable: Yes Allergies: Coded Allergies: NO KNOWN DRUG ALLERGIES (Unverified Allergy, Unknown, 08/31/14) Subjective she was lying in bed comfortable, no cough or SOB, no fever or chills, no diarrhea Objective Vital Signs Last 24 Hour Vital Signs Date Time Temp Pulse Resp B/P (MAP) Pulse Ox O2 Delivery O2 Flow Rate FiO2 07/28/19 14:06 95 18 96 Nasal Cannula 2.0 28 07/28/19 12:00 98.0 96 20 119/65 (83) 98 07/28/19 11:13 96 18 99 Nasal Cannula 2.0 28 91 18 95 07/28/19 09:00 Nasal Cannula 2.0 07/28/19 08:46 96 119/68 07/28/19 08:00 98.0 96 19 119/68 (85) 97 07/28/19 07:33 97 Nasal Cannula 2.0 28 07/28/19 07:29 94 18 99 Nasal Cannula 2.0 28 92 18 97 07/28/19 04:00 99.0 90 18 114/58 (76) 95 07/28/19 02:40 93 18 99 Nasal Cannula 2.0 28 92 18 96 07/28/19 00:00 99.0 93 20 106/54 (71) 95 07/27/19 23:42 95 18 100 Nasal Cannula 2.0 28 94 18 97 07/27/19 20:51 89 139/70 07/27/19 20:24 98.7 89 22 139/70 (93) 99 07/27/19 20:10 Nasal Cannula 2.0 07/27/19 19:45 98 Nasal Cannula 2.0 28 07/27/19 19:45 94 18 100 Nasal Cannula 2.0 28 97 18 98 Height (Feet): 5 Height (Inches): 6.00 Weight (Pounds): 160 General Appearance: WD/WN, no acute distress HEENT: normocephalic, atraumatic, anicteric, mucous membranes moist, PERRL Respiratory/Chest: chest wall non-tender, lungs clear, normal breath sounds, no respiratory distress, no accessory muscle use Cardiovascular: normal peripheral pulses, normal rate, regular rhythm, no gallop/murmur, no JVD Abdomen: normal bowel sounds, soft, non tender, no organomegaly, non distended , no mass, no scars Genitourinary: normal external genitalia Extremities: no cyanosis, no clubbing Skin: no rash, no lesions, no ulcers Neurologic/Psychiatric: transcribing machine mechanic II-XII grossly normal, oriented x 3 Lymphatic: no neck adenopathy, no groin adenopathy Musculoskeletal: normal muscle bulk, no effusion Microbiology Date/Time Source Procedure Growth Status 07/25/19 23:39 Sputum Expectorated Gram Stain - Final Complete 07/25/19 23:39 Sputum Expectorated Sputum Culture - Final NORMAL UPPER RESPIRATORY TACO AT 48 ... Complete Laboratory Tests Test 07/28/19 05:11 White Blood Count 12.0 K/UL (4.8-10.8) H Red Blood Count 3.23 M/UL (4.20-5.40) L Hemoglobin 9.1 G/DL (12.0-16.0) L Hematocrit 27.6 % (37.0-47.0) L Mean Corpuscular Volume 86 FL (80-99) Mean Corpuscular Hemoglobin 28.3 PG (27.0-31.0) Mean Corpuscular Hemoglobin Concent 33.1 G/DL (32.0-36.0) Red Cell Distribution Width 13.0 % (11.6-14.8) Platelet Count 334 K/UL (150-450) Mean Platelet Volume 5.6 FL (6.5-10.1) L Neutrophils (%) (Auto) 73.9 % (45.0-75.0) Lymphocytes (%) (Auto) 14.6 % (20.0-45.0) L Monocytes (%) (Auto) 6.9 % (1.0-10.0) Eosinophils (%) (Auto) 3.9 % (0.0-3.0) H Basophils (%) (Auto) 0.7 % (0.0-2.0) Sodium Level 139 MMOL/L (136-145) Potassium Level 4.3 MMOL/L (3.5-5.1) Chloride Level 102 MMOL/L (98-107) Carbon Dioxide Level 32 MMOL/L (21-32) Anion Gap 5 mmol/L (5-15) Blood Urea Nitrogen 15 mg/dL (7-18) Creatinine 1.1 MG/DL (0.55-1.30) Estimat Glomerular Filtration Rate 57.4 mL/min (>60) Glucose Level 116 MG/DL (74-106) H Calcium Level 9.3 MG/DL (8.5-10.1) Total Bilirubin 0.3 MG/DL (0.2-1.0) Aspartate Amino Transf (AST/SGOT) 19 U/L (15-37) Alanine Aminotransferase (ALT/SGPT) 17 U/L (12-78) Alkaline Phosphatase 93 U/L (46-116) C-Reactive Protein, Quantitative 4.6 mg/dL (0.00-0.90) H Total Protein 7.3 G/DL (6.4-8.2) Albumin 2.8 G/DL (3.4-5.0) L Globulin 4.5 g/dL Albumin/Globulin Ratio 0.6 (1.0-2.7) L Jasmyn Peterson M.D. Jul 28, 2019 17:49
--- NOTE | 2019-07-29 05:45 | Progress Note ---
DATE: 07/28/2019 CARDIOLOGY PROGRESS NOTE SUBJECTIVE: The patient has no new distress. Antibiotics have been switched to oral dose. OBJECTIVE: VITAL SIGNS: Blood pressure 119/68, heart rate 91, respiratory rate 18. LUNGS: Clear. CARDIAC: Regular. Normal S1 and S2. 1/6 systolic ejection murmur. ABDOMEN: Soft. EXTREMITIES: No edema. LABORATORY DATA: White count 12 and hemoglobin 9. Sodium 139, potassium 4.3, BUN 15, creatinine 1.1, bicarb 32, albumin 2.8. IMPRESSION: 1. Sepsis, recovered. 2. Acute cardiovascular disease. 3. Nonsustained ventricular ectopy, no clinical consequence at this time. 4. Cerebrovascular disease with dementia. 5. Euvolemic status at this time in setting of aortic valve stenosis. 6. Moderate protein-calorie malnutrition. PLAN: 1. Continue beta-porfirio. 2. Protein supplement. 3. Discharge plan to residential facility noted. 4, I have reviewed the cardiovascular regimen on the discharge medication list. Cristo Lopez M.D. DR: Claudine JOB#: [id number] CC: NIVIA
--- NOTE | 2019-07-30 12:19 | Discharge Summary ---
Discharge Summary Discharge Summary _ DATE OF ADMISSION: 07/23/2019 DATE OF DISCHARGE: 07/28/2019 DISCHARGED BY: Dr. Jade REASON FOR ADMISSION: 84 years old female, resident of senior living facility, with past medical history of dementia, dysphagia, feeding by G-tube, history of UTI and sepsis, bedbound, was transferred to emergency department for evaluation due to rectal bleeding. After initial evaluation patient was found to have mild leukocytosis , hemoglobin 11.9, hematocrit 37. Potassium 5.. BUN 22, creatinine 1.2. Lactic acid 3.3. Urinalysis revealed evidence of pyuria and moderate bacteria , +3 leukocyte esterase. Chest x-ray demonstrated bibasilar opacities, left greater than right ,possibly representing atelectasis ,but pneumonia at left lung base was not excluded. In emergency department patient received 1 L of fluid , started on Protonix , empiric antibiotic and subsequently admitted for further management. CONSULTANTS: rn burn Dr. Lopez ID specialist Dr. Peterson GI specialist Dr. Trammell [facility] Dr. Rivera [facility]: Patient was initially kept n.p.o. and started on IV fluids and empiric antibiotics. Blood culture revealed Staphylococcus auricularis. Urine culture revealed E. coli.. Repeated blood and urine cultures were negative. Sputum culture was negative. Stool for C. difficile was negative. Antibiotic regimen was provided as per ID specialist recommendation. Patient was discharged on oral antibiotic to complete the course. GI specialist followed. Bowel regimen instituted. Hemoglobin and hematocrit were closely monitored with goal to keep hemoglobin above 7. Prior to discharge hemoglobin 9.1, hematocrit 27.6. Anemia work-up revealed evidence of anemia of chronic disease. Stable B12 and folate level. Per GI specialist no plans for any GI procedure, given stable hemoglobin , hematocrit and old age. Patient was able to tolerate tube feeding . Strict aspiration precaution maintained. G-tube site care provided. GI prophylaxis provided. Strict aspiration precautions were maintained. Tube feeding formula with goal rate and protein supplements provided per registered dietitian recommendation. Wound care for sacral decubitus ulcer stage II provided as per surgeon recommendation. Continue wound care at the facility. Medical Staff Credentialing Coordinator followed. Patient noted to have episodes of nonsustained ventricular tachycardia. Medical Staff Credentialing Coordinator recommended conservative management in this age population. No antiplatelet therapy due to bleeding risk. Beta-blockade initiated. No role for other antiarrhythmics . No further evidence of nonsustained ventricular tachycardia . Follow-up chest x-ray revealed no acute disease. R$enal parameters and electrolytes were closely monitored. Electrolytes corrected as needed. Nephrotoxins were avoided. Patient clinically stabilized and was ready for transfer to senior living facility for continuation of care. FINAL DIAGNOSIS Sepsis Rectal bleeding UTI with E. coli LLL pneumonia Dysphagia , feeding by G-tube Dehydration Dementia Acute kidney injury on chronic kidney disease stage III Fecal impaction Anemia Cerebrovascular disease with dementia Nonsustained ventricular tachycardia Severe protein calorie malnutrition Sacral decubitus ulcer stage II present on admission DISCHARGE MEDICATIONS: See Medication Reconciliation list. DISCHARGE INSTRUCTIONS: Patient was discharged to the senior living facility. Follow up with medical doctor at the facility. I have been assigned to dictate discharge summary for this account. I was not involved in the patient's management. Chen Camarillo NP Jul 30, 2019 12:19
== END 2019-07-28 17:04 | DRG 871 ==
LOC: EDBD 13:30 → EDUNIT# 13:30 → EMR 13:46 → EDBEDREQ 13:50 → 2E 13:54 → EDBEDREQ 15:28 → 2E 18:44 → 4E 07-25 15:39
DX: A41.9 Sepsis, unspecified organism (principal); J18.9 Pneumonia, unspecified organism; R53.2 Functional quadriplegia; E43 Unspecified severe protein-calorie malnutrition; E87.2 Acidosis; N39.0 Urinary tract infection, site not specified; N17.9 Acute kidney failure, unspecified; Z43.1 Encounter for attention to gastrostomy; K92.2 Gastrointestinal hemorrhage, unspecified; E87.5 Hyperkalemia; N18.3 Chronic kidney disease, stage 3 (moderate); L89.152 Pressure ulcer of sacral region, stage 2; L89.612 Pressure ulcer of right heel, stage 2; E86.0 Dehydration; I49.3 Ventricular premature depolarization; F01.50 Vascular dementia, unspecified severity, without behavioral disturbance, psychotic disturbance, mood disturbance, and anxiety; R13.10 Dysphagia, unspecified; Z79.82 Long term (current) use of aspirin; K56.41 Fecal impaction
CPT/HCPCS: 36415; 71045; 74018; 80048; 80053; 80061; 81001; 81003; 82607; 82728; 82746; 82977; 83036; 83540; 83550; 83605; 83690; 83735; 83880; 84100; 84443; 84484; 84550; 85025; 85610; 85730; 86140; 86850; 86900; 86901; 87040; 87070; 87081; 87086; 87181; 87205; 87324; 93005; 93306; 94640; 94664; 96361; 96365; 96375; 99291; J7030

== ENCOUNTER 2019-11-18 11:08 | Inpatient (IN) | payer MEDICARE, OTHER ==
[~2019-11-18] VITALS: Ht 157.5 cm; Wt 63.0 kg
[~2019-11-18 11:08] MED LIST changes: +AMOX TR-K CLV1 EAC2 ORAL; +COREG12.5 MG GT
--- NOTE | 2019-11-18 11:09 | NUR ---
ED Nurse Note: Patient SYED from [facility] d/t hematuria since. last night. Per EMS, staff at facility stated hematuria was noted last night. Patient AxO x 0, on the air sampling and monitoring, no s/s of acute distress noted.
[2019-11-18] MEDS ORDERED: Omnipaque-300 100ml vial INJ PRN (11:15)
--- NOTE | 2019-11-18 11:22 | Emergency Room Report ---
History of Present Illness General Chief Complaint: Female Urogenital Problems Source: Patient, Medical Record Present Illness HPI 84-year-old female history of dementia, CKD hypertension, G-tube, presents with dysuria hematuria x1 day no known aggravating alleviating factors, severity is mild, constant patient was seen to have hematuria with some sediment per [facility] patient is nonverbal at baseline patient presents for evaluation and treatment Allergies: Coded Allergies: NO KNOWN DRUG ALLERGIES (Unverified Allergy, Unknown, 08/31/14) COVID-19 Screening Contact w/high risk pt: No Recent Travel to affected area: No Experienced COVID-19 symptoms?: No COVID-19 Testing performed GENERAL OPHTHALMOLOGIST: No Patient History Limited by: medical condition - Dementia Past Medical History: see triage record Reviewed Nursing Documentation: PMH: Agreed; PSxH: Agreed Nursing Documentation-PMH Past Medical History: No History, Except For Hx Hypertension: Yes Hx Pacemaker: No Hx Asthma: No Hx COPD: Yes Hx Diabetes: No Hx Cancer: No Hx Gastrointestinal Problems: Yes Hx Dialysis: No Hx Neurological Problems: Yes - encephalopathy Hx Cerebrovascular Accident: No Hx Dementia: Yes Hx Alzheimer's Disease: Yes Hx Seizures: No Hx Weakness: Yes Hx Neurologic Surgery: No Review of Systems All Other Systems: limited - Dementia Physical Exam Vital Signs Date Time Temp Pulse Resp B/P (MAP) Pulse Ox O2 Delivery O2 Flow Rate FiO2 11/18/19 11:06 98.2 81 20 115/68 (84) 97 Nasal Cannula 2.0 Sp02 EP Interpretation: reviewed, normal General Appearance: no apparent distress, alert Head: normocephalic, atraumatic Eyes: bilateral eye PERRL, bilateral eye EOMI ENT: uvula midline, moist mucus membranes Neck: supple, thyroid normal, supple/symm/no masses Respiratory: lungs clear, no respiratory distress, no retraction, no accessory muscle use Cardiovascular #1: normal peripheral pulses, regular rate, rhythm, no edema, no gallop, no murmur Gastrointestinal: non tender, soft, no guarding, no rebound Musculoskeletal: normal inspection Neurologic: alert, responsive, other - Moves all 4 extremities spontaneously Psychiatric: mood/affect normal Skin: no rash, warm/dry Medical Decision Making Diagnostic Impression: Primary Impression: Hyponatremia ER Course 84-year-old female presents with hyponatremia. Patient's sodium has decreased significantly from June 2019, patient is given a liter of NS, patient will be admitted to telemetry under Dr. Jade. For electrolyte correction Laboratory Tests Test 11/18/19 11:38 11/18/19 13:00 White Blood Count 9.7 K/UL (4.8-10.8) Red Blood Count 3.83 M/UL (4.20-5.40) L Hemoglobin 10.6 G/DL (12.0-16.0) L Hematocrit 34.6 % (37.0-47.0) L Mean Corpuscular Volume 90 FL (80-99) Mean Corpuscular Hemoglobin 27.7 PG (27.0-31.0) Mean Corpuscular Hemoglobin Concent 30.7 G/DL (32.0-36.0) L Red Cell Distribution Width 13.2 % (11.6-14.8) Platelet Count 334 K/UL (150-450) Mean Platelet Volume 6.5 FL (6.5-10.1) Neutrophils (%) (Auto) 71.2 % (45.0-75.0) Lymphocytes (%) (Auto) 16.7 % (20.0-45.0) L Monocytes (%) (Auto) 7.8 % (1.0-10.0) Eosinophils (%) (Auto) 2.6 % (0.0-3.0) Basophils (%) (Auto) 1.7 % (0.0-2.0) Urine Color Pale yellow Urine Appearance Clear Urine pH 6.5 (4.5-8.0) Urine Specific [place] 1.010 (1.005-1.035) Urine Protein Negative (NEGATIVE) Urine Glucose (UA) Negative (NEGATIVE) Urine Ketones Negative (NEGATIVE) Urine Blood Negative (NEGATIVE) Urine Nitrite Negative (NEGATIVE) Urine Bilirubin Negative (NEGATIVE) Urine Urobilinogen Normal MG/DL (0.0-1.0) Urine Leukocyte Esterase Negative (NEGATIVE) Sodium Level 125 MMOL/L (136-145) L 129 MMOL/L (136-145) L Potassium Level 6.0 MMOL/L (3.5-5.1) *H 5.1 MMOL/L (3.5-5.1) Chloride Level 89 MMOL/L (98-107) L 91 MMOL/L (98-107) L Carbon Dioxide Level 32 MMOL/L (21-32) 36 MMOL/L (21-32) H Anion Gap 5 mmol/L (5-15) 2 mmol/L (5-15) L Blood Urea Nitrogen 21 mg/dL (7-18) H 21 mg/dL (7-18) H Creatinine 1.0 MG/DL (0.55-1.30) 1.1 MG/DL (0.55-1.30) Estimated Glomerular Filtration Rate > 60 mL/min (>60) 57.4 mL/min (>60) Glucose Level 186 MG/DL (74-106) H 139 MG/DL (74-106) H Lactic Acid Level 2.20 mmol/L (0.4-2.0) H Pending Calcium Level 9.3 MG/DL (8.5-10.1) 9.2 MG/DL (8.5-10.1) Phosphorus Level 3.7 MG/DL (2.5-4.9) Magnesium Level 2.0 MG/DL (1.8-2.4) Total Bilirubin 0.2 MG/DL (0.2-1.0) 0.1 MG/DL (0.2-1.0) L Aspartate Amino Transferase (AST) 28 U/L (15-37) 17 U/L (15-37) Alanine Aminotransferase (ALT) 19 U/L (12-78) 19 U/L (12-78) Alkaline Phosphatase 95 U/L (46-116) 98 U/L (46-116) Creatine Kinase MB 1.1 NG/ML (0.0-3.6) Troponin I 0.000 ng/mL (0.000-0.056) Pro-B-Type Natriuretic Peptide 297 pg/mL (0-125) H Total Protein 8.5 G/DL (6.4-8.2) H 8.4 G/DL (6.4-8.2) H Albumin 3.1 G/DL (3.4-5.0) L 3.2 G/DL (3.4-5.0) L Globulin 5.4 g/dL 5.2 g/dL Albumin/Globulin Ratio 0.6 (1.0-2.7) L 0.6 (1.0-2.7) L Lipase 447 U/L (73-393) H EKG Diagnostic Results EKG Time: 11:22 EP Interpretation: NSR, rate 85, QTc 430, no acute ST elevations, normal axis Rhythm Strip Diag. Results Rhythm Strip Time: 11:36 EP Interpretation: yes Rate: 88 Rhythm: NSR, no PVC's, no ectopy Last Vital Signs Date Time Temp Pulse Resp B/P (MAP) Pulse Ox O2 Delivery O2 Flow Rate FiO2 11/18/19 11:06 98.2 81 20 115/68 (84) 97 Nasal Cannula 2.0 Disposition: ADMITTED INPATIENT Condition: Stable Joe Guerrier MD Nov 18, 2019 11:22
[2019-11-18 11:35] VITALS: BP 118/73
--- NOTE | 2019-11-18 12:00 | NUR ---
ED Nurse Note: 22 g IV started in right hand, blood collected and sent to lab along with urine specimen.
[2019-11-18 12:09] LABS: APPEARANCE,URINE CLEAR; BILIRUBIN, URINE NEGATIVE (NEGATIVE); COLOR,URINE PALE YELLOW; GLUCOSE, URINE (UA) NEGATIVE (NEGATIVE); KETONES,URINE NEGATIVE (NEGATIVE); LEUKOCYTE ESTERASE ,URINE NEGATIVE (NEGATIVE); NITRITE,URINE NEGATIVE (NEGATIVE); PH,URINE 6.5 (4.5-8.0); PROTEIN,URINE NEGATIVE (NEGATIVE); UROBILINOGEN,URINE NORMAL MG/DL (0.0-1.0)
[2019-11-18 12:12] LABS: BASOPHILS % (AUTO) 1.7 % (0.0-2.0); EOSINOPHILS % (AUTO) 2.6 % (0.0-3.0); HEMATOCRIT 34.6 % (37.0-47.0); HEMOGLOBIN 10.6 G/DL (12.0-16.0); LYMPHOCYTES % (AUTO) 16.7 % (20.0-45.0); MEAN CORPUSCULAR VOLUME 90 FL (80-99); MONOCYTES % (AUTO) 7.8 % (1.0-10.0); NEUTROPHILS % (AUTO) 71.2 % (45.0-75.0); PLATELET COUNT 334 K/UL (150-450); RED BLOOD COUNT 3.83 M/UL (4.20-5.40); RED CELL DISTRIBUTION WIDTH 13.2 % (11.6-14.8); WHITE BLOOD COUNT 9.7 K/UL (4.8-10.8)
[2019-11-18 12:54] LABS: ALANINE AMINOTRANSFERASE 19 U/L (12-78); ALBUMIN 3.1 G/DL (3.4-5.0); ALBUMIN/GLOBULIN RATIO 0.6 (1.0-2.7); ALKALINE PHOSPHATASE 95 U/L (46-116); ANION GAP 5 mmol/L (5-15); ASPARTATE AMINO TRANSFERASE 28 U/L (15-37); BILIRUBIN,TOTAL 0.2 MG/DL (0.2-1.0); BLOOD UREA NITROGEN 21 mg/dL (7-18); CALCIUM 9.3 MG/DL (8.5-10.1); CARBON DIOXIDE 32 MMOL/L (21-32); CHLORIDE 89 MMOL/L (98-107); CKMB 1.1 NG/ML (0.0-3.6); PHOSPHORUS 3.7 MG/DL (2.5-4.9); SODIUM 125 MMOL/L (136-145)
--- NOTE | 2019-11-18 13:19 | NUR ---
ED Nurse Note: blood sample for potassium level collected and sent to lab
[2019-11-18 13:35] LABS: ANION GAP 2 mmol/L (5-15); BLOOD UREA NITROGEN 21 mg/dL (7-18); CALCIUM 9.2 MG/DL (8.5-10.1); CARBON DIOXIDE 36 MMOL/L (21-32); CHLORIDE 91 MMOL/L (98-107); CREATININE 1.1 MG/DL (0.55-1.30); POTASSIUM 5.1 MMOL/L (3.5-5.1); SODIUM 129 MMOL/L (136-145)
[2019-11-18 13:40] LABS: ALANINE AMINOTRANSFERASE 19 U/L (12-78); ALBUMIN 3.2 G/DL (3.4-5.0); ALBUMIN/GLOBULIN RATIO 0.6 (1.0-2.7); ALKALINE PHOSPHATASE 98 U/L (46-116); ASPARTATE AMINO TRANSFERASE 17 U/L (15-37); BILIRUBIN,TOTAL 0.1 MG/DL (0.2-1.0)
[2019-11-18 13:44] VITALS: BP 119/77
--- NOTE | 2019-11-18 13:55 | NUR ---
ED Nurse Note: Reflex lactic acid and Covid-19 swab sent to lab.
--- NOTE | 2019-11-18 14:00 | NUR ---
ED Nurse Note: Patient resting in bed, no s/s of acute distress. Breathing even and unlabored, VSS.
--- NOTE | 2019-11-18 14:25 | Diagnostic Imaging Report ---
EXAM: CT CT Abdomen Pelvis w/Contrast INDICATION: Abdominal pain. COMPARISON: None TECHNIQUE: Axial images were obtained through the abdomen pelvis with intravenous contrast. Sagittal and coronal reformats are generated. All CT scans at this facility are performed using dose modulation techniques as appropriate to a performed exam including the following: automated exposure control with adjustment of the mA and/or kV according to patient size. RADIATION DOSE: CTDIvol: 8.7 mGy DLP: 456.6 mGy-cm Dose information generated by the CT scanner is available in PACS. FINDINGS: Mild atelectasis versus early infiltrate noted in the lung bases. The liver and spleen are homogeneous. There are gallstones at the gallbladder neck. The pancreas is unremarkable. Adrenals are normal in morphology. There are multiple bilateral renal cysts. Intrarenal stones noted at the lower pole of the left kidney. No hydronephrosis. There is a G-tube in place. Small bowel loops are nondistended. The colon is also nondistended with average amount of stool. The appendix is not visualized. There is no free fluid or free air. No pathologic adenopathy demonstrated. Bladder is empty. There is a device in the vagina perhaps for uterine prolapse. IMPRESSION: MILD ATELECTASIS VERSUS INFILTRATES IN THE LUNG BASES. GALLSTONES. LEFT INTRARENAL STONES. BILATERAL RENAL CYSTS. NO HYDRONEPHROSIS. G-TUBE IN PLACE. HYPERDENSE DEVICE NOTED IN THE VAGINA PERHAPS FOR UTERINE PROLAPSE. PLEASE CORRELATE CLINICALLY.
--- NOTE | 2019-11-18 14:30 | NUR ---
ED Nurse Note: Report given to Micaela MONK in Telemetry
--- NOTE | 2019-11-18 14:34 | NUR ---
ED Nurse Note: Dr. Jade at bedside.
--- NOTE | 2019-11-18 14:51 | Consultation ---
Consult Note Consult Note Patient is 84-year-old female resident of [facility]. She is transferred to emergency room here at [facility] with a complaint of hematuria. After initial evaluation the patient is found to have abnormal electrolytes in the form of high potassium and low sodium. The patient is being admitted for further management. Past history significant for dementia. Patient is bedbound. She has GT feeding. She had previous urinary tract infection. Medications prior to admission includes Tylenol, albuterol, Coreg, Colace, Reglan, Pepcid. Allergies none On examination the patient is afebrile. Nonverbal. Pulse rate 83. Respiratory rate 18. Blood pressure 118/70. Neck rigid to all directions Head is normocephalic Lung: Poor inspiratory efforts. Decreased breath sounds over the bases. Abdomen slightly distended. Abdomen is soft. GT tube in place. Extremities DJD changes. Laboratory data low sodium, high potassium, anemia, UA within normal limits, CT scan of the abdomen indicative of kidney stone, gallstone, basal atelectasis. Assessment/Plan Impression: High K, dehydration, hemolysis Low Na, depletional Low BP, adrenal insufficiency Hematuria/kidney stone Anemia, etiology to be identified Previous rectal bleed Previous fecal impaction Dementia Bedridden Basal atelectasis High lipase Plan: Saline hydration Kayexalate Anemia work-up Monitor electrolytes Chest x-ray Breathing treatment Per orders CT abdomen iMPRESSION: MILD ATELECTASIS VERSUS INFILTRATES IN THE LUNG BASES. GALLSTONES. LEFT INTRARENAL STONES. BILATERAL RENAL CYSTS. NO HYDRONEPHROSIS. G-TUBE IN PLACE. HYPERDENSE DEVICE NOTED IN THE VAGINA PERHAPS FOR UTERINE PROLAPSE. PLEASE CORRELATE CLINICALLY. Patient has multiple previous admissions at [facility] and including emergency room visits, and I spent an additional 36 minutes on review of medical records including prior hospital records,consult notes, progress notes, procedures ,imaging labs, hemodynamics, and other clinical documentation. Over 35 min Igor Jade MD Nov 18, 2019 14:51
[2019-11-18] MEDS ORDERED: Sodium Polystyrene Sulfonate 15gm Powder GT SCH (15:00)
[2019-11-18 16:00] VITALS: BP 156/70
[2019-11-18] MEDS: Docusate 100mg/10ml Liq GT SCH (17:54)
--- NOTE | 2019-11-18 19:33 | NUR ---
HAND-OFF: Report given to LACHO Seth.
[2019-11-18 20:00] VITALS: BP 128/72
--- NOTE | 2019-11-18 20:05 | NUR ---
NURSE NOTES: monitor car operator and leads removed and returned to kun Law All of his patient belonging were all accounted for in from of the patient. Patient confirmed he has all his belongings. Patient belongings list were signed by the patient. Addendum: 11/19/19 at 0712 by Rolo Chen RN Documented on the wrong patient.
--- NOTE | 2019-11-18 20:10 | NUR ---
NURSE NOTES: All IV's were discontinued, gauze and tape were placed over previous IV sites. No IV catheters remaining (i.e. right forearm 20g). Patient name band was also removed. Patient was safely placed on hospital wheelchair and escorted into the taxi safely. Patient in stable condition. Patient officially discharged at 200911/18/2019. Addendum: 11/19/19 at 0711 by Rolo Chen RN Documented on wrong patient.
[2019-11-18] MEDS ORDERED: Carvedilol 12.5mg tab GT SCH (21:00)
[2019-11-18] MEDS ORDERED: Carvedilol 6.25mg Tab GT SCH (21:00)
[2019-11-19] VITALS (7 sets, daily range): BP systolic 109–173; BP diastolic 50–83
--- NOTE | 2019-11-19 07:30 | NUR ---
HAND-OFF: Report given to LACHO Villatoro. Patient in stable condition, cardiac leads in place, battery container finishing hand in place, bed in locked and lowest position, bed alarm activated, normal saline running at 75 mL / hr.
--- NOTE | 2019-11-19 07:47 | NUR ---
NURSE NOTES: Left a voicemail to Dr Marin to get an order for code status and DVT prophylaxis. Awaiting for a call back.
--- NOTE | 2019-11-19 08:13 | NUR ---
NURSE NOTES: Received report from LACHO Seth. Observed pt sleeping, no s/sx of acute distress, breathing even and unlabored in 2L NC. IV site patent and asymptomatic, running IVF as ordered. Tube feeding Glucerna 1.2 running at goal of 30ml/hr. Per MD's order, Glucerna 1.5. Per night nurse, no glucerna 1.5 available. Left a message to dietary to order Glucerna 1.5, awaiting for a call back. Bed on lowest position, call light within reach. Will continue plan of care.
--- NOTE | 2019-11-19 08:24 | NUR ---
NURSE NOTES: Received a call from nutrition and stated that Glucerna 1.5 is out of stock. Per her recommendation, change the rate to 55ml/hr to meet the edita goal. Will inform Dr Marin.
--- NOTE | 2019-11-19 08:26 | NUR ---
RD ASSESSMENT & RECOMMENDATIONS SEE CARE ACTIVITY FOR COMPLETE ASSESSMENT DAILY ESTIMATED NEEDS: Needs based on Cardiac, 58kg abw 25-30 kcals/kg 6184-4069 total kcals 1-1.3 g protein/kg 58-75 g total protein 25-30 mL/kg 4266-3038 total fluid mLs NUTRITION DIAGNOSIS: Swallowing difficulty R/T dysphagia as evidenced by H/O CVA, pt is PEG dep. CURRENT TF:Glucerna 1.5 @ 30ml/hr x 24 hrs ordered ENTERAL NUTRITION RECOMMENDATIONS: Glucerna 1.2 @ 55ml/hr x24 hrs to provide 1320ml, 1584 kcal, 79g prot, 1063ml free H2O - Rec Glucerna 1.2 while Glucerna 1.5 is out of stock - Initiate Glucerna 1.2 @ 35ml/hr x 6hrs, advance 10ml q 4-6 hrs as tolerated to goal - Flush per MD. HOB over 30 degrees ------ If K cont to be elevated, rec TF change to Nepro @ goal rate of 35ml/hr x 24 hrs to provide 840ml, 1512kcal, 68g prot, 611ml free water ADDITIONAL RECOMMENDATIONS: 1) Per SNF: HT=64" and sb=070ntm (10/28/19) 2) LYTES DAILY W/ TF: monitor K, need for TF change to Nepro -> K 6.0* -> 5.1 3) Rec SSI w/ accuchecks for glycemic control ->elev BGs, A1C 7.8 on 07/24/19 .
--- NOTE | 2019-11-19 08:45 | Diagnostic Imaging Report ---
EXAM: XR Chest, 1 View CLINICAL HISTORY: COUGH TECHNIQUE: Frontal view of the chest. COMPARISON: Chest x-ray 07/26/19 FINDINGS: Lungs: Hypoventilatory lungs. Bibasilar lung atelectasis, cannot exclude developing infiltrate in the right lung base. Pleural space: Maybe a tiny left pleural effusion. No pneumothorax. Heart: Mild cardiomegaly. Mediastinum: Unremarkable. Bones/joints: Unremarkable. IMPRESSION: 1. Hypoventilatory lungs. Bibasilar lung atelectasis, cannot exclude developing infiltrate in the right lung base. 2. Maybe a tiny left pleural effusion.
[2019-11-19] MEDS: Carvedilol 12.5mg tab GT SCH ×2 (09:07→21:00)
[2019-11-19] MEDS: Docusate 100mg/10ml Liq GT SCH ×3 (09:07→17:33)
[2019-11-19] MEDS: Aspirin Baby 81mg GT SCH (09:08)
--- NOTE | 2019-11-19 09:24 | NUR ---
CASE MANAGEMENT: INITIAL REVIEW 84 YO Y BIBA FROM [facility] CC: HEMATURIA PMHx: Dementia, CKD hypertension, G-tube SI:HYPONATREMIA T 98.2 HR 81 RR 20 B/P 115/68 SATS 97% ON 2L/NC LABS: NA 125 K 6 CL 89 BUN 21 GLU 186 BNP 297 LIPASE 447 IS: NS @ 75 ML/HR COREG GT Q12H ASA GT QD CT A/P IMPRESSION: MILD ATELECTASIS VERSUS INFILTRATES IN THE LUNG BASES. GALLSTONES. LEFT INTRARENAL STONES. BILATERAL RENAL CYSTS. NO HYDRONEPHROSIS. G-TUBE IN PLACE. HYPERDENSE DEVICE NOTED IN THE VAGINA PERHAPS FOR UTERINE PROLAPSE. CXR IMPRESSION: Hypoventilatory lungs. Bibasilar lung atelectasis, cannot exclude developing infiltrate in the right lung base. Maybe a tiny left pleural effusion. PATIENT ADMITTED TO [facility] 11/18/2019 @ 1305 DCP: SNF PLAN OF CARE: Saline hydration Kayexalate Anemia work-up Monitor electrolytes Chest x-ray INTERQUAL MET
[2019-11-19 09:35] LABS: BASOPHILS % (AUTO) 1.2 % (0.0-2.0); EOSINOPHILS % (AUTO) 1.9 % (0.0-3.0); HEMATOCRIT 35.4 % (37.0-47.0); HEMOGLOBIN 10.8 G/DL (12.0-16.0); LYMPHOCYTES % (AUTO) 15.4 % (20.0-45.0); MEAN CORPUSCULAR VOLUME 91 FL (80-99); MONOCYTES % (AUTO) 6.7 % (1.0-10.0); NEUTROPHILS % (AUTO) 74.7 % (45.0-75.0); PLATELET COUNT 359 K/UL (150-450); RED BLOOD COUNT 3.92 M/UL (4.20-5.40); RED CELL DISTRIBUTION WIDTH 13.3 % (11.6-14.8); WHITE BLOOD COUNT 9.4 K/UL (4.8-10.8)
[2019-11-19 10:09] LABS: ALANINE AMINOTRANSFERASE 21 U/L (12-78); ALBUMIN 3.1 G/DL (3.4-5.0); ALBUMIN/GLOBULIN RATIO 0.6 (1.0-2.7); ALKALINE PHOSPHATASE 100 U/L (46-116); ANION GAP 5 mmol/L (5-15); ASPARTATE AMINO TRANSFERASE 23 U/L (15-37); BILIRUBIN,TOTAL 0.2 MG/DL (0.2-1.0); BLOOD UREA NITROGEN 15 mg/dL (7-18); CALCIUM 8.9 MG/DL (8.5-10.1); CARBON DIOXIDE 31 MMOL/L (21-32); CHLORIDE 92 MMOL/L (98-107); CHOLESTEROL 143 MG/DL (< 200); FERRITIN 534 NG/ML (8-388); GAMMA GLUTAMYL TRANSPEPTIDASE 27 U/L (5-85); HDL CHOLESTEROL 49 MG/DL (40-60); PHOSPHORUS 3.3 MG/DL (2.5-4.9); POTASSIUM 5.1 MMOL/L (3.5-5.1); SODIUM 128 MMOL/L (136-145); TRIGLYCERIDES 98 MG/DL (30-150)
[2019-11-19 10:34] LABS: % IRON SATURATION 16 % (15-50); IRON 37 ug/dL (50-175); TOTAL IRON BINDING CAPACITY 229 ug/dL (250-450)
[2019-11-19] MEDS ORDERED: NaCl 3% 500ml 500 ML IV SCH (13:00)
--- NOTE | 2019-11-19 13:50 | Consultation ---
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 Surgery called to evaluate and assist with care. Patient seen, patient evaluate, chart reviewed. Imaging reviewed. Allergies: Coded Allergies: NO KNOWN DRUG ALLERGIES (Unverified Allergy, Unknown, 08/31/14) COVID-19 Screening Contact w/high risk pt: Yes Recent Travel to affected area: No Experienced COVID-19 symptoms?: No Medication History Scheduled Ascorbic Acid* (Vitamin C*), 500 MG PEG DAILY, (Reported) Aspirin* (Aspirin*), 81 MG PEG DAILY, (Reported) Carvedilol (Coreg), 12.5 MG GT EVERY 12 HOURS Cephalexin (Cephalexin), 500 MG GT FOUR TIMES A DAY Docusate Sodium* (Docusate Sodium*), 100 MG PEG TWICE A DAY, (Reported) Famotidine* (Pepcid 20mg tablet*), 20 MG GT BID Ferrous Sulfate (Ferrous Sulfate), 7.5 ML GT BID, (Reported) Metoclopramide HCl (Metoclopramide HCl), 5 MG GT EVERY 6 HOURS Multivitamin With Minerals (Multivitamins With Minerals*), 1 TAB PEG DAILY, ( Reported) Discontinued Medications Acetaminophen* (Acetaminophen 325MG Tablet*), 325 MG PEG Q6H PRN for Mild Pain/ Temp > 100.5, (Reported) Discontinued Reason: Pt stopped taking med Albuterol Sulfate* (Albuterol Sulfate Hhn*), 3 ML INH Q6H PRN for Shortness of Breath, (Reported) Discontinued Reason: Pt stopped taking med Amoxicillin/Potassium Clav 875-125 Mg Tab* (Amox Tr-K Clv 875-125 Mg Tab*), 875 MG ORAL EVERY 12 HOURS Discontinued Reason: Pt stopped taking med Donepezil Hcl* (Donepezil Hcl*), 10 MG ORAL QHS, (Reported) Discontinued Reason: Pt stopped taking med Famotidine* (Pepcid 20mg tablet*), 20 MG GT DAILY, (Reported) Discontinued Reason: Medication dose changed Loperamide HCl (Loperamide), 2 MG ORAL EVERY 6 HOURS PRN for Diarrhea, (Reported ) Discontinued Reason: Pt stopped taking med Menthol/Zinc Oxide (Calmoseptine Ointment), 71 GM TP, (Reported) Discontinued Reason: Pt stopped taking med Petrolatum,White/Lanolin (Vitamin A & D Ointment), GM TP DAILY, (Reported) Discontinued Reason: Pt stopped taking med Patient History Limited by: medical condition History Provided By: Medical Record, PMD Healthcare decision maker N Resuscitation status Advanced Directive on File Past Medical/Surgical History Past Medical/Surgical History: (1) Rectal bleed (2) Fecal impaction in rectum (3) UTI (urinary tract infection) (4) Anemia (5) Purulent bronchitis (6) Dehydration (7) Aspiration pneumonia (8) Weak (9) UTI (urinary tract infection) (10) Pneumonia (11) Severe malnutrition (12) Functional quadriplegia (13) Encounter for PEG (percutaneous endoscopic gastrostomy) (14) Alzheimer's dementia (15) Malfunction of gastrostomy tube (16) Sacral decubitus ulcer, stage II (17) LLL pneumonia (18) Hyponatremia (19) Sepsis (20) SIRS (systemic inflammatory response syndrome) (21) Altered mental status (22) SIRS (systemic inflammatory response syndrome) (23) Toxic metabolic encephalopathy (24) Dementia (25) JAYCEE (acute kidney injury) (26) CKD (chronic kidney disease) stage 3, GFR 30-59 ml/min (27) Colitis (28) Colitis (29) Diarrhea (30) Sepsis (31) Clostridium difficile colitis Review of Systems Review of Symptoms General ROS: no weight loss or fever Psychological ROS: no depression or mood changes, no memory loss Ophthalmic ROS: no visual changes or eye irritation ENT ROS: no nasal congestion, hearing loss, dizziness Allergy and Immunology ROS: no allergic symptoms or urticaria Hematological and Lymphatic ROS: no swollen glands, unusual bleeding or bruising Endocrine ROS: no polyuria, polydipsia, weight changes, temperature intolerance Respiratory ROS: no cough, shortness of breath, or wheezing Cardiovascular ROS: no chest pain or dyspnea on exertion Gastrointestinal ROS: denies abdominal pain, bright red blood in stool. Musculoskeletal ROS: no myalgias or arthralgias Neurological ROS: no TIA or stroke symptoms Dermatological ROS: no new or changing skin lesions, rashes or pruritis Physical Exam Physical Exam General appearance: no distress, appears stated age Head: Normocephalic, without obvious abnormality, atraumatic Eyes: conjunctivae/corneas clear. PERRL, EOM's intact. Fundi benign Throat: Lips, mucosa, and tongue normal. Teeth and gums normal Neck: supple, symmetrical, trachea midline, no adenopathy, thyroid: not enlarged, symmetric, no tenderness/mass/nodules, no carotid bruit and no JVD Lungs: clear to auscultation bilaterally Heart: regular rate and rhythm, S1, S2 normal, no murmur, click, rub or gallop Abdomen: soft, non-tender. Bowel sounds normal. No masses, no organomegaly peg Extremities: extremities normal, atraumatic, no cyanosis or edema Pulses: 2+ and symmetric Skin: Skin color, texture, turgor normal. No rashes or lesions Neurologic: Grossly normal Last 24 Hour Vital Signs Date Time Temp Pulse Resp B/P (MAP) Pulse Ox O2 Delivery O2 Flow Rate FiO2 11/19/19 12:00 96.7 70 19 130/71 (90) 100 11/19/19 11:38 84 11/19/19 09:07 81 173/83 11/19/19 09:00 Nasal Cannula 2.0 11/19/19 07:56 98.1 81 18 173/83 (113) 96 11/19/19 07:43 83 11/19/19 04:00 98.3 91 20 147/83 (104) 100 11/19/19 04:00 86 11/19/19 01:00 97.8 100 20 128/83 (98) 98 11/19/19 00:00 83 11/19/19 00:00 97.9 87 23 139/59 (85) 97 11/18/19 23:23 85 128/72 11/18/19 21:00 Nasal Cannula 2.0 11/18/19 20:00 97.7 89 23 128/72 (90) 100 11/18/19 20:00 85 11/18/19 16:00 97.7 89 22 156/70 (98) 100 11/18/19 16:00 Nasal Cannula 2.0 11/18/19 14:48 98.4 76 19 119/77 100 Nasal Cannula Intake and Output 11/18/19 11/19/19 19:00 07:00 Intake Total 200 ml Balance 200 ml Intake Free Water 200 ml # Voids 1 Laboratory Tests Test 11/19/19 09:10 White Blood Count 9.4 K/UL (4.8-10.8) Red Blood Count 3.92 M/UL (4.20-5.40) L Hemoglobin 10.8 G/DL (12.0-16.0) L Hematocrit 35.4 % (37.0-47.0) L Mean Corpuscular Volume 91 FL (80-99) Mean Corpuscular Hemoglobin 27.5 PG (27.0-31.0) Mean Corpuscular Hemoglobin Concent 30.3 G/DL (32.0-36.0) L Red Cell Distribution Width 13.3 % (11.6-14.8) Platelet Count 359 K/UL (150-450) Mean Platelet Volume 6.6 FL (6.5-10.1) Neutrophils (%) (Auto) 74.7 % (45.0-75.0) Lymphocytes (%) (Auto) 15.4 % (20.0-45.0) L Monocytes (%) (Auto) 6.7 % (1.0-10.0) Eosinophils (%) (Auto) 1.9 % (0.0-3.0) Basophils (%) (Auto) 1.2 % (0.0-2.0) D-Dimer 0.99 mg/L FEU (0.00-0.49) H Sodium Level 128 MMOL/L (136-145) L Potassium Level 5.1 MMOL/L (3.5-5.1) Chloride Level 92 MMOL/L (98-107) L Carbon Dioxide Level 31 MMOL/L (21-32) Anion Gap 5 mmol/L (5-15) Blood Urea Nitrogen 15 mg/dL (7-18) Creatinine 1.0 MG/DL (0.55-1.30) Estimat Glomerular Filtration Rate > 60 mL/min (>60) Glucose Level 136 MG/DL (74-106) H Hemoglobin A1c 8.2 % (4.3-6.0) H Osmolality 293 mOsm/kg (297-317) L Uric Acid 4.7 MG/DL (2.6-7.2) Calcium Level 8.9 MG/DL (8.5-10.1) Phosphorus Level 3.3 MG/DL (2.5-4.9) Magnesium Level 1.8 MG/DL (1.8-2.4) Iron Level 37 ug/dL (50-175) L Total Iron Binding Capacity 229 ug/dL (250-450) L Percent Iron Saturation 16 % (15-50) Unsaturated Iron Binding 192 ug/dL (112-346) Ferritin 534 NG/ML (8-388) H Total Bilirubin 0.2 MG/DL (0.2-1.0) Gamma Glutamyl Transpeptidase 27 U/L (5-85) Aspartate Amino Transf (AST/SGOT) 23 U/L (15-37) Alanine Aminotransferase (ALT/SGPT) 21 U/L (12-78) Alkaline Phosphatase 100 U/L (46-116) Lactate Dehydrogenase 173 U/L (81-234) C-Reactive Protein, Quantitative 5.5 mg/dL (0.00-0.90) H Pro-B-Type Natriuretic Peptide 487 pg/mL (0-125) H Total Protein 8.3 G/DL (6.4-8.2) H Albumin 3.1 G/DL (3.4-5.0) L Globulin 5.2 g/dL Albumin/Globulin Ratio 0.6 (1.0-2.7) L Triglycerides Level 98 MG/DL (30-150) Cholesterol Level 143 MG/DL (< 200) LDL Cholesterol 78 mg/dL (<100) HDL Cholesterol 49 MG/DL (40-60) Cholesterol/HDL Ratio 2.9 (3.3-4.4) L Vitamin B12 Level 1392 PG/ML (193-986) H Folate 51.5 NG/ML (8.6-58.9) Thyroid Stimulating Hormone (TSH) 1.394 uiU/mL (0.358-3.740) Cortisol AM Sample Pending Microbiology Date/Time Source Procedure Growth Status 11/18/19 14:35 Rectum Received Height (Feet): 5 Height (Inches): 2.00 Weight (Pounds): 139 Medications Current Medications Medications (Trade) Dose Ordered Sig/Kimberley Route PRN Reason Start Time Stop Time Status Last Admin Dose Admin Aspirin (ASA) 81 mg DAILY GT 11/19/19 09:00 01/03/20 08:59 11/19/19 09:08 Carvedilol (Coreg) 12.5 mg EVERY 12 HOURS GT 11/19/19 09:00 12/18/19 20:59 11/19/19 09:07 Docusate Sodium (Colace) 100 mg THREE TIMES A DAY GT 11/18/19 18:00 12/18/19 17:59 11/19/19 13:07 Famotidine (Pepcid) 20 mg BID GT 11/18/19 18:00 02/16/20 17:59 11/19/19 09:07 Furosemide (Lasix) 20 mg EVERY 8 HOURS IV 11/19/19 14:00 12/19/19 13:59 Iohexol (OMNIPAQUE-300 100ml) 100 ml NOW PRN INJ Radiology Procedure 11/18/19 11:15 11/20/19 11:11 Metoclopramide HCl (Reglan) 5 mg Q6H PRN GT Nausea & Vomiting 11/18/19 14:49 12/18/19 14:48 Multivitamins (Multivitamins) 1 tab DAILY GT 11/19/19 09:00 12/19/19 08:59 11/19/19 09:07 Sodium Chloride 500 ml @ 30 mls/hr ONCE IV 11/19/19 13:00 12/19/19 12:59 11/19/19 13:07 Assessment/Plan Problem List: (1) Pancreatitis Assessment & Plan: DAILY ESTIMATED NEEDS: Needs based on Cardiac, 58kg abw 25-30 kcals/kg 3646-2814 total kcals 1-1.3 g protein/kg 58-75 g total protein 25-30 mL/kg 9917-1640 total fluid mLs NUTRITION DIAGNOSIS: Swallowing difficulty R/T dysphagia as evidenced by H/O CVA, pt is PEG dep. CURRENT TF:Glucerna 1.5 @ 30ml/hr x 24 hrs ordered ENTERAL NUTRITION RECOMMENDATIONS: Glucerna 1.2 @ 55ml/hr x24 hrs to provide 1320ml, 1584 kcal, 79g prot, 1063ml free H2O - Rec Glucerna 1.2 while Glucerna 1.5 is out of stock - Initiate Glucerna 1.2 @ 35ml/hr x 6hrs, advance 10ml q 4-6 hrs as tolerated to goal - Flush per MD. HOB over 30 degrees ------ If K cont to be elevated, rec TF change to Nepro @ goal rate of 35ml/hr x 24 hrs to provide 840ml, 1512kcal, 68g prot, 611ml free water ADDITIONAL RECOMMENDATIONS: 1) Per SNF: HT=64" and el=[id number] (10/28/19) 2) LYTES DAILY W/ TF: monitor K, need for TF change to Nepro -> K 6.0* -> 5.1 3) Rec SSI w/ accuchecks for glycemic control ->elev BGs, A1C 7.8 on 07/24/19 ICD Codes: K85.90 - Acute pancreatitis without necrosis or infection, unspecified SNOMED: 22059177 (2) Pancreatitis, acute Assessment & Plan: US ordered labs ordered possible gallstone pancreatitis or med related will follow with exam and await results thank you \\ Mild atelectasis versus early infiltrate noted in the lung bases. The liver and spleen are homogeneous. There are gallstones at the gallbladder neck. The pancreas is unremarkable. Adrenals are normal in morphology. There are multiple bilateral renal cysts. Intrarenal stones noted at the lower pole of the left kidney. No hydronephrosis. There is a G-tube in place. Small bowel loops are nondistended. The colon is also nondistended with average amount of stool. The appendix is not visualized. There is no free fluid or free air. No pathologic adenopathy demonstrated. Bladder is empty. There is a device in the vagina perhaps for uterine prolapse. IMPRESSION: MILD ATELECTASIS VERSUS INFILTRATES IN THE LUNG BASES. GALLSTONES. LEFT INTRARENAL STONES. BILATERAL RENAL CYSTS. NO HYDRONEPHROSIS. G-TUBE IN PLACE. HYPERDENSE DEVICE NOTED IN THE VAGINA PERHAPS FOR UTERINE PROLAPSE. PLEASE CORRELATE CLINICALLY. ICD Codes: K85.90 - Acute pancreatitis without necrosis or infection, unspecified SNOMED: 359191983 (3) Hyponatremia ICD Codes: E87.1 - Hypo-osmolality and hyponatremia SNOMED: 51797234 (4) Purulent bronchitis ICD Codes: J41.1 - Mucopurulent chronic bronchitis SNOMED: 67121571 (5) Dehydration ICD Codes: E86.0 - Dehydration SNOMED: 27162049 (6) Anemia ICD Codes: D64.9 - Anemia, unspecified SNOMED: 770831257 (7) Aspiration pneumonia ICD Codes: J69.0 - Pneumonitis due to inhalation of food and vomit SNOMED: 842323806 (8) Weak ICD Codes: R53.1 - Weak SNOMED: 45842299 (9) UTI (urinary tract infection) ICD Codes: N39.0 - Urinary tract infection, site not specified SNOMED: 14488652 (10) UTI (urinary tract infection) ICD Codes: N39.0 - Urinary tract infection, site not specified SNOMED: 83133969 (11) Pneumonia ICD Codes: J18.9 - Pneumonia, unspecified organism SNOMED: 681433484 (12) Severe malnutrition ICD Codes: E43 - Unspecified severe protein-calorie malnutrition SNOMED: 10176216 (13) Functional quadriplegia ICD Codes: R53.2 - Functional quadriplegia SNOMED: 975334947588328 (14) Encounter for PEG (percutaneous endoscopic gastrostomy) ICD Codes: Z43.1 - Encounter for attention to gastrostomy SNOMED: 432880463, 204245669 (15) Rectal bleed ICD Codes: K62.5 - Hemorrhage of anus and rectum SNOMED: 55569891 (16) Alzheimer's dementia ICD Codes: G30.9 - Alzheimer's disease, unspecified; F02.80 - Dementia in other diseases classified elsewhere without behavioral disturbance SNOMED: 15579844 (17) Malfunction of gastrostomy tube ICD Codes: K94.23 - Gastrostomy malfunction SNOMED: 355188659 (18) Fecal impaction in rectum ICD Codes: K56.41 - Fecal impaction SNOMED: 50982416 (19) LLL pneumonia ICD Codes: J18.9 - Pneumonia, unspecified organism SNOMED: 968698262 (20) Sacral decubitus ulcer, stage II ICD Codes: L89.152 - Pressure ulcer of sacral region, stage 2 SNOMED: 118808121, 045210486 (21) Sepsis ICD Codes: A41.9 - Sepsis SNOMED: 68102637 (22) SIRS (systemic inflammatory response syndrome) ICD Codes: A41.9 - SIRS (systemic inflammatory response syndrome) SNOMED: 845086023 (23) Altered mental status ICD Codes: R41.82 - Altered mental status, unspecified SNOMED: 176891574 (24) SIRS (systemic inflammatory response syndrome) ICD Codes: A41.9 - Sepsis, unspecified organism SNOMED: 212524167 (25) Toxic metabolic encephalopathy ICD Codes: G92 - Toxic metabolic encephalopathy SNOMED: 836056594 (26) Dementia ICD Codes: F03.90 - Dementia SNOMED: 49024588 (27) JAYCEE (acute kidney injury) ICD Codes: N17.9 - JAYCEE (acute kidney injury) SNOMED: 82516868 (28) CKD (chronic kidney disease) stage 3, GFR 30-59 ml/min ICD Codes: N18.3 - CKD (chronic kidney disease) stage 3, GFR 30-59 ml/min SNOMED: 421767593 (29) Colitis ICD Codes: K52.9 - Colitis SNOMED: 872233017 (30) Colitis ICD Codes: K52.9 - Noninfective gastroenteritis and colitis, unspecified SNOMED: 567555387 (31) Diarrhea ICD Codes: R19.7 - Diarrhea, unspecified SNOMED: 27417636 (32) Sepsis ICD Codes: A41.9 - Sepsis, unspecified organism SNOMED: 87835286 (33) Clostridium difficile colitis ICD Codes: A04.7 - Clostridium difficile colitis SNOMED: 034792967 Sadiq Rivera Nov 19, 2019 13:50
--- NOTE | 2019-11-19 14:29 | General Progress Note ---
Assessment/Plan Problem List: (1) Electrolyte imbalance Assessment & Plan: Hyperkalemia ICD Codes: E87.8 - Other disorders of electrolyte and fluid balance, not elsewhere classified SNOMED: 693553727 (2) Hyponatremia ICD Codes: E87.1 - Hypo-osmolality and hyponatremia SNOMED: 67647871 (3) Dehydration ICD Codes: E86.0 - Dehydration SNOMED: 74433024 (4) Anemia ICD Codes: D64.9 - Anemia, unspecified SNOMED: 991540873 (5) Functional quadriplegia ICD Codes: R53.2 - Functional quadriplegia SNOMED: 667837949919452 (6) Dementia ICD Codes: F03.90 - Dementia SNOMED: 36376727 (7) Kidney stone ICD Codes: N20.0 - Calculus of kidney SNOMED: 69412342 (8) Atelectasis Assessment & Plan: Basis ICD Codes: J98.11 - Atelectasis SNOMED: 15524887 Assessment/Plan: Waiting for cortisol level Adjust blood pressure medication 3% saline IV Lasix Monitor electrolytes Monitor lipase Breathing treatment Surgical evaluation GT feeding Subjective ROS Limited/Unobtainable: No Constitutional: Reports: malaise, weakness Allergies: Coded Allergies: NO KNOWN DRUG ALLERGIES (Unverified Allergy, Unknown, 08/31/14) Objective Last 24 Hour Vital Signs Date Time Temp Pulse Resp B/P (MAP) Pulse Ox O2 Delivery O2 Flow Rate FiO2 11/19/19 12:00 96.7 70 19 130/71 (90) 100 11/19/19 11:38 84 11/19/19 09:07 81 173/83 11/19/19 09:00 Nasal Cannula 2.0 11/19/19 07:56 98.1 81 18 173/83 (113) 96 11/19/19 07:43 83 11/19/19 04:00 98.3 91 20 147/83 (104) 100 11/19/19 04:00 86 11/19/19 01:00 97.8 100 20 128/83 (98) 98 11/19/19 00:00 83 11/19/19 00:00 97.9 87 23 139/59 (85) 97 11/18/19 23:23 85 128/72 11/18/19 21:00 Nasal Cannula 2.0 11/18/19 20:00 97.7 89 23 128/72 (90) 100 11/18/19 20:00 85 11/18/19 16:00 97.7 89 22 156/70 (98) 100 11/18/19 16:00 Nasal Cannula 2.0 11/18/19 14:48 98.4 76 19 119/77 100 Nasal Cannula Intake and Output 11/18/19 11/19/19 19:00 07:00 Intake Total 200 ml Balance 200 ml Intake Free Water 200 ml # Voids 1 Laboratory Tests 11/19/19 09:10: White Blood Count 9.4, Red Blood Count 3.92L, Hemoglobin 10.8L, Hematocrit 35.4L , Mean Corpuscular Volume 91, Mean Corpuscular Hemoglobin 27.5, Mean Corpuscular Hemoglobin Concent 30.3L, Red Cell Distribution Width 13.3, Platelet Count 359, Mean Platelet Volume 6.6, Neutrophils (%) (Auto) 74.7, Lymphocytes (%) (Auto) 15.4L, Monocytes (%) (Auto) 6.7, Eosinophils (%) (Auto) 1.9, Basophils (%) (Auto) 1.2, D-Dimer 0.99H, Sodium Level 128L, Potassium Level 5.1, Chloride Level 92L, Carbon Dioxide Level 31, Anion Gap 5, Blood Urea Nitrogen 15, Creatinine 1.0, Estimat Glomerular Filtration Rate > 60, Glucose Level 136H, Hemoglobin A1c 8.2H, Osmolality 293L, Uric Acid 4.7, Calcium Level 8.9, Phosphorus Level 3.3, Magnesium Level 1.8, Iron Level 37L, Total Iron Binding Capacity 229L, Percent Iron Saturation 16, Unsaturated Iron Binding 192 , Ferritin 534H, Total Bilirubin 0.2, Gamma Glutamyl Transpeptidase 27, Aspartate Amino Transf (AST/SGOT) 23, Alanine Aminotransferase (ALT/SGPT) 21, Alkaline Phosphatase 100, Lactate Dehydrogenase 173, C-Reactive Protein, Quantitative 5.5H, Pro-B-Type Natriuretic Peptide 487H, Total Protein 8.3H, Albumin 3.1L, Globulin 5.2, Albumin/Globulin Ratio 0.6L, Triglycerides Level 98 , Cholesterol Level 143, LDL Cholesterol 78, HDL Cholesterol 49, Cholesterol/ HDL Ratio 2.9L, Vitamin B12 Level 1392H, Folate 51.5, Thyroid Stimulating Hormone (TSH) 1.394, Cortisol AM Sample [Pending] Height (Feet): 5 Height (Inches): 2.00 Weight (Pounds): 139 General Appearance: no apparent distress Cardiovascular: tachycardia Respiratory/Chest: decreased breath sounds Abdomen: distended, other - PEG Igor Jade MD Nov 19, 2019 14:29
--- NOTE | 2019-11-19 15:12 | NUR ---
NURSE NOTES:WOUND CARE NOTES:Pt presented on admission with non-blanching erythema sacrum over previously injured area. Partial thickness pressure injury L heel(L)0.7cm x (W)0.6cm. [place] epithelial at base of wound. Periwound is boggy but blanchable. Partial thickness Pressure injury R heel (L)1.5cm x (W)2cm.[place] epithelial at base of wound. Periwound is boggy but blanchable. Tx. Plan:Apply [place] Skin Barrier to malleoli, R and L heels. Cover each malleoli, and each heel with Optifoam drsg. Change every 7 days and prn. Apply Moisture Barrier Paste to Sacrum. Cover with Optifoam drsg. Change every 3 days and prn. Cover Bony prominences with Optifoam drsgs as needed for prevention. Reposition at least every 2hours or as tolerated. Off-load heels with pillow. APM/SABINA mattress overlay.
--- NOTE | 2019-11-19 19:17 | NUR ---
HAND-OFF: Report given to LACHO Soares. Pt in stable condition, endorsed plan of care.
--- NOTE | 2019-11-19 19:33 | NUR ---
NURSE NOTES: RECEIVED REPORT FROM LACHO BATISTA. PATIENT ASLEEP IN BED, AROUSABLE TO VOICE AND TACTILE STIMULI ONLY. AOX0, PATIENT IS NON-VERBAL AND OPENS EYES ONLY. OPTIFOAM ON SACRAL AREA AND BILATERAL HEELS. NO S/SX OF PAIN OR DISCOMFORT NOTED AT THIS TIME. BREATHING EVEN AND UNLABORED ON 2LPM VIA NC, NO S/SX OF DISTRESS NOTED. G-TUBE PATENT WITH GLUCERNA 1.2 RUNNING AT 40ML/HR (GOAL IS 50 ML/HR). IV SITES RUTH PATENT, INTACT, ASYMPTOMATIC WITH NACL 3% RUNNING AT PRESCRIBED RATE; IV SITE ON RIGHT HAND ASYMPTOMATIC, PATENT, INTACT, AND SALINE-LOCKED. FALL AND ASPIRATION PRECAUTIONS IN PLACE. CONTACT AND DROPLET ISOLATION IMPLEMENTED. BED LOCKED AND IN LOWEST POSITION WITH SIDERAILS UP X 3. CALL LIGHT WITHIN REACH. WILL CONTINUE TO MONITOR FOR ANY CHANGES.
[2019-11-19] MEDS: Heparin 5000 units/ml inj SUBQ SCH (21:00)
--- NOTE | 2019-11-19 21:40 | NUR ---
NURSE NOTES: PATIENT NOTED WITH BLOOD-TINGED URINE- PRESCRIBED HEPARIN HELD.
--- NOTE | 2019-11-19 21:45 | NUR ---
NURSE NOTES: TUBE FEEDING RATE INCREASED TO 50ML/HR PRESCRIBED. PATIENT TOLERATING WELL.
[2019-11-20] VITALS: BP 138/76
--- NOTE | 2019-11-20 02:30 | NUR ---
NURSE NOTES: PATIENT ASLEEP IN BED, IN SUPINE POSITION WITH BILATERAL LEGS AND HEELS ELEVATED. GIVEN COMPLETE BED BATH, LINEN CHANGED. PUREWICK APPLIED. G-TUBE RESIDUAL IS 5ML AT THIS TIME. Addendum: 11/20/19 at 0410 by Fany Toribio RN WILL CONTINUE TO MONITOR FOR ANY CHANGES.
[2019-11-20 04:00] VITALS: BP 128/72
--- NOTE | 2019-11-20 06:50 | NUR ---
NURSE NOTES: REPORTED BLOOD-TINGED URINE AND SEBASTIAN SMEAR STOOL TO DR. KLINE.
--- NOTE | 2019-11-20 07:31 | NUR ---
HAND-OFF: Report given to LACHO BATISTA. PLAN OF CARE ENDORSED.
--- NOTE | 2019-11-20 07:42 | NUR ---
NURSE NOTES: Received report from LACHO Soares. Observed pt sleeping, no s/sx of acute distress, breathing even and unlabored in 2L NC. IV site patent and asymptomatic, SL. Feeding paused since 729, pt scheduled to have abdominal ultrasound today per night CN. Bed on lowest position, call light within reach. Will continue plan of care.
[2019-11-20 08:00] VITALS: BP 129/75
--- NOTE | 2019-11-20 08:20 | General Progress Note ---
Assessment/Plan Problem List: (1) Electrolyte imbalance Assessment & Plan: Hyperkalemia ICD Codes: E87.8 - Other disorders of electrolyte and fluid balance, not elsewhere classified SNOMED: 066667692 (2) Hyponatremia ICD Codes: E87.1 - Hypo-osmolality and hyponatremia SNOMED: 48550726 (3) Dehydration ICD Codes: E86.0 - Dehydration SNOMED: 75959241 (4) Anemia ICD Codes: D64.9 - Anemia, unspecified SNOMED: 820475375 (5) Functional quadriplegia ICD Codes: R53.2 - Functional quadriplegia SNOMED: 019931946590041 (6) Dementia ICD Codes: F03.90 - Dementia SNOMED: 16000193 (7) Kidney stone ICD Codes: N20.0 - Calculus of kidney SNOMED: 96309371 (8) Atelectasis Assessment & Plan: Basis ICD Codes: J98.11 - Atelectasis SNOMED: 42447554 Status: stable Assessment/Plan: November 19: Today's labs pending. RN supports hematuria. Will check UA and culture and sensitivity. Will stop subcu heparin. Will start antibiotics pending cultures. Continue per surgical advice. Further plans per today's lab results when available. Waiting for cortisol level Adjust blood pressure medication 3% saline IV Lasix Monitor electrolytes Monitor lipase Breathing treatment Surgical evaluation GT feeding Subjective ROS Limited/Unobtainable: No Constitutional: Reports: malaise Allergies: Coded Allergies: NO KNOWN DRUG ALLERGIES (Unverified Allergy, Unknown, 08/31/14) Objective Last 24 Hour Vital Signs Date Time Temp Pulse Resp B/P (MAP) Pulse Ox O2 Delivery O2 Flow Rate FiO2 11/20/19 08:00 98.2 96 20 129/75 (93) 99 11/20/19 04:00 98.1 97 22 128/72 (90) 100 11/20/19 04:00 96 11/20/19 00:00 98.6 87 22 138/76 (96) 98 11/20/19 00:00 90 11/19/19 21:00 Nasal Cannula 2.0 11/19/19 21:00 90 144/73 11/19/19 20:00 90 11/19/19 20:00 96.8 89 20 144/73 (96) 100 11/19/19 16:00 97.7 89 19 109/50 (69) 96 11/19/19 15:44 92 11/19/19 12:00 96.7 70 19 130/71 (90) 100 11/19/19 11:38 84 11/19/19 09:07 81 173/83 11/19/19 09:00 Nasal Cannula 2.0 Intake and Output 11/19/19 11/20/19 19:00 07:00 Intake Total 450 ml 660 ml Output Total 500 ml Balance 450 ml 160 ml Intake Free Water 30 ml Tube Feeding 450 ml 630 ml Output Urine Total 500 ml # Voids 5 Laboratory Tests 11/19/19 09:10: White Blood Count 9.4, Red Blood Count 3.92L, Hemoglobin 10.8L, Hematocrit 35.4L , Mean Corpuscular Volume 91, Mean Corpuscular Hemoglobin 27.5, Mean Corpuscular Hemoglobin Concent 30.3L, Red Cell Distribution Width 13.3, Platelet Count 359, Mean Platelet Volume 6.6, Neutrophils (%) (Auto) 74.7, Lymphocytes (%) (Auto) 15.4L, Monocytes (%) (Auto) 6.7, Eosinophils (%) (Auto) 1.9, Basophils (%) (Auto) 1.2, D-Dimer 0.99H, Sodium Level 128L, Potassium Level 5.1, Chloride Level 92L, Carbon Dioxide Level 31, Anion Gap 5, Blood Urea Nitrogen 15, Creatinine 1.0, Estimat Glomerular Filtration Rate > 60, Glucose Level 136H, Hemoglobin A1c 8.2H, Osmolality 293L, Uric Acid 4.7, Calcium Level 8.9, Phosphorus Level 3.3, Magnesium Level 1.8, Iron Level 37L, Total Iron Binding Capacity 229L, Percent Iron Saturation 16, Unsaturated Iron Binding 192 , Ferritin 534H, Total Bilirubin 0.2, Gamma Glutamyl Transpeptidase 27, Aspartate Amino Transf (AST/SGOT) 23, Alanine Aminotransferase (ALT/SGPT) 21, Alkaline Phosphatase 100, Lactate Dehydrogenase 173, C-Reactive Protein, Quantitative 5.5H, Pro-B-Type Natriuretic Peptide 487H, Total Protein 8.3H, Albumin 3.1L, Globulin 5.2, Albumin/Globulin Ratio 0.6L, Triglycerides Level 98 , Cholesterol Level 143, LDL Cholesterol 78, HDL Cholesterol 49, Cholesterol/ HDL Ratio 2.9L, Vitamin B12 Level 1392H, Folate 51.5, Thyroid Stimulating Hormone (TSH) 1.394, Cortisol AM Sample [Pending] Height (Feet): 5 Height (Inches): 2.00 Weight (Pounds): 139 General Appearance: no apparent distress Cardiovascular: tachycardia Respiratory/Chest: decreased breath sounds Abdomen: soft Igor Jade MD Nov 20, 2019 08:20
[2019-11-20] MEDS: Carvedilol 12.5mg tab GT SCH ×2 (08:24→20:58)
[2019-11-20] MEDS: Docusate 100mg/10ml Liq GT SCH ×3 (08:24→17:33)
[2019-11-20] MEDS: Heparin 5000 units/ml inj SUBQ SCH ×2 (08:25→21:00)
[2019-11-20] MEDS: Aspirin Baby 81mg GT SCH (08:25)
[2019-11-20 08:47] LABS: ALANINE AMINOTRANSFERASE 19 U/L (12-78); ALBUMIN 2.9 G/DL (3.4-5.0); ALBUMIN/GLOBULIN RATIO 0.7 (1.0-2.7); ALKALINE PHOSPHATASE 93 U/L (46-116); AMYLASE 79 U/L (25-115); ANION GAP 7 mmol/L (5-15); ASPARTATE AMINO TRANSFERASE 22 U/L (15-37); BILIRUBIN,TOTAL 0.1 MG/DL (0.2-1.0); BLOOD UREA NITROGEN 19 mg/dL (7-18); CALCIUM 8.4 MG/DL (8.5-10.1); CARBON DIOXIDE 30 MMOL/L (21-32); CHLORIDE 97 MMOL/L (98-107); CREATININE 1.1 MG/DL (0.55-1.30); POTASSIUM 5.1 MMOL/L (3.5-5.1); SODIUM 134 MMOL/L (136-145)
[2019-11-20 09:08] LABS: APPEARANCE,URINE SLIGHTLY CLOUDY; BILIRUBIN, URINE NEGATIVE (NEGATIVE); COLOR,URINE PALE YELLOW; GLUCOSE, URINE (UA) NEGATIVE (NEGATIVE); KETONES,URINE NEGATIVE (NEGATIVE); LEUKOCYTE ESTERASE ,URINE 3+ (NEGATIVE); NITRITE,URINE POSITIVE (NEGATIVE); PH,URINE 6 (4.5-8.0); PROTEIN,URINE 2+ (NEGATIVE); UROBILINOGEN,URINE NORMAL MG/DL (0.0-1.0)
[2019-11-20 09:18] LABS: PHOSPHORUS 3.3 MG/DL (2.5-4.9)
[2019-11-20 10:06] LABS: BASOPHILS % (AUTO) 0.7 % (0.0-2.0); EOSINOPHILS % (AUTO) 1.9 % (0.0-3.0); HEMATOCRIT 31.8 % (37.0-47.0); HEMOGLOBIN 9.7 G/DL (12.0-16.0); LYMPHOCYTES % (AUTO) 12.7 % (20.0-45.0); MEAN CORPUSCULAR VOLUME 90 FL (80-99); MONOCYTES % (AUTO) 12.5 % (1.0-10.0); NEUTROPHILS % (AUTO) 72.2 % (45.0-75.0); PLATELET COUNT 355 K/UL (150-450); RED BLOOD COUNT 3.52 M/UL (4.20-5.40); RED CELL DISTRIBUTION WIDTH 13.4 % (11.6-14.8)
[2019-11-20] MEDS ORDERED: NaCl 3% 500ml 500 ML IV ONE (11:00)
[2019-11-20 12:00] VITALS: BP 118/68
--- NOTE | 2019-11-20 13:05 | NUR ---
NURSE NOTES: Spoke with entry tech Daysi Houston. Accd to her, postpone ultrasound until covid-19 result is out.
[2019-11-20 16:00] VITALS: BP 116/66
--- NOTE | 2019-11-20 19:15 | NUR ---
NURSE NOTES: RECEIVED REPORT FROM LACHO BATISTA. PATIENT ASLEEP IN BED, AROUSABLE TO TACTILE STIMULI, OX0. NO S/SX OF PAIN OR DISCOMFORT AT THIS TIME. BREATHING IS EVEN AND UNLABORED ON 2LPM VIA NC, NO S/SX OF DISTRESS NOTED. G-TUBE PATENT, NO S/SX OF INFECTION NOTED WITH TUBE FEEDING RUNNING AT PRESCRIBED RATE; NO RESIDUAL NOTED AT THIS TIME. IV SITE ON RUTH PATENT, INTACT, ASYMPTOMATIC WITH NACL 3% RUNNING AT PRESCRIBED RATED. PUREWICK IN PLACE, SUCTIONING WELL WITH DARK YELLOW URINE. FALL AND ASPIRATION PRECAUTIONS IN PLACE. CONTACT AND DROPLET PRECAUTIONS IMPLEMENTED. BED LOCKED AND IN LOWEST POSITION WITH SIDERAILS UP X 3. CALL LIGHT WITHIN REACH. WILL CONTINUE TO MONITOR FOR ANY CHANGES.
--- NOTE | 2019-11-20 19:28 | NUR ---
HAND-OFF: Report given to LACHO Soares. Pt in stable condition. Endorsed plan of care.
[2019-11-20 20:00] VITALS: BP 124/68
--- NOTE | 2019-11-20 20:21 | Surgery Progress Note ---
Surgery Progress Note Subjective Additional Comments improved no n/v/fc labs noted exam stable Objective Last 24 Hour Vital Signs Date Time Temp Pulse Resp B/P (MAP) Pulse Ox O2 Delivery O2 Flow Rate FiO2 11/20/19 16:00 99.9 93 20 116/66 (83) 98 11/20/19 15:19 94 11/20/19 12:00 96.8 89 19 118/68 (85) 100 11/20/19 11:41 93 11/20/19 09:00 Nasal Cannula 2.0 11/20/19 08:24 96 129/75 11/20/19 08:00 98.2 96 20 129/75 (93) 99 11/20/19 07:31 96 11/20/19 04:00 98.1 97 22 128/72 (90) 100 11/20/19 04:00 96 11/20/19 00:00 98.6 87 22 138/76 (96) 98 11/20/19 00:00 90 11/19/19 21:00 Nasal Cannula 2.0 11/19/19 21:00 90 144/73 I&O Intake and Output 11/19/19 11/20/19 19:00 07:00 Intake Total 450 ml 760 ml Output Total 500 ml Balance 450 ml 260 ml Intake Free Water 30 ml Tube Feeding 450 ml 730 ml Output Urine Total 500 ml # Voids 5 Dressing: other Wound: other Drains: other Cardiovascular: RSR Respiratory: decreased breath sounds Abdomen: soft, non-tender, present bowel sounds Extremities: no cyanosis Laboratory Tests Test 11/20/19 07:20 11/20/19 08:46 11/20/19 09:40 Sodium Level 134 MMOL/L (136-145) L Potassium Level 5.1 MMOL/L (3.5-5.1) Chloride Level 97 MMOL/L (98-107) L Carbon Dioxide Level 30 MMOL/L (21-32) Anion Gap 7 mmol/L (5-15) Blood Urea Nitrogen 19 mg/dL (7-18) H Creatinine 1.1 MG/DL (0.55-1.30) Estimat Glomerular Filtration Rate 57.4 mL/min (>60) Glucose Level 153 MG/DL (74-106) H Uric Acid 5.5 MG/DL (2.6-7.2) Calcium Level 8.4 MG/DL (8.5-10.1) L Phosphorus Level 3.3 MG/DL (2.5-4.9) Magnesium Level 1.7 MG/DL (1.8-2.4) L Total Bilirubin 0.1 MG/DL (0.2-1.0) L Aspartate Amino Transf (AST/SGOT) 22 U/L (15-37) Alanine Aminotransferase (ALT/SGPT) 19 U/L (12-78) Alkaline Phosphatase 93 U/L (46-116) C-Reactive Protein, Quantitative 7.1 mg/dL (0.00-0.90) H Pro-B-Type Natriuretic Peptide 416 pg/mL (0-125) H Total Protein 7.3 G/DL (6.4-8.2) Albumin 2.9 G/DL (3.4-5.0) L Globulin 4.4 g/dL Albumin/Globulin Ratio 0.7 (1.0-2.7) L Amylase Level 79 U/L (25-115) Lipase 337 U/L (73-393) Urine Color Pale yellow Urine Appearance Slightly cloudy Urine pH 6 (4.5-8.0) Urine Specific [place] 1.005 (1.005-1.035) Urine Protein 2+ (NEGATIVE) H Urine Glucose (UA) Negative (NEGATIVE) Urine Ketones Negative (NEGATIVE) Urine Blood 5+ (NEGATIVE) H Urine Nitrite Positive (NEGATIVE) H Urine Bilirubin Negative (NEGATIVE) Urine Urobilinogen Normal MG/DL (0.0-1.0) Urine Leukocyte Esterase 3+ (NEGATIVE) H Urine RBC 60-80 /HPF (0 - 2) H Urine WBC 60-80 /HPF (0 - 2) H Urine Squamous Epithelial Cells Few /LPF (NONE/OCC) Urine Bacteria Many /HPF (NONE) H White Blood Count 11.0 K/UL (4.8-10.8) H Red Blood Count 3.52 M/UL (4.20-5.40) L Hemoglobin 9.7 G/DL (12.0-16.0) L Hematocrit 31.8 % (37.0-47.0) L Mean Corpuscular Volume 90 FL (80-99) Mean Corpuscular Hemoglobin 27.5 PG (27.0-31.0) Mean Corpuscular Hemoglobin Concent 30.5 G/DL (32.0-36.0) L Red Cell Distribution Width 13.4 % (11.6-14.8) Platelet Count 355 K/UL (150-450) Mean Platelet Volume 6.7 FL (6.5-10.1) Neutrophils (%) (Auto) 72.2 % (45.0-75.0) Lymphocytes (%) (Auto) 12.7 % (20.0-45.0) L Monocytes (%) (Auto) 12.5 % (1.0-10.0) H Eosinophils (%) (Auto) 1.9 % (0.0-3.0) Basophils (%) (Auto) 0.7 % (0.0-2.0) Erythrocyte Sedimentation Rate 81 MM/HR (0-30) H Prothrombin Time 11.5 SEC (9.30-11.50) Prothromb Time International Ratio 1.0 (0.9-1.1) Activated Partial Thromboplast Time 32 SEC (23-33) Plan Problems: (1) Pancreatitis Assessment & Plan: DAILY ESTIMATED NEEDS: Needs based on Cardiac, 58kg abw 25-30 kcals/kg 9287-9196 total kcals 1-1.3 g protein/kg 58-75 g total protein 25-30 mL/kg 9989-8477 total fluid mLs NUTRITION DIAGNOSIS: Swallowing difficulty R/T dysphagia as evidenced by H/O CVA, pt is PEG dep. CURRENT TF:Glucerna 1.5 @ 30ml/hr x 24 hrs ordered ENTERAL NUTRITION RECOMMENDATIONS: Glucerna 1.2 @ 55ml/hr x24 hrs to provide 1320ml, 1584 kcal, 79g prot, 1063ml free H2O - Rec Glucerna 1.2 while Glucerna 1.5 is out of stock - Initiate Glucerna 1.2 @ 35ml/hr x 6hrs, advance 10ml q 4-6 hrs as tolerated to goal - Flush per MD. HOB over 30 degrees ------ If K cont to be elevated, rec TF change to Nepro @ goal rate of 35ml/hr x 24 hrs to provide 840ml, 1512kcal, 68g prot, 611ml free water ADDITIONAL RECOMMENDATIONS: 1) Per SNF: HT=64" and bn=559yqt (10/28/19) 2) LYTES DAILY W/ TF: monitor K, need for TF change to Nepro -> K 6.0* -> 5.1 3) Rec SSI w/ accuchecks for glycemic control ->elev BGs, A1C 7.8 on 07/24/19 (2) Pancreatitis, acute Assessment & Plan: US ordered labs ordered possible gallstone pancreatitis or med related will follow with exam and await results thank you \\ Mild atelectasis versus early infiltrate noted in the lung bases. The liver and spleen are homogeneous. There are gallstones at the gallbladder neck. The pancreas is unremarkable. Adrenals are normal in morphology. There are multiple bilateral renal cysts. Intrarenal stones noted at the lower pole of the left kidney. No hydronephrosis. There is a G-tube in place. Small bowel loops are nondistended. The colon is also nondistended with average amount of stool. The appendix is not visualized. There is no free fluid or free air. No pathologic adenopathy demonstrated. Bladder is empty. There is a device in the vagina perhaps for uterine prolapse. IMPRESSION: MILD ATELECTASIS VERSUS INFILTRATES IN THE LUNG BASES. GALLSTONES. LEFT INTRARENAL STONES. BILATERAL RENAL CYSTS. NO HYDRONEPHROSIS. G-TUBE IN PLACE. HYPERDENSE DEVICE NOTED IN THE VAGINA PERHAPS FOR UTERINE PROLAPSE. PLEASE CORRELATE CLINICALLY. Exam is somewhat technically limited as patient is contracted. Gallbladder drains gallstones. No wall thickening or pericholecystic fluid. Sonographic Magallanes sign could not be assessed due to patient condition Common bile duct measures 5 mm in diameter. No intrahepatic biliary ductal dilatation. Liver demonstrates normal echogenicity, no focal abnormality. Portal vein and hepatic veins are patent. Pancreas is unremarkable. Spleen is unremarkable. Left kidney measures 10.7 cm in length. Right kidney measures 10 cm length. Both kidneys demonstrate normal echogenicity. There is no hydronephrosis. Both kidneys demonstrate cysts. A calculus is demonstrated within the left kidney. . Non-aneurysmal abdominal aorta . Impression: Somewhat limited exam Cholelithiasis, also previously reported. Negative for dilated bile ducts Left intrarenal calculus, also described on recent CT scan Incidental finding bilateral renal cysts (3) Hyponatremia (4) Purulent bronchitis (5) Dehydration (6) Anemia (7) Aspiration pneumonia (8) Weak (9) UTI (urinary tract infection) (10) UTI (urinary tract infection) (11) Pneumonia (12) Severe malnutrition (13) Functional quadriplegia (14) Encounter for PEG (percutaneous endoscopic gastrostomy) (15) Rectal bleed (16) Alzheimer's dementia (17) Malfunction of gastrostomy tube (18) Fecal impaction in rectum (19) LLL pneumonia (20) Sacral decubitus ulcer, stage II (21) Sepsis (22) SIRS (systemic inflammatory response syndrome) (23) Altered mental status (24) SIRS (systemic inflammatory response syndrome) (25) Toxic metabolic encephalopathy (26) Dementia (27) JAYCEE (acute kidney injury) (28) CKD (chronic kidney disease) stage 3, GFR 30-59 ml/min (29) Colitis (30) Colitis (31) Diarrhea (32) Sepsis (33) Clostridium difficile colitis Sadiq Rivera Nov 20, 2019 20:21
--- NOTE | 2019-11-20 23:00 | NUR ---
NURSE NOTES: PATIENT ASLEEP IN BED, APPEARS TO BE COMFORTABLE WITH NO VISIBLE SIGNS OF PAIN OR DISCOMFORT. IV ITE ON RUTH PATENT, INTACT, ASYMPTOMATIC WITH NACL 3% RUNNING AT PRESCRIBED RATE. PUREWICK IN PLACE. BED LOCKED AND IN LOWEST POSITION WITH SIDERAILS UP X 3. CALL LIGHT WITHIN REACH. WILL CONTINUE TO MONITOR FOR ANY CHANGES.
[2019-11-21] VITALS: BP 127/65
--- NOTE | 2019-11-21 00:15 | NUR ---
NURSE NOTES: TURNED FEEDING OFF AT 0000 IN PREPARATION FOR U/S ABD ORDERED.
--- NOTE | 2019-11-21 01:00 | NUR ---
NURSE NOTES: PATIENT ASLEEP IN BED, APPEARS TO BE COMFORTABLE WITH NO ACUTE SIGNS OF DISTRESS. NO S/SX OF PAIN OR DISCOMFORT NOTED. IV SITE RUTH PATENT, ASYMPTOMATIC, INTACT WITH NACL 3% RUNNING AT PRESCRIBED RATE. BED LOCKED AND IN LOWEST POSITION WITH SIDERAILS UP X 3. CALL LIGHT WITHIN REACH. WILL CONTINUE TO MONITOR FOR ANY CHANGES.
[2019-11-21 04:00] VITALS: BP 121/60
--- NOTE | 2019-11-21 07:30 | NUR ---
NURSE NOTES: Received pt from LACHO Soares, Pt is sleeping, pt has NC 2LMP, Pt has intact iv access RUTH 20G SL. Pt is NPO due to abd US. Dr Jade is aware about covid result is negative, waiting to call back. all needs attended, bed is locked and is in the lowest position, call light within easy reach. will continue to monitor.
--- NOTE | 2019-11-21 07:34 | NUR ---
HAND-OFF: Report given to LACHO OLSON. PATIENT IN STABLE CONDITION. INFORMED NURSE FEEDING IS BEING HELD PENDING ABD U/S. PLAN OF CARE ENDORSED.
[2019-11-21 07:39] LABS: BASOPHILS % (AUTO) 1.7 % (0.0-2.0); HEMATOCRIT 34.2 % (37.0-47.0); HEMOGLOBIN 10.4 G/DL (12.0-16.0); LYMPHOCYTES % (AUTO) 15.9 % (20.0-45.0); MEAN CORPUSCULAR VOLUME 91 FL (80-99); MONOCYTES % (AUTO) 9.8 % (1.0-10.0); NEUTROPHILS % (AUTO) 70.6 % (45.0-75.0); PLATELET COUNT 350 K/UL (150-450); RED BLOOD COUNT 3.74 M/UL (4.20-5.40); RED CELL DISTRIBUTION WIDTH 13.7 % (11.6-14.8); WHITE BLOOD COUNT 10.2 K/UL (4.8-10.8)
[2019-11-21 08:00] VITALS: BP 107/62
[2019-11-21 08:02] LABS: ALANINE AMINOTRANSFERASE 17 U/L (12-78); ALBUMIN 3.1 G/DL (3.4-5.0); ALBUMIN/GLOBULIN RATIO 0.6 (1.0-2.7); ALKALINE PHOSPHATASE 93 U/L (46-116); ANION GAP 5 mmol/L (5-15); ASPARTATE AMINO TRANSFERASE 20 U/L (15-37); BILIRUBIN,TOTAL 0.2 MG/DL (0.2-1.0); BLOOD UREA NITROGEN 23 mg/dL (7-18); CALCIUM 9.4 MG/DL (8.5-10.1); CARBON DIOXIDE 35 MMOL/L (21-32); CHLORIDE 100 MMOL/L (98-107); CREATININE 1.2 MG/DL (0.55-1.30); POTASSIUM 4.1 MMOL/L (3.5-5.1); SODIUM 140 MMOL/L (136-145)
[2019-11-21] MEDS: Carvedilol 12.5mg tab GT SCH (09:00)
[2019-11-21 09:20] LABS: PHOSPHORUS 3.9 MG/DL (2.5-4.9)
[2019-11-21] MEDS: Docusate 100mg/10ml Liq GT SCH ×2 (09:25→13:11)
[2019-11-21] MEDS: Aspirin Baby 81mg GT SCH (09:26)
[2019-11-21] MEDS: Heparin 5000 units/ml inj SUBQ SCH (09:32)
--- NOTE | 2019-11-21 09:46 | NUR ---
CASE MANAGEMENT:REVIEW 11/21/19 SI: HYPONATREMIA. DEHYDRATION NOW W/HEMATURIA 97.7 77 18 91/57 98% ON 2L/NC H/H-10.4/34.2 CO2+35 BUN+23 IS: IV LASIX Q8HRS ASA GT QD COREG GT Q12 PEPCID GT BID : TELEMETRY STATUS DCP: FROM [facility] SN[facility] PLAN: DC HEPARIN URINE CULTURE START IV ANTIBIOTICS SURGICAL CONSULT
--- NOTE | 2019-11-21 10:17 | NUR ---
*-*DISCHARGE PLANNING*-* PATIENT HAS BEEN REFERRED TO: [facility] P: [phone]
--- NOTE | 2019-11-21 10:20 | General Progress Note ---
Assessment/Plan Problem List: (1) Electrolyte imbalance Assessment & Plan: Hyperkalemia ICD Codes: E87.8 - Other disorders of electrolyte and fluid balance, not elsewhere classified SNOMED: 874239107 (2) Hyponatremia ICD Codes: E87.1 - Hypo-osmolality and hyponatremia SNOMED: 42565563 (3) Dehydration ICD Codes: E86.0 - Dehydration SNOMED: 80965409 (4) Anemia ICD Codes: D64.9 - Anemia, unspecified SNOMED: 732114579 (5) Functional quadriplegia ICD Codes: R53.2 - Functional quadriplegia SNOMED: 131173916704554 (6) Dementia ICD Codes: F03.90 - Dementia SNOMED: 64921368 (7) Kidney stone ICD Codes: N20.0 - Calculus of kidney SNOMED: 79818172 (8) Atelectasis Assessment & Plan: Basis ICD Codes: J98.11 - Atelectasis SNOMED: 09589553 (9) UTI (urinary tract infection) ICD Codes: N39.0 - Urinary tract infection, site not specified SNOMED: 58765527 Status: stable Assessment/Plan: November 20: Lab reviewed. Patient examined. Not in any distress. Afebrile. Vital signs stable. GT feeding gone. Urine culture over 100,000 gram-negative' s. No leukocytosis. Will discharge back to the alf. Will give 1 g Rocephin now and 5 days of cephalexin through GT. Patient is COVID negative. Discussed with case management. Abnormal electrolyte is not fully corrected. November 19: Today's labs pending. RN supports hematuria. Will check UA and culture and sensitivity. Will stop subcu heparin. Will start antibiotics pending cultures. Continue per surgical advice. Further plans per today's lab results when available. Waiting for cortisol level Adjust blood pressure medication 3% saline IV Lasix Monitor electrolytes Monitor lipase Breathing treatment Surgical evaluation GT feeding Subjective ROS Limited/Unobtainable: No Constitutional: Reports: malaise Allergies: Coded Allergies: NO KNOWN DRUG ALLERGIES (Unverified Allergy, Unknown, 08/31/14) Objective Last 24 Hour Vital Signs Date Time Temp Pulse Resp B/P (MAP) Pulse Ox O2 Delivery O2 Flow Rate FiO2 11/21/19 09:00 70 91/57 11/21/19 09:00 Nasal Cannula 2.0 11/21/19 08:00 97.7 77 18 107/62 (77) 98 11/21/19 07:33 88 11/21/19 04:00 98.8 93 18 121/60 (80) 97 11/21/19 04:00 92 11/21/19 00:00 96 11/21/19 00:00 98.8 96 16 127/65 (85) 99 11/20/19 21:00 Nasal Cannula 2.0 11/20/19 20:58 94 124/68 11/20/19 20:00 92 11/20/19 20:00 98.6 94 16 124/68 (86) 99 11/20/19 16:00 99.9 93 20 116/66 (83) 98 11/20/19 15:19 94 11/20/19 12:00 96.8 89 19 118/68 (85) 100 11/20/19 11:41 93 Intake and Output 11/20/19 11/21/19 19:00 07:00 Intake Total 150 ml Output Total 1200 ml 1400 ml Balance -1050 ml -1400 ml Tube Feeding 150 ml Output Urine Total 1200 ml 1400 ml # Voids 3 1 # Bowel Movements 1 Current Medications Medications (Trade) Dose Ordered Sig/Kimberley Route PRN Reason Start Time Stop Time Status Last Admin Dose Admin Aspirin (ASA) 81 mg DAILY GT 11/19/19 09:00 01/03/20 08:59 11/21/19 09:26 Carvedilol (Coreg) 12.5 mg EVERY 12 HOURS GT 11/19/19 09:00 12/18/19 20:59 11/20/19 20:58 Ceftriaxone Sodium 1 gm/ Dextrose 55 ml @ 110 mls/hr ONCE ONCE IVPB 11/21/19 10:15 11/21/19 10:44 UNV Docusate Sodium (Colace) 100 mg THREE TIMES A DAY GT 11/18/19 18:00 12/18/19 17:59 11/21/19 09:25 Famotidine (Pepcid) 20 mg BID GT 11/18/19 18:00 02/16/20 17:59 11/21/19 09:26 Furosemide (Lasix) 20 mg EVERY 8 HOURS IV 11/19/19 14:00 12/19/19 13:59 11/21/19 05:41 Heparin Sodium (Porcine) (Heparin 5000 units/ml) 5,000 units EVERY 12 HOURS SUBQ 11/19/19 21:00 01/03/20 20:59 11/21/19 09:32 Metoclopramide HCl (Reglan) 5 mg Q6H PRN GT Nausea & Vomiting 11/18/19 14:49 12/18/19 14:48 Multivitamins (Multivitamins) 1 tab DAILY GT 11/19/19 09:00 12/19/19 08:59 11/21/19 09:26 Laboratory Tests 11/21/19 06:16: White Blood Count 10.2, Red Blood Count 3.74L, Hemoglobin 10.4L, Hematocrit 34.2L, Mean Corpuscular Volume 91, Mean Corpuscular Hemoglobin 27.8, Mean Corpuscular Hemoglobin Concent 30.4L, Red Cell Distribution Width 13.7, Platelet Count 350, Mean Platelet Volume 6.8, Neutrophils (%) (Auto) 70.6, Lymphocytes (%) (Auto) 15.9L, Monocytes (%) (Auto) 9.8, Eosinophils (%) (Auto) 2.0, Basophils (%) (Auto) 1.7, Sodium Level 140, Potassium Level 4.1, Chloride Level 100, Carbon Dioxide Level 35H, Anion Gap 5, Blood Urea Nitrogen 23H, Creatinine 1.2, Estimat Glomerular Filtration Rate 52.0, Glucose Level 131H, Calcium Level 9.4, Phosphorus Level 3.9, Magnesium Level 1.8, Total Bilirubin 0.2, Aspartate Amino Transf (AST/SGOT) 20, Alanine Aminotransferase (ALT/SGPT) 17, Alkaline Phosphatase 93, Total Protein 8.3H, Albumin 3.1L, Globulin 5.2, Albumin/Globulin Ratio 0.6L, Lipase 287 Height (Feet): 5 Height (Inches): 2.00 Weight (Pounds): 139 General Appearance: no apparent distress Cardiovascular: normal rate Respiratory/Chest: lungs clear Abdomen: soft Igor Jade MD Nov 21, 2019 10:20
[2019-11-21] MEDS ORDERED: FAMOTIDINE20 MG GT (10:23)
[2019-11-21] MEDS ORDERED: KEFLEX500 M1 GT (10:23)
--- NOTE | 2019-11-21 10:24 | Discharge Instructions ---
Discharge Instructions Discharge Instructions Follow up with: in ECF Special Instructions Aspiration precautions Routine skin care Call MD if temperature or change in status For Congestive Heart Failure Reminder Report to your physician any weight gain of 5 pounds or more in one week. Igor Jade MD Nov 21, 2019 10:24
--- NOTE | 2019-11-21 10:57 | NUR ---
*-*DISCHARGE PLANNED*-* PATIENT HAS BEEN ACCEPTED AND WILL BE DISCHARGED BACK TO: [facility] P: [phone] FOR NURSE TO NURSE REPORT RM# [id number] [facility]ILLED [facility] SET 1PM S/W JEOVANY [id number] S/W PATIENT DAUGHTER, BETTY KELLEY, WHO IS IN AGREEMENT WITH DISCHARGE PLAN. Addendum: 11/21/19 at 1158 by TAVARES DEAN CM *-*DISCHARGE PLANNED*-* PATIENT HAS BEEN ACCEPTED AND WILL BE DISCHARGED BACK TO: [facility] P: [phone] FOR NURSE TO NURSE REPORT RM# [id number] SKILLED [facility] SET 3pm S/W ALAN [id number] S/W PATIENT DAUGHTER, BETTY KELLEY, WHO IS IN AGREEMENT WITH DISCHARGE PLAN.
[2019-11-21] MEDS ORDERED: cefTRIAXone 1 GM in D5W 55 ML IVPB ONE (11:00)
--- NOTE | 2019-11-21 11:29 | Diagnostic Imaging Report ---
Indication: Abdominal pain Technique: Cuevas-scale and duplex images of the upper abdomen were obtained Comparison: No comparison sonograms. Reference made to 11/18/2019 CT scan Findings: Exam is somewhat technically limited as patient is contracted. Gallbladder drains gallstones. No wall thickening or pericholecystic fluid. Sonographic Magallanes sign could not be assessed due to patient condition Common bile duct measures 5 mm in diameter. No intrahepatic biliary ductal dilatation. Liver demonstrates normal echogenicity, no focal abnormality. Portal vein and hepatic veins are patent. Pancreas is unremarkable. Spleen is unremarkable. Left kidney measures 10.7 cm in length. Right kidney measures 10 cm length. Both kidneys demonstrate normal echogenicity. There is no hydronephrosis. Both kidneys demonstrate cysts. A calculus is demonstrated within the left kidney. . Non-aneurysmal abdominal aorta . Impression: Somewhat limited exam Cholelithiasis, also previously reported. Negative for dilated bile ducts Left intrarenal calculus, also described on recent CT scan Incidental finding bilateral renal cysts
[2019-11-21 12:00] VITALS: BP 112/65
--- NOTE | 2019-11-21 14:20 | NUR ---
NURSE NOTES: Pt has discharge order, all D/C assessments and instructions done, pt is stable, V/S stable, all belongings are with pt, pt's daughter Wendi Barajas is aware about D/C. Report given to SNF RN Le, endorsed plan of care, RN is aware to start cephalexin via gt. wound treatment done as order, took pictures and uploaded, waiting for ambulance to pick pt up. will continue to monitor.
--- NOTE | 2019-11-21 15:35 | NUR ---
NURSE NOTES: pt is stable, V/S stable, all belongings are with pt, iv access D/C, pt is leaving by ambulance personnel.
--- NOTE | 2019-11-21 16:02 | Surgery Progress Note ---
Surgery Progress Note Subjective Additional Comments no acute events comfortable stable labs noted exam unchanged Objective Last 24 Hour Vital Signs Date Time Temp Pulse Resp B/P (MAP) Pulse Ox O2 Delivery O2 Flow Rate FiO2 11/21/19 12:00 98.2 80 18 112/65 (81) 97 11/21/19 11:43 89 11/21/19 09:00 70 91/57 11/21/19 09:00 Nasal Cannula 2.0 11/21/19 08:00 97.7 77 18 107/62 (77) 98 11/21/19 07:33 88 11/21/19 04:00 98.8 93 18 121/60 (80) 97 11/21/19 04:00 92 11/21/19 00:00 96 11/21/19 00:00 98.8 96 16 127/65 (85) 99 11/20/19 21:00 Nasal Cannula 2.0 11/20/19 20:58 94 124/68 11/20/19 20:00 92 11/20/19 20:00 98.6 94 16 124/68 (86) 99 I&O Intake and Output 11/20/19 11/21/19 19:00 07:00 Intake Total 150 ml Output Total 1200 ml 1400 ml Balance -1050 ml -1400 ml Tube Feeding 150 ml Output Urine Total 1200 ml 1400 ml # Voids 3 1 # Bowel Movements 1 Dressing: other Wound: other Cardiovascular: RSR Respiratory: decreased breath sounds Abdomen: soft, non-tender, present bowel sounds Extremities: no tenderness, no cyanosis Laboratory Tests Test 11/21/19 06:16 White Blood Count 10.2 K/UL (4.8-10.8) Red Blood Count 3.74 M/UL (4.20-5.40) L Hemoglobin 10.4 G/DL (12.0-16.0) L Hematocrit 34.2 % (37.0-47.0) L Mean Corpuscular Volume 91 FL (80-99) Mean Corpuscular Hemoglobin 27.8 PG (27.0-31.0) Mean Corpuscular Hemoglobin Concent 30.4 G/DL (32.0-36.0) L Red Cell Distribution Width 13.7 % (11.6-14.8) Platelet Count 350 K/UL (150-450) Mean Platelet Volume 6.8 FL (6.5-10.1) Neutrophils (%) (Auto) 70.6 % (45.0-75.0) Lymphocytes (%) (Auto) 15.9 % (20.0-45.0) L Monocytes (%) (Auto) 9.8 % (1.0-10.0) Eosinophils (%) (Auto) 2.0 % (0.0-3.0) Basophils (%) (Auto) 1.7 % (0.0-2.0) Sodium Level 140 MMOL/L (136-145) Potassium Level 4.1 MMOL/L (3.5-5.1) Chloride Level 100 MMOL/L (98-107) Carbon Dioxide Level 35 MMOL/L (21-32) H Anion Gap 5 mmol/L (5-15) Blood Urea Nitrogen 23 mg/dL (7-18) H Creatinine 1.2 MG/DL (0.55-1.30) Estimat Glomerular Filtration Rate 52.0 mL/min (>60) Glucose Level 131 MG/DL (74-106) H Calcium Level 9.4 MG/DL (8.5-10.1) Phosphorus Level 3.9 MG/DL (2.5-4.9) Magnesium Level 1.8 MG/DL (1.8-2.4) Total Bilirubin 0.2 MG/DL (0.2-1.0) Aspartate Amino Transf (AST/SGOT) 20 U/L (15-37) Alanine Aminotransferase (ALT/SGPT) 17 U/L (12-78) Alkaline Phosphatase 93 U/L (46-116) Total Protein 8.3 G/DL (6.4-8.2) H Albumin 3.1 G/DL (3.4-5.0) L Globulin 5.2 g/dL Albumin/Globulin Ratio 0.6 (1.0-2.7) L Lipase 287 U/L (73-393) Plan Problems: (1) Pancreatitis Assessment & Plan: DAILY ESTIMATED NEEDS: Needs based on Cardiac, 58kg abw 25-30 kcals/kg 4824-3859 total kcals 1-1.3 g protein/kg 58-75 g total protein 25-30 mL/kg 7244-0827 total fluid mLs NUTRITION DIAGNOSIS: Swallowing difficulty R/T dysphagia as evidenced by H/O CVA, pt is PEG dep. CURRENT TF:Glucerna 1.5 @ 30ml/hr x 24 hrs ordered ENTERAL NUTRITION RECOMMENDATIONS: Glucerna 1.2 @ 55ml/hr x24 hrs to provide 1320ml, 1584 kcal, 79g prot, 1063ml free H2O - Rec Glucerna 1.2 while Glucerna 1.5 is out of stock - Initiate Glucerna 1.2 @ 35ml/hr x 6hrs, advance 10ml q 4-6 hrs as tolerated to goal - Flush per MD. HOB over 30 degrees ------ If K cont to be elevated, rec TF change to Nepro @ goal rate of 35ml/hr x 24 hrs to provide 840ml, 1512kcal, 68g prot, 611ml free water ADDITIONAL RECOMMENDATIONS: 1) Per SNF: HT=64" and tb=294lfu (10/28/19) 2) LYTES DAILY W/ TF: monitor K, need for TF change to Nepro -> K 6.0* -> 5.1 3) Rec SSI w/ accuchecks for glycemic control ->elev BGs, A1C 7.8 on 07/24/19 (2) Pancreatitis, acute Assessment & Plan: US ordered labs ordered possible gallstone pancreatitis or med related will follow with exam and await results thank you \\ Mild atelectasis versus early infiltrate noted in the lung bases. The liver and spleen are homogeneous. There are gallstones at the gallbladder neck. The pancreas is unremarkable. Adrenals are normal in morphology. There are multiple bilateral renal cysts. Intrarenal stones noted at the lower pole of the left kidney. No hydronephrosis. There is a G-tube in place. Small bowel loops are nondistended. The colon is also nondistended with average amount of stool. The appendix is not visualized. There is no free fluid or free air. No pathologic adenopathy demonstrated. Bladder is empty. There is a device in the vagina perhaps for uterine prolapse. IMPRESSION: MILD ATELECTASIS VERSUS INFILTRATES IN THE LUNG BASES. GALLSTONES. LEFT INTRARENAL STONES. BILATERAL RENAL CYSTS. NO HYDRONEPHROSIS. G-TUBE IN PLACE. HYPERDENSE DEVICE NOTED IN THE VAGINA PERHAPS FOR UTERINE PROLAPSE. PLEASE CORRELATE CLINICALLY. Exam is somewhat technically limited as patient is contracted. Gallbladder drains gallstones. No wall thickening or pericholecystic fluid. Sonographic Magallanes sign could not be assessed due to patient condition Common bile duct measures 5 mm in diameter. No intrahepatic biliary ductal dilatation. Liver demonstrates normal echogenicity, no focal abnormality. Portal vein and hepatic veins are patent. Pancreas is unremarkable. Spleen is unremarkable. Left kidney measures 10.7 cm in length. Right kidney measures 10 cm length. Both kidneys demonstrate normal echogenicity. There is no hydronephrosis. Both kidneys demonstrate cysts. A calculus is demonstrated within the left kidney. . Non-aneurysmal abdominal aorta . Impression: Somewhat limited exam Cholelithiasis, also previously reported. Negative for dilated bile ducts Left intrarenal calculus, also described on recent CT scan Incidental finding bilateral renal cysts (3) Hyponatremia (4) Purulent bronchitis (5) Dehydration (6) Anemia (7) Aspiration pneumonia (8) Weak (9) UTI (urinary tract infection) (10) UTI (urinary tract infection) (11) Pneumonia (12) Severe malnutrition (13) Functional quadriplegia (14) Encounter for PEG (percutaneous endoscopic gastrostomy) (15) Rectal bleed (16) Alzheimer's dementia (17) Malfunction of gastrostomy tube (18) Fecal impaction in rectum (19) LLL pneumonia (20) Sacral decubitus ulcer, stage II (21) Sepsis (22) SIRS (systemic inflammatory response syndrome) (23) Altered mental status (24) SIRS (systemic inflammatory response syndrome) (25) Toxic metabolic encephalopathy (26) Dementia (27) JAYCEE (acute kidney injury) (28) CKD (chronic kidney disease) stage 3, GFR 30-59 ml/min (29) Colitis (30) Colitis (31) Diarrhea (32) Sepsis (33) Clostridium difficile colitis Sadiq Rivera Nov 21, 2019 16:02
[2019-11-22] MEDS ORDERED: Cephalexin 250mg Cap GT SCH ×2 (06:00)
--- NOTE | 2019-11-22 17:04 | Discharge Summary ---
Discharge Summary Discharge Summary _ DATE OF ADMISSION: 11/18/2019 DATE OF DISCHARGE: 11/20/2019 DISCHARGED BY: Dr. Jade REASON FOR ADMISSION: 84 years old female, resident of longterm facility,with past medical history of chronic kidney disease, hypertension, dysphagia, feeding by G-tube, dementia, presented with hematuria for 1 day. Patient nonverbal at baseline and unable to provide information. Upon evaluation patient was afebrile and required supplemental oxygen via nasal cannula. Laboratory work-up revealed no leukocytosis, hemoglobin 10.6, hematocrit 34.6, platelet count 334. Urinalysis revealed no evidence of urinary tract infection. Sodium 125 , potassium 6.0, chloride 89. BUN 21, creatinine 1.0. Stable calcium , phosphorus and magnesium. Stable LFT. Lipase 447. Troponin negative, pro BNP 297. EKG revealed sinus rhythm, no acute ischemic changes. Albumin 3.1. CT of the abdomen and pelvis demonstrated mild atelectasis versus infiltrate in the lung bases. Gallstones. Left intrarenal stones. Bilateral renal cyst. No hydronephrosis. G-tube in place. Patient was swabbed for COVID-19 and subsequently admitted for further management. CONSULTANTS: surgery Dr. Rivera [facility]RSE: Patient admitted and started on IV hydration with saline solution. Patient was kept in isolation. SNF medication continued. COVID-19 was not detected. Isolation discontinued. Renal parameters and electrolytes were closely monitored. Electrolytes further corrected as needed. Patient required 3% saline along with IV Lasix to correct hyponatremia . Hyperkalemia corrected with Kayexalate. Prior to discharge potassium 4.1, sodium 140. Creatinine remained stable. Chest x-ray revealed hypoventilatory lungs. Bibasilar lung atelectasis. Supplemental oxygen provided and titrated to keep pulse oximetry above 92%. Pulmonary toilet with bronchodilator provided as needed. Aspiration precaution maintained. DVT and GI prophylaxis. Tube feeding formula with goal rate provided as per registered dietitian recommendation. Subcutaneous heparin later stopped due to hematuria. Anemia work-up revealed evidence of anemia of chronic disease. Ferritin 534. Prior to discharge hemoglobin 10.4 , hematocrit 34.2. Urine culture revealed E. coli. Patient started on antibiotic for UTI and will need to continue antibiotic at the facility to complete the course. Antihypertensive regimen was optimized to bring blood pressure under control Blood pressure stabilized and prior to discharge 112/65. Surgeon seen and evaluated patient. Subsequently abdominal ultrasound was ordered , which revealed cholelithiasis. No evidence of dilated bile ducts. Left intrarenal calculus. Lipase trended down from initial 447 down to 287. No need for acute surgical intervention as per surgeon. Bowel regimen instituted. Supportive care provided. Patient clinically stabilized and was ready for transfer back to longterm facility for continuation of care. FINAL DIAGNOSES: Electrolyte imbalance : hyponatremia , hyperkalemia-resolved Dehydration UTI E. coli Hematuria due to kidney stone Anemia Functional quadriplegia Previous rectal bleeding History of fecal impaction Dementia Basal atelectasis Elevated lipase -resolved Bedridden DISCHARGE MEDICATIONS: See Medication Reconciliation list. DISCHARGE INSTRUCTIONS: Patient was discharged to the longterm facility. Follow up with medical doctor at the facility. I have been assigned to dictate discharge summary for this account. I was not involved in the patient's management. Chen Camarillo NP Nov 22, 2019 17:04
== END 2019-11-21 16:03 | DRG 438 ==
LOC: EDBD 11:08 → EMR 11:51 → 2E 13:05 → EDBEDREQ 13:41 → 2E 11-19 16:53
DX: K85.90 Acute pancreatitis without necrosis or infection, unspecified (principal); R53.2 Functional quadriplegia; E43 Unspecified severe protein-calorie malnutrition; E87.1 Hypo-osmolality and hyponatremia; J98.11 Atelectasis; N39.0 Urinary tract infection, site not specified; A04.72 Enterocolitis due to Clostridium difficile, not specified as recurrent; Z43.1 Encounter for attention to gastrostomy; E86.0 Dehydration; J41.1 Mucopurulent chronic bronchitis; Z68.25 Body mass index [BMI] 25.0-25.9, adult; F03.90 Unspecified dementia, unspecified severity, without behavioral disturbance, psychotic disturbance, mood disturbance, and anxiety; R13.10 Dysphagia, unspecified; E87.5 Hyperkalemia; B96.20 Unspecified Escherichia coli [E. coli] as the cause of diseases classified elsewhere; I12.9 Hypertensive chronic kidney disease with stage 1 through stage 4 chronic kidney disease, or unspecified chronic kidney disease; N18.9 Chronic kidney disease, unspecified; N20.0 Calculus of kidney; D63.8 Anemia in other chronic diseases classified elsewhere
CPT/HCPCS: 36415; 71045; 74177; 76700; 80053; 80061; 81001; 81003; 82150; 82533; 82553; 82607; 82728; 82746; 82977; 83036; 83540; 83550; 83605; 83615; 83690; 83735; 83880; 83930; 83935; 84100; 84300; 84443; 84484; 84550; 85025; 85379; 85610; 85651; 85730; 86140; 87081; 87086; 87181; 93005; 96360; 99285